=== PATIENT | male | born 1960 | race Caucasian/White ===

== ENCOUNTER 2020-08-06 15:18 | Inpatient (IN) | payer OTHER, SELFPAY ==
[2020-08-06] VITALS (7 sets, daily range): BP systolic 99–135; BP diastolic 78–94; PULSE 91–145; RESP 14–23; TEMP 36.4–36.6; O2SAT 95–96; BMI 26.6
--- NOTE | ~2020-08-06 | CT_ITS ---
EXAMINATION: CT ABDOMEN AND PELVIS WITHOUT CONTRAST CLINICAL INFORMATION: Abdominal pain. Fall. Coccyx pain. COMPARISON: None TECHNIQUE: Multidetector volumetric imaging was performed from the superior aspect of the liver through the pubic symphysis. Sagittal and coronal reformatted images were obtained on the technologist's workstation. This CT examination was performed using dose optimization techniques as appropriate, variously including the following: *Automated exposure control *Adjustment of mA and/or kV according to patient size (this includes techniques or standardized protocols for targeted exams where dose is matched to indication/reason for exam; i.e. extremities or head) *Use of iterative reconstruction technique DLP: 904 mGy-cm FINDINGS: LUNG BASES: The lung bases are clear. The heart is borderline prominent. LIVER, GALLBLADDER, AND BILIARY TREE: Small size of the liver with a nodular Contour. Normal attenuation. No biliary ductal dilatation. No focal lesion. The gallbladder is contracted with no gross abnormality. PANCREAS: Unremarkable. SPLEEN: Unremarkable. ADRENAL GLANDS: Unremarkable. KIDNEYS AND URETERS: The kidneys are normal in size, shape, and attenuation. No hydronephrosis, hydroureter, or calculi seen. No perinephric stranding. BLADDER: Unremarkable. GASTROINTESTINAL TRACT: The stomach is unremarkable. There are radiopaque coils seen near the gastric body. Normal caliber small bowel. No obstruction. Colonic diverticulosis without diverticulitis. Normal appendix. No free air or free fluid. ABDOMINAL WALL: Mesh repair of the anterior abdominal wall. There is a fluid collection which is partially imaged lateral to the left hip measuring 10.9 cm in AP dimension. This has some mixed internal attenuation. LYMPH NODES: Normal. VASCULAR: Unremarkable. PELVIC VISCERA: The prostate and seminal vesicles are unremarkable. OSSEOUS STRUCTURES: No acute or suspicious osseous abnormality. Anterior wedging of the L1 vertebral body noted. This appears chronic. The sacrum and coccyx are intact. CT/CT abdomen pelvis wo con IMPRESSION: 1. Fluid collection in the superficial soft tissues lateral to the left hip. There is some mixed internal attenuation and this could represent hematoma. 2. The sacrum and coccyx appear intact. 3. Cirrhotic morphology of the liver.
--- NOTE | ~2020-08-06 | CT_ITS ---
Indication: Fall EXAMINATION: CT of the brain, CT cervical spine. DLP is [address] brain; No midline shift. No mass effect. No hemorrhage. The basilar cisterns are patent. There is atrophy and scattered areas of white matter ischemic change. 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 No fracture on the bone windows. CT cervical spine; Degenerative changes. No acute fracture or dislocation. CT/CT head/brain wo con IMPRESSION: Negative acute noncontrast CT of the brain. No fracture or dislocation of the cervical spine
--- NOTE | ~2020-08-06 | XR_ITS ---
EXAMINATION: XR CHEST CLINICAL INFORMATION: Shortness of breath COMPARISON: CT shoulder 06/20/2019 TECHNIQUE: Frontal supine view of the chest was obtained. FINDINGS: There is probable mild cardiac enlargement even allowing for the supine position. No CHF is seen. Some chronic reticular markings are present most prominent at the apices. No consolidation seen. Marked degenerative changes present in the right shoulder XR/XR chest 1V IMPRESSION: No acute intrathoracic disease.
--- NOTE | ~2020-08-06 | XR_ITS ---
EXAMINATION: XR HIP, LEFT CLINICAL INFORMATION: Left hip pain status post fall COMPARISON: None TECHNIQUE: Two views of the left hip. FINDINGS: Bones and soft tissues are unremarkable. There has been a prior mesh hernia repair in the midabdomen. No fracture. Alignment is anatomic. Hip joint space is maintained. XR/XR hip LT w [id number] IMPRESSION: No evidence of osseous fracture.
--- NOTE | ~2020-08-06 | CT_ITS ---
Indication: Fall EXAMINATION: CT of the brain, CT cervical spine. DLP is [address] brain; No midline shift. No mass effect. No hemorrhage. The basilar cisterns are patent. There is atrophy and scattered areas of white matter ischemic change. 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 No fracture on the bone windows. CT cervical spine; Degenerative changes. No acute fracture or dislocation. CT/CT cervical spine wo con IMPRESSION: Negative acute noncontrast CT of the brain. No fracture or dislocation of the cervical spine
--- NOTE | 2020-08-06 16:24 | ECG_ITS ---
Test Reason : RAPID HR Blood Pressure : / mmHG Vent. Rate : 122 BPM Atrial Rate : 156 BPM P-R Int : 000 ms QRS Dur : 094 ms QT Int : 354 ms P-R-T Axes : 000 007 085 degrees QTc Int : 504 ms Atrial fibrillation with rapid ventricular response Abnormal ECG No previous ECGs available Referred By: Matt Steven Electronically Signed By:SHREE CARPENTER MD
[2020-08-06] MEDS: LORazepam 2 MG/ML VIAL IVPUSH ×2 (16:32→19:31)
[2020-08-06] MEDS: 0.9 % Sodium Chloride 1,000 ML 999 ML IVCONT (16:32)
--- NOTE | 2020-08-06 16:39 | PC.NURSE ---
PT UPRIGHT IN BED, RR EVEN UNLABORED, SKIN WPD (W/ PSORIASIS PATCHES ALL OVER BODY), AOX3. PT'S NEIGHBOR CALLED EMS D/T PT LYING ON GROUND OUTSIDE HOUSE APPARENTLY INTOXICATED W/ ETOH BOTTLES ALL AROUND. UPON ARRIVAL PT IN AFIB RVR ON TELE 120'S-140'S, VSS OTHERWISE. PT REPORTS HX AFIB, STS HAS NOT BEEN TAKING ANY PRESCRIBED MEDICATIONS. PT C/O PAIN TO L CLAVICLE, L HIP, COCCYX S/P FALL IN SHOWER X1.5 WEEKS AGO, PT STS VERY PAINFUL ALL THE TIME AND HAVING DIFFICULTY WALKING D/T PAIN. BRUSIE NOTED TO L CALVICULAR AREA, SWELLING AND BRUSING TO L LATERAL HIP AND THIGH, NOT PITTING EDEMA TO BILAT FEET. PT INTERMITTENTLY AGGRESSIVE WITH STAFF, YELLING PROFANITIES DEMANDING TO LEAVE, THEN SWITCHING TO VERY FRIENDLY AND STATING HOW HAPPY HE IS SUCH WONDERFUL PEOPLE ARE TAKING CARE OF HIM. PT MEDICATED PER EMAR, LABS DRAWN.
[2020-08-06 16:43] LABS: MANUAL DIFF FLAG NO
[2020-08-06 16:45] LABS: Basophils Percent Auto 0.9 % (0-2); Eosinophils Absolute Auto 0.1 X10*3/uL (0.0-0.4); Eosinophils Percent Auto 1.2 % (0-4); Hematocrit 39.9 % (42-52); Hemoglobin 13.3 g/dl (14.0-18.0); Imm Gran Abs Auto 0.02 X10*3/uL (0.00-0.03); Imm Gran Pct Auto 0.5 % (0.0-0.4); Lymphocytes Absolute Auto 1.2 X10*3/uL (1.2-4.9); Lymphocytes Percent Auto 27.7 % (20-40); Mean Corpuscular HGB Conc 33.3 g/dl (31.0-36.0); Mean Corpuscular Hemoglobin 34.5 pg (27.0-33.0); Mean Corpuscular Volume 103.4 fL (80-98); Mean Platelet Volume 9.9 fL (9.4-12.4); Monocytes Absolute Auto 0.4 X10*3/uL (0.1-1.2); Monocytes Percent Auto 9.8 % (2-11); Neutrophils Absolute Auto 2.6 X10*3/uL (2.0-8.3); Neutrophils Percent Auto 59.9 % (45-73); Platelet Count 106 X10*3/uL (160-400); Red Blood Count 3.86 X10*6/uL (4.60-5.80); Red Cell Distribution Width 14.2 % (11.0-16.0); White Blood Count 4.3 X10*3/uL (4.8-10.8)
[2020-08-06 16:52] LABS: Partial Thromboplastin Time 33.3 SEC (24.1-38.0)
--- NOTE | 2020-08-06 17:11 | ED_ITS ---
HPI - Arrhythmia/Palpitations General Chief Complaint: Arrhythmia/Palpitations Stated Complaint: ETOH,FAST HR W/NO CP PER EMS Time Seen by Provider: 08/06/20 16:21 Source: EMS Mode of arrival: EMS Limitations: other (Intoxicated poor historian) History of Present Illness HPI narrative: Patient alcoholic was found in his house with alcohol bottles around him noticed to have tachycardia with heart rate of 145. Patient intoxicated, aggressive and not answering question during triage patient reports that he fell in the bathroom few days ago and has pain in the left clavicle area and left thigh, has not seen any medical attention. In the ER patient was smelling of alcohol unsteady on his feet shaky afebrile with bruise on the left clavicle area and swelling of the left thigh with tachycardia heart rate in 140 s. Patient afebrile Related Data Allergies Allergy/AdvReac Type Severity Reaction Status Date / Time No Known Allergies Allergy Verified 08/06/20 15:36 Review of Systems Review of Systems: Yes Unobtainable due to mental condition (Intoxicated non cooperative) PMFSH Past Medical History Medical History Afib Psoriasis Social History Social History Alcohol intake: current Alcohol intake frequency: 3 or more drinks per day Alcohol type: beer and hard liquor Smoking Status: Never smoker Use of substances other than those prescribed or required for medical reasons: No Advance Directives: No Advance Directives Information Provided: Yes Physical Exam Vital Signs: Vital Signs: Last Vital Signs Temp 97.6 F 08/06/20 22:14 Pulse 122 H 08/06/20 22:14 Resp 23 H 08/06/20 22:14 BP 135/94 H 08/06/20 22:14 Pulse Ox 95 08/06/20 22:14 Body Mass Index 26.6 Const: General: awake, anxious and intoxicated appearing Orientation/consciousness: oriented to person and oriented to place HENMT: Head: Yes normocephalic and Yes atraumatic Ears: hearing grossly normal bilaterally General nose exam: Normal external nose present Face and sinus: Yes normal facial exam Mouth: Normal oral and palatal mucosa p resent Eyes: General: appearance normal, both eyes and all related structures Pupils: Equal, round and reactive pupils present Neck: Neck: Yes normal visual inspection, Yes full ROM, Yes trachea midline, Yes supple and No midline deformity Chest: Chest/axillae images: 1. Ecchymosis area with tenderness Resp: Effort & Inspection: normal respiratory effort Auscultation: clear to auscultation bilaterally, no crackles, no rales, no rhonchi and no wheezes Cardio: Jugular venous distension: no JVD Palpation: normal PMI Rate: tachycardic Rhythm: regular rhythm and abnormal rhythm irregularly irregular Heart sounds: S1 normal heart sound present and S2 normal heart sound present Peripheral pulses: Peripheral pulses 2+ throughout GI: Inspection: Yes normal to inspection Palpation (GI): Soft to palpation, not firm and nontender Auscultation: normal bowel sounds : General: Yes no CVA tenderness Back/Spine/Pelvis: Back: no CVA tenderness Thoracic/Lumbar Spine: thoracic and lumbar spine normal to inspection, thoraco-lumbar spasm and No thoracic spinal tenderness Skin: Other: Psoriatic lesions all over the skin Full body images: 1. Soft tissue swelling with ecchymosis noticed Neuro: General: oriented to person, oriented to place, moves all extremities, no focal motor deficits and CN's II-XI intact bilaterally Cranial nerves: Yes Equal, round and reactive pupils present Extrem: Other: Unsteady on his feet tremors++ General: Yes full ROM and Yes pedal edema (2+) MDM - Arrhythmia/Palpitations MDM Narrative Medical decision making narrative: Patient toxic at it saying that does not have any medical problem does not know anything about atrial fibrillation EKG showed AFib with fast ventricular rate responded to 1 dose of 20 mg IV Cardizem now heart rate is less than 100 will start him on p.o. Cardizem. Had to give Ativan for his agitation and withdrawal symptoms will admit him for alcohol intoxication and rapid AFib will start him on phenobarb protocol Lab Data Attestation: I reviewed the patient's lab results. Result diagrams: 08/06/20 16:36 08/06/20 16:36 Labs: Lab Results 08/06/20 08/06/20 08/06/20 Range/Units 16:36 16:36 16:36 WBC 4.3 L (4.8-10.8) X10*3/uL RBC 3.86 L (4.60-5.80) X10*6/uL Hgb 13.3 L (14.0-18.0) g/dl Hct 39.9 L (42-52) % MCV 103.4 H (80-98) fL MCH 34.5 H (27.0-33.0) pg MCHC 33.3 (31.0-36.0) g/dl RDW 14.2 (11.0-16.0) % Plt Count 106 L (160-400) X10*3/uL MPV 9.9 (9.4-12.4) fL Immature Gran % (Auto) 0.5 H (0.0-0.4) % Neut % (Auto) 59.9 (45-73) % Lymph % (Auto) 27.7 (20-40) % [place] % (Auto) 9.8 (2-11) % Eos % (Auto) 1.2 (0-4) % Baso % (Auto) 0.9 (0-2) % Lymph # (Auto) 1.2 (1.2-4.9) X10*3/uL [place] # (Auto) 0.4 (0.1-1.2) X10*3/uL Eos # (Auto) 0.1 (0.0-0.4) X10*3/uL Baso # (Auto) 0.0 (0.0-0.2) X10*3/uL Abs Immat Gran (auto) 0.02 (0.00-0.03) X10*3/uL Absolute Neuts (auto) 2.6 (2.0-8.3) X10*3/uL Absolute Nucleated RBC 0.000 (0.0-0.012) X10*3/uL Nucleated RBC % (auto) 0.0 (0.0-0.2) /100WBC PT (10.8-13.0) SEC INR (0.9-1.1) APTT (24.1-38.0) SEC Sodium 148 H (135-145) mmol/L Potassium 3.5 (3.3-5.1) mmol/L Chloride 111 H (96-108) mmol/L Carbon Dioxide 26 (22-29) mmol/L Anion Gap 15 (12-20) BUN 9 (9-16) mg/dL Creatinine 0.71 (0.5-1.4) mg/dL Estim Creat Clear Calc 118.5 Estimated GFR > 60 Random Glucose 94 (60-115) mg/dL Calcium 8.2 L (8.4-10.2) mg/dL Magnesium (1.6-2.6) mg/dL Total Bilirubin 1.0 (0.0-1.0) mg/dL Direct Bilirubin 0.7 H (0.0-0.5) mg/dL AST 85 H (5-37) U/L ALT 51 H (0-40) U/L Alkaline Phosphatase 191 H (39-117) U/L Troponin I High Sens 8.9 (<3.5-35.0) ng/L B-Natriuretic Peptide 382 H (<100) pg/mL Total Protein 6.4 L (6.5-8.0) g/dL Albumin 3.4 L (3.5-5.0) g/dL Lipase 37 (8-78) U/L Ethyl Alcohol mg/dL COVID-19 ([facility]) (Negative) COVID-19 Clin Com 08/06/20 08/06/20 08/06/20 Range/Units 16:36 16:36 16:36 WBC (4.8-10.8) X10*3/uL RBC (4.60-5.80) X10*6/uL Hgb (14.0-18.0) g/dl Hct (42-52) % MCV (80-98) fL MCH (27.0-33.0) pg MCHC (31.0-36.0) g/dl RDW (11.0-16.0) % Plt Count (160-400) X10*3/uL MPV (9.4-12.4) fL Immature Gran % (Auto) (0.0-0.4) % Neut % (Auto) (45-73) % Lymph % (Auto) (20-40) % [place] % (Auto) (2-11) % Eos % (Auto) (0-4) % Baso % (Auto) (0-2) % Lymph # (Auto) (1.2-4.9) X10*3/uL [place] # (Auto) (0.1-1.2) X10*3/uL Eos # (Auto) (0.0-0.4) X10*3/uL Baso # (Auto) (0.0-0.2) X10*3/uL Abs Immat Gran (auto) (0.00-0.03) X10*3/uL Absolute Neuts (auto) (2.0-8.3) X10*3/uL Absolute Nucleated RBC (0.0-0.012) X10*3/uL Nucleated RBC % (auto) (0.0-0.2) /100WBC PT 12.0 (10.8-13.0) SEC INR 1.0 (0.9-1.1) APTT 33.3 (24.1-38.0) SEC Sodium (135-145) mmol/L Potassium (3.3-5.1) mmol/L Chloride (96-108) mmol/L Carbon Dioxide (22-29) mmol/L Anion Gap (12-20) BUN (9-16) mg/dL Creatinine (0.5-1.4) mg/dL Estim Creat Clear Calc Estimated GFR Random Glucose (60-115) mg/dL Calcium (8.4-10.2) mg/dL Magnesium 1.8 (1.6-2.6) mg/dL Total Bilirubin (0.0-1.0) mg/dL Direct Bilirubin (0.0-0.5) mg/dL AST (5-37) U/L ALT (0-40) U/L Alkaline Phosphatase (39-117) U/L Troponin I High Sens (<3.5-35.0) ng/L B-Natriuretic Peptide (<100) pg/mL Total Protein (6.5-8.0) g/dL Albumin (3.5-5.0) g/dL Lipase (8-78) U/L Ethyl Alcohol 372 H* mg/dL COVID-19 ([facility]) (Negative) COVID-19 Clin Com 08/06/20 Range/Units 19:38 WBC (4.8-10.8) X10*3/uL RBC (4.60-5.80) X10*6/uL Hgb (14.0-18.0) g/dl Hct (42-52) % MCV (80-98) fL MCH (27.0-33.0) pg MCHC (31.0-36.0) g/dl RDW (11.0-16.0) % Plt Count (160-400) X10*3/uL MPV (9.4-12.4) fL Immature Gran % (Auto) (0.0-0.4) % Neut % (Auto) (45-73) % Lymph % (Auto) (20-40) % [place] % (Auto) (2-11) % Eos % (Auto) (0-4) % Baso % (Auto) (0-2) % Lymph # (Auto) (1.2-4.9) X10*3/uL [place] # (Auto) (0.1-1.2) X10*3/uL Eos # (Auto) (0.0-0.4) X10*3/uL Baso # (Auto) (0.0-0.2) X10*3/uL Abs Immat Gran (auto) (0.00-0.03) X10*3/uL Absolute Neuts (auto) (2.0-8.3) X10*3/uL Absolute Nucleated RBC (0.0-0.012) X10*3/uL Nucleated RBC % (auto) (0.0-0.2) /100WBC PT (10.8-13.0) SEC INR (0.9-1.1) APTT (24.1-38.0) SEC Sodium (135-145) mmol/L Potassium (3.3-5.1) mmol/L Chloride (96-108) mmol/L Carbon Dioxide (22-29) mmol/L Anion Gap (12-20) BUN (9-16) mg/dL Creatinine (0.5-1.4) mg/dL Estim Creat Clear Calc Estimated GFR Random Glucose (60-115) mg/dL Calcium (8.4-10.2) mg/dL Magnesium (1.6-2.6) mg/dL Total Bilirubin (0.0-1.0) mg/dL Direct Bilirubin (0.0-0.5) mg/dL AST (5-37) U/L ALT (0-40) U/L Alkaline Phosphatase (39-117) U/L Troponin I High Sens (<3.5-35.0) ng/L B-Natriuretic Peptide (<100) pg/mL Total Protein (6.5-8.0) g/dL Albumin (3.5-5.0) g/dL Lipase (8-78) U/L Ethyl Alcohol mg/dL COVID-19 ([facility]) Negative (Negative) COVID-19 Clin Com See Note ECG Data Attestation: I personally reviewed and interpreted this ECG as follows: Interpretation: Atrial fibrillation with heart rate of 122 beats per minute normal axis no acute ST T wave changes impression atrial fibrillation with rapid ventricular rate
[2020-08-06 17:17] LABS: Ethanol 372 mg/dL
[2020-08-06 17:18] LABS: Magnesium 1.8 mg/dL (1.6-2.6)
[2020-08-06 17:20] LABS: Alanine Aminotransferase 51 U/L (0-40); Albumin Level 3.4 g/dL (3.5-5.0); Alkaline Phosphatase 191 U/L (39-117); Anion Gap 15 (12-20); Aspartate Amino Transferase 85 U/L (5-37); Bilirubin Direct 0.7 mg/dL (0.0-0.5); Blood Urea Nitrogen 9 mg/dL (9-16); Calcium 8.2 mg/dL (8.4-10.2); Carbon Dioxide 26 mmol/L (22-29); Chloride 111 mmol/L (96-108); Creatinine Clr Calc Pharmacy 118.5; Estimated Glomerular Filt Rate > 60; Glucose Random 94 mg/dL (60-115); Lipase 37 U/L (8-78); Potassium 3.5 mmol/L (3.3-5.1); Sodium 148 mmol/L (135-145); Total Protein 6.4 g/dL (6.5-8.0)
--- NOTE | 2020-08-06 17:20 | PC.NURSE ---
pt repeatedly attempting to get out of bed, stating he is going home, pt redirectible to bed, belonging placed in pod locker #8 to prevent pt trying to change into own clothes again. pt repeatedly pulling tele wires off chest, attempted to pull out iv x1, encouraged to not do so.
[2020-08-06 17:25] LABS: Troponin-I High Sensitivity 8.9 ng/L (<3.5-35.0)
[2020-08-06 17:43] LABS: B Type Natriuretic Peptide 382 pg/mL (<100)
--- NOTE | 2020-08-06 18:37 | PC.NURSE ---
PT R SIDE LYING IN BED SLEEPING, RR EVEN UNLABORED, NAD. PT SPO2 NOTED TO HAVE DROPPED WHILE SLEEPING TO 89%, PT PLACED ON 2L O2 NC W/ IMMEDIATE SPO2 IMPROVEMENT, PROVIDER AWARE.
[2020-08-06] MEDS: dilTIAZem HCL 50 MG/10 ML VIAL 20 MG IVPUSH (19:27)
--- NOTE | 2020-08-06 19:35 | PC.NURSE ---
Pt aaox4, slurred speech, admits to a lot of ETOH today. Pt in afib on field trainer with RVR in 140-150s. Anwer aware, ordered ativan and cardizem. Pt medicated per MAY with good effect, now in afib 80-90s. Pt resting on stretcher in NAD, breathing with ease on RA. Pt stretcher in lowest locked position, rails raised, call weiss within reach. Pt with urinal at bedside for independent use. Pt eating dinner at this time.
[2020-08-06 20:03] LABS: COVID-19 Test Negative (Negative)
[2020-08-06] MEDS: PHENobarbitaL sodium 130 MG/ML VIAL 292 MG IM (22:16)
[2020-08-06] MEDS: Aspirin 81 MG TAB.CHEW PO (22:16)
--- NOTE | 2020-08-06 23:10 | P.HPHOSP_ITS ---
History of Present Illness Date of Service: 08/06/20 Chief Complaint: Fall 59-year-old male so reassess, alcohol abuse, question AFib presented to the hospital with a chief complaint of fall. Patient reports that he fell in his shower today and has pain in his lower nebs and clavicle; mentions that he drinks alcohol intermittently; denies any seizure-like activity. Denies any headaches numbness. Denies any fever chills cough. Complains of pain in his coccyx. Denies any chest pain palpitations; Review of all other systems is negative except mentioned above ER course: Per ER team patient alcohol level was elevated; patient noted to be tachycardic- AFib, given aspirin; patient was noted to be in rapid ventricular response. Not improved with diltiazem IV push subsequently patient on diltiazem drip. Patient was also started on phenobarb protocol for possible alcohol withdrawal CT head and chest x-ray showed no acute findings. No evidence of fracture. 148; patient was given normal saline bolus. ProBNP 382 [facility] Medical History (Updated 08/20/20 @ 00:01 by Leobardo Banuelos) Afib Alcohol intoxication Alcoholic cirrhosis of liver Atrial fibrillation with rapid ventricular response Cardiomyopathy Chronic HFrEF (heart failure with reduced ejection fraction) Left against medical advice Psoriasis Social History Household Members: None Housing: Apartment Housing Other:: Elderly housing complex Do you presently have visiting nurse or other home services: Yes Alcohol intake: current Alcohol intake frequency: other Alcohol type: beer and hard liquor Smoking Status: Never smoker Second Hand Smoke Exposure: No service: No Current occupational status: disabled Meds Allergies Allergy/AdvReac Type Severity Reaction Status Date / Time No Known Allergies Allergy Verified 08/06/20 15:36 Active Medications: Current Medications Generic Name Dose Route Start Last Admin Trade Name Freq PRN Reason Stop Dose Admin Acetaminophen 650 mg 08/06/20 22:45 Acetaminophen 325 Mg Tablet PO Q6H PRN Pain, Mild (Pain Scale 1-3) Diltiazem HCl 30 mg 08/07/20 09:00 Diltiazem Hcl 30 Mg Tablet PO QID [facility] Protocol Famotidine 20 mg 08/07/20 09:00 Famotidine 20 Mg Tablet PO BID [facility] Folic Acid 1 mg 08/07/20 09:00 Folic Acid 1 Mg Tablet PO 08/10/20 08:59 DAILY [facility] Hydroxyzine HCl 25 mg 08/06/20 23:01 Hydroxyzine Hcl 25 Mg Tablet PO Q6H PRN Anxiety Diltiazem HCl 125 mg/ Sodium 125 mls @ 0 mls/hr 08/06/20 22:15 Chloride IVCONT .Q0M [facility] Protocol Per Protocol Dextrose/Sodium Chloride 1,000 mls @ 100 mls/hr 08/06/20 22:45 D51/2ns IVCONT .Q10H [facility] Medication 1 each 08/07/20 09:00 No Benzodiazepines MISCELLANE DAILY [facility] Multivitamins 1 tab 08/07/20 09:00 B-Complex With Vitamin C Tablet PO DAILY [facility] Pharmacy Consult 1 each 08/06/20 23:01 Consult Rx Etoh Phenob Dosing MISCELLANE 08/06/20 23:02 ONCE ONE Protocol Phenobarbital 45 mg 08/07/20 09:00 Phenobarbital 15 Mg Tablet PO 08/08/20 21:01 BID [facility] Phenobarbital 15 mg 08/09/20 09:00 Phenobarbital 15 Mg Tablet PO 08/10/20 21:01 BID [facility] Phenobarbital 15 mg 08/11/20 09:00 Phenobarbital 15 Mg Tablet PO 08/12/20 09:01 DAILY [facility] Phenobarbital Sodium 219 mg 08/07/20 02:00 Phenobarbital Sodium 130 Mg/Ml Vial IM 08/07/20 05:01 Q3H [facility] Sodium Chloride 3 ml 08/07/20 00:00 0.9 % Sodium Chloride Flush 3 Ml Syringe IVFLUSH QSHIFT [facility] Thiamine HCl 100 mg 08/07/20 09:00 Thiamine Hcl 100 Mg Tablet PO 08/10/20 08:59 DAILY [facility] Home Medications Medication Instructions Recorded Confirmed Last Taken Type fluocinonide 1 applic TOPICAL DAILY 08/06/20 08/14/20 Unknown History fluoxetine 1 cap PO DAILY 08/06/20 08/14/20 Unknown History lidocaine 1 appl TOPICAL DAILY 08/06/20 08/14/20 Unknown History magnesium oxide 1 tab PO DAILY 08/06/20 08/14/20 Unknown History pimecrolimus 1 appl TOPICAL BEDTIME 08/06/20 08/14/20 Unknown History Physical Exam Vital Signs and Narrative: Vital Signs: Last Vital Signs Temp 97.6 F 08/06/20 22:14 Pulse 122 H 08/06/20 22:14 Resp 23 H 08/06/20 22:14 BP 135/94 H 08/06/20 22:14 Pulse Ox 95 08/06/20 22:14 Body Mass Index 26.6 Di Gen: Appears be in no acute distress HEENT: NCAT, dry mucosa. Pulmonary: Vesicular breath sounds, fair air entry; reproducible tenderness noticed on the left clavicle CVS: Normal S1-S2 Abdomen: BS+, Soft, Nontender; scaly psoriatic rash noted on the abdominal wall and chest wall Extremities: Warm well perfused; 2+ pitting edema Neuro: Alert and awake. In in Results Labs CBC and Chem 7: 08/12/20 05:32 08/12/20 05:32 Labs: Laboratory Results - last 24 hr 08/06/20 08/06/20 08/06/20 16:36 16:36 16:36 MCV 103.4 H MCH 34.5 H MCHC 33.3 RDW 14.2 Plt Count 106 L MPV 9.9 Immature Gran % (Auto) 0.5 H Neut % (Auto) 59.9 Lymph % (Auto) 27.7 [place] % (Auto) 9.8 Eos % (Auto) 1.2 Baso % (Auto) 0.9 Lymph # (Auto) 1.2 [place] # (Auto) 0.4 Eos # (Auto) 0.1 Baso # (Auto) 0.0 Abs Immat Gran (auto) 0.02 Absolute Neuts (auto) 2.6 Absolute Nucleated RBC 0.000 Nucleated RBC % (auto) 0.0 PT INR APTT Anion Gap 15 Estim Creat Clear Calc 118.5 Estimated GFR > 60 Random Glucose 94 Calcium 8.2 L Magnesium Total Bilirubin 1.0 Direct Bilirubin 0.7 H AST 85 H ALT 51 H Alkaline Phosphatase 191 H Troponin I High Sens 8.9 B-Natriuretic Peptide 382 H Total Protein 6.4 L Albumin 3.4 L Lipase 37 Ethyl Alcohol COVID-19 ([facility]) COVID-19 Clin Com 08/06/20 08/06/20 08/06/20 16:36 16:36 16:36 MCV MCH MCHC RDW Plt Count MPV Immature Gran % (Auto) Neut % (Auto) Lymph % (Auto) [place] % (Auto) Eos % (Auto) Baso % (Auto) Lymph # (Auto) [place] # (Auto) Eos # (Auto) Baso # (Auto) Abs Immat Gran (auto) Absolute Neuts (auto) Absolute Nucleated RBC Nucleated RBC % (auto) PT 12.0 INR 1.0 APTT 33.3 Anion Gap Estim Creat Clear Calc Estimated GFR Random Glucose Calcium Magnesium 1.8 Total Bilirubin Direct Bilirubin AST ALT Alkaline Phosphatase Troponin I High Sens B-Natriuretic Peptide Total Protein Albumin Lipase Ethyl Alcohol 372 H* COVID-19 ([facility]) COVID-19 Clin Com 08/06/20 19:38 MCV MCH MCHC RDW Plt Count MPV Immature Gran % (Auto) Neut % (Auto) Lymph % (Auto) [place] % (Auto) Eos % (Auto) Baso % (Auto) Lymph # (Auto) [place] # (Auto) Eos # (Auto) Baso # (Auto) Abs Immat Gran (auto) Absolute Neuts (auto) Absolute Nucleated RBC Nucleated RBC % (auto) PT INR APTT Anion Gap Estim Creat Clear Calc Estimated GFR Random Glucose Calcium Magnesium Total Bilirubin Direct Bilirubin AST ALT Alkaline Phosphatase Troponin I High Sens B-Natriuretic Peptide Total Protein Albumin Lipase Ethyl Alcohol COVID-19 ([facility]) Negative COVID-19 Clin Com See Note Imaging Radiologist's Impressions: Impressions Cervical Spine CT 08/06/20 16:24 IMPRESSION: Negative acute noncontrast CT of the brain. No fracture or dislocation of the cervical spine Chest X-Ray 08/06/20 16:24 IMPRESSION: No acute intrathoracic disease. Head CT 08/06/20 16:24 IMPRESSION: Negative acute noncontrast CT of the brain. No fracture or dislocation of the cervical spine Hip/Pelvis X-Ray 08/06/20 16:25 IMPRESSION: No evidence of osseous fracture. Assessment and Plan (1) Afib: 59-year-old male with a past medical history of psoriasis, alcohol abuse presented to the hospital with a chief complaint of fall. Fall: Unwitnessed. Patient denies any loss of consciousness or seizure-like activity. Grossly nonfocal. CT head showed no acute findings. Fall precautions. PT/OT eventually. Patient reports left lower rib pain Jalloh pain; will obtain CT abdomen Alcohol abuse: Patient is off panel is currently elevated. Patient will monitor on phenobarb protocol. Continue thiamine folate and multivitamins. Transaminitis: Likely in setting of alcohol use. Continue to monitor liver enzymes. Will obtain acute hepatitis panel. CT abdomen pending. AFib with rapid ventricular response: Patient was given diltiazem iv in the ER. Improving. c/w p.o. diltiazem. Given aspirin in the ER. Cardiology consult for further recommendations. Will obtain echocardiogram and TSH. Hypernatremia: Likely in setting of dehydration. Repeat BMP Thrombocytopenia: Likely in the setting of alcohol use. Monitor levels . DVT prophylaxis: SCD Boots Code status: Full code in
[2020-08-06] MEDS: Dextrose 5 % and 0.45 % NaCl 1,000 ML 100 ML IVCONT (23:17)
[2020-08-07] VITALS (14 sets, daily range): BP systolic 113–159; BP diastolic 62–101; PULSE 57–113; RESP 18; TEMP 36.4–37.5; O2SAT 91–97
[2020-08-07] MEDS: PHENobarbitaL sodium 130 MG/ML VIAL 219 MG IM ×2 (02:04→05:21)
[2020-08-07 07:19] LABS: MANUAL DIFF FLAG NO
[2020-08-07 07:27] LABS: Basophils Percent Auto 0.6 % (0-2); Eosinophils Absolute Auto 0.1 X10*3/uL (0.0-0.4); Eosinophils Percent Auto 1.7 % (0-4); Hematocrit 37.5 % (42-52); Hemoglobin 12.5 g/dl (14.0-18.0); Imm Gran Abs Auto 0.02 X10*3/uL (0.00-0.03); Imm Gran Pct Auto 0.6 % (0.0-0.4); Lymphocytes Absolute Auto 0.7 X10*3/uL (1.2-4.9); Lymphocytes Percent Auto 20.6 % (20-40); Mean Corpuscular HGB Conc 33.3 g/dl (31.0-36.0); Mean Corpuscular Hemoglobin 34.2 pg (27.0-33.0); Mean Corpuscular Volume 102.5 fL (80-98); Monocytes Absolute Auto 0.4 X10*3/uL (0.1-1.2); Neutrophils Absolute Auto 2.3 X10*3/uL (2.0-8.3); Neutrophils Percent Auto 65.5 % (45-73); Red Blood Count 3.66 X10*6/uL (4.60-5.80); White Blood Count 3.4 X10*3/uL (4.8-10.8)
[2020-08-07 07:50] LABS: Mean Platelet Volume 9.8 fL (9.4-12.4); Platelet Count 78 X10*3/uL (160-400)
[2020-08-07 08:16] LABS: Anion Gap 11 (12-20); Blood Urea Nitrogen 6 mg/dL (9-16); Carbon Dioxide 28 mmol/L (22-29); Chloride 106 mmol/L (96-108); Creatinine Clr Calc Pharmacy 135.7; Estimated Glomerular Filt Rate > 60; Glucose Random 97 mg/dL (60-115); Magnesium 1.4 mg/dL (1.6-2.6); Potassium 3.1 mmol/L (3.3-5.1); Sodium 142 mmol/L (135-145)
[2020-08-07 08:35] LABS: Calcium 7.9 mg/dL (8.4-10.2)
[2020-08-07] MEDS: Potassium Chloride ER 20 MEQ TAB.ER.PRT 40 MEQ PO (08:59)
[2020-08-07] MEDS: Magnesium Sulfate/H2O 2 GM/50 ML PIGGYBACK IV (08:59)
[2020-08-07] MEDS: Famotidine 20 MG TABLET PO ×2 (09:00→19:57)
[2020-08-07] MEDS: Folic Acid 1 MG TABLET PO (09:00)
[2020-08-07] MEDS: Thiamine HCL 100 MG TABLET PO (09:00)
[2020-08-07] MEDS: dilTIAZem HCL 30 MG TABLET PO ×4 (09:00→19:58)
[2020-08-07] MEDS: FLUoxetine HCl 20 MG CAPSULE PO (09:00)
[2020-08-07] MEDS: PHENobarbitaL 15 MG TABLET 45 MG PO ×2 (09:00→19:57)
[2020-08-07] MEDS: 0.9 % Sodium Chloride Flush 3 ML SYRINGE IVFLUSH ×2 (09:44→18:12)
[2020-08-07] MEDS: Magnesium Oxide 400 MG TABLET PO ×2 (09:44→18:17)
[2020-08-07] MEDS: nadoloL 20 MG TABLET PO (10:26)
--- NOTE | 2020-08-07 11:13 | P.CONCA_ITS ---
History of Present Illness History of Present Illness Date of Service: 08/07/20 Requesting physician: Jerome Evans Consult reason: atrial fibrillation Chief complaint: Afib with RVR Narrative: We are asked to see Wei in cardiology consultation today for atrial fibrillation with rapid ventricular response. Is a 59-year-old male overall lives at home alone and says usually active, was biking until yesterday, however had progressive symptoms of pain in the lower precordial area as well as the left shoulder and came to the hospital as he had a fall in the shower about week and half ago. He was noted to be in atrial fibrillation rapid ventricular response. Initially did not response to IV Cardizem bolus and was subsequently started on IV Cardizem drip. He also has history of alcohol use however he says only drinks about 4 beers a day however his alcohol levels elevated and therefore is admitted for withdrawal symptoms and currently on alcohol withdrawal protocol. He denies of palpitations, rapid heart rate, shortness of breath, orthopnea, PND. Atrial fibrillation onset is not clearly known. He denies any prior history of atrial fibrillation. His TSH is within normal limits. Denies any recent neurologic symptoms. No prior history of stroke, diabetes, hypertension. He has psoriasis, does not see any physician actively. At home he is on nadolol, dose unknown. He is not very good historian. Review of Systems Constitutional: Constitutional: Reports no additional constitutional compl aints Cardiovascular: Cardiovascular: Reports chest pain (Reproducible in the left inframammary area), Denies rapid heart rate, Denies lightheadedness, Denies Loss of Consciousness, Denies palpitations, Denies dyspnea, Denies dyspnea on exertion and Denies orthopnea Respiratory: Respiratory: Denies cough, Denies hemoptysis, Denies dyspnea and Denies dyspnea on exertion Gastrointestinal: Gastrointestinal: Reports no additional gastrointestinal complaints Genitourinary: Genitourinary: Reports no additional male genitourinary complaints Musculoskeletal: Musculoskeletal: Reports no additional musculoskeletal complaints Neurologic: Reports system reviewed and no additional complaints, except as documented Psychiatric: Psychiatric: Reports no additional psychiatric complaints Endocrine: Endocrine: Reports no additional endocrine complaints and Denies palpitations Hematologic/Lymphatic: Hematologic/Lymphatic: Reports no additional hematologic/lymphatic complaints PMFSH Past Medical History Medical History Afib Alcoholic cirrhosis of liver Psoriasis Social History Social History Household Members: None Housing: Apartment Do you presently have visiting nurse or other home services: No Alcohol intake: current Alcohol intake frequency: 3 or more drinks per day Alcohol type: beer and hard liquor Smoking Status: Never smoker Second Hand Smoke Exposure: No Use of substances other than those prescribed or required for medical reasons: No Currently Displaying Signs/Symptoms of Drug Intoxication Withdrawal: No Any prior treatment program specific to substance use: No Have you been hit, kicked, punched, or otherwise hurt by someone within the past year? If so, by whom?: No Do you feel safe in your current relationship?: No Current Relationship Is there a partner from a previous relationship who is making you feel unsafe now?: No Are you made to feel afraid or neglected: No Advance Directives: No Advance Directives Information Provided: Yes Do you have thoughts of harming others: None Do you have a plan to hurt others: No Plan Recently lost weight without trying: Unsure Eating poorly because of decreased appetite: No Nutrition Risks: No Nutritional Risk Poor oral hygiene: No Meds Allergies Allergy/AdvReac Type Severity Reaction Status Date / Time No Known Allergies Allergy Verified 08/06/20 15:36 Active Medications: Current Medications Generic Name Dose Route Start Last Admin Trade Name Freq PRN Reason Stop Dose Admin Acetaminophen 650 mg 08/06/20 22:45 Acetaminophen 325 Mg Tablet PO Q6H PRN Pain, Mild (Pain Scale 1-3) Diltiazem HCl 30 mg 08/07/20 09:00 08/07/20 09:00 Diltiazem Hcl 30 Mg Tablet PO 30 mg QID ARMANDO Administration Protocol Famotidine 20 mg 08/07/20 09:00 08/07/20 09:00 Famotidine 20 Mg Tablet PO 20 mg BID ARMANDO Administration Fluoxetine HCl 20 mg 08/07/20 09:00 08/07/20 09:00 Fluoxetine Hcl 20 Mg Capsule PO 20 mg DAILY ARMANDO Administration Folic Acid 1 mg 08/07/20 09:00 08/07/20 09:00 Folic Acid 1 Mg Tablet PO 08/10/20 08:59 1 mg DAILY ARMANDO Administration Hydroxyzine HCl 25 mg 08/06/20 23:01 Hydroxyzine Hcl 25 Mg Tablet PO Q6H PRN Anxiety Dextrose/Sodium Chloride 1,000 mls @ 100 mls/hr 08/06/20 22:45 08/07/20 10:03 D51/2ns IVCONT Not Given .Q10H [facility] Magnesium Oxide 400 mg 08/07/20 08:30 08/07/20 09:44 Magnesium Oxide 400 Mg Tablet PO 400 mg BIDPC [facility] Administration Medication 1 each 08/07/20 09:00 No Benzodiazepines MISCELLANE DAILY [facility] Multivitamins 1 tab 08/07/20 09:00 08/07/20 08:59 B-Complex With Vitamin C Tablet PO 1 tab DAILY [facility] Administration Nadolol 20 mg 08/07/20 09:00 08/07/20 10:26 Nadolol 20 Mg Tablet PO 20 mg DAILY [facility] Administration Protocol Phenobarbital 45 mg 08/07/20 09:00 08/07/20 09:00 Phenobarbital 15 Mg Tablet PO 08/08/20 21:01 45 mg BID ARMANDO Administration Phenobarbital 15 mg 08/09/20 09:00 Phenobarbital 15 Mg Tablet PO 08/10/20 21:01 BID ARMANDO Phenobarbital 15 mg 08/11/20 09:00 Phenobarbital 15 Mg Tablet PO 08/12/20 09:01 DAILY [facility] Sodium Chloride 3 ml 08/07/20 00:00 08/07/20 09:44 0.9 % Sodium Chloride Flush 3 Ml Syringe IVFLUSH 3 ml QSHIFT [facility] Administration Thiamine HCl 100 mg 08/07/20 09:00 08/07/20 09:00 Thiamine Hcl 100 Mg Tablet PO 08/10/20 08:59 100 mg DAILY [facility] Administration Home Medications Medication Instructions Recorded Confirmed Last Taken Type fluocinonide 1 applic TOPICAL DAILY 08/06/20 08/07/20 Unknown History fluoxetine 1 cap PO DAILY 08/06/20 08/07/20 Unknown History lidocaine 1 appl TOPICAL DAILY 08/06/20 08/07/20 Unknown History magnesium oxide 1 tab PO DAILY 08/06/20 08/07/20 Unknown History nadolol 1 tab PO DAILY 08/06/20 08/07/20 Unknown History pimecrolimus 1 appl TOPICAL BEDTIME 08/06/20 08/07/20 Unknown History triamcinolone acetonide 1 appl TOPICAL BEDTIME 08/06/20 08/07/20 Unknown History Physical Exam Vital Signs: Vital Signs: Last Vital Signs Temp 98.9 F 08/07/20 07:54 Pulse 113 H 08/07/20 10:26 Resp 18 08/07/20 07:54 BP 133/88 08/07/20 10:26 Pulse Ox 96 08/07/20 07:54 Body Mass Index 26.6 Const: General: cooperative, comfortable, no acute distress and lethargic Nutritional Appearance: overweight Orientation/consciousness: lethargic HENMT: Head: Yes normocephalic and Yes atraumatic Neck: Neck: Yes trachea midline, Yes supple and Yes no JVD Chest: Chest palpation & inspection: normal inspection of the chest Resp: Effort & Inspection: decreased respiratory effort Auscultation: clear to auscultation bilaterally Cardio: Jugular venous distension: no JVD Palpation: normal PMI Rate: tachycardic Rhythm: abnormal rhythm irregularly irregular Heart sounds: S1 normal heart sound present and S2 normal heart sound present GI: Auscultation: normal bowel sounds Skin: General skin exam: ecchymosis and other (Diffuse psoriatic lesions) Neuro: General: no focal motor deficits Extrem: General: No clubbing, No cyanosis, Yes pedal edema and Yes other (Bilateral significant varicosities) Results Labs and Meds Result diagrams: 08/07/20 07:04 08/07/20 07:04 Lab results: Laboratory Results - last 24 hr 08/06/20 08/06/20 08/06/20 16:36 16:36 16:36 WBC 4.3 L RBC 3.86 L Hgb 13.3 L Hct 39.9 L MCV 103.4 H MCH 34.5 H MCHC 33.3 RDW 14.2 Plt Count 106 L MPV 9.9 Immature Gran % (Auto) 0.5 H Neut % (Auto) 59.9 Lymph % (Auto) 27.7 Porter % (Auto) 9.8 Eos % (Auto) 1.2 Baso % (Auto) 0.9 Lymph # (Auto) 1.2 Porter # (Auto) 0.4 Eos # (Auto) 0.1 Baso # (Auto) 0.0 Abs Immat Gran (auto) 0.02 Absolute Neuts (auto) 2.6 Absolute Nucleated RBC 0.000 Nucleated RBC % (auto) 0.0 PT INR APTT Sodium 148 H Potassium 3.5 Chloride 111 H Carbon Dioxide 26 Anion Gap 15 BUN 9 Creatinine 0.71 Estim Creat Clear Calc 118.5 Estimated GFR > 60 Random Glucose 94 Calcium 8.2 L Magnesium Total Bilirubin 1.0 Direct Bilirubin 0.7 H AST 85 H ALT 51 H Alkaline Phosphatase 191 H Troponin I High Sens 8.9 B-Natriuretic Peptide 382 H Total Protein 6.4 L Albumin 3.4 L Lipase 37 TSH Ethyl Alcohol COVID-19 ([facility]) COVID-19 [facility] 08/06/20 08/06/20 08/06/20 16:36 16:36 16:36 WBC RBC Hgb Hct MCV MCH MCHC RDW Plt Count MPV Immature Gran % (Auto) Neut % (Auto) Lymph % (Auto) Porter % (Auto) Eos % (Auto) Baso % (Auto) Lymph # (Auto) Porter # (Auto) Eos # (Auto) Baso # (Auto) Abs Immat Gran (auto) Absolute Neuts (auto) Absolute Nucleated RBC Nucleated RBC % (auto) PT 12.0 INR 1.0 APTT 33.3 Sodium Potassium Chloride Carbon Dioxide Anion Gap BUN Creatinine Estim Creat Clear Calc Estimated GFR Random Glucose Calcium Magnesium 1.8 Total Bilirubin Direct Bilirubin AST ALT Alkaline Phosphatase Troponin I High Sens B-Natriuretic Peptide Total Protein Albumin Lipase TSH Ethyl Alcohol 372 H* COVID-19 ([facility]) COVID-19 [employer] 08/06/20 08/07/20 08/07/20 19:38 00:13 07:04 WBC 3.4 L RBC 3.66 L Hgb 12.5 L Hct 37.5 L MCV 102.5 H MCH 34.2 H MCHC 33.3 RDW 14.0 Plt Count 78 L D MPV 9.8 Immature Gran % (Auto) 0.6 H Neut % (Auto) 65.5 Lymph % (Auto) 20.6 Porter % (Auto) 11.0 Eos % (Auto) 1.7 Baso % (Auto) 0.6 Lymph # (Auto) 0.7 L Porter # (Auto) 0.4 Eos # (Auto) 0.1 Baso # (Auto) 0.0 Abs Immat Gran (auto) 0.02 Absolute Neuts (auto) 2.3 Absolute Nucleated RBC 0.000 Nucleated RBC % (auto) 0.0 PT INR APTT Sodium Potassium Chloride Carbon Dioxide Anion Gap BUN Creatinine Estim Creat Clear Calc Estimated GFR Random Glucose Calcium Magnesium Total Bilirubin Direct Bilirubin AST ALT Alkaline Phosphatase Troponin I High Sens B-Natriuretic Peptide Total Protein Albumin Lipase TSH 3.40 Ethyl Alcohol COVID-19 ([facility]) Negative COVID-19 Clin Com See Note 08/07/20 07:04 WBC RBC Hgb Hct MCV MCH MCHC RDW Plt Count MPV Immature Gran % (Auto) Neut % (Auto) Lymph % (Auto) Porter % (Auto) Eos % (Auto) Baso % (Auto) Lymph # (Auto) Porter # (Auto) Eos # (Auto) Baso # (Auto) Abs Immat Gran (auto) Absolute Neuts (auto) Absolute Nucleated RBC Nucleated RBC % (auto) PT INR APTT Sodium 142 Potassium 3.1 L Chloride 106 Carbon Dioxide 28 Anion Gap 11 L BUN 6 L Creatinine 0.62 Estim Creat Clear Calc 135.7 Estimated GFR > 60 Random Glucose 97 Calcium 7.9 L Magnesium 1.4 L* Total Bilirubin Direct Bilirubin AST ALT Alkaline Phosphatase Troponin I High Sens B-Natriuretic Peptide Total Protein Albumin Lipase TSH Ethyl Alcohol COVID-19 ([facility]) COVID-19 Clin Com EKG shows atrial fibrillation rapid ventricular response Imaging Radiologist's impression: Impressions Cervical Spine CT 08/06/20 16:24 IMPRESSION: Negative acute noncontrast CT of the brain. No fracture or dislocation of the cervical spine Chest X-Ray 08/06/20 16:24 IMPRESSION: No acute intrathoracic disease. Head CT 08/06/20 16:24 IMPRESSION: Negative acute noncontrast CT of the brain. No fracture or dislocation of the cervical spine Hip/Pelvis X-Ray 08/06/20 16:25 IMPRESSION: No evidence of osseous fracture. Abdomen/Pelvis CT 08/06/20 23:40 IMPRESSION: 1. Fluid collection in the superficial soft tissues lateral to the left hip. There is some mixed internal attenuation and this could represent hematoma. 2. The sacrum and coccyx appear intact. 3. Cirrhotic morphology of the liver. Assessment and Plan (1) Atrial fibrillation with rapid ventricular response: Status: Acute New onset atrial fibrillation in a middle-aged man with no obvious other risk factors for atrial fibrillation or signs of clinical heart failure. BNP is high most likely from persistent atrial fibrillation. Will in in echocardiogram to evaluate LV systolic and diastolic function. He does have a history of alcoh ol abuse, he downplays it, however currently on alcohol withdrawal program. Currently on Cardizem drip, continue the same. Add metoprolol 25 mg q.6 hours to his regimen. Continue to treat alcohol withdrawal as per protocol. No need for diuretic therapy at this point time. Aggressively replace magnesium and maintain potassium level above 4. No oral anticoagulation therapy given his alcohol abuse and falls which increases risk of bleeding and is CHADSVASc score at thie time is 0-1. Will follow with the patient
[2020-08-07] MEDS: Dextrose 5 % and 0.45 % NaCl 1,000 ML 100 ML IVCONT ×2 (11:16→19:54)
--- NOTE | 2020-08-07 11:52 | HO.PM.IMPN ---
Subjective Subjective Date of Service: 08/07/20 Interval History: tired Cardiovascular Cardiovascular: Reports no additional cardiovascular complaints Respiratory Respiratory: Reports no additional respiratory complaints Physical Exam Vital Signs: Vital Signs: Last Vital Signs Temp 97.9 F 08/07/20 11:30 Pulse 66 08/07/20 11:30 Resp 18 08/07/20 11:30 BP 130/62 08/07/20 11:30 Pulse Ox 97 08/07/20 11:30 Body Mass Index 26.6 General: AO X 3, no acute distress Resp: CTA bilateral CVS: S1,S2,irregular GI: soft, non tender, non distended Neuro: motor grossly intact Psych: appropriate affect Objective Data Current Medications Generic Name Dose Route Start Last Admin Trade Name Freq PRN Reason Stop Dose Admin Acetaminophen 650 mg 08/06/20 22:45 Acetaminophen 325 Mg Tablet PO Q6H PRN Pain, Mild (Pain Scale 1-3) Diltiazem HCl 30 mg 08/07/20 09:00 08/07/20 09:00 Diltiazem Hcl 30 Mg Tablet PO 30 mg QID ARMANDO Administration Protocol Famotidine 20 mg 08/07/20 09:00 08/07/20 09:00 Famotidine 20 Mg Tablet PO 20 mg BID ARMANDO Administration Fluoxetine HCl 20 mg 08/07/20 09:00 08/07/20 09:00 Fluoxetine Hcl 20 Mg Capsule PO 20 mg DAILY ARMANDO Administration Folic Acid 1 mg 08/07/20 09:00 08/07/20 09:00 Folic Acid 1 Mg Tablet PO 08/10/20 08:59 1 mg DAILY ARMANDO Administration Hydroxyzine HCl 25 mg 08/06/20 23:01 Hydroxyzine Hcl 25 Mg Tablet PO Q6H PRN Anxiety Dextrose/Sodium Chloride 1,000 mls @ 100 mls/hr 08/06/20 22:45 08/07/20 11:16 D51/2ns IVCONT 100 mls/hr .Q10H ARMANDO Administration Magnesium Oxide 400 mg 08/07/20 08:30 08/07/20 09:44 Magnesium Oxide 400 Mg Tablet PO 400 mg BIDPC ARMANDO Administration Medication 1 each 08/07/20 09:00 No Benzodiazepines MISCELLANE DAILY ARMANDO Multivitamins 1 tab 08/07/20 09:00 08/07/20 08:59 B-Complex With Vitamin C Tablet PO 1 tab DAILY ARMANDO Administration Nadolol 20 mg 08/07/20 09:00 08/07/20 10:26 Nadolol 20 Mg Tablet PO 20 mg DAILY ARMANDO Administration Protocol Phenobarbital 45 mg 08/07/20 09:00 08/07/20 09:00 Phenobarbital 15 Mg Tablet PO 08/08/20 21:01 45 mg BID ARMANDO Administration Phenobarbital 15 mg 08/09/20 09:00 Phenobarbital 15 Mg Tablet PO 08/10/20 21:01 BID ARMANDO Phenobarbital 15 mg 08/11/20 09:00 Phenobarbital 15 Mg Tablet PO 08/12/20 09:01 DAILY ARMANDO Sodium Chloride 3 ml 08/07/20 00:00 08/07/20 09:44 0.9 % Sodium Chloride Flush 3 Ml Syringe IVFLUSH 3 ml QSHIFT ARMANDO Administration Thiamine HCl 100 mg 08/07/20 09:00 08/07/20 09:00 Thiamine Hcl 100 Mg Tablet PO 08/10/20 08:59 100 mg DAILY ARMANDO Administration Labs CBC & Chem 7: 08/07/20 07:04 08/07/20 07:04 Assessment and Plan (1) Alcoholic cirrhosis of liver: Problem details: appears compensated at this time Status: Acute (2) Atrial fibrillation with rapid ventricular response: Status: Acute (3) Alcohol intoxication: Status: Acute Assessment and Plan: 59M presented with fall, found to have afib with rvr afib with rvr cardio appreciated suspect alcohol to be the risk factor continue cardizem 30mg qid added lopressor 25mg qid (dc nadolol) no AC for now as chads low and high risk due to ETOH and falls check echo compensated alcoholic cirrhosis alcohol cessation outpatient follow up alcohol dependence with withdrawl phenobarbital
[2020-08-07] MEDS: Acetaminophen 325 MG TABLET 650 MG PO ×2 (14:26→19:57)
[2020-08-07] MEDS: Metoprolol Tartrate 25 MG TABLET PO ×3 (14:28→19:57)
[2020-08-07] MEDS: hydrOXYzine HCL 25 MG TABLET PO (19:56)
--- NOTE | 2020-08-07 23:26 | MHC.PIE ---
P: PATIENT REPORTED 20/10 PAIN TO LEFT CLAVICLE AREA, LOWER BACK BILATERALLY, AND LEFT UPPER ABDOMINAL QUADRANT NEAR LEFT LOWER RIBS; STATUS POST TYLENOL ADMINISTRAION I: ASSESS PATIENT, NOTIFY MD, REPOSITION PATIENT, OFFER ICE PACKS; DISCUSS FURTHER WITH MD E: PATIENT IS ALERT, ORIENTED, FLAT AFFECT, HX ETOH. PATIENT IS IN AFIB WITH CONTROLLED RATE ON MONITOR; PAIN IS ACHING, IS WORSE ON DEEP INSPIRATION, IS ALSO WORSE WITH PALPATION. LEFT CLAVICLE IS BRUISED AND RIBS BRUISED IN ASSOCIATION WITH FALL AT HOME. NEW ORDERS FOR LIDODERM PATCH AND FOR TROPONINS.
[2020-08-08] VITALS (10 sets, daily range): BP systolic 110–140; BP diastolic 72–97; PULSE 65–109; RESP 18–20; TEMP 35.8–37.3; O2SAT 94–98
[2020-08-08] MEDS: Dextrose 5 % and 0.45 % NaCl 1,000 ML 100 ML IVCONT ×2 (04:10→12:21)
--- NOTE | 2020-08-08 06:06 | PC.NURSE ---
Patient was helped with the urinal and during this time it was noted that his bedsheets were dirty. This RN and Carie RN asked the patient if we could help change the sheets so that he would not be lying on dirty linen. The patient adamantly refused to have his linen changed and stated he just wants to go back to sleep . This RN and Carie RN confirmed with the patient that he did not want us to change his sheets and tried to encourage otherwise- however the patient was very agitated and not willing to budge on having his sheets changed. SALESPERSON F[employer]ITURE aware and will report to day nurse.
[2020-08-08 06:34] LABS: Hematocrit 40.4 % (42-52); Hemoglobin 13.4 g/dl (14.0-18.0); Mean Corpuscular HGB Conc 33.2 g/dl (31.0-36.0); Mean Corpuscular Hemoglobin 34.1 pg (27.0-33.0); Mean Corpuscular Volume 102.8 fL (80-98); Mean Platelet Volume 10.2 fL (9.4-12.4); Red Blood Count 3.93 X10*6/uL (4.60-5.80); Red Cell Distribution Width 13.4 % (11.0-16.0); White Blood Count 3.3 X10*3/uL (4.8-10.8)
[2020-08-08 06:38] LABS: Platelet Count 90 X10*3/uL (160-400)
--- NOTE | 2020-08-08 07:10 | CA_ITS ---
Transthoracic Echocardiogram Patient (Last, First, Middle): Wei Wang, Gender: Male Date of : 1960 Age: 59 Procedure Date: 08/08/2020 Procedure Type: Transthoracic Echocardiogram Location: [facility] [place] Height: 177.8 cm Weight: 83.92 kg BSA: 2.02 m2 Heart Rate: bpm BP: 139 / 94 mmHg Dancer Or Choreographer: Referring MD: Ace Hill MD Symptoms: afib Study Quality: Good Conclusions: - The left ventricular systolic function is severely decreased. The visually estimated ejection fraction is between 20-25%. - Moderately increased right ventricular cavity size. There is mildly decreased right ventricular systolic function. - The left atrium is severely dilated. - There is moderate to severe tricuspid valve regurgitation. Moderately elevated right atrial pressure. Mild pulmonary hypertension is present. Findings Left Ventricle Normal left ventricular cavity size. There is normal left ventricular wall thickness. The left ventricular systolic function is severely decreased. The visually estimated ejection fraction is between 20-25%. There is severe global hypokinesis. Diastolic function is indeterminate on the basis of available data. Right Ventricle Moderately increased right ventricular cavity size. There is mildly decreased right ventricular systolic function. Atria The left atrium is severely dilated. Aortic Valve The aortic valve was not well visualized. There is no aortic valve stenosis. There is no aortic valve regurgitation. Mitral Valve Normal mitral valve structure and function. There is trace mitral valve regurgitation. There is no mitral valve stenosis. Pulmonic Valve The pulmonic valve was not well visualized. Tricuspid Valve There is moderate to severe tricuspid valve regurgitation. Moderately elevated right atrial pressure. Mild pulmonary hypertension is present. There is apical tethering of the tricuspid valve leaflets. Great Vessels All visible segments of the aorta are normal in size. Venous The inferior vena cava is dilated and collapses less than 50% with inspiration. Pericardium/Pleural There is no evidence of pericardial effusion. Prior Study Comparison No prior study available for comparison. Measurements 2D Linear Measurements IVSd: 0.91 0.6-0.9/0.6-1.0 cm LVIDd: 5.13 3.9-5.3/4.2-5.9 cm LVIDd Index: 2.54 2.4-3.2/2.2-3.1 cm/m2 LVIDs: 4.35 2.0-3.6 cm LVPWd: 1.04 0.7-1.1 cm Ao Root: 3.50 2.1-3.5 cm LA Diam: 5.10 2.7-3.8/3.0-4.0 cm LAIDs Index: 2.52 1.5-2.3 cm/m2 LV Mass: 229.00 67-162/88-224 g LV Mass Index: 113.37 43-95/49-115 g/m2 LVOT Diam: 2.30 3.0+(-)1.3 cm 2D Systolic Function EF 4C: 23.40 >55% EF 2C: 30.60 >55% EF BiP: 26.90 >55% Mitral Valve MV Pk E: 1.08 MV Decel Time: 134.00 E'Lateral: 8.41 E'Medial: 8.12 E/E' Med: 13.30 E/E' Lat: 12.80 PHT: 39.00 MVA PHT: 5.64 Decel [place]: 8.05 Aortic Valve AoV Pk [place]: 1.24 AoV Mn [place]: 0.88 AoV VTI: 0.25 AoV Pk Grad: 6.00 Aov Mn Grad: 4.00 TENA Cont.VTI: 2.57 LVOT LVOT Pk [place]: 0.78 LVOT Mn [place]: 0.51 LVOT VTI: 0.15 LVOT Pk Grad: 2.00 LVOT Mn Grad: 1.00 LVOT Diam: 2.30 LVOT Area: 4.15 Diastolic Function MV Pk E: 1.08 E'Medial: 8.12 E/E' Med: 13.30 E' Laterial: 8.41 E/E' Lat: 12.80 Tricuspid Valve TR Pk [place]: 2.81 TR Pk Grad: 32.00 RVSP: 40.00 Great Vessels Aorta Ao Root-2D: 3.50 2.0-3.7 cm Pulmonary Valve PV Pk Ruslan: 0.60 Peak PV Grad: 1.00 Updated in Other Vendor System with Status of Final Hari Candelario MD electronically signed on 08/09/2020 6:11:07 AM with status of Final
[2020-08-08 07:30] LABS: Alanine Aminotransferase 37 U/L (0-40); Alkaline Phosphatase 175 U/L (39-117); Anion Gap 13 (12-20); Aspartate Amino Transferase 56 U/L (5-37); Bilirubin Total 2.2 mg/dL (0.0-1.0); Blood Urea Nitrogen 8 mg/dL (9-16); Carbon Dioxide 25 mmol/L (22-29); Chloride 101 mmol/L (96-108); Creatinine Clr Calc Pharmacy 123.7; Estimated Glomerular Filt Rate > 60; Glucose Fasting 104 mg/dL (60-99); Magnesium 1.7 mg/dL (1.6-2.6); Potassium 3.8 mmol/L (3.3-5.1); Sodium 135 mmol/L (135-145)
[2020-08-08] MEDS: Famotidine 20 MG TABLET PO ×2 (08:04→20:47)
[2020-08-08] MEDS: PHENobarbitaL 15 MG TABLET 45 MG PO ×2 (08:04→20:47)
[2020-08-08] MEDS: Thiamine HCL 100 MG TABLET PO (08:04)
[2020-08-08] MEDS: Folic Acid 1 MG TABLET PO (08:05)
[2020-08-08] MEDS: Metoprolol Tartrate 25 MG TABLET PO ×4 (08:05→20:47)
[2020-08-08] MEDS: FLUoxetine HCl 20 MG CAPSULE PO (08:05)
[2020-08-08] MEDS: dilTIAZem HCL 30 MG TABLET PO ×2 (08:05→12:21)
[2020-08-08] MEDS: Magnesium Oxide 400 MG TABLET PO ×2 (08:05→17:12)
[2020-08-08] MEDS: Acetaminophen 325 MG TABLET 650 MG PO ×2 (08:05→23:48)
--- NOTE | 2020-08-08 10:09 | P.CDIC_ITS ---
CDI Concurrent Query Service Date: 08/08/20 Documentation Clarification: Please clarify if you are treating a proba ble/suspected/likely or confirmed: LABS: Hypomagnesemia Please specify if known or undetermined Provider Response: Other Other Diagnosis: hypomagnesemia PLEASE DO NOT DELETE/MODIFY EXISTING CONTENT Additional information is needed in order to code to the highest accuracy and appropriate Severity of Illness (SOI). Please clarify the information noted below in your progress notes and discharge summary. Risk Factors/Clinical Indicators/Treatments LAB FINDINGS: magnesium 1.4 L Magnesium oxide 400 mg PO BID CDS: Phoebe Healy CCS, CDIS Contact Number: [phone] Please Review the information above and exercise your independent professional judgment in responding to the query. If you concur, pleas document in the PROGRESS NOTES and DISCHARGE SUMMARY. If you do not agree with the query, pledemi e document in the query above. THIS QUERY IS PART OF THE PERMANENT MEDICAL RECORD
--- NOTE | 2020-08-08 10:21 | HO.PM.IMPN ---
Subjective Subjective Date of Service: 08/08/20 Interval History: lethargic Cardiovascular Cardiovascular: Reports no additional cardiovascular complaints Respiratory Respiratory: Reports no additional respiratory complaints Physical Exam Vital Signs: Vital Signs: Last Vital Signs Temp 99.1 F 08/08/20 07:31 Pulse 97 08/08/20 07:31 Resp 20 08/08/20 07:31 BP 130/97 H 08/08/20 07:31 Pulse Ox 94 08/08/20 07:31 Body Mass Index 26.6 General: lethargic, oriented times 3, disheveled Resp: CTA bilateral CVS: S1,S2,RRR GI: soft, non tender, non distended Neuro: ciwa 5 Psych: appropriate insight Objective Data Current Medications Generic Name Dose Route Start Last Admin Trade Name Freq PRN Reason Stop Dose Admin Acetaminophen 650 mg 08/06/20 22:45 08/08/20 08:05 Acetaminophen 325 Mg Tablet PO 650 mg Q6H PRN Administration Pain, Mild (Pain Scale 1-3) Diltiazem HCl 30 mg 08/07/20 09:00 08/08/20 08:05 Diltiazem Hcl 30 Mg Tablet PO 30 mg QID ARMANDO Administration Protocol Famotidine 20 mg 08/07/20 09:00 08/08/20 08:04 Famotidine 20 Mg Tablet PO 20 mg BID ARMANDO Administration Fluoxetine HCl 20 mg 08/07/20 09:00 08/08/20 08:05 Fluoxetine Hcl 20 Mg Capsule PO 20 mg DAILY ARMANDO Administration Folic Acid 1 mg 08/07/20 09:00 08/08/20 08:05 Folic Acid 1 Mg Tablet PO 08/10/20 08:59 1 mg DAILY ARMANDO Administration Hydroxyzine HCl 25 mg 08/06/20 23:01 08/07/20 19:56 Hydroxyzine Hcl 25 Mg Tablet PO 25 mg Q6H PRN Administration Anxiety Dextrose/Sodium Chloride 1,000 mls @ 100 mls/hr 08/06/20 22:45 08/08/20 04:10 D51/2ns IVCONT 100 mls/hr .Q10H ARMANDO Administration Magnesium Oxide 400 mg 08/07/20 08:30 08/08/20 08:05 Magnesium Oxide 400 Mg Tablet PO 400 mg BIDPC ARMANDO Administration Medication 1 each 08/07/20 09:00 No Benzodiazepines MISCELLANE DAILY ARMANDO Metoprolol Tartrate 25 mg 08/07/20 13:00 08/08/20 08:05 Metoprolol Tartrate 25 Mg Tablet PO 25 mg QID ARMANDO Administration Protocol Multivitamins 1 tab 08/07/20 09:00 08/08/20 08:05 B-Complex With Vitamin C Tablet PO 1 tab DAILY ARMANDO Administration Oxycodone HCl 5 mg 08/07/20 23:44 Oxycodone Hcl Immed Release 5 Mg Tablet PO Q6H PRN Breakthrough Pain Phenobarbital 45 mg 08/07/20 09:00 08/08/20 08:04 Phenobarbital 15 Mg Tablet PO 08/08/20 21:01 45 mg BID ARMANDO Administration Phenobarbital 15 mg 08/09/20 09:00 Phenobarbital 15 Mg Tablet PO 08/10/20 21:01 BID ARMANDO Phenobarbital 15 mg 08/11/20 09:00 Phenobarbital 15 Mg Tablet PO 08/12/20 09:01 DAILY ARMANDO Sodium Chloride 3 ml 08/07/20 00:00 08/08/20 08:04 0.9 % Sodium Chloride Flush 3 Ml Syringe IVFLUSH Not Given QSHIFT ARMANDO Thiamine HCl 100 mg 08/07/20 09:00 08/08/20 08:04 Thiamine Hcl 100 Mg Tablet PO 08/10/20 08:59 100 mg DAILY ARMANDO Administration Labs CBC & Chem 7: 08/08/20 05:40 08/08/20 05:40 Assessment and Plan (1) Alcoholic cirrhosis of liver: Problem details: appears compensated at this time Status: Acute (2) Atrial fibrillation with rapid ventricular response: Status: Acute (3) Alcohol intoxication: Status: Acute Assessment and Plan: 59M presented with fall, found to have afib with rvr afib with rvr stil in 100-120s cardio appreciated suspect alcohol to be the risk factor continue cardizem 30mg qid added lopressor 25mg qid (dc nadolol) no AC for now as chads low and high risk due to ETOH and falls check echo compensated alcoholic cirrhosis alcohol cessation outpatient follow up hypomagnesemia replace and monitor alcohol dependence with withdrawl phenobarbital
--- NOTE | 2020-08-08 10:23 | MHC.CM.PN ---
PT REPORTS HE LIVES ALONE AND IS INDEPENDENT WITH CARE. FOR MOBILITY, PT REPORTS HE USES A CANE OR FURNITURE WALKS . PT DENIES HAVING ANY HOME OR COMMUNITY SERVICES. PT REPORTS HAVING A HCP COMPLETED THAT NAMES HIS BROTHER, ELKIN ([phone]) HIS AGENT, COPY REQUESTED. PT CONFIRMS PCP IS JUSTIN TATE. IMM DELIVERED CURRENT DC PLAN IS HOME WITH NO SERVICES PT WILL NEED CM TO ARRANGE TRANSPORTATION
[2020-08-08] MEDS: 0.9 % Sodium Chloride Flush 3 ML SYRINGE IVFLUSH ×2 (17:12→20:51)
--- NOTE | 2020-08-08 20:06 | PC.NURSE ---
Late entry: 1420 Pt HR dropped briefly into 30's per NURSE RECEPTIONIST. Assessed Pt. Pt without any symptoms. HR back into 60-70's. Dr Evans notified. Will dc diltiazem and continue to monitor
[2020-08-08] MEDS: oxyCODONE HCl Immed Release 5 MG TABLET PO (20:46)
[2020-08-08] MEDS: hydrOXYzine HCL 25 MG TABLET PO (20:47)
[2020-08-09] VITALS (9 sets, daily range): BP systolic 96–129; BP diastolic 60–93; PULSE 64–91; RESP 18–20; TEMP 35.9–36.9; O2SAT 95–98
[2020-08-09] MEDS: hydrOXYzine HCL 25 MG TABLET PO ×3 (03:59→18:05)
[2020-08-09] MEDS: oxyCODONE HCl Immed Release 5 MG TABLET PO ×3 (04:00→18:03)
[2020-08-09] MEDS: PHENobarbitaL 15 MG TABLET PO ×2 (09:26→21:46)
[2020-08-09] MEDS: Metoprolol Tartrate 25 MG TABLET 50 MG PO ×2 (09:26→21:46)
[2020-08-09] MEDS: FLUoxetine HCl 20 MG CAPSULE PO (09:26)
[2020-08-09] MEDS: 0.9 % Sodium Chloride Flush 3 ML SYRINGE IVFLUSH ×3 (09:26→21:47)
[2020-08-09] MEDS: Thiamine HCL 100 MG TABLET PO (09:26)
[2020-08-09] MEDS: Magnesium Oxide 400 MG TABLET PO ×2 (09:26→18:03)
[2020-08-09] MEDS: Folic Acid 1 MG TABLET PO (09:26)
[2020-08-09] MEDS: Famotidine 20 MG TABLET PO ×2 (09:27→21:46)
--- NOTE | 2020-08-09 10:03 | HO.PM.IMPN ---
Subjective Subjective Date of Service: 08/09/20 Interval History: tired Cardiovascular Cardiovascular: Reports no additional cardiovascular complaints Gastrointestinal Gastrointestinal: Reports no additional gastrointestinal complaints Physical Exam Vital Signs: Vital Signs: Last Vital Signs Temp 97.2 F 08/09/20 08:00 Pulse 86 08/09/20 09:26 Resp 20 08/09/20 08:00 BP 129/93 H 08/09/20 09:26 Pulse Ox 97 08/09/20 07:35 Body Mass Index 26.6 General: lethargic, oriented times 3 Resp: CTA bilateral CVS: S1,S2,iregular GI: soft, non tender, non distended Neuro: no gross motor deficit Psych: appropriate insight Objective Data Current Medications Generic Name Dose Route Start Last Admin Trade Name Freq PRN Reason Stop Dose Admin Acetaminophen 650 mg 08/06/20 22:45 08/08/20 23:48 Acetaminophen 325 Mg Tablet PO 650 mg Q6H PRN Administration Pain, Mild (Pain Scale 1-3) Famotidine 20 mg 08/07/20 09:00 08/09/20 09:27 Famotidine 20 Mg Tablet PO 20 mg BID ARMANDO Administration Fluoxetine HCl 20 mg 08/07/20 09:00 08/09/20 09:26 Fluoxetine Hcl 20 Mg Capsule PO 20 mg DAILY ARMNADO Administration Folic Acid 1 mg 08/07/20 09:00 08/09/20 09:26 Folic Acid 1 Mg Tablet PO 08/10/20 08:59 1 mg DAILY ARMANDO Administration Hydroxyzine HCl 25 mg 08/06/20 23:01 08/09/20 03:59 Hydroxyzine Hcl 25 Mg Tablet PO 25 mg Q6H PRN Administration Anxiety Magnesium Oxide 400 mg 08/07/20 08:30 08/09/20 09:26 Magnesium Oxide 400 Mg Tablet PO 400 mg BIDPC ARMANDO Administration Medication 1 each 08/07/20 09:00 No Benzodiazepines MISCELLANE DAILY ARMANDO Metoprolol Tartrate 50 mg 08/09/20 09:00 08/09/20 09:26 Metoprolol Tartrate 25 Mg Tablet PO 50 mg BID ARMANDO Administration Protocol Multivitamins 1 tab 08/07/20 09:00 08/09/20 09:26 B-Complex With Vitamin C Tablet PO 1 tab DAILY ARMANDO Administration Oxycodone HCl 5 mg 08/07/20 23:44 08/09/20 04:00 Oxycodone Hcl Immed Release 5 Mg Tablet PO 5 mg Q6H PRN Administration Breakthrough Pain Phenobarbital 15 mg 08/09/20 09:00 08/09/20 09:26 Phenobarbital 15 Mg Tablet PO 08/10/20 21:01 15 mg BID ARMANDO Administration Phenobarbital 15 mg 08/11/20 09:00 Phenobarbital 15 Mg Tablet PO 08/12/20 09:01 DAILY ARMANDO Sodium Chloride 3 ml 08/07/20 00:00 08/09/20 09:26 0.9 % Sodium Chloride Flush 3 Ml Syringe IVFLUSH 3 ml QSHIFT ARMANDO Administration Thiamine HCl 100 mg 08/07/20 09:00 08/09/20 09:26 Thiamine Hcl 100 Mg Tablet PO 08/10/20 08:59 100 mg DAILY ARMANDO Administration Labs CBC & Chem 7: 08/08/20 05:40 08/08/20 05:40 Assessment and Plan (1) Alcoholic cirrhosis of liver: Problem details: appears compensated at this time Status: Acute (2) Atrial fibrillation with rapid ventricular response: Status: Acute (3) Alcohol intoxication: Status: Acute Assessment and Plan: 59M presented with fall, found to have afib with rvr afib with rvr better controlled 80-100 suspect alcohol to be the risk factor changed to lopressor 50mg bid no AC for now as high risk due to ETOH and falls echo showed EF of 20-25%, ?tachy vs ETOH cardio follow up compensated alcoholic cirrhosis alcohol cessation outpatient follow up hypomagnesemia replace and monitor alcohol dependence with withdrawl phenobarbital
--- NOTE | 2020-08-09 10:20 | P.PNCA_ITS ---
Subjective Subjective Date of Service: 08/09/20 Principal diagnosis: Afib, Cardiomyopathy, alcohol withdrawal Interval history: Cardiology follow up for afib, CMP. Seen at 1000. Today he reports much discomfort in left hip area from fall at home. Denies sob, palpita tions, chest discomfort. Does have tenderness left lateral thorax from fall. Ambulates to bathroom with minimal assistance. Review of Systems Review of Systems as above Yes all other systems are reviewed and are negative Physical Exam Vital Signs: Last Vital Signs Temp 97.2 F 08/09/20 08:00 Pulse 86 08/09/20 09:26 Resp 20 08/09/20 08:00 BP 129/93 H 08/09/20 09:26 Pulse Ox 97 08/09/20 07:35 Body Mass Index 26.6 Const Other: irritable, reporting much discomfort with movement General: alert and awake Orientation/consciousness: patient oriented x3 Neck Neck: Yes normal visual inspection and Yes no JVD Resp Other: Scattered expiratory wheeze noted Effort & Inspection: normal respiratory effort, able to speak in complete sentences and not labored Auscultation: clear to auscultation bilaterally, no crackles, no rales and no rhonchi Cardio Jugular venous distension: JVD present Palpation: normal PMI Rate: regular rate Rhythm: abnormal rhythm (irregular) Heart sounds: S1 normal heart sound present and S2 normal heart sound present Peripheral pulses: Peripheral pulses 2+ throughout GI Inspection: Yes normal to inspection Neuro General: patient oriented x3 Extrem Other: puffiness to lower legs, no pitting edema Results Labs and Meds Result diagrams: 08/08/20 05:40 08/08/20 05:40 Progress Note: A&P Assessment and plan (1) Atrial fibrillation with rapid ventricular response: Status: Acute Assessment and Plan: New finding of atrial patient this admission. Treated with rate control. Tele showing atrial fibrillation with heart rate average 70s to 80s and up to high of 120 with activity. One episode of 4 beats regular bradycardic rhythm occurring at 14:06 yesterday, heart rate 35. Unknown if patient had symptoms at that time or if he was sleeping. He has been started on metoprolol 50 mg b.i.d. Continue telemetry monitoring to evaluate for rate control and assess for bradycardic rhythms. He has a history of alcoholic cirrhosis fall prior to admission related to alcohol intoxication. Chads Vasc score of 0-1 based on consultation note. No anticoagulation use at this time. Review diagnosis of atrial fibrillation, stroke risk with AFib this morning with him. Still being treated for alcohol withdrawal. We will continue to follow. (2) Cardiomyopathy: Status: Acute Assessment and Plan: Echocardiogram done yesterday shows EF 20-25%, moderate increase in RV size, mild decrease in RV systolic function, left atrium severely dilated, moderate to severe TR, mild pulmonary hypertension. 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 Ischemia will need to be ruled out eventually. No report of anginal sounding symptoms. On exam he does not appear grossly fluid overloaded. If tolerating metoprolol will plan to change to Toprol-XL tomorrow for treatment of cardiomyopathy as well as AFib. Further medications for cardiomyopathy will be added accordingly. (3) Alcoholic cirrhosis of liver: Problem details: appears compensated at this time Status: Acute Fall Risk Details Current Medications: Current Medications Generic Name Dose Route Start Last Admin Trade Name Freq PRN Reason Stop Dose Admin Acetaminophen 650 mg 08/06/20 22:45 08/08/20 23:48 Acetaminophen 325 Mg Tablet PO 650 mg Q6H PRN Administration Pain, Mild (Pain Scale 1-3) Famotidine 20 mg 08/07/20 09:00 08/09/20 09:27 Famotidine 20 Mg Tablet PO 20 mg BID ARMANDO Administration Fluoxetine HCl 20 mg 08/07/20 09:00 08/09/20 09:26 Fluoxetine Hcl 20 Mg Capsule PO 20 mg DAILY ARMANDO Administration Folic Acid 1 mg 08/07/20 09:00 08/09/20 09:26 Folic Acid 1 Mg Tablet PO 08/10/20 08:59 1 mg DAILY ARMANDO Administration Hydroxyzine HCl 25 mg 08/06/20 23:01 08/09/20 10:15 Hydroxyzine Hcl 25 Mg Tablet PO 25 mg Q6H PRN Administration Anxiety Magnesium Oxide 400 mg 08/07/20 08:30 08/09/20 09:26 Magnesium Oxide 400 Mg Tablet PO 400 mg BIDPC ARMANDO Administration Medication 1 each 08/07/20 09:00 No Benzodiazepines MISCELLANE DAILY ARMANDO Metoprolol Tartrate 50 mg 08/09/20 09:00 08/09/20 09:26 Metoprolol Tartrate 25 Mg Tablet PO 50 mg BID ARMANDO Administration Protocol Multivitamins 1 tab 08/07/20 09:00 08/09/20 09:26 B-Complex With Vitamin C Tablet PO 1 tab DAILY ARMANDO Administration Oxycodone HCl 5 mg 08/07/20 23:44 08/09/20 10:15 Oxycodone Hcl Immed Release 5 Mg Tablet PO 5 mg Q6H PRN Administration Breakthrough Pain Phenobarbital 15 mg 08/09/20 09:00 08/09/20 09:26 Phenobarbital 15 Mg Tablet PO 08/10/20 21:01 15 mg BID ARMANDO Administration Phenobarbital 15 mg 08/11/20 09:00 Phenobarbital 15 Mg Tablet PO 08/12/20 09:01 DAILY ARMANDO Sodium Chloride 3 ml 08/07/20 00:00 08/09/20 09:26 0.9 % Sodium Chloride Flush 3 Ml Syringe IVFLUSH 3 ml QSHIFT ARMANDO Administration Thiamine HCl 100 mg 08/07/20 09:00 08/09/20 09:26 Thiamine Hcl 100 Mg Tablet PO 08/10/20 08:59 100 mg DAILY ARMANDO Administration Time Spent With Patient Time: Total time spent is greater than 50% in coordination of care (as documented) at patient's floor/unit and/or counseling patient: 20 Time with patient: 15 - 24 minutes
[2020-08-09] MEDS: Acetaminophen 325 MG TABLET 650 MG PO (19:43)
[2020-08-10] VITALS (7 sets, daily range): BP systolic 96–126; BP diastolic 65–76; PULSE 76–103; RESP 18–19; TEMP 36.1–37; O2SAT 96–98
[2020-08-10] MEDS: Acetaminophen 325 MG TABLET 650 MG PO (00:50)
[2020-08-10] MEDS: oxyCODONE HCl Immed Release 5 MG TABLET PO ×3 (00:51→17:14)
[2020-08-10] MEDS: hydrOXYzine HCL 25 MG TABLET PO ×3 (00:51→17:14)
[2020-08-10 06:19] LABS: Hematocrit 42.5 % (42-52); Hemoglobin 14.1 g/dl (14.0-18.0); Mean Corpuscular HGB Conc 33.2 g/dl (31.0-36.0); Mean Corpuscular Hemoglobin 34.2 pg (27.0-33.0); Mean Corpuscular Volume 103.2 fL (80-98); Mean Platelet Volume 10.5 fL (9.4-12.4); Platelet Count 109 X10*3/uL (160-400); Red Blood Count 4.12 X10*6/uL (4.60-5.80); White Blood Count 4.6 X10*3/uL (4.8-10.8)
[2020-08-10 07:14] LABS: Alanine Aminotransferase 27 U/L (0-40); Alkaline Phosphatase 162 U/L (39-117); Anion Gap 11 (12-20); Aspartate Amino Transferase 33 U/L (5-37); Bilirubin Direct 0.6 mg/dL (0.0-0.5); Bilirubin Total 1.1 mg/dL (0.0-1.0); Blood Urea Nitrogen 12 mg/dL (9-16); Calcium 8.1 mg/dL (8.4-10.2); Carbon Dioxide 27 mmol/L (22-29); Chloride 104 mmol/L (96-108); Creatinine Clr Calc Pharmacy 109.2; Estimated Glomerular Filt Rate > 60; Glucose Fasting 109 mg/dL (60-99); Magnesium 1.8 mg/dL (1.6-2.6); Potassium 3.6 mmol/L (3.3-5.1); Sodium 138 mmol/L (135-145); Total Protein 5.7 g/dL (6.5-8.0)
[2020-08-10] MEDS: PHENobarbitaL 15 MG TABLET PO ×2 (08:15→21:15)
[2020-08-10] MEDS: Famotidine 20 MG TABLET PO ×2 (08:15→21:14)
[2020-08-10] MEDS: Magnesium Oxide 400 MG TABLET PO ×2 (08:15→17:14)
[2020-08-10] MEDS: Metoprolol Tartrate 25 MG TABLET 50 MG PO (08:15)
[2020-08-10] MEDS: FLUoxetine HCl 20 MG CAPSULE PO (08:15)
[2020-08-10] MEDS: 0.9 % Sodium Chloride Flush 3 ML SYRINGE IVFLUSH ×3 (08:16→21:18)
--- NOTE | 2020-08-10 10:32 | HO.PM.IMPN ---
Subjective Subjective Date of Service: 08/10/20 Interval History: bilateral ankle pain, difficulty wlaking Cardiovascular Cardiovascular: Reports no additional cardiovascular complaints Gastrointestinal Gastrointestinal: Reports no additional gastrointestinal complaints Physical Exam Vital Signs: Vital Signs: Last Vital Signs Temp 97 F 08/10/20 07:15 Pulse 94 08/10/20 08:15 Resp 19 08/10/20 07:15 BP 126/76 08/10/20 08:15 Pulse Ox 97 08/10/20 07:15 Body Mass Index 26.6 General: lethargic, oriented times 3 Resp: CTA bilateral CVS: S1,S2,iregular GI: soft, non tender, non distended Neuro: no gross motor deficit Psych: appropriate insight ext: bilateral ankles tender to palpation, no obvious edema or erythema Objective Data Current Medications Generic Name Dose Route Start Last Admin Trade Name Freq PRN Reason Stop Dose Admin Acetaminophen 650 mg 08/06/20 22:45 08/10/20 00:50 Acetaminophen 325 Mg Tablet PO 650 mg Q6H PRN Administration Pain, Mild (Pain Scale 1-3) Famotidine 20 mg 08/07/20 09:00 08/10/20 08:15 Famotidine 20 Mg Tablet PO 20 mg BID ARMANDO Administration Fluoxetine HCl 20 mg 08/07/20 09:00 08/10/20 08:15 Fluoxetine Hcl 20 Mg Capsule PO 20 mg DAILY ARMANDO Administration Hydroxyzine HCl 25 mg 08/06/20 23:01 08/10/20 08:15 Hydroxyzine Hcl 25 Mg Tablet PO 25 mg Q6H PRN Administration Anxiety Magnesium Oxide 400 mg 08/07/20 08:30 08/10/20 08:15 Magnesium Oxide 400 Mg Tablet PO 400 mg BIDPC ARMANDO Administration Medication 1 each 08/07/20 09:00 No Benzodiazepines MISCELLANE DAILY ARMANDO Metoprolol Tartrate 50 mg 08/09/20 09:00 08/10/20 08:15 Metoprolol Tartrate 25 Mg Tablet PO 50 mg BID ARMANDO Administration Protocol Multivitamins 1 tab 08/07/20 09:00 08/10/20 08:15 B-Complex With Vitamin C Tablet PO 1 tab DAILY ARMANDO Administration Oxycodone HCl 5 mg 08/07/20 23:44 08/10/20 08:15 Oxycodone Hcl Immed Release 5 Mg Tablet PO 5 mg Q6H PRN Administration Breakthrough Pain Phenobarbital 15 mg 08/09/20 09:00 08/10/20 08:15 Phenobarbital 15 Mg Tablet PO 08/10/20 21:01 15 mg BID ARMANDO Administration Phenobarbital 15 mg 08/11/20 09:00 Phenobarbital 15 Mg Tablet PO 08/12/20 09:01 DAILY ARMANDO Prednisone 40 mg 08/10/20 10:30 Prednisone 20 Mg Tablet PO DAILY ARMANDO Sodium Chloride 3 ml 08/07/20 00:00 08/10/20 08:16 0.9 % Sodium Chloride Flush 3 Ml Syringe IVFLUSH 3 ml QSHIFT ARMANDO Administration Labs CBC & Chem 7: 08/10/20 05:51 08/10/20 05:51 Assessment and Plan (1) Alcoholic cirrhosis of liver: Problem details: appears compensated at this time Status: Acute (2) Atrial fibrillation with rapid ventricular response: Status: Acute (3) Alcohol intoxication: Status: Acute Assessment and Plan: 59M presented with fall, found to have afib with rvr afib with rvr better controlled suspect alcohol to be the risk factor changed to lopressor 50mg bid, will change to toprol xl 100mg daily tomorrow no AC for now as high risk due to ETOH and falls echo showed EF of 20-25%, will need to follow up outpatinet for further management/work up ankle pain suspect inflammatory arthritis trial of short course of prednisone compensated alcoholic cirrhosis alcohol cessation outpatient follow up alcohol dependence with withdrawl phenobarbital
[2020-08-10] MEDS: predniSONE 20 MG TABLET 40 MG PO (12:49)
[2020-08-11] VITALS (9 sets, daily range): BP systolic 94–131; BP diastolic 64–85; PULSE 65–95; RESP 15–18; TEMP 36.1–37; O2SAT 95–100
[2020-08-11] MEDS: Magnesium Oxide 400 MG TABLET PO ×2 (08:23→16:05)
[2020-08-11] MEDS: Metoprolol Succinate ER 100 MG TAB.ER.24H PO (08:24)
[2020-08-11] MEDS: predniSONE 20 MG TABLET 40 MG PO (08:24)
[2020-08-11] MEDS: FLUoxetine HCl 20 MG CAPSULE PO (08:24)
[2020-08-11] MEDS: hydrOXYzine HCL 25 MG TABLET PO ×2 (08:24→16:05)
[2020-08-11] MEDS: Famotidine 20 MG TABLET PO ×2 (08:24→21:30)
[2020-08-11] MEDS: PHENobarbitaL 15 MG TABLET PO (08:24)
[2020-08-11] MEDS: oxyCODONE HCl Immed Release 5 MG TABLET PO ×3 (08:25→23:46)
[2020-08-11] MEDS: 0.9 % Sodium Chloride Flush 3 ML SYRINGE IVFLUSH ×3 (08:30→21:31)
--- NOTE | 2020-08-11 09:50 | MHC.CM.PN ---
Addendum entered by Zabrina Mendenhall 08/11/20 13:14: Met with Patient after to speaking with [facility] care transitions, Jovita. I reviewed services in place. He denies having services. He states that he does not answer the phone and goes to a neighbors apt daily. Jovita [facility] care transitions stated that she would speak with Priscilla, the Pts nonfarm animal caretaker. PT eval ordered today. CM will follow. Original Note: MALE 59 DX ETOH W/D AFIB RVR. DP Spoke with [facility] @ [facility] Jovita Owens. If Pt qualifies she would like dispo STR. If dispo is home, A new refferal for VNA will be made. The Pt has services in place thru [facility], Al[facility] years. The agency provided personal care, homemaking and grocery shopping. He has a caremanager from [facility], Priscilla. CM will follow and obtain auth as needed from [facility].
--- NOTE | 2020-08-11 12:24 | P.PNCA_ITS ---
Subjective Subjective Date of Service: 08/11/20 <SHAUN Bell - Last Filed: 08/11/20 12:41> 08/11/20 <Jovani Miner MD - Last Filed: 08/11/20 14:19> Principal diagnosis: Afib, Cardiomyopathy, alcohol withdrawal <SHAUN Bell - Last Filed: 08/11/20 12:41> Interval history: Cardiology follow up for afib, CMP. Seen at 0845. Today he reports ongoing discomfort left lateral rib and hip region. He denies shortness of breath, palpitations, chest discomfort, dizziness. He reports tenderness to palpitation of lower legs. <SHAUN Bell - Last Filed: 08/11/20 12:41> Review of Systems Review of Systems as above <SHAUN Bell - Last Filed: 08/11/20 12:41> Yes all other systems are reviewed and are negative <SHAUN Bell - Last Filed: 08/11/20 12:41> Physical Exam Vital Signs: Last Vital Signs Temp 98.5 F 08/11/20 11:59 Pulse 86 08/11/20 11:59 Resp 18 08/11/20 11:59 BP 120/82 08/11/20 11:59 Pulse Ox 95 08/11/20 11:59 Body Mass Index 26.6 <SHAUN Bell - Last Filed: 08/11/20 12:41> Const General: cooperative, no acute distress, alert and awake <SHAUN Bell - Last Filed: 08/11/20 12:41> Orientation/consciousness: patient oriented x3 <SHAUN Bell - Last Filed: 08/11/20 12:41> Neck Neck: Yes normal visual inspection and Yes no JVD <SHAUN Bell Last Filed: 08/11/20 12:41> Resp Effort & Inspection: normal respiratory effort, able to speak in complete sentences and not labored <SHAUN Bell - Last Filed: 08/11/20 12:41> Auscultation: clear to auscultation bilaterally, no crackles, no rales, no rhonchi and no wheezes <SHAUN Bell - Last Filed: 08/11/20 12:41> Cardio Other: heart tones irregularly irregular <SHAUN Bell - Last Filed: 08/11/20 12:41> Palpation: normal PMI <CHARLEEN BellC - Last Filed: 08/11/20 12:41> Rate: regular rate <Windy Baker SHAUN - Last Filed: 08/11/20 12:41> Heart sounds: S1 normal heart sound present and S2 normal heart sound present <Windy Baker ZAINA-C - Last Filed: 08/11/20 12:41> Peripheral pulses: Peripheral pulses 2+ throughout <CHARLEEN BellC - Last Filed: 08/11/20 12:41> GI Inspection: Yes normal to inspection <Windy Baker SHAUN - Last Filed: 08/11/20 12:41> Neuro General: patient oriented x3 <Windy Baker CHARLEENC - Last Filed: 08/11/20 12:41> Extrem Other: soft nonpitting puffiness in lower legs <Windy Baker ELASTIC CUTTER-C - Last Filed: 08/11/20 12:41> General: Yes normal to inspection <CHARLEEN BellC - Last Filed: 08/11/20 12:41> Results Labs and Meds Result diagrams: : 08/10/20 05:51 08/10/20 05:51 <Windy Baker SHAUN - Last Filed: 08/11/20 12:41> Progress Note: A&P Assessment and plan (1) Atrial fibrillation with rapid ventricular response: Status: Acute <Windy Baker SHAUN - Last Filed: 08/11/20 12:41> Assessment and Plan: New finding of atrial patient this admission. Echo showed EF 20-25%, LA severely dilated, mod increase RV size and mild decrease in RV systolic function, mod to severe TR, mild pum HTN. Based on Echo findings, his afib has likely been persistent for some time. Currently being treated with rate control. Tele showing atrial fibrillation with heart rate average 60-70s at rest and this am high of 170 with activity. One episode of 4 beats regular bradycardic rhythm occurring at 14:06 on 08/08/20, heart rate 35. Unknown if patient had symptoms at that time or if he was sleeping. No further jeannette noted since then. He has been on Metoprolol xl 100mg daily and due to rate elevation during activity will add addition Metoprolol xl 50 in pm. Continue telemetry m onitoring to evaluate for rate control and assess for any bradycardic rhythms. He has a history of alcoholic cirrhosis, fall prior to admission related to alcohol intoxication. Chads Vasc score of 0-1 based on consultation note. No anticoagulation use at this time. We will plan to reeval compliance and alcohol use, as outpt and decide on start of anticoagulation at that time. Reviewed diagnosis of atrial fibrillation, stroke risk with AFib, cardiomyopathy with him. We will continue to follow and will see at outpt. <SHAUN Bell - Last Filed: 08/11/20 12:41> Patient seen and case discussed with Windy Baker. Patient remains with borderline rate control. Denies any symptoms of palpitations at current time. Currently on metoprolol 100 mg. Rate at rest appears adequate but goes as high as 170 beats per minute minimal activity. Increase metoprolol to 100 mg in the morning and 50 mg at nighttime. Given his alcoholic tendencies as well as fall, will hold off on oral anticoagulation. Im portance of management of atrial fibrillation was discussed. If he follows up will rediscuss need for oral anticoagulation therapy as long as he abstains from alcohol. <Jovani Miner MD - Last Filed: 08/11/20 14:19> (2) Cardiomyopathy: Status: Acute <SHAUN Bell - Last Filed: 08/11/20 12:41> Assessment and Plan: Echocardiogram done 08/08 showed EF 20-25%. He most likely has either alcohol induced cardiomyopathy or tachy mediated cardiomyopathy. Ischemia will need to be ruled out eventually. No report of anginal sounding symptoms. On exam he does not appear grossly fluid overloaded. He is currently on Metoprolol xl. Will add Diovan 40mg bid for neurohormonal modulation. BMP needed in 5-7 days post start. Outpt follow up. <SHAUN Bell - Last Filed: 08/11/20 12:41> Cardiomyopathy with significant LV systolic dysfunction. Could be related to alcohol versus tachycardia mediated. Aggressive rate control as above. May need to add digoxin if rate remains difficult to control. Will also add Diovan for neurohormonal modulation. Clinically with no signs of congestive heart failure. Importance of medical therapy and abstinence from alcohol was discussed. Patient to be discharged from cardiac perspective. Will follow up as outpatient after Holter monitor. <Jovani Miner MD - Last Filed: 08/11/20 14:19> (3) Alcoholic cirrhosis of liver: Problem details: appears compensated at this time <SHAUN Bell - Last Filed: 08/11/20 12:41> Status: Acute <SHAUN Bell - Last Filed: 08/11/20 12:41> Fall Risk Details Current Medications: Current Medications Generic Name Dose Route Start Last Admin Trade Name Freq PRN Reason Stop Dose Admin Acetaminophen 650 mg 08/06/20 22:45 08/10/20 00:50 Acetaminophen 325 Mg Tablet PO 650 mg Q6H PRN Administration Pain, Mild (Pain Scale 1-3) Famotidine 20 mg 08/07/20 09:00 08/11/20 08:24 Famotidine 20 Mg Tablet PO 20 mg BID [facility] Administration Fluoxetine HCl 20 mg 08/07/20 09:00 08/11/20 08:24 Fluoxetine Hcl 20 Mg Capsule PO 20 mg DAILY [facility] Administration Hydroxyzine HCl 25 mg 08/06/20 23:01 08/11/20 08:24 Hydroxyzine Hcl 25 Mg Tablet PO 25 mg Q6H PRN Administration Anxiety Magnesium Oxide 400 mg 08/07/20 08:30 08/11/20 08:23 Magnesium Oxide 400 Mg Tablet PO 400 mg BIDPC [facility] Administration Medication 1 each 08/07/20 09:00 No Benzodiazepines MISCELLANE DAILY [facility] Metoprolol Succinate 100 mg 08/11/20 09:00 08/11/20 08:24 Metoprolol Succinate Er 100 Mg Tab.Er.24h PO 100 mg DAILY [facility] Administration Protocol Metoprolol Succinate 50 mg 08/11/20 21:00 Metoprolol Succinate Er 50 Mg Tab.Er.24h PO DAILY@2100 [facility] Protocol Multivitamins 1 tab 08/07/20 09:00 08/11/20 08:24 B-Complex With Vitamin C Tablet PO 1 tab DAILY [facility] Administration Oxycodone HCl 5 mg 08/07/20 23:44 08/11/20 08:25 Oxycodone Hcl Immed Release 5 Mg Tablet PO 5 mg Q6H PRN Administration Breakthrough Pain Phenobarbital 15 mg 08/11/20 09:00 08/11/20 08:24 Phenobarbital 15 Mg Tablet PO 08/12/20 09:01 15 mg DAILY [facility] Administration Prednisone 40 mg 08/10/20 10:30 08/11/20 08:24 Prednisone 20 Mg Tablet PO 40 mg DAILY [facility] Administration Sodium Chloride 3 ml 08/07/20 00:00 08/11/20 08:30 0.9 % Sodium Chloride Flush 3 Ml Syringe IVFLUSH 3 ml QSHIFT [facility] Administration Triamcinolone Acetonide 1 appl 08/11/20 11:15 Triamcinolone Acet 0.5 % Oint 15 Gm Tube TOPICAL BID [facility] <SAHUN Bell - Last Filed: 08/11/20 12:41> Time Spent With Patient Time: Total time spent is greater than 50% in coordination of care (as documented) at patient's floor/unit and/or counseling patient: 24 <SHAUN Bell - Last Filed: 08/11/20 12:41> Time with patient: 15 - 24 minutes <SHAUN Bell - Last Filed: 08/11/20 12:41> Procedures Date of Service Date of Service: 08/11/20 <SHAUN Bell - Last Filed: 08/11/20 12:41>
[2020-08-11] MEDS: Valsartan 40 MG TABLET PO (14:29)
[2020-08-11] MEDS: Triamcinolone Acet 0.5 % Oint 15 GM TUBE 1 APPL TOPICAL (14:35)
--- NOTE | 2020-08-11 15:10 | HO.PM.IMPN ---
Subjective Subjective Date of Service: 08/11/20 Interval History: RVR up to 160s with minimal activity, otherwise 80s-90s at rest c/o itchy psoriatic plaques Physical Exam Vital Signs: Vital Signs: Last Vital Signs Temp 98.5 F 08/11/20 11:59 Pulse 86 08/11/20 14:29 Resp 18 08/11/20 11:59 BP 120/82 08/11/20 14:29 Pulse Ox 95 08/11/20 11:59 Body Mass Index 26.6 Gen: in no acute distress HEENT: sclera anicteric, moist mucus membranes Neck: supple Lungs: clear to auscultation bilaterally Heart: irregularly irregular, no murmurs Abd: soft, non-tender, non-distended Ext: no edema Skin: warm/well-perfused, multiple psoriatic plaques all over trunk, back, arms Neuro: alert and oriented x3, no focal findings Psych: appropriate affect Objective Data Current Medications Generic Name Dose Route Start Last Admin Trade Name Freq PRN Reason Stop Dose Admin Acetaminophen 650 mg 08/06/20 22:45 08/10/20 00:50 Acetaminophen 325 Mg Tablet PO 650 mg Q6H PRN Administration Pain, Mild (Pain Scale 1-3) Famotidine 20 mg 08/07/20 09:00 08/11/20 08:24 Famotidine 20 Mg Tablet PO 20 mg BID [facility] Administration Fluoxetine HCl 20 mg 08/07/20 09:00 08/11/20 08:24 Fluoxetine Hcl 20 Mg Capsule PO 20 mg DAILY [facility] Administration Hydroxyzine HCl 25 mg 08/06/20 23:01 08/11/20 08:24 Hydroxyzine Hcl 25 Mg Tablet PO 25 mg Q6H PRN Administration Anxiety Magnesium Oxide 400 mg 08/07/20 08:30 08/11/20 08:23 Magnesium Oxide 400 Mg Tablet PO 400 mg BIDPC [facility] Administration Medication 1 each 08/07/20 09:00 No Benzodiazepines MISCELLANE DAILY [facility] Metoprolol Succinate 100 mg 08/11/20 09:00 08/11/20 08:24 Metoprolol Succinate Er 100 Mg Tab.Er.24h PO 100 mg DAILY [facility] Administration Protocol Metoprolol Succinate 50 mg 08/11/20 21:00 Metoprolol Succinate Er 50 Mg Tab.Er.24h PO DAILY@2100 [facility] Protocol Multivitamins 1 tab 08/07/20 09:00 08/11/20 08:24 B-Complex With Vitamin C Tablet PO 1 tab DAILY [facility] Administration Oxycodone HCl 5 mg 08/07/20 23:44 08/11/20 08:25 Oxycodone Hcl Immed Release 5 Mg Tablet PO 5 mg Q6H PRN Administration Breakthrough Pain Phenobarbital 15 mg 08/11/20 09:00 08/11/20 08:24 Phenobarbital 15 Mg Tablet PO 08/12/20 09:01 15 mg DAILY [facility] Administration Prednisone 40 mg 08/10/20 10:30 08/11/20 08:24 Prednisone 20 Mg Tablet PO 40 mg DAILY [facility] Administration Sodium Chloride 3 ml 08/07/20 00:00 08/11/20 14:30 0.9 % Sodium Chloride Flush 3 Ml Syringe IVFLUSH 3 ml QSHIFT [facility] Administration Triamcinolone Acetonide 1 appl 08/11/20 11:15 08/11/20 14:35 Triamcinolone Acet 0.5 % Oint 15 Gm Tube TOPICAL 1 appl BID [facility] Administration Valsartan 40 mg 08/11/20 12:30 08/11/20 14:29 Valsartan 40 Mg Tablet PO 40 mg BID [facility] Administration Protocol Labs CBC & Chem 7: 08/10/20 05:51 08/10/20 05:51 Assessment and Plan (1) Alcoholic cirrhosis of liver: Problem details: appears compensated at this time Status: Acute (2) Atrial fibrillation with rapid ventricular response: Status: Acute (3) Alcohol intoxication: Status: Acute Assessment and Plan: hospital d#6 59M with compensated EtOH cirrhosis presented with fall admitted for AF/RVR # AF/RVR - likely due to EtOH cardiomyopathy - increase metoprolol succinate to 100 mg qam + 50 mg qpm - no AC for now due to risk from EtOH/falls # cardiomyopathy, LVEF 20-25% (08/08/20) - likely EtOH versus tachyarrhythmia - continue metoprolol, started valsartan, check BMP in 1 wk - needs outpt Cardiology f/u to include ischemia w/u # ankle pain - short course of prednisone d#2 for suspected inflammatory arthritis # compensated alcoholic cirrhosis - EtOH cessation/sobriety - outpt GI f/u # EtOH dependence with withdrawal - phenobarbital, vitamins, counseling # psoriasis - topical TAC 0.5%, outpt derm f/u # VTE ppx - SCDs # dispo - likely home with VNA once HR better controlled
--- NOTE | 2020-08-11 16:11 | MHC.RECOVSUP ---
Recovery Support note: Patient is a 59 year old Cuban speaking male who presented to [facility] via EMS due to intoxication. Patient reported a recent fall and stated he had been off of his medications. Patient was medically admitted. This blog writer met with patient in room 486-1 to discuss his substance use and treatment options. Patient reports he does not see the need to talk about his drinking as he does not plan to drink anymore. Patient reports he had twenty years of sobriety in the past and reports he was working during that time. Patient reports he needs support in home, stating I need someone to clean my place , I have a stack of dishes that need to get done and laundry as well, there is no food in my fridge so I order out every night. 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 Patient was unable to explain why he cannot attend to his own home. Patient became agitated when this blog writer redirected conversation to his alcohol use. Patient reports his brother is in AA and he will reach out for support if he needs it. Patient stated I'm sick of talking about this, I've told everyone my story four times. Now my blood pressure is high. Encouraged patient to inform the nurse if he would like to discuss his substance use and recovery supports and this blog writer will return. Discussed case with patient's RN.
[2020-08-11] MEDS: Metoprolol Succinate ER 50 MG TAB.ER.24H PO (21:38)
[2020-08-11] MEDS: Acetaminophen 325 MG TABLET 650 MG PO (23:46)
[2020-08-12] VITALS: BP 109/80; PULSE 79; RESP 18; TEMP 36.2; O2SAT 99
[2020-08-12 04:00] VITALS: BP 115/79; PULSE 65; RESP 18; TEMP 36.2; O2SAT 99
[2020-08-12 06:28] LABS: Hemoglobin 15.8 g/dl (14.0-18.0); Mean Corpuscular HGB Conc 34.3 g/dl (31.0-36.0); Mean Corpuscular Hemoglobin 35.3 pg (27.0-33.0); Mean Corpuscular Volume 102.7 fL (80-98); Mean Platelet Volume 10.5 fL (9.4-12.4); Platelet Count 145 X10*3/uL (160-400); Red Blood Count 4.48 X10*6/uL (4.60-5.80); Red Cell Distribution Width 12.9 % (11.0-16.0); White Blood Count 6.5 X10*3/uL (4.8-10.8)
--- NOTE | 2020-08-12 06:34 | PC.NURSE ---
CARE ASSUMED 23:15...AWAKE..ALERT..ORIENTED X3...REMAINS ATRIAL FIB CONTROLLED HR..RESPIRATIONS EASY...CALM/CO-OPERATIVE...TYLENOL/OXYCODONE GIVEN AT H2 FOR GENERALIZED DISCOMFORT..STATED I FELL IN THE SHOWER AT HOME AND MY BODY STILL HURTS FROM IT ...RESTFUL/DOZING AFTER MEDS..NO COMPLAINTS THIS AM
[2020-08-12 07:03] LABS: Blood Urea Nitrogen 12 mg/dL (9-16); Creatinine Clr Calc Pharmacy 116.8; Estimated Glomerular Filt Rate > 60; Glucose Random 94 mg/dL (60-115); Magnesium 1.9 mg/dL (1.6-2.6)
[2020-08-12 07:22] LABS: Anion Gap 14 (12-20); Calcium 8.5 mg/dL (8.4-10.2); Carbon Dioxide 27 mmol/L (22-29); Chloride 100 mmol/L (96-108); Potassium 4.3 mmol/L (3.3-5.1); Sodium 137 mmol/L (135-145)
[2020-08-12 07:36] VITALS: BP 109/68; PULSE 74; RESP 18; TEMP 36.2; O2SAT 98
[2020-08-12 08:37] VITALS: BP 109/68; PULSE 74
[2020-08-12] MEDS: 0.9 % Sodium Chloride Flush 3 ML SYRINGE IVFLUSH (08:37)
[2020-08-12] MEDS: FLUoxetine HCl 20 MG CAPSULE PO (08:37)
[2020-08-12] MEDS: PHENobarbitaL 15 MG TABLET PO (08:37)
[2020-08-12] MEDS: Magnesium Oxide 400 MG TABLET PO (08:37)
[2020-08-12] MEDS: Valsartan 40 MG TABLET PO (08:37)
[2020-08-12] MEDS: oxyCODONE HCl Immed Release 5 MG TABLET PO (08:37)
[2020-08-12] MEDS: predniSONE 20 MG TABLET 40 MG PO (08:37)
[2020-08-12 08:38] VITALS: BP 109/68; PULSE 74
[2020-08-12] MEDS: Metoprolol Succinate ER 100 MG TAB.ER.24H PO (08:38)
[2020-08-12] MEDS: Famotidine 20 MG TABLET PO (08:39)
[2020-08-12] MEDS: hydrOXYzine HCL 25 MG TABLET PO (08:39)
--- NOTE | 2020-08-12 11:20 | P.PNCA_ITS ---
Subjective Subjective Date of Service: 08/12/20 Principal diagnosis: Afib, Cardiomyopathy, alcohol withdrawal Interval history: Patient reports no cardiac symptoms. Heart rate is better controlled. He had nonsustained VT overnight. No symptoms related to it. Blo od pressure is well controlled. He is upset that he is being discharged home Review of Systems Constitutional: Reports no additional constitutional complaints Cardiovascular: Reports no additional cardiovascular complaints Respiratory: Reports no additional respiratory complaints Genitourinary: Reports no additional male genitourinary complaints Reports system reviewed and no additional complaints, except as documented Psychiatric: Reports irritability Endocrine: Reports no additional endocrine complaints Physical Exam Vital Signs: Last Vital Signs Temp 97.2 F 08/12/20 07:36 Pulse 74 08/12/20 08:38 Resp 18 08/12/20 07:36 BP 109/68 08/12/20 08:38 Pulse Ox 98 08/12/20 07:36 Body Mass Index 26.6 Const General: comfortable, no acute distress, alert, awake and poor hygiene Nutritional Appearance: overweight Orientation/consciousness: patient oriented x3 Limitations: no limitations Neck Neck: Yes trachea midline, Yes supple and Yes no JVD Resp Effort & Inspection: normal respiratory effort Auscultation: clear to auscultation bilaterally Cardio Rhythm: abnormal rhythm irregularly irregular Heart sounds: S1 normal heart sound present and S2 normal heart sound present GI Auscultation: normal bowel sounds Neuro General: patient oriented x3 Extrem General: Yes no clubbing, cyanosis or edema Psych Affect: Hostile affect present Results Labs and Meds Result diagrams: 08/12/20 05:32 08/12/20 05:32 Lab results: Laboratory Results - last 24 hr 08/12/20 08/12/20 05:32 05:32 WBC 6.5 RBC 4.48 L Hgb 15.8 Hct 46.0 MCV 102.7 H MCH 35.3 H MCHC 34.3 RDW 12.9 Plt Count 145 L D MPV 10.5 Absolute Nucleated RBC 0.000 Nucleated RBC % (auto) 0.0 Sodium 137 Potassium 4.3 Chloride 100 Carbon Dioxide 27 Anion Gap 14 BUN 12 Creatinine 0.72 Estim Creat Clear Calc 116.8 Estimated GFR > 60 Random Glucose 94 Calcium 8.5 Magnesium 1.9 Progress Note: A&P Assessment and plan (1) Cardiomyopathy: Status: Acute Assessment and Plan: Cardiomyopathy severe LV systolic dysfunction. Potential causes include ischemia versus nonischemic related to tachycardia mediated or alcohol. Advised complete abstinence from alcohol. Continue current neurohormonal modulation with Toprol and Diovan. He has no signs of congestive heart failure. Asked him to read T rate his medical condition and he was hostile and did not want to discuss it. Signs and symptoms of heart failure were discussed. Will follow up in the clinic after ischemic workup. (2) Afib: Status: Acute Assessment and Plan: Atrial fibrillation much better rate control at this point in time. Continue Toprol XL at current dose. Currently not prescribing oral anticoagulant therapy due to his history of alcoholism and possible noncompliance. Will rediscuss ora l anticoagulation on Clinic follow-up. Risk of stroke was discussed. Complete abstinence from alcohol was discussed. Follow-up Holter monitor in 2 weeks time. Will follow up in the clinic in 2-4 weeks time. Thank you for allowing me to partake in his care Fall Risk Details Current Medications: Current Medications Generic Name Dose Route Start Last Admin Trade Name Freq PRN Reason Stop Dose Admin Acetaminophen 650 mg 08/06/20 22:45 08/11/20 23:46 Acetaminophen 325 Mg Tablet PO 650 mg Q6H PRN Administration Pain, Mild (Pain Scale 1-3) Famotidine 20 mg 08/07/20 09:00 08/12/20 08:39 Famotidine 20 Mg Tablet PO 20 mg BID [facility] Administration Fluoxetine HCl 20 mg 08/07/20 09:00 08/12/20 08:37 Fluoxetine Hcl 20 Mg Capsule PO 20 mg DAILY [facility] Administration Hydroxyzine HCl 25 mg 08/06/20 23:01 08/12/20 08:39 Hydroxyzine Hcl 25 Mg Tablet PO 25 mg Q6H PRN Administration Anxiety Magnesium Oxide 400 mg 08/07/20 08:30 08/12/20 08:37 Magnesium Oxide 400 Mg Tablet PO 400 mg BIDPC [facility] Administration Medication 1 each 08/07/20 09:00 No Benzodiazepines MISCELLANE DAILY [facility] Metoprolol Succinate 100 mg 08/11/20 09:00 08/12/20 08:38 Metoprolol Succinate Er 100 Mg Tab.Er.24h PO 100 mg DAILY [facility] Administration Protocol Metoprolol Succinate 50 mg 08/11/20 21:00 08/11/20 21:38 Metoprolol Succinate Er 50 Mg Tab.Er.24h PO 50 mg DAILY@2100 [facility] Administration Protocol Multivitamins 1 tab 08/07/20 09:00 08/12/20 08:37 B-Complex With Vitamin C Tablet PO 1 tab DAILY [facility] Administration Oxycodone HCl 5 mg 08/07/20 23:44 08/12/20 08:37 Oxycodone Hcl Immed Release 5 Mg Tablet PO 5 mg Q6H PRN Administration Breakthrough Pain Prednisone 40 mg 08/10/20 10:30 08/12/20 08:37 Prednisone 20 Mg Tablet PO 40 mg DAILY [facility] Administration Sodium Chloride 3 ml 08/07/20 00:00 08/12/20 08:37 0.9 % Sodium Chloride Flush 3 Ml Syringe IVFLUSH 3 ml QSHIFT [facility] Administration Triamcinolone Acetonide 1 appl 08/11/20 11:15 08/12/20 08:43 Triamcinolone Acet 0.5 % Oint 15 Gm Tube TOPICAL Not Given BID [facility] Valsartan 40 mg 08/11/20 12:30 08/12/20 08:37 Valsartan 40 Mg Tablet PO 40 mg BID [facility] Administration Protocol Time Spent With Patient Time: Total time spent is greater than 50% in coordination of care (as documented) at patient's floor/unit and/or counseling patient: Time with patient: 15 - 24 minutes Procedures Date of Service Date of Service: 08/12/20
--- NOTE | 2020-08-12 11:32 | MHC.CM.PN ---
IMM 08/12/20 MALE 59 DX AFIB W RVR ETOH WITHDRAWAL. NO THERAPY NEEDED PER P.T. EVMASON. ChidiISCHARGE TODAY TO HOME WITH [facility]
[2020-08-12 11:35] VITALS: BP 102/67; PULSE 67; RESP 19; TEMP 36.4; O2SAT 96
--- NOTE | 2020-08-12 14:15 | P.DS_ITS ---
DS: Providers Provider Date of Service: 08/12/20 Date of admission: 08/06/20 22:44 Primary care physician: Robert Nelson MD Consults: 08/06/20 23:01 Consult to Cardiology Routine Consulting Provider: Hari Candelario Reason for consultation: afib 08/11/20 15:19 Consult to Care Team Routine Comment: Reason for consultation: etoh cirrhosis, cardiomyopathy, withdrawal DS: Diagnosis Discharge Diagnosis (1) Cardiomyopathy: Status: Acute (2) Atrial fibrillation with rapid ventricular response: Status: Acute (3) Alcohol intoxication: Status: Acute (4) Alcoholic cirrhosis of liver: Status: Acute Problem details: appears compensated at this time (5) Alcohol withdrawal: Status: Acute DS: Medications Discharge Medications Home Medications: Home Medications Medication Instructions Recorded Confirmed fluocinonide 1 applic TOPICAL DAILY 08/06/20 08/07/20 fluoxetine 1 cap PO DAILY 08/06/20 08/07/20 lidocaine 1 appl TOPICAL DAILY 08/06/20 08/07/20 magnesium oxide 1 tab PO DAILY 08/06/20 08/07/20 pimecrolimus 1 appl TOPICAL BEDTIME 08/06/20 08/07/20 Previous Rx's Medication Instructions Recorded B-complex with vitamin C 1 tab PO DAILY #30 tab 08/12/20 metoprolol succinate 50 mg PO DAILY@2100 #30 tab 08/12/20 metoprolol succinate 100 mg PO DAILY #30 tab 08/12/20 prednisone 40 mg PO DAILY #2 tab 08/12/20 valsartan 40 mg PO BID #60 tab 08/12/20 DS: Summary Hospital Course Hospital Course: from admission history and physical by hospitalist Ace Hill, 08/06/20: 59-year-old male... [with history of] alcohol abuse, question AFib presented to the hospital with a chief complaint of fall. Patient reports that he fell in his shower today and has pain in his lower nebs and clavicle; mentions that he drinks alcohol intermittently; denies any seizure-like activity. Denies any headaches numbness. Denies any fever chills cough. Complains of pain in his coccyx. Denies any chest pain palpitations; Review of all other systems is negative except mentioned above ER course: Per ER team patient alcohol level was elevated; patient noted to be tachycardic- AFib, given aspirin; patient was noted to be in rapid ventricular response. Not improved with diltiazem IV push subsequently patient on diltiazem drip. Patient was also started on phenobarb protocol for possible alcohol withdrawal CT head and chest x-ray showed no acute findings. No evidence of fracture. 148; patient was given normal saline bolus. ProBNP 382 The [facility] on a diltiazem drip and eventually changed to metoprolol succinate PO. Echocardiography demonstrated severely reduced LVEF of 20%. Likely the patient has alcoholic versus tachycardia-mediated cardiomyopathy. He was started on metoprolol as above and also valsartan was added for neurohormonal modulation. He will need outpatient Cardiology follow- up to include an ischemic work-up. There were no signs of decompensated heart failure. He was not started on anticoagulation given risk of falls and bleeding from alcohol abuse and [id number] of only 1. Regarding alcohol withdrawal, he was treated with phenobarbital taper and counseled to maintain sobriety, especially given underlying cirrhosis. He will also need Gastroenterology referral for cirrhosis care. He was started on a short course of prednisone for ankle pain from suspected inflammatory arthritis. He was discharged home to resume VNA services through [facility] and should follow-up with his primary care doctor in 1 week. The importance of sobriety was counseled repeatedly. Time Spent with Patient Time attestation: Total time spent providing and/or coordinating discharge services: 40 Discharge coordination time: Greater than 30 minutes Quality: Stroke Does the patient have a stroke diagnosis?: No Physical Exam Vital Signs: Vital Signs: Last Vital Signs Temp 97.6 F 08/12/20 11:35 Pulse 67 08/12/20 11:35 Resp 19 08/12/20 11:35 BP 102/67 08/12/20 11:35 Pulse Ox 96 08/12/20 11:35 Body Mass Index 26.6 Gen: in no acute distress HEENT: sclera anicteric, moist mucus membranes Neck: supple Lungs: clear to auscultation bilaterally Heart: irregularly irregular, no murmurs Abd: soft, non-tender, non-distended Ext: no edema Skin: warm/well-perfused, multiple psoriatic plaques all over trunk, back, arms Neuro: alert and oriented x3, no focal findings Psych: appropriate affect DS: Data Data Completed and Pending Completed studies during hospitalization [Text1]: Laboratory Results WBC 6.5 X10*3/uL (4.8-10.8) 08/12/20 05:32 RBC 4.48 X10*6/uL (4.60-5.80) L 08/12/20 05:32 Hgb 15.8 g/dl (14.0-18.0) 08/12/20 05:32 Hct 46.0 % (42-52) 08/12/20 05:32 MCV 102.7 fL (80-98) H 08/12/20 05:32 MCH 35.3 pg (27.0-33.0) H 08/12/20 05:32 MCHC 34.3 g/dl (31.0-36.0) 08/12/20 05:32 RDW 12.9 % (11.0-16.0) 08/12/20 05:32 Plt Count 145 X10*3/uL (160-400) L D 08/12/20 05:32 MPV 10.5 fL (9.4-12.4) 08/12/20 05:32 Immature Gran % (Auto) 0.6 % (0.0-0.4) H 08/07/20 07:04 Neut % (Auto) 65.5 % (45-73) 08/07/20 07:04 Lymph % (Auto) 20.6 % (20-40) 08/07/20 07:04 Crisp % (Auto) 11.0 % (2-11) 08/07/20 07:04 Eos % (Auto) 1.7 % (0-4) 08/07/20 07:04 Baso % (Auto) 0.6 % (0-2) 08/07/20 07:04 Lymph # (Auto) 0.7 X10*3/uL (1.2-4.9) L 08/07/20 07:04 Crisp # (Auto) 0.4 X10*3/uL (0.1-1.2) 08/07/20 07:04 Eos # (Auto) 0.1 X10*3/uL (0.0-0.4) 08/07/20 07:04 Baso # (Auto) 0.0 X10*3/uL (0.0-0.2) 08/07/20 07:04 Abs Immat Gran (auto) 0.02 X10*3/uL (0.00-0.03) 08/07/20 07:04 Absolute Neuts (auto) 2.3 X10*3/uL (2.0-8.3) 08/07/20 07:04 Absolute Nucleated RBC 0.000 X10*3/uL (0.0-0.012) 08/12/20 05:32 Nucleated RBC % (auto) 0.0 /100WBC (0.0-0.2) 08/12/20 05:32 PT 12.0 SEC (10.8-13.0) 08/06/20 16:36 INR 1.0 (0.9-1.1) 08/06/20 16:36 APTT 33.3 SEC (24.1-38.0) 08/06/20 16:36 Sodium 137 mmol/L (135-145) 08/12/20 05:32 Potassium 4.3 mmol/L (3.3-5.1) 08/12/20 05:32 Chloride 100 mmol/L (96-108) 08/12/20 05:32 Carbon Dioxide 27 mmol/L (22-29) 08/12/20 05:32 Anion Gap 14 (12-20) 08/12/20 05:32 BUN 12 mg/dL (9-16) 08/12/20 05:32 Creatinine 0.72 mg/dL (0.5-1.4) 08/12/20 05:32 Estim Creat Clear Calc 116.8 08/12/20 05:32 Estimated GFR > 60 08/12/20 05:32 Random Glucose 94 mg/dL (60-115) 08/12/20 05:32 Fasting Glucose 109 mg/dL (60-99) H 08/10/20 05:51 Calcium 8.5 mg/dL (8.4-10.2) 08/12/20 05:32 Magnesium 1.9 mg/dL (1.6-2.6) 08/12/20 05:32 Total Bilirubin 1.1 mg/dL (0.0-1.0) H 08/10/20 05:51 Direct Bilirubin 0.6 mg/dL (0.0-0.5) H 08/10/20 05:51 AST 33 U/L (5-37) D 08/10/20 05:51 ALT 27 U/L (0-40) 08/10/20 05:51 Alkaline Phosphatase 162 U/L (39-117) H 08/10/20 05:51 Troponin I High Sens 8.9 ng/L (<3.5-35.0) 08/06/20 16:36 B-Natriuretic Peptide 382 pg/mL (<100) H 08/06/20 16:36 Total Protein 5.7 g/dL (6.5-8.0) L 08/10/20 05:51 Albumin 3.0 g/dL (3.5-5.0) L 08/10/20 05:51 Lipase 37 U/L (8-78) 08/06/20 16:36 TSH 3.40 uIU/mL (0.32-4.0) 08/07/20 00:13 Ethyl Alcohol 372 mg/dL H* 08/06/20 16:36 COVID-19 (CELIA) Negative (Negative) 08/06/20 19:38 COVID-19 Clin Com See Note 08/06/20 19:38 TTE 08/08/20 - The left ventricular systolic function is severely decreased. The visually estimated ejection fraction is between 20-25%. - Moderately increased right ventricular cavity size. There is mildly decreased right ventricular systolic function. - The left atrium is severely dilated. - There is moderate to severe tricuspid valve regurgitation. Moderately elevated right atrial pressure. Mild pulmonary hypertension is present. Impressions Cervical Spine CT 08/06/20 16:24 IMPRESSION: Negative acute noncontrast CT of the brain. No fracture or dislocation of the cervical spine Chest X-Ray 08/06/20 16:24 IMPRESSION: No acute intrathoracic disease. Head CT 08/06/20 16:24 IMPRESSION: Negative acute noncontrast CT of the brain. No fracture or dislocation of the cervical spine Hip/Pelvis X-Ray 08/06/20 16:25 IMPRESSION: No evidence of osseous fracture. Abdomen/Pelvis CT 08/06/20 23:40 IMPRESSION: 1. Fluid collection in the superficial soft tissues lateral to the left hip. There is some mixed internal attenuation and this could represent hematoma. 2. The sacrum and coccyx appear intact. 3. Cirrhotic morphology of the liver. Discharge Plan Discharge Anticipated Discharge Date/Time: 08/12/20 14:09 Patient Disposition: Home Health Service Discharge Diagnosis: atrial fibrillation, cardiomyopathy, alcohol withdrawal, alcoholic cirrhosis, inflammatory arthritis Referrals: Siena Babb MD [Physician] - 1 Month Robert Nelson MD [Primary Care Provider] - 1 Week Hari Candelario MD [Physician] - 2 Weeks Discharge Medications: New metoprolol succinate 50 mg Tablet Extended Release 24 Hr 50 mg PO DAILY@2100 Qty: 30 RF: 0 prednisone 20 mg Tablet 40 mg PO DAILY Qty: 2 RF: 0 metoprolol succinate 100 mg Tablet Extended Release 24 Hr 100 mg PO DAILY Qty: 30 RF: 0 B-complex with vitamin C Tablet 1 tab PO DAILY Qty: 30 RF: 0 valsartan 40 mg Tablet 40 mg PO BID Qty: 60 RF: 0 Continued pimecrolimus 1 % cream 1 appl topical BEDTIME RF: 0 magnesium oxide 400 mg (241.3 mg magnesium) tablet 1 tab PO DAILY RF: 0 fluocinonide 0.05 % solution 1 applic topical DAILY RF: 0 fluoxetine 20 mg capsule 1 cap PO DAILY RF: 0 lidocaine 5 % ointment 1 appl topical DAILY RF: 0 Discontinued nadolol 20 mg tablet 1 tab PO DAILY RF: 0 triamcinolone acetonide 0.025 % ointment 1 appl topical BEDTIME RF: 0 Discharge Orders: Discharge Order (Routine); Ordered 08/12/20 Ordered By: Caron Weller Diet: advance to usual diet and low salt diet Activity on Discharge: As tolerated Stand Alone Forms: Patient Portal Discharge page Other Ambulatory Orders: Basic Metabolic Panel (Routine) Timeframe: 1 Week Facility: [facility] - Location: Laboratory Ordered By: Caron Weller Care Plan Goals: control of heart rate improved heart health prevention of complications of cirrhosis sobriety relief of arthritis pain Health Concerns: atrial fibrillation cardiomyopathy cirrhosis alcohol withdrawal inflammatory arthritis Plan of Treatment: change nadolol to METOPROLOL SUCCINATE, 100 mg in the morning and 50 mg in the evening start VALSARTAN 40 mg twice daily; recheck labs [non-fasting basic metabolic panel] in 1 week. follow up with [facility] Cardiology in 2 weeks. avoid alcohol. referral to [facility] Gastroenterology in 1 month. take prednisone 40 mg a day for 2 more days. Assessment: as above Patient Instructions: A-fib (Atrial Fibrillation) (DC), Cirrhosis (DC)
== END 2020-08-12 14:28 | disposition home health service (06) | DRG 433 ==
LOC: HO.ED 16:47 → HO.EDOVER 22:53 → HO.IMC 23:11
PROVIDERS: Internal Medicine; Admitting Provider Hospitalist; Emergency Provider Internal Medicine; PCP Internal Medicine; Visit Provider Family Medicine
DX: K70.30 Alcoholic cirrhosis of liver without ascites (principal); I42.6 Alcoholic cardiomyopathy; F10.239 Alcohol dependence with withdrawal, unspecified; E87.0 Hyperosmolality and hypernatremia; I48.91 Unspecified atrial fibrillation; E83.42 Hypomagnesemia; L40.9 Psoriasis, unspecified; M06.4 Inflammatory polyarthropathy; F10.229 Alcohol dependence with intoxication, unspecified; E86.0 Dehydration; D69.6 Thrombocytopenia, unspecified; R74.01 Elevation of levels of liver transaminase levels; Z20.822 Contact with and (suspected) exposure to COVID-19; Z79.899 Other long term (current) drug therapy
CPT/HCPCS: 36415; 70450; 71045; 72125; 73502; 74176; 80048; 80076; 80320; 83690; 83735; 83880; 84443; 84484; 85025; 85027; 85610; 85730; 87635; 93005; 93306; 97162; 99285; J2060; J2560; J3475

== ENCOUNTER 2020-08-13 18:51 | Inpatient (IN) | payer OTHER, SELFPAY ==
--- NOTE | ~2020-08-13 | CT_ITS ---
EXAMINATION: CT BRAIN AND CT CERVICAL SPINE WITHOUT CONTRAST. CLINICAL INFORMATION: Fall. COMPARISON: CT cervical spine and CT brain 08/06/2020 TECHNIQUE: 5 mm thin axial and reformatted 2 mm thin sagittal and coronal images of brain were obtained without contrast. Subsequently axial 3 mm thin and reformatted 2 minutes in sagittal coronal images of cervical spine were obtained without contrast. DLP 1080. FINDINGS: Brain: There is no acute intra-axial, extra-axial bleed, masses or midline shift. Both lateral ventricles are symmetrical in size and configuration without enlargement. 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 The lateral ventricles are symmetrical in size and configuration without enlargement. The bush to white matter differences maintain normal. Bone windows reveal no calvarial abnormality. Cervical spine: On sagittal reconstructed images there is mild straightening of cervical lordosis. There is loss of disc height with ventral spondylosis at all cervical disc levels. The craniovertebral junction and the C1-C2 alignment is normal. There is no visible acute fracture, dislocation or subluxation. The prevertebral and paravertebral soft tissues are normal. Visualized thyroid, submandibular gland and parotid glands are symmetric and normal. There is widely patent. The lung apices are clear. CT/CT head/brain wo con IMPRESSION: No acute intracranial process seen. 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 There is no acute fracture, dislocation subluxation. There are degenerative disc changes and spondylosis throughout cervical spine.
--- NOTE | ~2020-08-13 | CT_ITS ---
EXAMINATION: CT BRAIN AND CT CERVICAL SPINE WITHOUT CONTRAST. CLINICAL INFORMATION: Fall. COMPARISON: CT cervical spine and CT brain 08/06/2020 TECHNIQUE: 5 mm thin axial and reformatted 2 mm thin sagittal and coronal images of brain were obtained without contrast. Subsequently axial 3 mm thin and reformatted 2 minutes in sagittal coronal images of cervical spine were obtained without contrast. DLP 1080. FINDINGS: Brain: There is no acute intra-axial, extra-axial bleed, masses or midline shift. Both lateral ventricles are symmetrical in size and configuration without enlargement. 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 The lateral ventricles are symmetrical in size and configuration without enlargement. The bush to white matter differences maintain normal. Bone windows reveal no calvarial abnormality. Cervical spine: On sagittal reconstructed images there is mild straightening of cervical lordosis. There is loss of disc height with ventral spondylosis at all cervical disc levels. The craniovertebral junction and the C1-C2 alignment is normal. There is no visible acute fracture, dislocation or subluxation. The prevertebral and paravertebral soft tissues are normal. Visualized thyroid, submandibular gland and parotid glands are symmetric and normal. There is widely patent. The lung apices are clear. CT/CT cervical spine wo con IMPRESSION: No acute intracranial process seen. 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 There is no acute fracture, dislocation subluxation. There are degenerative disc changes and spondylosis throughout cervical spine.
--- NOTE | 2020-08-13 19:11 | ECG_ITS ---
Test Reason : FALL/ETOH Blood Pressure : / mmHG Vent. Rate : 098 BPM Atrial Rate : 092 BPM P-R Int : 000 ms QRS Dur : 102 ms QT Int : 382 ms P-R-T Axes : 000 009 187 degrees QTc Int : 487 ms Atrial fibrillation Nonspecific T wave abnormality Prolonged QT Abnormal ECG When compared with ECG of 06-AUG-2020 15:41, Nonspecific T wave abnormality now evident in Inferior leads T wave inversion now evident in Lateral leads Referred By: Lori Reyna Electronically Signed By:SHREE CARPENTER MD
[2020-08-13 19:15] VITALS: BP 98/60; PULSE 100; RESP 17; TEMP 36.8; O2SAT 99; BMI 25.8
[2020-08-13 19:16] LABS: Glucose, Whole Blood 101 mg/dL (60-115)
[2020-08-13 19:19] VITALS: BP 98/60; PULSE 100; RESP 17; TEMP 36.8; O2SAT 99
[2020-08-13 19:31] LABS: MANUAL DIFF FLAG NO
[2020-08-13 19:34] LABS: Basophils Absolute Auto 0.1 X10*3/uL (0.0-0.2); Basophils Percent Auto 0.9 % (0-2); Eosinophils Absolute Auto 0.1 X10*3/uL (0.0-0.4); Eosinophils Percent Auto 1.6 % (0-4); Hematocrit 40.7 % (42-52); Hemoglobin 14.1 g/dl (14.0-18.0); Imm Gran Abs Auto 0.03 X10*3/uL (0.00-0.03); Imm Gran Pct Auto 0.5 % (0.0-0.4); Lymphocytes Absolute Auto 1.7 X10*3/uL (1.2-4.9); Mean Corpuscular HGB Conc 34.6 g/dl (31.0-36.0); Mean Corpuscular Hemoglobin 34.7 pg (27.0-33.0); Mean Corpuscular Volume 100.2 fL (80-98); Mean Platelet Volume 9.5 fL (9.4-12.4); Monocytes Percent Auto 16.9 % (2-11); Neutrophils Absolute Auto 2.9 X10*3/uL (2.0-8.3); Neutrophils Percent Auto 50.1 % (45-73); Platelet Count 154 X10*3/uL (160-400); Red Blood Count 4.06 X10*6/uL (4.60-5.80); Red Cell Distribution Width 12.7 % (11.0-16.0); White Blood Count 5.7 X10*3/uL (4.8-10.8)
[2020-08-13 20:00] LABS: Ethanol 342 mg/dL
[2020-08-13 20:06] LABS: Alanine Aminotransferase 42 U/L (0-40); Albumin Level 3.3 g/dL (3.5-5.0); Alkaline Phosphatase 187 U/L (39-117); Anion Gap 17 (12-20); Aspartate Amino Transferase 44 U/L (5-37); Bilirubin Total 0.9 mg/dL (0.0-1.0); Blood Urea Nitrogen 19 mg/dL (9-16); Carbon Dioxide 19 mmol/L (22-29); Chloride 99 mmol/L (96-108); Creatinine Clr Calc Pharmacy 43.3; Estimated Glomerular Filt Rate 39; Glucose Random 87 mg/dL (60-115); Potassium 3.7 mmol/L (3.3-5.1); Sodium 131 mmol/L (135-145); Total Protein 6.3 g/dL (6.5-8.0)
--- NOTE | 2020-08-13 20:06 | PC.NURSE ---
Pt found up OOB, urinating on self, assisted with urinal, fresh clothing provided, back to bed. Pending CT results
--- NOTE | 2020-08-13 21:24 | ED_ITS ---
HPI - General Adult General Chief complaint: Fall Stated complaint: FALL,LAC TO HEAD,?ETOH,-COLLAR,?THINNERS Time Seen by Provider: 08/13/20 19:30 Source: EMS Mode of arrival: EMS Limitations: no limitations History of Present Illness HPI narrative: Patient comes to the emergency room by EMS. Ambulance was called by cheek of the fire due to a fall that occurred while the patient was at his friend's house. Patient is poor historian, states that he fell, patient complaining of laceration to the back of his head. Patient admits to drinking alcohol, states he took 2 beers prior to arrival. Patient states that he did not lose consciousness. Patient complaining of chronic lower extremity pain, patient states that he fell in his bathtub over a week ago. Of note, patient was discharged yesterday from the hospital, patient was admitted for cardiomyopathy, atrial fibrillation, alcohol intoxication and cirrhosis. Related Data Home Medications Medication Instructions Recorded Confirmed fluocinonide 1 applic TOPICAL DAILY 08/06/20 08/07/20 fluoxetine 1 cap PO DAILY 08/06/20 08/07/20 lidocaine 1 appl TOPICAL DAILY 08/06/20 08/07/20 magnesium oxide 1 tab PO DAILY 08/06/20 08/07/20 pimecrolimus 1 appl TOPICAL BEDTIME 08/06/20 08/07/20 Previous Rx's Medication Instructions Recorded metoprolol succinate 50 mg PO BEDTIME #30 tab 08/12/20 metoprolol succinate 100 mg PO DAILY #30 tab 08/12/20 prednisone 40 mg PO DAILY #4 tab 08/12/20 valsartan 40 mg PO BID #60 tab 08/12/20 vitamin B comp and C no.3 [B 1 cap PO DAILY #30 cap 08/12/20 Complex Plus Vitamin C] Allergies Allergy/AdvReac Type Severity Reaction Status Date / Time No Known Allergies Allergy Verified 08/06/20 15:36 Review of Systems Review of Systems: Constitutional : No Weight loss, No Fever, No Chills, No Night Sweats, No Fatigue, No Malaise ENT/Mouth : No Hearing loss, No Ear Pain, No Nasal Congestion, No Sinus Pain, No Hoarseness, No sore throat, No Rhinorrhea, No Swallowing Difficulty Eyes: No Eye Pain, No Swelling, No Redness, No Foreign Body, No Discharge, No Vision Changes Cardiovascular : No Chest Pain, No SOB, No Dyspnea on Exertion, No Orthopnea, No Edema, No Palpitations Respiratory : No Cough, No Sputum, No Wheezing, No Smoke Exposure, No Dyspnea Gastrointestinal : No Nausea, No Vomiting, No Diarrhea, No Constipation, No abdominal Pain, No Hematochezia, No Melena Genitourinary : no irregular bleeding, No Dysuria, No Urinary Frequency, No Hematuria, No Urinary Incontinence, No Urgency, No Flank Pain, No Urinary Flow Changes, No Hesitancy Musculoskeletal : Complaining of myalgias and lower extremity pain in the thighs, secondary to a fall over a week ago, no new pain Skin : Complaining of a laceration in his head, chronic psoriasis which is very itchy, especially in the abdomen Neuro : No Weakness, No Numbness, No Paresthesias, No Loss of Consciousness, No Dizziness, No Headache Psych : No Anxiety/Panic, No Depression, No SI/HI/AH/VH, No Social Issues, Heme/Lymph: No Bruising, No Bleeding,No Lymphadenopathy Endocrine : No Polyuria, No Polydipsia, No Temperature Intolerance PMFSH Past Medical History Medical History Afib Alcoholic cirrhosis of liver Chronic HFrEF (heart failure with reduced ejection fraction) Psoriasis Social History Social History Household Members: None Housing: Apartment Do you presently have visiting nurse or other home services: No Alcohol intake: current Alcohol intake frequency: other Alcohol type: beer and hard liquor Smoking Status: Never smoker Second Hand Smoke Exposure: No Use of substances other than those prescribed or required for medical reasons: No Advance Directives: No Advance Directives Information Provided: Yes service: No Current occupational status: unemployed Physical Exam Vital Signs: Vital Signs: Last Vital Signs Temp 98.0 F 08/13/20 22:25 Pulse 100 08/13/20 22:25 Resp 16 08/13/20 22:25 BP 98/63 08/13/20 22:25 Pulse Ox 98 08/13/20 22:25 Body Mass Index 25.8 Appearance: Alert. Oriented X2. No acute distress. Eyes: Pupils equal, round and reactive to light. ENT: Pharynx normal. Neck: Normal inspection. Neck supple. No lymph nodes noted. No crepitus CVS: Normal heart rate and rhythm. Pulses normal. Normal S1 and S2 Respiratory: No respiratory distress. Breath sounds normal. No Wheezing. No rales Abdomen: Soft and nontender. No rigidity. No distention. good BS x4 Skin: Skin warm and dry. Patient has multiple ecchymoses and abrasions to upper and lower extremities, different stages of healing, unlikely to be acute from this fall. Patient has approximately a 7 cm laceration in the scalp Extremities: No lower extremity edema. No lower extremity edema. No Lacerations. No Rash Neuro: Oriented X 3. No motor deficit. No sensory deficit. Moving all extermities. No slurred speech. Course Course Course Narrative: Patient tolerated well the holly, patient waiting to be sober to be discharged. Patient's acute kidney injury resolved with fluids. At this time, patient remains intoxicated, more alert and engaged. Patient waiting for a sober ride or metabolized to freedom. Sign-out given to Dr. Rubio Procedures Laceration Laceration 1: Site: scalp Size (cm): 7 Description: linear Depth: simple, single layer Local Anesthetic: lidocaine 2% Amount of anesthesia used (mL): 6 Skin layer closed with: other Size (cm): other (Holly) Number of sutures: 8 Technique: simple, interrupted Medical Decision Making Lab Data Result diagrams: 08/13/20 19:24 08/13/20 23:06 Labs: Lab Results 08/13/20 08/13/20 08/13/20 Range/Units 19:10 19:24 19:24 WBC 5.7 (4.8-10.8) X10*3/uL RBC 4.06 L (4.60-5.80) X10*6/uL Hgb 14.1 (14.0-18.0) g/dl Hct 40.7 L (42-52) % MCV 100.2 H (80-98) fL MCH 34.7 H (27.0-33.0) pg MCHC 34.6 (31.0-36.0) g/dl RDW 12.7 (11.0-16.0) % Plt Count 154 L (160-400) X10*3/uL MPV 9.5 (9.4-12.4) fL Immature Gran % (Auto) 0.5 H (0.0-0.4) % Neut % (Auto) 50.1 (45-73) % Lymph % (Auto) 30.0 (20-40) % Calvert % (Auto) 16.9 H (2-11) % Eos % (Auto) 1.6 (0-4) % Baso % (Auto) 0.9 (0-2) % Lymph # (Auto) 1.7 (1.2-4.9) X10*3/uL Calvert # (Auto) 1.0 (0.1-1.2) X10*3/uL Eos # (Auto) 0.1 (0.0-0.4) X10*3/uL Baso # (Auto) 0.1 (0.0-0.2) X10*3/uL Abs Immat Gran (auto) 0.03 (0.00-0.03) X10*3/uL Absolute Neuts (auto) 2.9 (2.0-8.3) X10*3/uL Absolute Nucleated RBC 0.000 (0.0-0.012) X10*3/uL Nucleated RBC % (auto) 0.0 (0.0-0.2) /100WBC Sodium 131 L (135-145) mmol/L Potassium 3.7 (3.3-5.1) mmol/L Chloride 99 (96-108) mmol/L Carbon Dioxide 19 L (22-29) mmol/L Anion Gap 17 (12-20) BUN 19 H D (9-16) mg/dL Creatinine 1.82 H (0.5-1.4) mg/dL Estim Creat Clear Calc 43.3 Estimated GFR 39 POC Glucose 101 (60-115) mg/dL Random Glucose 87 (60-115) mg/dL Calcium 8.0 L (8.4-10.2) mg/dL Magnesium (1.6-2.6) mg/dL Total Bilirubin 0.9 (0.0-1.0) mg/dL AST 44 H (5-37) U/L ALT 42 H (0-40) U/L Alkaline Phosphatase 187 H (39-117) U/L Total Protein 6.3 L (6.5-8.0) g/dL Albumin 3.3 L (3.5-5.0) g/dL Ethyl Alcohol mg/dL 08/13/20 08/13/20 08/13/20 Range/Units 19:24 19:24 23:06 WBC (4.8-10.8) X10*3/uL RBC (4.60-5.80) X10*6/uL Hgb (14.0-18.0) g/dl Hct (42-52) % MCV (80-98) fL MCH (27.0-33.0) pg MCHC (31.0-36.0) g/dl RDW (11.0-16.0) % Plt Count (160-400) X10*3/uL MPV (9.4-12.4) fL Immature Gran % (Auto) (0.0-0.4) % Neut % (Auto) (45-73) % Lymph % (Auto) (20-40) % Calvert % (Auto) (2-11) % Eos % (Auto) (0-4) % Baso % (Auto) (0-2) % Lymph # (Auto) (1.2-4.9) X10*3/uL Calvert # (Auto) (0.1-1.2) X10*3/uL Eos # (Auto) (0.0-0.4) X10*3/uL Baso # (Auto) (0.0-0.2) X10*3/uL Abs Immat Gran (auto) (0.00-0.03) X10*3/uL Absolute Neuts (auto) (2.0-8.3) X10*3/uL Absolute Nucleated RBC (0.0-0.012) X10*3/uL Nucleated RBC % (auto) (0.0-0.2) /100WBC Sodium 134 L (135-145) mmol/L Potassium 4.4 (3.3-5.1) mmol/L Chloride 102 (96-108) mmol/L Carbon Dioxide 19 L (22-29) mmol/L Anion Gap 17 (12-20) BUN 16 (9-16) mg/dL Creatinine 1.25 (0.5-1.4) mg/dL Estim Creat Clear Calc 63.0 Estimated GFR 60 POC Glucose (60-115) mg/dL Random Glucose 75 (60-115) mg/dL Calcium 8.4 (8.4-10.2) mg/dL Magnesium 2.0 (1.6-2.6) mg/dL Total Bilirubin (0.0-1.0) mg/dL AST (5-37) U/L ALT (0-40) U/L Alkaline Phosphatase (39-117) U/L Total Protein (6.5-8.0) g/dL Albumin (3.5-5.0) g/dL Ethyl Alcohol 342 H* mg/dL Discharge Plan Discharge Clinical Impression: Acute kidney injury, Laceration Fall Qualifiers: Encounter type: initial encounter Qualified Code(s): W19.XXXA - Unspecified fall, initial encounter Alcohol intoxication Qualifiers: Complication of substance-induced condition: uncomplicated Qualified Code(s): F10.920 - Alcohol use, unspecified with intoxication, uncomplicated Patient Disposition: Home, Self-Care Instructions: Alcohol Intoxication (ED), Head Laceration (ED) Additional Instructions: Your holly need to be removed in 7-10 days. If you see any signs of infection such as redness, pus drainage, fever, any new symptoms, please return to the emergency room. He may have your holly removed at your primary care physician's office, urgent care or return to the emergency room. Please follow-up with your primary care physician tomorrow. If you have any worsening or new symptoms, please return to the emergency room or call 911 Prescriptions: No Action pimecrolimus 1 % cream 1 appl topical BEDTIME RF: 0 magnesium oxide 400 mg (241.3 mg magnesium) tablet 1 tab PO DAILY RF: 0 fluocinonide 0.05 % solution 1 applic topical DAILY RF: 0 fluoxetine 20 mg capsule 1 cap PO DAILY RF: 0 lidocaine 5 % ointment 1 appl topical DAILY RF: 0 metoprolol succinate 100 mg tablet extended release 24 hr 100 mg PO DAILY Qty: 30 RF: 0 metoprolol succinate 50 mg tablet extended release 24 hr 50 mg PO BEDTIME Qty: 30 RF: 0 B Complex Plus Vitamin C [id number] mg capsule 1 cap PO DAILY Qty: 30 RF: 1 prednisone 20 mg tablet 40 mg PO DAILY Qty: 4 RF: 0 valsartan 40 mg tablet 40 mg PO BID Qty: 60 RF: 0
[2020-08-13 22:25] VITALS: BP 98/63; PULSE 100; RESP 16; TEMP 36.7; O2SAT 98
[2020-08-13] MEDS: Lidocaine HCl 2 % MPF 5 ML VIAL 10 ML INFILTRATI (22:28)
[2020-08-13 23:37] LABS: Anion Gap 17 (12-20); Blood Urea Nitrogen 16 mg/dL (9-16); Calcium 8.4 mg/dL (8.4-10.2); Carbon Dioxide 19 mmol/L (22-29); Chloride 102 mmol/L (96-108); Estimated Glomerular Filt Rate 60; Glucose Random 75 mg/dL (60-115); Potassium 4.4 mmol/L (3.3-5.1); Sodium 134 mmol/L (135-145)
[2020-08-14] VITALS (14 sets, daily range): BP systolic 107–132; BP diastolic 63–89; PULSE 79–146; RESP 14–20; TEMP 36.4–37.7; O2SAT 94–98; BMI 27.5
[2020-08-14] MEDS: 0.9 % Sodium Chloride 1,000 ML 999 ML IV (05:45)
[2020-08-14] MEDS: LORazepam 2 MG/ML VIAL 1 MG IVPUSH ×2 (05:45→09:02)
[2020-08-14] MEDS: LORazepam 2 MG/ML VIAL 0.5 MG IVPUSH (05:50)
--- NOTE | 2020-08-14 06:22 | PC.NURSE ---
05:50 PT HR 130 - 150 DENIES ANY CHEST PAIN OR RESPIRATORY DISTRESS. DR. BATES AWARE, MEDS ORDERED AND ADMINISTERED. HR NOW 95-105, IV FLUID INFUSING ORDERED. WILL CONTINUE TO MONITOR.
--- NOTE | 2020-08-14 08:01 | PC.NURSE ---
PT CONTINUES TO HAVE EPISODES OF TACHYCARDIA OF 150-160'S. HE STATES HE IS HAVING HEAD AND RIB PAIN
--- NOTE | 2020-08-14 09:12 | ECG_ITS ---
Test Reason : REPEAT Blood Pressure : / mmHG Vent. Rate : 127 BPM Atrial Rate : 300 BPM P-R Int : 000 ms QRS Dur : 088 ms QT Int : 338 ms P-R-T Axes : 000 -09 158 degrees QTc Int : 491 ms Atrial fibrillation with rapid ventricular response T wave abnormality, consider lateral ischemia Abnormal ECG When compared with ECG of 13-AUG-2020 19:19, No significant change was found Referred By: Gia Bolden Electronically Signed By:SHREE CARPENTER MD
[2020-08-14] MEDS: PHENobarbitaL sodium 130 MG/ML VIAL 274 MG IM (10:17)
[2020-08-14] MEDS: Magnesium Sulfate/D5W 1 GM/100 ML PIGGYBACK IV (10:18)
[2020-08-14] MEDS: Metoprolol Succinate ER 100 MG TAB.ER.24H PO (10:18)
[2020-08-14] MEDS: Metoprolol Tartrate 5 MG/5 ML VIAL IVPUSH ×2 (10:18→17:34)
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
[2020-08-14] MEDS: PHENobarbitaL sodium 130 MG/ML VIAL 205 MG IM ×2 (13:14→16:15)
[2020-08-14] MEDS: Magnesium Oxide 400 MG TABLET PO (13:15)
[2020-08-14] MEDS: Enoxaparin Sodium 40 MG/0.4 ML SYRINGE SUBCUT (13:15)
[2020-08-14] MEDS: Thiamine HCL 100 MG TABLET PO (13:15)
[2020-08-14] MEDS: Valsartan 40 MG TABLET PO ×2 (13:15→21:45)
[2020-08-14] MEDS: Lactated Ringers 1,000 ML 100 ML IVCONT (13:16)
[2020-08-14] MEDS: Folic Acid 1 MG TABLET PO (13:16)
[2020-08-14] MEDS: Multivitamin TABLET 1 TAB PO (13:16)
[2020-08-14 20:33] LABS: COVID-19 Test Negative (Negative); IDNOW Serial# 9DD0AD1C
[2020-08-14] MEDS: Acetaminophen 325 MG TABLET 650 MG PO (20:36)
[2020-08-14] MEDS: PHENobarbitaL 15 MG TABLET 45 MG PO (21:36)
[2020-08-14] MEDS: Metoprolol Succinate ER 12.5 MG HALFTAB.ER.24H PO (21:37)
[2020-08-14] MEDS: 0.9 % Sodium Chloride Flush 3 ML SYRINGE IVFLUSH (21:53)
--- NOTE | 2020-08-14 23:50 | PC.NURSE ---
2347 pt noted to have 4 beat vtach. Pt assessed and stable. Dr. Hawkins aware, will continue to monitor.
[2020-08-15] MEDS: Lactated Ringers 1,000 ML 100 ML IVCONT (02:51)
[2020-08-15 03:18] VITALS: BP 134/88; PULSE 77; RESP 18; TEMP 36.6; O2SAT 97
[2020-08-15 06:15] LABS: Hematocrit 41.2 % (42-52); Hemoglobin 14.3 g/dl (14.0-18.0); Mean Corpuscular HGB Conc 34.7 g/dl (31.0-36.0); Mean Corpuscular Hemoglobin 34.7 pg (27.0-33.0); Mean Platelet Volume 9.4 fL (9.4-12.4); Platelet Count 106 X10*3/uL (160-400); Red Blood Count 4.12 X10*6/uL (4.60-5.80); Red Cell Distribution Width 12.2 % (11.0-16.0); White Blood Count 3.4 X10*3/uL (4.8-10.8)
[2020-08-15 06:46] LABS: Alanine Aminotransferase 33 U/L (0-40); Albumin Level 3.2 g/dL (3.5-5.0); Alkaline Phosphatase 194 U/L (39-117); Aspartate Amino Transferase 39 U/L (5-37); Bilirubin Total 2.1 mg/dL (0.0-1.0); Magnesium 1.6 mg/dL (1.6-2.6); Total Protein 6.1 g/dL (6.5-8.0)
[2020-08-15 06:48] LABS: Anion Gap 11 (12-20); Blood Urea Nitrogen 13 mg/dL (9-16); Calcium 8.5 mg/dL (8.4-10.2); Carbon Dioxide 28 mmol/L (22-29); Chloride 100 mmol/L (96-108); Creatinine Clr Calc Pharmacy 129.1; Estimated Glomerular Filt Rate > 60; Glucose Random 121 mg/dL (60-115); Potassium 3.3 mmol/L (3.3-5.1); Sodium 136 mmol/L (135-145)
[2020-08-15 07:59] VITALS: BP 130/83; PULSE 92; RESP 20; TEMP 36.6; O2SAT 94
[2020-08-15] MEDS: 0.9 % Sodium Chloride Flush 3 ML SYRINGE IVFLUSH (08:31)
[2020-08-15] MEDS: PHENobarbitaL 15 MG TABLET 45 MG PO (08:31)
[2020-08-15] MEDS: Magnesium Oxide 400 MG TABLET PO (08:32)
[2020-08-15] MEDS: Folic Acid 1 MG TABLET PO (08:32)
[2020-08-15] MEDS: FLUoxetine HCl 20 MG CAPSULE PO (08:32)
[2020-08-15] MEDS: Metoprolol Succinate ER 100 MG TAB.ER.24H PO (08:32)
[2020-08-15] MEDS: Valsartan 40 MG TABLET PO (08:32)
[2020-08-15] MEDS: Thiamine HCL 100 MG TABLET PO (08:32)
[2020-08-15] MEDS: Multivitamin TABLET 1 TAB PO (08:32)
--- NOTE | 2020-08-15 08:51 | MHC.CM.PN ---
CM met with Patient at bedside and addressed the IMM with him, providing him with the original and placing a copy on the chart. Patient lives alone in an elderly apartment complex and he is requesting a referral to NA. CM has initiated and will follow for dc planning. PCP is Dr. Robert Nelson. Patient may benefit from a Care Team Consult r/t ETOH.Patient's Brother/Edward is the HCP.Patient has a cane.
[2020-08-15] MEDS: Triamcinolone Acet 0.5 % Oint 15 GM TUBE 1 APPL TOPICAL (08:59)
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
--- NOTE | 2020-08-15 11:03 | PC.NURSE ---
0900 wants to be discharged today. States he is leaving. Understands it is unsafe. Dr Weller notified. 1000 Reinforced dangers of leaving AMA. by MD and myself. Removed monitor and IV himself. [address] Weller aware. Had prev been seen by Care Team this AM. Signed papers. Verbaizes understanding of potentail consequences, including of leaving. Understands to come to ED if needed.
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
== END 2020-08-15 11:38 | disposition left against medical advice (07) | DRG 894 ==
LOC: HO.ED 23:57 → HO.EDOVER 08-14 11:49 → HO.IMC 08-14 18:08
PROVIDERS: Admitting Provider Family Medicine; Emergency Provider Emergency Medicine; PCP Internal Medicine; Visit Provider Family Medicine
DX: F10.139 Alcohol abuse with withdrawal, unspecified (principal); I50.22 Chronic systolic (congestive) heart failure; I42.6 Alcoholic cardiomyopathy; S01.01XA Laceration without foreign body of scalp, initial encounter; W18.30XA Fall on same level, unspecified, initial encounter; Y93.9 Activity, unspecified; Y92.009 Unspecified place in unspecified non-institutional (private) residence as the place of occurrence of the external cause; F10.129 Alcohol abuse with intoxication, unspecified; Y99.9 Unspecified external cause status; R29.6 Repeated falls; Z91.81 History of falling; K70.30 Alcoholic cirrhosis of liver without ascites; Y90.8 Blood alcohol level of 240 mg/100 ml or more; I48.91 Unspecified atrial fibrillation; L40.9 Psoriasis, unspecified; Z79.899 Other long term (current) drug therapy
CPT/HCPCS: 36415; 70450; 71045; 72125; 73502; 74176; 80048; 80053; 80076; 80320; 82947; 83690; 83735; 83880; 84443; 84484; 85025; 85027; 85610; 85730; 87635; 93005; 93306; 96365; 96375; 97162; 99285; J1650; J2060; J2560; J3475

== ENCOUNTER 2020-08-31 15:32 | Inpatient (IN) | payer OTHER, SELFPAY ==
--- NOTE | ~2020-08-31 | CT_ITS ---
EXAMINATION: CT HEAD WITHOUT CONTRAST CLINICAL INFORMATION: Pain status post fall COMPARISON: 08/13/2020 TECHNIQUE: Contiguous axial imaging was performed from the skull base to vertex without intravenous administration of contrast. This CT examination was performed using dose optimization techniques as appropriate, variously including the following: *Automated exposure control *Adjustment of mA and/or kV according to patient size (this includes techniques or standardized protocols for targeted exams where dose is matched to indication/reason for exam; i.e. extremities or head) *Use of iterative reconstruction technique DLP: 636 mGy-cm FINDINGS: Skin holly noted overlying the posterior occiput. No underlying fracture. 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 No acute hemorrhage. There is no evidence of acute intracranial hemorrhage or territorial infarction. No abnormal mass effect or midline shift is seen. Sweet to white matter differentiation is well preserved. No extra-axial fluid collections are identified. The ventricles are normal in size. The osseous structures and soft tissues are normal. The mastoid air cells and visualized portions of the paranasal sinuses are well aerated. CT/CT head/brain wo con IMPRESSION: No acute intracranial pathology. No hemorrhage.
--- NOTE | ~2020-08-31 | XR_ITS ---
EXAMINATION: XR CHEST CLINICAL INFORMATION: Tachycardia COMPARISON: 08/06/2020 TECHNIQUE: Frontal view of the chest was obtained. FINDINGS: No significant abnormality is noted involving the heart, lungs, mediastinum, bony thorax or soft tissues. XR/XR chest 1V IMPRESSION: Unremarkable examination.
--- NOTE | 2020-08-31 15:46 | ED_ITS ---
HPI - Alcohol General Chief Complaint: General Medical Stated Complaint: fall Time Seen by Provider: 08/31/20 15:35 Source: patient and EMS Mode of arrival: EMS Limitations: altered mental status (Patient clearly intoxicated) History of Present Illness HPI narrative: Pt is a 59 year-old man with compensated liver cirrhosis due to ongoing alcohol abuse, AFib with RVR, psoriasis who has had 2 recent admissions. On 08/06, he was admitted for atrial fibrillation with rapid ventricular response after a fall in the shower while intoxicated. 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 He was started on metoprolol succinate and valsartan. He was not started on anticoagulation given risk of falls and bleeding from alcohol abuse and [id number] of only 1. He was treated with phenobarbital taper for alcohol withdrawal and sobreity counseled. He was discharged home with VNA services. On 08/14, 911 was called because the patient fell while at his friend's house and sustained a laceration to the back of his scalp. He admitted to the ED physician that he drank 2 servings of beer. He denies LOC. He states he has not yet picked up the medications that I had sent upon discharge on 08/13/20. In the ED, he had his laceration repaired with holly. BAL was 342. SCr was 1.82 compared to 0.72 in the morning; repeat SCr after IV fluid hydration was 1.25. He then developed signs and symptoms of alcohol withdrawal with CIWA score of 12 and then his ventricular rate went up to 160. He was started on phenobarbital taper and given IV, then PO metoprolol. The patient was admitted to the [facility] on phenobarbital taper. He had repeated episodes of rapid ventricular response with minimal exertion. The next morning, pt left the hospital against medical advice. Today, patient states he called 911 because ?he just can not do it at home any more ?, when asked to explain this further, he could not tell me. He was only interested in showing me the large bruises on his buttocks but he could not articulate to me when or how they happened. He denies alcohol or drug use. He states he lives alone and just can not take care of himself so that is why he called 911 today. Patient states he does not take any medications, he knows there are some waiting for him at [facility] but he just can not get over there to pick them up. He states he is unable to ambulate however when EMS arrived on scene, they said he was ambulating well. Related Data Home Medications Medication Instructions Recorded Confirmed fluocinonide 1 applic TOPICAL DAILY 08/06/20 08/14/20 fluoxetine 1 cap PO DAILY 08/06/20 08/14/20 lidocaine 1 appl TOPICAL DAILY 08/06/20 08/14/20 magnesium oxide 1 tab PO DAILY 08/06/20 08/14/20 pimecrolimus 1 appl TOPICAL BEDTIME 08/06/20 08/14/20 Previous Rx's Medication Instructions Recorded metoprolol succinate 50 mg PO BEDTIME #30 tab 08/12/20 metoprolol succinate 100 mg PO DAILY #30 tab 08/12/20 valsartan 40 mg PO BID #60 tab 08/12/20 vitamin B comp and C no.3 [B 1 cap PO DAILY #30 cap 08/12/20 Complex Plus Vitamin C] Allergies Allergy/AdvReac Type Severity Reaction Status Date / Time No Known Allergies Allergy Verified 08/06/20 15:36 Review of Systems Review of Systems: Yes all other systems are reviewed and are negative [facility] Past Medical History Medical History Afib Alcohol intoxication Alcoholic cirrhosis of liver Atrial fibrillation with rapid ventricular response Cardiomyopathy Chronic HFrEF (heart failure with reduced ejection fraction) Left against medical advice Psoriasis Social History Social History Household Members: None Housing: Apartment Housing Other:: Elderly housing complex Do you presently have visiting nurse or other home services: Yes Alcohol intake: current Alcohol intake frequency: other Alcohol type: beer and hard liquor Patient Tobacco Use Status: Tobacco use Unknown Second Hand Smoke Exposure: No Use of substances other than those prescribed or required for medical reasons: Unknown Advance Directives: No Advance Directives Information Provided: Yes service: No Current occupational status: disabled Physical Exam Vital Signs: Vital Signs: Last Vital Signs Temp 98.1 F 08/31/20 16:00 Pulse 145 H 08/31/20 16:00 Resp 20 08/31/20 16:00 BP 113/86 08/31/20 16:00 Pulse Ox 95 08/31/20 16:00 Body Mass Index 30.4 Const: Other: Patient easily agitated, slurring his words, clearly intoxicated General: cooperative, no acute distress, poor hygiene and tired appearing Nutritional Appearance: average body habitus Orientation/consciousness: patient oriented x3 HENMT: Head: Yes normal to inspection (Multiple holly in scalp, well-healed wound) Ears: hearing grossly normal bilaterally General nose exam: Normal external nose present Eyes: General: appearance normal, both eyes and all related structures Conjunctivae: conjunctival abnormal bilateral conjunctival injection Pupils: Pupil size comments bilaterally 2 EOM: EOMs intact bilaterally Neck: Neck: Yes normal visual inspection, Yes full ROM and Yes supple Resp: Effort & Inspection: normal respiratory effort and able to speak in complete sentences Auscultation: clear to auscultation bilaterally Cardio: Rate: tachycardic Rhythm: abnormal rhythm Heart sounds: normal S1 and S2 Skin: Other: Several large pink patches with white crusted border on abdomen and arms Large area of ecchymosis on left buttocks and right buttocks. Neuro: General: patient oriented x3 Extrem: General: Yes edema (Bilateral lower extremities 2+ pitting) Course Course Course Narrative: Pt is a 59 year-old man with compensated liver cirrhosis due to ongoing alcohol abuse, AFib with RVR, psoriasis who has had 2 recent admissions for afib with rvr and a fall. Vital signs show patient is hypertensive at 133/93, tachycardic at 128, respirations are 20, temp is 98.3 degrees and patient is satting at 96% on room air. Physical exam reveals irregular rate and tachy rate, patient is clearly intoxicated, he has large bruises on his left buttocks he still has holly that were placed on August 14 in his scalp, I will remove these today. Will get EKG, labs, ETOH level, UA and chest x-ray then reassess. Reevaluation(s) Reevaluation #1: EKG shows AFib with RVR, will give 10 mg Cardizem, patient has a moved in to the room and is on a monitoring tech. Will get head CT is patient is still unable to explain his injuries due to his intoxication. Time: 16:19 Reevaluation #2: Removed holly from patient's scalp. HR has come down to low 100's, will give another 10mg cardizem. Patient's labs remarkable for pancytopenia white blood cell count 3.3 red blood cell count 3.81 and platelets 88 appears to be about patient's baseline. Chemistry slightly bumped at 147, liver appears to be at patient's baseline, ETOH 378, chest x-ray unremarkable, head CT no acute intracranial pathology. Time: 16:48 Reevaluation #3: After 2nd dose of Cardizem, patient's vital signs are now stable, heart rate is in the 70s and 80s and his blood pressure is 107/70, patient is resting comfortably. Will put in consult for case management and start pt on the PO meds he never picked up from the pharmacy ---> 50mg metoprolol qhs, 100mg metoprolol qam and 40mg valsartan bid. PT/OT consult placed, case management consult placed. Time: 17:18 Procedures Procedure Narrative Procedure Narrative: removed 7 holly from pt's head, no blood loss, patient tolerated it well MDM - Alcohol Medical Records Attestation: I reviewed the patient's medical records. Lab Data Result diagrams: 08/31/20 16:17 08/31/20 16:17 Labs: Lab Results 08/31/20 08/31/20 08/31/20 Range/Units 16:17 16:17 16:17 WBC 3.3 L (4.8-10.8) X10*3/uL RBC 3.81 L (4.60-5.80) X10*6/uL Hgb 13.2 L (14.0-18.0) g/dl Hct 37.7 L (42-52) % MCV 99.0 H (80-98) fL MCH 34.6 H (27.0-33.0) pg MCHC 35.0 (31.0-36.0) g/dl RDW 12.9 (11.0-16.0) % Plt Count 88 L (160-400) X10*3/uL MPV 10.0 (9.4-12.4) fL Immature Gran % (Auto) 0.3 (0.0-0.4) % Neut % (Auto) 42.4 L (45-73) % Lymph % (Auto) 41.1 H (20-40) % [place] % (Auto) 12.9 H (2-11) % Eos % (Auto) 1.8 (0-4) % Baso % (Auto) 1.5 (0-2) % Lymph # (Auto) 1.3 (1.2-4.9) X10*3/uL [place] # (Auto) 0.4 (0.1-1.2) X10*3/uL Eos # (Auto) 0.1 (0.0-0.4) X10*3/uL Baso # (Auto) 0.1 (0.0-0.2) X10*3/uL Abs Immat Gran (auto) 0.01 (0.00-0.03) X10*3/uL Absolute Neuts (auto) 1.4 L (2.0-8.3) X10*3/uL Absolute Nucleated RBC 0.000 (0.0-0.012) X10*3/uL Nucleated RBC % (auto) 0.0 (0.0-0.2) /100WBC PT 12.5 (10.8-13.0) SEC INR 1.1 (0.9-1.1) APTT 33.4 (24.1-38.0) SEC Sodium 147 H (135-145) mmol/L Potassium 3.4 (3.3-5.1) mmol/L Chloride 110 H (96-108) mmol/L Carbon Dioxide 25 (22-29) mmol/L Anion Gap 15 (12-20) BUN 7 L (9-16) mg/dL Creatinine 0.75 (0.5-1.4) mg/dL Estim Creat Clear Calc 115.0 Estimated GFR > 60 Random Glucose 87 (60-115) mg/dL Calcium 8.3 L (8.4-10.2) mg/dL Magnesium 1.7 (1.6-2.6) mg/dL Total Bilirubin 1.1 H (0.0-1.0) mg/dL Direct Bilirubin 0.6 H (0.0-0.5) mg/dL AST 58 H (5-37) U/L ALT 29 (0-40) U/L Alkaline Phosphatase 216 H (39-117) U/L Troponin I High Sens (<3.5-35.0) ng/L B-Natriuretic Peptide (<100) pg/mL Total Protein 6.6 (6.5-8.0) g/dL Albumin 3.4 L (3.5-5.0) g/dL Ethyl Alcohol mg/dL 08/31/20 08/31/20 Range/Units 16:17 16:17 WBC (4.8-10.8) X10*3/uL RBC (4.60-5.80) X10*6/uL Hgb (14.0-18.0) g/dl Hct (42-52) % MCV (80-98) fL MCH (27.0-33.0) pg MCHC (31.0-36.0) g/dl RDW (11.0-16.0) % Plt Count (160-400) X10*3/uL MPV (9.4-12.4) fL Immature Gran % (Auto) (0.0-0.4) % Neut % (Auto) (45-73) % Lymph % (Auto) (20-40) % [place] % (Auto) (2-11) % Eos % (Auto) (0-4) % Baso % (Auto) (0-2) % Lymph # (Auto) (1.2-4.9) X10*3/uL [place] # (Auto) (0.1-1.2) X10*3/uL Eos # (Auto) (0.0-0.4) X10*3/uL Baso # (Auto) (0.0-0.2) X10*3/uL Abs Immat Gran (auto) (0.00-0.03) X10*3/uL Absolute Neuts (auto) (2.0-8.3) X10*3/uL Absolute Nucleated RBC (0.0-0.012) X10*3/uL Nucleated RBC % (auto) (0.0-0.2) /100WBC PT (10.8-13.0) SEC INR (0.9-1.1) APTT (24.1-38.0) SEC Sodium (135-145) mmol/L Potassium (3.3-5.1) mmol/L Chloride (96-108) mmol/L Carbon Dioxide (22-29) mmol/L Anion Gap (12-20) BUN (9-16) mg/dL Creatinine (0.5-1.4) mg/dL Estim Creat Clear Calc Estimated GFR Random Glucose (60-115) mg/dL Calcium (8.4-10.2) mg/dL Magnesium (1.6-2.6) mg/dL Total Bilirubin (0.0-1.0) mg/dL Direct Bilirubin (0.0-0.5) mg/dL AST (5-37) U/L ALT (0-40) U/L Alkaline Phosphatase (39-117) U/L Troponin I High Sens 6.3 (<3.5-35.0) ng/L B-Natriuretic Peptide 171 H (<100) pg/mL Total Protein (6.5-8.0) g/dL Albumin (3.5-5.0) g/dL Ethyl Alcohol 378 H* mg/dL ECG Data Attestation: I personally reviewed and interpreted this ECG as follows: ECG interpretation date: 08/31/20 ECG interpretation time: 16:20 Interpretation: AFib with RVR, ST depressions in V4, V5 and V6. QTC 486, signed by Dr Saab Discharge Plan Discharge Prescriptions: No Action pimecrolimus 1 % cream 1 appl topical BEDTIME RF: 0 magnesium oxide 400 mg (241.3 mg magnesium) tablet 1 tab PO DAILY RF: 0 fluocinonide 0.05 % solution 1 applic topical DAILY RF: 0 fluoxetine 20 mg capsule 1 cap PO DAILY RF: 0 lidocaine 5 % ointment 1 appl topical DAILY RF: 0 metoprolol succinate 100 mg tablet extended release 24 hr 100 mg PO DAILY Qty: 30 RF: 0 metoprolol succinate 50 mg tablet extended release 24 hr 50 mg PO BEDTIME Qty: 30 RF: 0 B Complex Plus Vitamin C 45-50-17-5-300 mg capsule 1 cap PO DAILY Qty: 30 RF: 1 valsartan 40 mg tablet 40 mg PO BID Qty: 60 RF: 0
[2020-08-31 15:50] VITALS: BP 133/93; BP 148/90; PULSE 120; PULSE 128; RESP 20; TEMP 36.8; O2SAT 96; BMI 30.4
--- NOTE | 2020-08-31 15:54 | ECG_ITS ---
Test Reason : AFIBB Blood Pressure : / mmHG Vent. Rate : 134 BPM Atrial Rate : 129 BPM P-R Int : 000 ms QRS Dur : 096 ms QT Int : 326 ms P-R-T Axes : 000 000 178 degrees QTc Int : 486 ms Atrial fibrillation with rapid ventricular response Nonspecific ST and T wave abnormality Abnormal ECG When compared with ECG of 14-AUG-2020 09:17, No significant change was found Referred By: Lani Leon Electronically Signed By:Hari Candelario
[2020-08-31 16:00] VITALS: BP 113/86; PULSE 145; RESP 20; TEMP 36.7; O2SAT 95
[2020-08-31 16:21] LABS: MANUAL DIFF FLAG NO
[2020-08-31 16:22] LABS: Basophils Absolute Auto 0.1 X10*3/uL (0.0-0.2); Basophils Percent Auto 1.5 % (0-2); Eosinophils Absolute Auto 0.1 X10*3/uL (0.0-0.4); Eosinophils Percent Auto 1.8 % (0-4); Hematocrit 37.7 % (42-52); Hemoglobin 13.2 g/dl (14.0-18.0); Imm Gran Abs Auto 0.01 X10*3/uL (0.00-0.03); Imm Gran Pct Auto 0.3 % (0.0-0.4); Lymphocytes Absolute Auto 1.3 X10*3/uL (1.2-4.9); Lymphocytes Percent Auto 41.1 % (20-40); Mean Corpuscular Hemoglobin 34.6 pg (27.0-33.0); Monocytes Absolute Auto 0.4 X10*3/uL (0.1-1.2); Monocytes Percent Auto 12.9 % (2-11); Neutrophils Absolute Auto 1.4 X10*3/uL (2.0-8.3); Neutrophils Percent Auto 42.4 % (45-73); Red Blood Count 3.81 X10*6/uL (4.60-5.80); Red Cell Distribution Width 12.9 % (11.0-16.0); White Blood Count 3.3 X10*3/uL (4.8-10.8)
[2020-08-31] MEDS: dilTIAZem HCL 50 MG/10 ML VIAL 10 MG IVPUSH ×2 (16:23→17:00)
[2020-08-31] MEDS: LORazepam 2 MG/ML VIAL 1 MG IVPUSH (16:23)
[2020-08-31 16:29] LABS: INTERNATIONAL NORM RATIO 1.1 (0.9-1.1); Prothrombin Time 12.5 SEC (10.8-13.0)
[2020-08-31 16:31] LABS: Partial Thromboplastin Time 33.4 SEC (24.1-38.0)
[2020-08-31 16:46] LABS: Ethanol 378 mg/dL; Platelet Count 88 X10*3/uL (160-400)
[2020-08-31 16:50] LABS: Alanine Aminotransferase 29 U/L (0-40); Albumin Level 3.4 g/dL (3.5-5.0); Alkaline Phosphatase 216 U/L (39-117); Anion Gap 15 (12-20); Aspartate Amino Transferase 58 U/L (5-37); Bilirubin Direct 0.6 mg/dL (0.0-0.5); Bilirubin Total 1.1 mg/dL (0.0-1.0); Blood Urea Nitrogen 7 mg/dL (9-16); Calcium 8.3 mg/dL (8.4-10.2); Carbon Dioxide 25 mmol/L (22-29); Chloride 110 mmol/L (96-108); Estimated Glomerular Filt Rate > 60; Glucose Random 87 mg/dL (60-115); Magnesium 1.7 mg/dL (1.6-2.6); Potassium 3.4 mmol/L (3.3-5.1); Sodium 147 mmol/L (135-145); Total Protein 6.6 g/dL (6.5-8.0)
[2020-08-31 16:54] LABS: B Type Natriuretic Peptide 171 pg/mL (<100); Troponin-I High Sensitivity 6.3 ng/L (<3.5-35.0)
--- NOTE | 2020-08-31 16:56 | PC.NURSE ---
[facility] AND [facility] AWARE OF PATIENT HIGH HEART RATE .
[2020-08-31 18:00] VITALS: BP 107/70; PULSE 94; RESP 15; TEMP 36.6; O2SAT 99
[2020-08-31] MEDS: Metoprolol Succinate ER 50 MG TAB.ER.24H PO (21:55)
[2020-08-31] MEDS: Valsartan 40 MG TABLET PO (21:56)
[2020-08-31] MEDS: Metoprolol Succinate ER 100 MG TAB.ER.24H PO (21:56)
[2020-08-31 22:00] VITALS: BP 102/73; PULSE 100; RESP 15; TEMP 36.4; O2SAT 96
[2020-09-01] VITALS (17 sets, daily range): BP systolic 111–144; BP diastolic 72–92; PULSE 80–124; RESP 15–20; TEMP 36.3–37.2; O2SAT 90–98
[2020-09-01] MEDS: dilTIAZem HCL 125 MG in 0.9 % Sodium Chloride 100 ML 10 MG IVCONT (02:48)
[2020-09-01 04:07] LABS: COVID-19 Test Negative (Negative); IDNOW Serial# 9DD0AD1C
--- NOTE | 2020-09-01 05:23 | P.HPHOSP_ITS ---
History of Present Illness Date of Service: 09/01/20 Chief Complaint: weakness, pain This is a this is a 59-year-old male with past medical history of alcoholic liver cirrhosis, AFib, cardiomyopathy, chronic heart failure with reduced ejection fraction, psoriasis stating that about 2 weeks ago he fell at home aft er trying to help his girlfriend and had head injury, ever since he has been having a lot of body aches all over, and feeling very weakness. Patient reports that he tried to manage by himself at home but finds it very hard to get around because he is very weak and a lot of pain. A heart rate is fluctuating between 120s to 140s in AFib with RVR. When asked him he denies any chest pain, any shortness of breath, any palpitations, no dizziness headache, no abdominal pain nausea or vomiting, no diarrhea constipation, no urinary symptoms. He reports chronic lower extremity edema that has not changed. Labs significant for WBC count of 3.3, hemoglobin of 13.2, sodium of 147, total bili of 1.1, direct of 0.6, AST of 58, alk-phos of 216, BNP of 171, albumin of 3.4, alcohol level 378. When asked about his alcohol history he reports that he quit a long time glands currently not drinking although his alcohol level is positive. Review of Systems Review of Systems: Yes all other systems are reviewed and are negative [facility] Medical History (Updated 09/01/20 @ 05:34 by Flip Hawkins MD) Afib Alcohol intoxication Alcoholic cirrhosis of liver Atrial fibrillation with rapid ventricular response Cardiomyopathy Chronic HFrEF (heart failure with reduced ejection fraction) Left against medical advice Psoriasis Social History Household Members: None Housing: Apartment Housing Other:: Elderly housing complex Do you presently have visiting nurse or other home services: Yes Alcohol intake: current Alcohol intake frequency: other Alcohol type: beer and hard liquor Patient Tobacco Use Status: Tobacco use Unknown Second Hand Smoke Exposure: No Use of substances other than those prescribed or required for medical reasons: Unknown Advance Directives: No Advance Directives Information Provided: Yes service: No Current occupational status: disabled Meds Allergies Allergy/AdvReac Type Severity Reaction Status Date / Time No Known Allergies Allergy Verified 08/06/20 15:36 Active Medications: Current Medications Generic Name Dose Route Start Last Admin Trade Name Freq PRN Reason Stop Dose Admin Diltiazem HCl 125 mg/ Sodium 125 mls @ 0 mls/hr 09/01/20 02:30 09/01/20 02:48 Chloride IVCONT 10 mg/hr .Q0M ARMANDO 10 mls/hr Administration Protocol Per Protocol Metoprolol Succinate 50 mg 08/31/20 21:00 08/31/20 21:55 Metoprolol Succinate Er 50 Mg Tab.Er.24h PO 50 mg DAILY [facility] Administration Protocol Metoprolol Succinate 100 mg 08/31/20 21:00 08/31/20 21:56 Metoprolol Succinate Er 100 Mg Tab.Er.24h PO 100 mg DAILY [facility] Administration Protocol Valsartan 40 mg 08/31/20 21:00 08/31/20 21:56 Valsartan 40 Mg Tablet PO 40 mg BID [facility] Administration Protocol Home Medications Medication Instructions Recorded Confirmed Last Taken Type fluocinonide 1 applic TOPICAL DAILY 08/06/20 08/14/20 Unknown History fluoxetine 1 cap PO DAILY 08/06/20 08/14/20 Unknown History lidocaine 1 appl TOPICAL DAILY 08/06/20 08/14/20 Unknown History magnesium oxide 1 tab PO DAILY 08/06/20 08/14/20 Unknown History pimecrolimus 1 appl TOPICAL BEDTIME 08/06/20 08/14/20 Unknown History Physical Exam Vital Signs and Narrative: Vital Signs: Last Vital Signs Temp 97.6 F 08/31/20 22:00 Pulse 94 09/01/20 03:29 Resp 20 09/01/20 02:00 BP 119/72 09/01/20 03:29 Pulse Ox 96 09/01/20 02:00 Body Mass Index 30.4 Const: Other: Patient very tremulous General: cooperative and no acute distress Orientation/consciousness: patient oriented x3 Eyes: General: appearance normal, both eyes and all related structures Resp: Effort & Inspection: normal respiratory effort and able to speak in complete sentences Cardio: Rate: regular rate Rhythm: regular rhythm GI: Palpation (GI): Soft to palpation Auscultation: normal bowel sounds Skin: Other: Has significant bruises all over his body, significant on the left hip region Has significant cirrhotic rash on the abdomen Neuro: Other: Patient very tremulous General: patient oriented x3 Cognition (Neuro): normal cognition Extrem: Other: Nonpitting edema bilaterally General: Yes normal to inspection Results Labs CBC and Chem 7: 08/31/20 16:17 08/31/20 16:17 Labs: Laboratory Results - last 24 hr 08/31/20 08/31/20 08/31/20 16:17 16:17 16:17 MCV 99.0 H MCH 34.6 H MCHC 35.0 RDW 12.9 Plt Count 88 L MPV 10.0 Immature Gran % (Auto) 0.3 Neut % (Auto) 42.4 L Lymph % (Auto) 41.1 H [place] % (Auto) 12.9 H Eos % (Auto) 1.8 Baso % (Auto) 1.5 Lymph # (Auto) 1.3 [place] # (Auto) 0.4 Eos # (Auto) 0.1 Baso # (Auto) 0.1 Abs Immat Gran (auto) 0.01 Absolute Neuts (auto) 1.4 L Absolute Nucleated RBC 0.000 Nucleated RBC % (auto) 0.0 PT 12.5 INR 1.1 APTT 33.4 Anion Gap 15 Estim Creat Clear Calc 115.0 Estimated GFR > 60 Random Glucose 87 Calcium 8.3 L Magnesium 1.7 Total Bilirubin 1.1 H Direct Bilirubin 0.6 H AST 58 H ALT 29 Alkaline Phosphatase 216 H Troponin I High Sens B-Natriuretic Peptide Total Protein 6.6 Albumin 3.4 L Ethyl Alcohol COVID-19 ([facility]) COVID-19 [place] 08/31/20 08/31/20 09/01/20 16:17 16:17 03:45 MCV MCH MCHC RDW Plt Count MPV Immature Gran % (Auto) Neut % (Auto) Lymph % (Auto) [place] % (Auto) Eos % (Auto) Baso % (Auto) Lymph # (Auto) [place] # (Auto) Eos # (Auto) Baso # (Auto) Abs Immat Gran (auto) Absolute Neuts (auto) Absolute Nucleated RBC Nucleated RBC % (auto) PT INR APTT Anion Gap Estim Creat Clear Calc Estimated GFR Random Glucose Calcium Magnesium Total Bilirubin Direct Bilirubin AST ALT Alkaline Phosphatase Troponin I High Sens 6.3 B-Natriuretic Peptide 171 H Total Protein Albumin Ethyl Alcohol 378 H* COVID-19 ([facility]) Negative COVID-19 Clin Com See Note Imaging Radiologist's Impressions: Impressions Chest X-Ray 08/31/20 15:55 IMPRESSION: Unremarkable examination. Head CT 08/31/20 16:17 IMPRESSION: No acute intracranial pathology. No hemorrhage. Assessment and Plan (1) Atrial fibrillation with rapid ventricular response: Status: Inactive (2) Fall: Qualifiers: Encounter type: initial encounter Qualified Code(s): W19.XXXA - Unspecified fall, initial encounter Status: Acute (3) Weakness: Status: Acute (4) Alcohol intoxication: Qualifiers: Complication of substance-induced condition: uncomplicated Qualified Code(s): F10.920 - Alcohol use, unspecified with intoxication, uncomplicated Status: Acute This is a 59-year-old male with past medical history of alcohol abuse, AFib who presents to the hospital with complaints of weakness after falling found to be in AFib with RVR # AFib with RVR - currently on Cardizem drip with heart rate about 90 to 110s - no evidence of acute infection - no evidence of acute CHF exacerbation - at this time will continue Cardizem - resume his metoprolol - consult cardiology - patient not on anticoagulation and it's unclear why possibly secondary to history of falling # fall and weakness - mechanical - reports that he was trying to help his girlfriend in her walker when he fell and hurt his head - will consult physical therapy - patient aware that he may need rehab admission and is grateful # alcohol intoxication - has high level of alcohol in his blood stream - will start him on phenobarb protocol for potential withdrawal as he has history of alcohol abuse - folic and thiamine supplement # hypertension - stable - continue valsartan # psoriasis - has significant psoriasis on the abdominal wall - will treat with hydrocortisone cream - follow-up with defense analyst at patient DVT prophylaxis: lovenox
[2020-09-01 07:03] LABS: Ammonia 61 umol/L (13-55)
[2020-09-01] MEDS: PHENobarbitaL sodium 130 MG/ML VIAL 265 MG IM (07:13)
[2020-09-01] MEDS: Valsartan 40 MG TABLET PO ×2 (09:11→20:49)
--- NOTE | 2020-09-01 09:13 | PC.NURSE ---
pt is aox3. following commands. tolerated po meds whole with water. cooperative and calm. repositions self in bed. c/o pain to bilateral hips with bruising. mild tremors. denies aud/visual hallcunations. no headache reported. speech si clear.
--- NOTE | 2020-09-01 09:38 | PM.CNCAR ---
History of Present Illness History of Present Illness Date of Service: 09/01/20 Requesting physician: Glenna Avila Consult reason: atrial fibrillation and other (Cardiomyopathy) Chief complaint: A Fib w Rvr Narrative: We were asked to see Wei in cardiology consultation. He was admitted about 3 weeks ago to the hospital with diffuse body pain and at that time was noted to be in atrial fibrillation with rapid ventricular response and was noted to have severe cardiomyopathy suspected to be alcoholic versus tachycardia mediated. He was then started on rate control medication with metoprolol and was not given oral anticoagulation therapy due to fear of noncompliance as well as continued alcohol use and was advised for cardiology follow-up with after workup. However he comes back again with what appears to be a fall about a week ago that he does not recall and subsequently having bilateral pain in the buttocks. He says his pain is uncontrolled. He is not very mobile because of it. That is his main complain. However when he presents he is noted to have atrial fibrillation with rapid ventricular response. On questioning him about the medications he said he did not picker/puller medications on discharge, as he had no way to pick it up because of right issues. He has noted bilateral leg swelling. He is also noted to have significantly elevated alcohol level on admission and admits to drinking alcohol heavily. He is not taking any of his neurohormonal modulation medications that he was discharged on. He was started on IV Cardizem drip in the emergency room and rate is better controlled. He denies any other cardiac symptoms of shortness of breath, orthopnea, PND. Denies any chest pain. Denies any palpitations. Review of Systems Constitutional: Constitutional: Reports body ache(s), Denies chills, Denies fever(s) and Reports frequent falls Cardiovascular: Cardiovascular: Reports no additional cardiovascular complaints Respiratory: Respiratory: Reports no additional respiratory complaints Gastrointestinal: Gastrointestinal: Reports no additional gastrointestinal complaints Neurologic: Reports system reviewed and no additional complaints, except as documented and Reports frequent falls Psychiatric: Psychiatric: Reports no additional psychiatric complaints Endocrine: Endocrine: Reports no additional endocrine complaints Hematologic/Lymphatic: Hematologic/Lymphatic: Reports no additional hematologic/lymphatic complaints [facility] Past Medical History Medical History (Updated 09/01/20 @ 09:43 by Jovani Miner MD) Afib Alcohol intoxication Alcoholic cirrhosis of liver Atrial fibrillation with rapid ventricular response Cardiomyopathy Chronic HFrEF (heart failure with reduced ejection fraction) Left against medical advice Psoriasis Social History Social History Household Members: None Housing: Apartment Housing Other:: Elderly housing complex Do you presently have visiting nurse or other home services: Yes Alcohol intake: current Alcohol intake frequency: other Alcohol type: beer and hard liquor Patient Tobacco Use Status: Tobacco use Unknown Second Hand Smoke Exposure: No Use of substances other than those prescribed or required for medical reasons: Unknown Advance Directives: No Advance Directives Information Provided: Yes service: No Current occupational status: disabled Meds Allergies Allergy/AdvReac Type Severity Reaction Status Date / Time No Known Allergies Allergy Verified 08/06/20 15:36 Active Medications: Current Medications Generic Name Dose Route Start Last Admin Trade Name Freq PRN Reason Stop Dose Admin Diltiazem HCl 125 mg/ Sodium 125 mls @ 0 mls/hr 09/01/20 02:30 09/01/20 02:48 Chloride IVCONT 10 mg/hr .Q0M ARMANDO 10 mls/hr Administration Protocol Per Protocol Medication 1 each 09/01/20 09:00 No Benzodiazepines MISCELLANE DAILY [facility] Metoprolol Succinate 50 mg 08/31/20 21:00 09/01/20 09:09 Metoprolol Succinate Er 50 Mg Tab.Er.24h PO Not Given DAILY [facility] Protocol Phenobarbital 45 mg 09/01/20 21:00 Phenobarbital 15 Mg Tablet PO 09/03/20 09:01 BID [facility] Phenobarbital 15 mg 09/03/20 21:00 Phenobarbital 15 Mg Tablet PO 09/05/20 09:01 BID [facility] Phenobarbital 15 mg 09/06/20 09:00 Phenobarbital 15 Mg Tablet PO 09/07/20 09:01 DAILY [facility] Phenobarbital Sodium 198 mg 09/01/20 11:00 Phenobarbital Sodium 130 Mg/Ml Vial IM 09/01/20 14:01 Q3H ARMANDO Valsartan 40 mg 08/31/20 21:00 09/01/20 09:11 Valsartan 40 Mg Tablet PO 40 mg BID [facility] Administration Protocol Home Medications Medication Instructions Recorded Confirmed Last Taken Type No Known Home Meds 09/01/20 09/01/20 Unknown History Physical Exam Vital Signs: Vital Signs: Last Vital Signs Temp 98.9 F 09/01/20 07:06 Pulse 96 09/01/20 09:12 Resp 18 09/01/20 09:12 BP 120/81 09/01/20 09:12 Pulse Ox 98 09/01/20 09:12 Body Mass Index 30.4 Const: General: no acute distress, alert, awake and intoxicated appearing Nutritional Appearance: overweight Orientation/consciousness: patient oriented x3 HENMT: Head: Yes normocephalic and Yes atraumatic Neck: Neck: Yes trachea midline, Yes supple and Yes no JVD Resp: Effort & Inspection: normal respiratory effort Auscultation: clear to auscultation bilaterally Cardio: Jugular venous distension: no JVD Palpation: abnormal PMI Rate: tachycardic Rhythm: abnormal rhythm irregularly irregular Heart sounds: S1 normal heart sound present and S2 normal heart sound present GI: Auscultation: normal bowel sounds Skin: General skin exam: ecchymosis (Bilateral buttocks) Neuro: General: patient oriented x3, no focal motor deficits and other (Tremors present) Extrem: General: No clubbing, No cyanosis and Yes edema Psych: Appearance: grossly normal Results Labs and Meds Result diagrams: 08/31/20 16:17 08/31/20 16:17 Lab results: Laboratory Results - last 24 hr 08/31/20 08/31/20 08/31/20 16:17 16:17 16:17 WBC 3.3 L RBC 3.81 L Hgb 13.2 L Hct 37.7 L MCV 99.0 H MCH 34.6 H MCHC 35.0 RDW 12.9 Plt Count 88 L MPV 10.0 Immature Gran % (Auto) 0.3 Neut % (Auto) 42.4 L Lymph % (Auto) 41.1 H Gem % (Auto) 12.9 H Eos % (Auto) 1.8 Baso % (Auto) 1.5 Lymph # (Auto) 1.3 Gem # (Auto) 0.4 Eos # (Auto) 0.1 Baso # (Auto) 0.1 Abs Immat Gran (auto) 0.01 Absolute Neuts (auto) 1.4 L Absolute Nucleated RBC 0.000 Nucleated RBC % (auto) 0.0 PT 12.5 INR 1.1 APTT 33.4 Sodium 147 H Potassium 3.4 Chloride 110 H Carbon Dioxide 25 Anion Gap 15 BUN 7 L Creatinine 0.75 Estim Creat Clear Calc 115.0 Estimated GFR > 60 Random Glucose 87 Calcium 8.3 L Magnesium 1.7 Total Bilirubin 1.1 H Direct Bilirubin 0.6 H AST 58 H ALT 29 Alkaline Phosphatase 216 H Ammonia Troponin I High Sens B-Natriuretic Peptide Total Protein 6.6 Albumin 3.4 L Ethyl Alcohol COVID-19 ([facility]) COVID-19 Clin Com 08/31/20 08/31/20 09/01/20 16:17 16:17 03:45 WBC RBC Hgb Hct MCV MCH MCHC RDW Plt Count MPV Immature Gran % (Auto) Neut % (Auto) Lymph % (Auto) Gem % (Auto) Eos % (Auto) Baso % (Auto) Lymph # (Auto) Gem # (Auto) Eos # (Auto) Baso # (Auto) Abs Immat Gran (auto) Absolute Neuts (auto) Absolute Nucleated RBC Nucleated RBC % (auto) PT INR APTT Sodium Potassium Chloride Carbon Dioxide Anion Gap BUN Creatinine Estim Creat Clear Calc Estimated GFR Random Glucose Calcium Magnesium Total Bilirubin Direct Bilirubin AST ALT Alkaline Phosphatase Ammonia Troponin I High Sens 6.3 B-Natriuretic Peptide 171 H Total Protein Albumin Ethyl Alcohol 378 H* COVID-19 ([facility]) Negative COVID-19 Clin Com See Note 09/01/20 06:44 WBC RBC Hgb Hct MCV MCH MCHC RDW Plt Count MPV Immature Gran % (Auto) Neut % (Auto) Lymph % (Auto) Gem % (Auto) Eos % (Auto) Baso % (Auto) Lymph # (Auto) Gem # (Auto) Eos # (Auto) Baso # (Auto) Abs Immat Gran (auto) Absolute Neuts (auto) Absolute Nucleated RBC Nucleated RBC % (auto) PT INR APTT Sodium Potassium Chloride Carbon Dioxide Anion Gap BUN Creatinine Estim Creat Clear Calc Estimated GFR Random Glucose Calcium Magnesium Total Bilirubin Direct Bilirubin AST ALT Alkaline Phosphatase Ammonia 61 H Troponin I High Sens B-Natriuretic Peptide Total Protein Albumin Ethyl Alcohol COVID-19 ([facility]) COVID-19 Clin Com Imaging Radiologist's impression: Impressions Chest X-Ray 08/31/20 15:55 IMPRESSION: Unremarkable examination. Head CT 08/31/20 16:17 IMPRESSION: No acute intracranial pathology. No hemorrhage. Assessment and Plan (1) Cardiomyopathy: Status: Inactive Patient with known severe cardiomyopathy, suspected to be tachycardia mediated versus alcohol induced. Was supposed to come for outpatient follow-up for workup including stress test and Holter monitor. However he did not follow-up for the same. He has not even picked up his medications including the Toprol and valsartan for neurohormonal modulation started last hospitalization. This is going to be a difficult social situation and would require case management involvement for helping his overall medical care. Reinstate low-dose valsartan 40 mg b.i.d. as well as metoprolol 25 mg p.o. q.6 hours for neurohormonal modulation. He does have minimally elevated BNP as well as mild leg edema but does not appear to be in overt left-sided heart failure at this point time. Start him on Lasix 20 mg daily. Discussed with him again the importance of complete alcohol cessation to reduce his risk of dying. He said he is willing to try. Again will require ischemic evaluation, will be done as an outpatient. (2) Atrial fibrillation with rapid ventricular response: Status: Acute Atrial fibrillation with rapid ventricular response, appears to be persistent and rate uncontrolled as patient was not taking his outpatient metoprolol therapy. IV Cardizem is not a good drug in patient with severely reduced LV ejection fraction. Switch to p.o. metoprolol 25 mg Q 6 hours and digoxin load 0.25 mg IV q.6 hours 3 doses. Currently I do not feel is a good candidate for oral anticoagulation therapy due to his continued use of alcohol and fall presenting with bilateral hip injury with ecchymosis and is at risk for bleeding. Once he is sober from alcohol and follows for outpatient cardiology clinic appointment we can have another discussion about oral anticoagulation therapy at that point in time. Will require physical therapy evaluation once his medical condition improves. Again discussed with patient about risk of continued alcohol use and risk of dying. He understands. Will follow with you thank you Procedures Date of Service Date of Service: 09/01/20
[2020-09-01] MEDS: 0.9 % Sodium Chloride Flush 3 ML SYRINGE IVFLUSH ×3 (10:49→20:52)
[2020-09-01] MEDS: Thiamine HCL 100 MG TABLET PO (10:49)
[2020-09-01] MEDS: Folic Acid 1 MG TABLET PO (10:49)
[2020-09-01] MEDS: Acetaminophen 325 MG TABLET 650 MG PO ×3 (10:51→23:54)
[2020-09-01] MEDS: PHENobarbitaL sodium 130 MG/ML VIAL 198 MG IM ×2 (10:56→14:16)
[2020-09-01 11:12] LABS: Glucose Urine UA NEG (NEG); Leukocyte Esterase Urine NEG (NEG); Nitrite Urine NEG (NEG); Urine Blood NEG (NEG); Urine Ketones NEG (NEG); Urine Protein NEG (NEG-TRACE)
[2020-09-01 11:13] LABS: Appearance Urine CLEAR; Color Urine YELLOW
--- NOTE | 2020-09-01 12:39 | MHC.CM.PN ---
CM MET WITH PT WHO REPORTS HE LIVES ALONE AND IS INDEPENDENT WITH CARE. PT REPORTS HE USES A CANE OR FURNITURE WALKS WHEN AMBULATING. PT REPORTS HE HAS A HCP NAMING HIS BROTHER WHO HE STATES IS THE ONLY PERSON HE HAS LEFT . PTS PCP IS JUSTIN YIP DELIVERED CURRENT DC PLAN IS HOME WITH NO SERVICES VS HOME WITH CARE TEAM REFERRALS PT WILL ARRANGE TRANSPORT AT DC
--- NOTE | 2020-09-01 14:20 | HO.PM.IMPN ---
Subjective Subjective Date of Service: 09/01/20 <Glenna Avila NP - Last Filed: 09/01/20 15:10> 09/01/20 <Raffaele Prado MD - Last Filed: 09/01/20 19:33> Interval History: Follow up afib rvr no pain or discomfort today <Glenna Avila NP - Last Filed: 09/01/20 15:10> Physical Exam Vital Signs: Vital Signs: Last Vital Signs Temp 98.7 F 09/01/20 11:22 Pulse 93 09/01/20 11:22 Resp 18 09/01/20 11:22 BP 137/82 09/01/20 11:22 Pulse Ox 90 L 09/01/20 11:22 Body Mass Index 30.4 <Glenna Avila NP - Last Filed: 09/01/20 15:10> Appearing in no acute distress lung sounds are clear to auscultation heart regular rate rhythm, clear S1, S2 positive bowel sounds, abdomen is soft, nontender neuro patient is alert x3, no focal deficits <Glenna Avila NP - Last Filed: 09/01/20 15:10> Objective Data Current Medications Generic Name Dose Route Start Last Admin Trade Name Freq PRN Reason Stop Dose Admin Acetaminophen 650 mg 09/01/20 09:38 09/01/20 10:51 Acetaminophen 325 Mg Tablet PO 650 mg Q6H PRN Administration Pain, Mild (Pain Scale 1-3) Docusate Sodium 100 mg 09/01/20 09:38 Docusate Sodium 100 Mg Capsule PO DAILY PRN Constipation Enoxaparin Sodium 40 mg 09/01/20 18:00 Enoxaparin Sodium 40 Mg/0.4 Ml Syringe SUBCUT Q24H ARMANDO Folic Acid 1 mg 09/01/20 10:00 09/01/20 10:49 Folic Acid 1 Mg Tablet PO 1 mg DAILY [facility]O Administration Hydrocortisone 1 appl 09/01/20 10:00 09/01/20 10:49 Hydrocortisone 1 % Cream 28.35 Gm Tube TOPICAL Not Given DAILY [facility] Protocol Diltiazem HCl 125 mg/ Sodium 125 mls @ 0 mls/hr 09/01/20 02:30 09/01/20 10:36 Chloride IVCONT Infused .Q0M ARMANDO Titration Protocol Per Protocol Medication 1 each 09/01/20 09:00 No Benzodiazepines MISCELLANE DAILY [facility] Metoprolol Succinate 50 mg 08/31/20 21:00 09/01/20 09:09 Metoprolol Succinate Er 50 Mg Tab.Er.24h PO Not Given DAILY [facility] Protocol Ondansetron HCl 4 mg 09/01/20 09:38 Ondansetron Hcl 4 Mg/2 Ml Vial IVPUSH Q8H PRN Nausea and Vomiting Phenobarbital 45 mg 09/01/20 21:00 Phenobarbital 15 Mg Tablet PO 09/03/20 09:01 BID ARMANDO Phenobarbital 15 mg 09/03/20 21:00 Phenobarbital 15 Mg Tablet PO 09/05/20 09:01 BID [facility] Phenobarbital 15 mg 09/06/20 09:00 Phenobarbital 15 Mg Tablet PO 09/07/20 09:01 DAILY [facility] Sodium Chloride 3 ml 09/01/20 10:00 09/01/20 10:49 0.9 % Sodium Chloride Flush 3 Ml Syringe IVFLUSH 3 ml QSHIFT ARMANDO Administration Thiamine HCl 100 mg 09/01/20 10:00 09/01/20 10:49 Thiamine Hcl 100 Mg Tablet PO 100 mg DAILY [facility] Administration Valsartan 40 mg 08/31/20 21:00 09/01/20 09:11 Valsartan 40 Mg Tablet PO 40 mg BID ARMANDO Administration Protocol <Glenna Avila NP - Last Filed: 09/01/20 15:10> Labs CBC & Chem 7: : 08/31/20 16:17 08/31/20 16:17 <Glenna Avlia NP - Last Filed: 09/01/20 15:10> Assessment and Plan (1) Atrial fibrillation with rapid ventricular response: Status: Acute <Glenna Avila NP - Last Filed: 09/01/20 15:10> Assessment and Plan: This is a 59-year-old male with past medical history of alcohol abuse, AFib who presents to the hospital with complaints of weakness after falling found to be in AFib with RVR AFib with RVR. currently on Cardizem drip with heart rate about 90 to 110s no evidence of acute infection no evidence of acute CHF exacerbation -Stop cardizem and add Metoprolol and digoxin load -cardiology following Fall and weakness. mechanical reports that he was trying to help his girlfriend in her walker when he fell and hurt his head -consult physical therapy Alcohol intoxication. has high level of alcohol in his blood stream - will start him on phenobarb protocol for potential withdrawal as he has history of alcohol abuse - folic and thiamine supplement Hypertension. stable - continue valsartan Ppsoriasis has significant psoriasis on the abdominal wall - will treat with hydrocortisone cream - follow-up with spot billing clerk at patient DVT prophylaxis: lovenox Attendig: Dr Prado Full code <Glenna Avila NP - Last Filed: 09/01/20 15:10> Seen and examined and discussed with [employer] TENDER, and I agree with finding mangement and plan as above. AFIB in setting of active alcohol use, no good candidate for anticoagulation, <Raffaele Prado MD - Last Filed: 09/01/20 19:33>
[2020-09-01] MEDS: Digoxin 0.5 MG/2 ML AMPUL 0.25 MG IVPUSH ×2 (16:23→20:52)
[2020-09-01] MEDS: Metoprolol Tartrate 25 MG TABLET PO ×2 (17:56→20:51)
[2020-09-01] MEDS: Enoxaparin Sodium 40 MG/0.4 ML SYRINGE SUBCUT (17:57)
[2020-09-01] MEDS: PHENobarbitaL 15 MG TABLET 45 MG PO (20:48)
[2020-09-02] VITALS (11 sets, daily range): BP systolic 102–132; BP diastolic 67–94; PULSE 79–91; RESP 14–20; TEMP 36.2–36.9; O2SAT 94–96
[2020-09-02] MEDS: Digoxin 0.5 MG/2 ML AMPUL 0.25 MG IVPUSH ×2 (03:21→08:33)
[2020-09-02 06:49] LABS: Basophils Percent Auto 1.1 % (0-2); Eosinophils Absolute Auto 0.1 X10*3/uL (0.0-0.4); Eosinophils Percent Auto 2.6 % (0-4); Hematocrit 39.8 % (42-52); Hemoglobin 13.6 g/dl (14.0-18.0); Imm Gran Abs Auto 0.02 X10*3/uL (0.00-0.03); Imm Gran Pct Auto 0.7 % (0.0-0.4); Lymphocytes Absolute Auto 0.7 X10*3/uL (1.2-4.9); Lymphocytes Percent Auto 25.4 % (20-40); MANUAL DIFF FLAG SCAN; Mean Corpuscular HGB Conc 34.2 g/dl (31.0-36.0); Mean Corpuscular Hemoglobin 33.9 pg (27.0-33.0); Mean Corpuscular Volume 99.3 fL (80-98); Mean Platelet Volume 10.7 fL (9.4-12.4); Monocytes Absolute Auto 0.3 X10*3/uL (0.1-1.2); Monocytes Percent Auto 11.6 % (2-11); Neutrophils Absolute Auto 1.6 X10*3/uL (2.0-8.3); Neutrophils Percent Auto 58.6 % (45-73); Red Blood Count 4.01 X10*6/uL (4.60-5.80); Red Cell Distribution Width 12.4 % (11.0-16.0); SCAN SMEAR FLAG 1; White Blood Count 2.7 X10*3/uL (4.8-10.8)
[2020-09-02 07:03] LABS: Platelet Count 89 X10*3/uL (160-400)
[2020-09-02 07:26] LABS: SLIDE REVIEW VERIFIED
[2020-09-02 07:31] LABS: Anion Gap 11 (12-20); Blood Urea Nitrogen 9 mg/dL (9-16); Calcium 7.9 mg/dL (8.4-10.2); Carbon Dioxide 31 mmol/L (22-29); Chloride 100 mmol/L (96-108); Creatinine Clr Calc Pharmacy 134.8; Estimated Glomerular Filt Rate > 60; Glucose Random 98 mg/dL (60-115); Potassium 2.9 mmol/L (3.3-5.1); Sodium 139 mmol/L (135-145)
[2020-09-02] MEDS: PHENobarbitaL 15 MG TABLET 45 MG PO ×2 (08:32→20:58)
[2020-09-02] MEDS: Valsartan 40 MG TABLET PO ×2 (08:33→20:58)
[2020-09-02] MEDS: Thiamine HCL 100 MG TABLET PO (08:33)
[2020-09-02] MEDS: Metoprolol Tartrate 25 MG TABLET PO ×3 (08:33→17:07)
[2020-09-02] MEDS: Folic Acid 1 MG TABLET PO (08:33)
[2020-09-02] MEDS: 0.9 % Sodium Chloride Flush 3 ML SYRINGE IVFLUSH ×3 (08:37→21:03)
[2020-09-02] MEDS: Potassium Chloride ER 20 MEQ TAB.ER.PRT 40 MEQ PO (08:41)
[2020-09-02] MEDS: Acetaminophen 325 MG TABLET 650 MG PO ×2 (08:41→17:10)
--- NOTE | 2020-09-02 10:56 | PM.PNCARD ---
Subjective Subjective Date of Service: 09/02/20 <SHAUN Bell - Last Filed: 09/02/20 11:15> 09/02/20 <Jovani Miner MD - Last Filed: 09/02/20 12:13> Principal diagnosis: Afib RVR, CMP, alcohol abuse <SHAUN Bell - Last Filed: 09/02/20 11:15> Interval history: Cardiology follow up for afib, CMP. Seen at 0820. Today he reports feeling ok . He denies sob, cp, palpitation, dizziness, leg swelling. He reports heart rate goes up when he gets up to bathroom - but he does not feel it. Did not take meds as outpt because of no ride to the pharmacy . <SHAUN Bell - Last Filed: 09/02/20 11:15> Review of Systems Review of Systems as above <SHAUN Bell - Last Filed: 09/02/20 11:15> Yes all other systems are reviewed and are negative <SHAUN Bell - Last Filed: 09/02/20 11:15> Physical Exam Vital Signs: Last Vital Signs Temp 98.5 F 09/02/20 08:00 Pulse 88 09/02/20 08:33 Resp 20 09/02/20 08:00 BP 132/94 H 09/02/20 08:33 Pulse Ox 94 09/02/20 08:00 Body Mass Index 30.4 <SHAUN Bell - Last Filed: 09/02/20 11:15> Const General: cooperative, no acute distress, alert and awake <SHAUN Bell - Last Filed: 09/02/20 11:15> Orientation/consciousness: patient oriented x3 <SHAUN Bell - Last Filed: 09/02/20 11:15> Neck Neck: Yes normal visual inspection and Yes no JVD <SHAUN Bell - Last Filed: 09/02/20 11:15> Resp Effort & Inspection: normal respiratory effort, able to speak in complete sentences and not labored <SHAUN Bell - Last Filed: 09/02/20 11:15> Auscultation: clear to auscultation bilaterally, no crackles, no rales, no rhonchi and no wheezes <CHARLEEN BellC - Last Filed: 09/02/20 11:15> Cardio Other: irregularly irregular heart tones <CHARLEEN BellC - Last Filed: 09/02/20 11:15> Palpation: normal PMI <CHARLEEN BellC - Last Filed: 09/02/20 11:15> Rate: regular rate <Windy Baker NPC - Last Filed: 09/02/20 11:15> Heart sounds: S1 normal heart sound present and S2 normal heart sound present <CHARLEEN BellC - Last Filed: 09/02/20 11:15> Peripheral pulses: Peripheral pulses 2+ throughout <CHARLEEN BellC - Last Filed: 09/02/20 11:15> GI Inspection: Yes normal to inspection <Windy Baker NP-C - Last Filed: 09/02/20 11:15> Skin General skin exam: no rashes or lesions noted <Windy Baker NPC - Last Filed: 09/02/20 11:15> Neuro General: patient oriented x3 <CHARLEEN BellC - Last Filed: 09/02/20 11:15> Extrem General: Yes normal to inspection and No edema <Windy Baker NP-C - Last Filed: 09/02/20 11:15> Results Labs and Meds Result diagrams: : 09/02/20 06:06 09/02/20 06:06 <Windy Baker NPC - Last Filed: 09/02/20 11:15> Lab results: Laboratory Results - last 24 hr 09/01/20 09/02/20 09/02/20 11:02 06:06 06:06 WBC 2.7 L RBC 4.01 L Hgb 13.6 L Hct 39.8 L MCV 99.3 H MCH 33.9 H MCHC 34.2 RDW 12.4 Plt Count 89 L MPV 10.7 Immature Gran % (Auto) 0.7 H Neut % (Auto) 58.6 Lymph % (Auto) 25.4 [place] % (Auto) 11.6 H Eos % (Auto) 2.6 Baso % (Auto) 1.1 Lymph # (Auto) 0.7 L [place] # (Auto) 0.3 Eos # (Auto) 0.1 Baso # (Auto) 0.0 Abs Immat Gran (auto) 0.02 Absolute Neuts (auto) 1.6 L Absolute Nucleated RBC 0.000 Nucleated RBC % (auto) 0.0 Smear Tech's Comments VERIFIED Sodium 139 Potassium 2.9 L Chloride 100 Carbon Dioxide 31 H Anion Gap 11 L BUN 9 Creatinine 0.64 Estim Creat Clear Calc 134.8 Estimated GFR > 60 Random Glucose 98 Calcium 7.9 L Urine Color YELLOW Urine Appearance CLEAR Urine pH 6.0 Ur Specific [place] 1.010 Urine Protein NEG Urine Glucose (UA) NEG Urine Ketones NEG Urine Blood NEG Urine Nitrite NEG Ur Leukocyte Esterase NEG <SHAUN Bell - Last Filed: 09/02/20 11:15> Progress Note: A&P Assessment and plan (1) Atrial fibrillation with rapid ventricular response: Status: Acute <SHAUN Bell - Last Filed: 09/02/20 11:15> Assessment and Plan: Newer diagnosis of atrial fibrillation at time of last admit. He did not take meds after discharge due to no ride . Readmit with alcohol intoxication, afib RVR. Treated with rate control using Metoprolol and loaded with Digoxin. Tele today shows afib with resting rate 90s and up to 160 with activity. Denies palpitations, no chest pains. Rates not optimally controlled yet. Will increase Metoprolol tartrate to 50mg TID. Ongoing Tele monitoring. No anticoagulation in use at this time due to alcohol abuse, noncompliance and falls at home. We will follow. <SHAUN Bell - Last Filed: 09/02/20 11:15> Atrial fibrillation with still elevated heart rate. With minimal ambulation his heart rate goes up to 160 beats per minute. He is not symptomatic. Digoxin load over this morning. Start digoxin 0.25 mg starting tomorrow. Increase metoprolol to 50 mg q.6 hours. Continues to monitor. Again not a candidate for oral anticoagulation due to continued alcohol use, fall risk and noncompliance. If patient shows compliance with follow-up and with alcohol cessation will consider oral anticoagulation therapy as an outpatient. Risk of stroke was discussed in details with the patient. <Jovani Miner MD - Last Filed: 09/02/20 12:13> (2) Chronic HFrEF (heart failure with reduced ejection fraction): Status: Acute <SHAUN Bell - Last Filed: 09/02/20 11:15> Assessment and Plan: Echo last admit shows EF 20-25%, mod increase RV size, mild decrease RV systolic function, mod to severe TR, mod increase RA pressure, mild pulm HTN. His CMP may be tachycardia mediated vs alcohol induced. He has had signs of mild fluid overload with BNP into 300s last admit. He was discharged on Metoprolol and valsartan last admit and he did not take as outpt. BNP this admit 171. He had mild leg edema and was given dose of Lasix with improvement. No JVD or rales. Has been restarted on Metoprolol and Valsartan which will be continued for neurohormonal modulation. Cr 0.64. Further evaluation and med titration for CMP can be done as outpt. <SHAUN Bell - Last Filed: 09/02/20 11:15> (3) Fall: Status: Acute <SHAUN Bell - Last Filed: 09/02/20 11:15> (4) Alcohol intoxication: Status: Acute <SHAUN Bell - Last Filed: 09/02/20 11:15> (5) Cardiomyopathy: Status: Acute <SHAUN Bell - Last Filed: 09/02/20 11:15> Assessment and Plan: as above <SHAUN Bell - Last Filed: 09/02/20 11:15> Cardiomyopathy, suspected nonischemic suspected alcoholic versus tachycardia mediated. However requires ischemic workup to be done as outpatient patient comes for follow-up. Continue metoprolol therapy for neurohormonal modulation. Continue valsartan therapy. Continue low-dose Lasix therapy. Complete cessation of alcohol was discussed. Will follow the patient. <Jovani Miner MD - Last Filed: 09/02/20 12:13> (6) Noncompliance: Status: Acute <SHAUN Bell - Last Filed: 09/02/20 11:15> Fall Risk Details Current Medications: Current Medications Generic Name Dose Route Start Last Admin Trade Name Katt PRN Reason Stop Dose Admin Acetaminophen 650 mg 09/01/20 09:38 09/02/20 08:41 Acetaminophen 325 Mg Tablet PO 650 mg Q6H PRN Administration Pain, Mild (Pain Scale 1-3) Docusate Sodium 100 mg 09/01/20 09:38 Docusate Sodium 100 Mg Capsule PO DAILY PRN Constipation Enoxaparin Sodium 40 mg 09/01/20 18:00 09/01/20 17:57 Enoxaparin Sodium 40 Mg/0.4 Ml Syringe SUBCUT 40 mg Q24H ARMANDO Administration Folic Acid 1 mg 09/01/20 10:00 09/02/20 08:33 Folic Acid 1 Mg Tablet PO 1 mg DAILY ARMANDO Administration Hydrocortisone 1 appl 09/01/20 10:00 09/02/20 08:43 Hydrocortisone 1 % Cream 28.35 Gm Tube TOPICAL Not Given DAILY ARMANDO Protocol Diltiazem HCl 125 mg/ Sodium 125 mls @ 0 mls/hr 09/01/20 02:30 09/01/20 10:36 Chloride IVCONT Infused .Q0M ARMANDO Titration Protocol Per Protocol Medication 1 each 09/01/20 09:00 No Benzodiazepines MISCELLANE DAILY ARMNADO Metoprolol Tartrate 25 mg 09/01/20 17:00 09/02/20 08:33 Metoprolol Tartrate 25 Mg Tablet PO 25 mg QID ARMANDO Administration Protocol Ondansetron HCl 4 mg 09/01/20 09:38 Ondansetron Hcl 4 Mg/2 Ml Vial IVPUSH Q8H PRN Nausea and Vomiting Phenobarbital 45 mg 09/01/20 21:00 09/02/20 08:32 Phenobarbital 15 Mg Tablet PO 09/03/20 09:01 45 mg BID ARMANDO Administration Phenobarbital 15 mg 09/03/20 21:00 Phenobarbital 15 Mg Tablet PO 09/05/20 09:01 BID ARMANDO Phenobarbital 15 mg 09/06/20 09:00 Phenobarbital 15 Mg Tablet PO 09/07/20 09:01 DAILY ARMANDO Sodium Chloride 3 ml 09/01/20 10:00 09/02/20 08:37 0.9 % Sodium Chloride Flush 3 Ml Syringe IVFLUSH 3 ml QSHIFT ARMANDO Administration Thiamine HCl 100 mg 09/01/20 10:00 09/02/20 08:33 Thiamine Hcl 100 Mg Tablet PO 100 mg DAILY ARMANDO Administration Valsartan 40 mg 08/31/20 21:00 09/02/20 08:33 Valsartan 40 Mg Tablet PO 40 mg BID ARMANDO Administration Protocol <SHAUN Bell - Last Filed: 09/02/20 11:15> Time Spent With Patient Time: Total time spent is greater than 50% in coordination of care (as documented) at patient's floor/unit and/or counseling patient: 23 <SHAUN Bell - Last Filed: 09/02/20 11:15> Time with patient: 15 - 24 minutes <SHAUN Bell - Last Filed: 09/02/20 11:15> Procedures Date of Service Date of Service: 09/02/20 <SHAUN Bell - Last Filed: 09/02/20 11:15>
--- NOTE | 2020-09-02 13:42 | P.PNIM_ITS ---
Subjective Subjective Date of Service: 09/02/20 <Glenna Avila NP - Last Filed: 09/02/20 16:51> 09/06/20 <Raffaele Prado MD - Last Filed: 09/06/20 18:54> Interval History: follow-up cardiomyopathy feeling good, no breathing difficulties <Glenna Avila NP - Last Filed: 09/02/20 16:51> Physical Exam Vital Signs: Vital Signs: Last Vital Signs Temp 97.5 F 09/02/20 11:35 Pulse 90 09/02/20 12:11 Resp 19 09/02/20 11:35 BP 113/76 09/02/20 12:11 Pulse Ox 95 09/02/20 11:35 Body Mass Index 30.4 <Glenna Avila NP - Last Filed: 09/02/20 16:51> Appearing in no acute distress lung sounds are clear to auscultation heart regular rate rhythm, clear S1, S2 positive bowel sounds, abdomen is soft, nontender neuro patient is alert x3, no focal deficits <Glenna Avila NP - Last Filed: 09/02/20 16:51> Objective Data Current Medications Generic Name Dose Route Start Last Admin Trade Name Freq PRN Reason Stop Dose Admin Acetaminophen 650 mg 09/01/20 09:38 09/02/20 08:41 Acetaminophen 325 Mg Tablet PO 650 mg Q6H PRN Administration Pain, Mild (Pain Scale 1-3) Docusate Sodium 100 mg 09/01/20 09:38 Docusate Sodium 100 Mg Capsule PO DAILY PRN Constipation Enoxaparin Sodium 40 mg 09/01/20 18:00 09/01/20 17:57 Enoxaparin Sodium 40 Mg/0.4 Ml Syringe SUBCUT 40 mg Q24H ARMANDO Administration Folic Acid 1 mg 09/01/20 10:00 09/02/20 08:33 Folic Acid 1 Mg Tablet PO 1 mg DAILY ARMANDO Administration Hydrocortisone 1 appl 09/01/20 10:00 09/02/20 08:43 Hydrocortisone 1 % Cream 28.35 Gm Tube TOPICAL Not Given DAILY ARMANDO Protocol Diltiazem HCl 125 mg/ Sodium 125 mls @ 0 mls/hr 09/01/20 02:30 09/01/20 10:36 Chloride IVCONT Infused .Q0M ARMANDO Titration Protocol Per Protocol Medication 1 each 09/01/20 09:00 No Benzodiazepines MISCELLANE DAILY ARMANDO Metoprolol Tartrate 25 mg 09/01/20 17:00 09/02/20 12:11 Metoprolol Tartrate 25 Mg Tablet PO 25 mg QID ARMANDO Administration Protocol Ondansetron HCl 4 mg 09/01/20 09:38 Ondansetron Hcl 4 Mg/2 Ml Vial IVPUSH Q8H PRN Nausea and Vomiting Phenobarbital 45 mg 09/01/20 21:00 09/02/20 08:32 Phenobarbital 15 Mg Tablet PO 09/03/20 09:01 45 mg BID ARMANDO Administration Phenobarbital 15 mg 09/03/20 21:00 Phenobarbital 15 Mg Tablet PO 09/05/20 09:01 BID ARMANDO Phenobarbital 15 mg 09/06/20 09:00 Phenobarbital 15 Mg Tablet PO 09/07/20 09:01 DAILY ARMANDO Sodium Chloride 3 ml 09/01/20 10:00 09/02/20 08:37 0.9 % Sodium Chloride Flush 3 Ml Syringe IVFLUSH 3 ml QSHIFT ARMANDO Administration Thiamine HCl 100 mg 09/01/20 10:00 09/02/20 08:33 Thiamine Hcl 100 Mg Tablet PO 100 mg DAILY ARMANDO Administration Valsartan 40 mg 08/31/20 21:00 09/02/20 08:33 Valsartan 40 Mg Tablet PO 40 mg BID ARMANDO Administration Protocol <Glenna Avila NP - Last Filed: 09/02/20 16:51> Labs CBC & Chem 7: : 09/02/20 06:06 09/03/20 09:23 <Glenna Avila NP - Last Filed: 09/02/20 16:51> Assessment and Plan (1) Cardiomyopathy: Status: Acute <Glenna Avila NP - Last Filed: 09/02/20 16:51> (2) Atrial fibrillation with rapid ventricular response: Status: Acute <Glenna Avila NP - Last Filed: 09/02/20 16:51> Assessment and Plan: This is a 59-year-old male with past medical history of alcohol abuse, AFib who presents to the hospital with complaints of weakness after fall ing found to be in AFib with RVR AFib with RVR. New onset. Better controlled. history of severe CMP with EF of 20-25% and severe global hypokinesis from echocardiogram on 08/08/2020 alcohol vs tachycardia induced -Stop cardizem and add Metoprolol and digoxin load -cardiology following -o/p ischemic workup Fall and weakness. mechanical reports that he was trying to help his girlfriend in her walker when he fell and hurt his head -consult physical therapy Alcohol intoxication. has high level of alcohol in his blood stream - will start him on phenobarb protocol for potential withdrawal as he has history of alcohol abuse - folic and thiamine supplement Hypertension. stable - continue valsartan Psoriasis has significant psoriasis on the abdominal wall - will treat with hydrocortisone cream - follow-up with machine room operator at patient DISPO: home 1-2 days if medically stable DVT prophylaxis: lovenox Attendig: Dr Prado Full code <Glenna Avila NP - Last Filed: 09/02/20 16:51> I saw and examined the patient and discussed findings, mangement, and disposition with PA and I agree with the above, except if otherwise stated <Raffaele Prado MD - Last Filed: 09/06/20 18:54>
[2020-09-02] MEDS: Enoxaparin Sodium 40 MG/0.4 ML SYRINGE SUBCUT (17:06)
[2020-09-02] MEDS: Metoprolol Tartrate 50 MG TABLET PO (20:58)
[2020-09-03] VITALS (8 sets, daily range): BP systolic 100–122; BP diastolic 58–80; PULSE 55–89; RESP 14–20; TEMP 36.2–36.9; O2SAT 94–97
--- NOTE | 2020-09-03 08:36 | P.PNCA_ITS ---
Subjective Subjective Date of Service: 09/03/20 <SHAUN Bell - Last Filed: 09/03/20 09:08> 09/03/20 <Jovani Miner MD - Last Filed: 09/03/20 11:01> Principal diagnosis: Afib RVR, CMP, alcohol abuse <SHAUN Bell - Last Filed: 09/03/20 09:08> Interval history: Cardiology follow up for afib, cmp. Seen at 0815. Today he reports headache, swelling in legs and soreness at prior IV site. No chest pains, sob, palpitation, dizziness. Did not sleep well. Concerned about being discharged and that he has no services or ability to get his medications. <CHARLEEN Bell - Last Filed: 09/03/20 09:08> Review of Systems Review of Systems as above <SHAUN Bell - Last Filed: 09/03/20 09:08> Yes all other systems are reviewed and are negative <SHAUN Bell - Last Filed: 09/03/20 09:08> Physical Exam Vital Signs: Last Vital Signs Temp 98.5 F 09/03/20 07:17 Pulse 77 09/03/20 07:17 Resp 18 09/03/20 07:17 BP 122/63 09/03/20 07:17 Pulse Ox 94 09/03/20 07:17 Body Mass Index 30.4 <SHAUN Bell - Last Filed: 09/03/20 09:08> Const General: cooperative, no acute distress, alert and awake <SHAUN Bell - Last Filed: 09/03/20 09:08> Orientation/consciousness: patient oriented x3 <SHAUN Bell Last Filed: 09/03/20 09:08> Neck Neck: Yes normal visual inspection and Yes no JVD <SHAUN Bell Last Filed: 09/03/20 09:08> Resp Effort & Inspection: normal respiratory effort, able to speak in complete sentences and not labored <SHAUN Bell - Last Filed: 09/03/20 09:08> Auscultation: clear to auscultation bilaterally, no crackles, no rales, no rhonchi and n o wheezes <Windy Baker CHARLEENC - Last Filed: 09/03/20 09:08> Cardio Other: irregularly irregular heart tones <CHARLEEN BellC - Last Filed: 09/03/20 09:08> Palpation: normal PMI <Windy Samuel CHARLEENC - Last Filed: 09/03/20 09:08> Rate: regular rate <Windy Samuel CHARLEENC - Last Filed: 09/03/20 09:08> Heart sounds: S1 normal heart sound present and S2 normal heart sound present <Windy Samuel INSTRUCTIONAL INTERVENTIONISTC - Last Filed: 09/03/20 09:08> Peripheral pulses: Peripheral pulses 2+ throughout <Windy Samuel CHARLEENC - Last Filed: 09/03/20 09:08> GI Inspection: Yes normal to inspection <Windy Samuel CHARLEENC - Last Filed: 09/03/20 09:08> Neuro General: patient oriented x3 <Windy Samuel CHARLEENC - Last Filed: 09/03/20 09:08> Extrem General: Yes normal to inspection and No edema <Windy Samuel CHARLEENC - Last Filed: 09/03/20 09:08> Results Labs and Meds Result diagrams: : 09/02/20 06:06 09/03/20 09:23 <Windy Baker CHARLEENC - Last Filed: 09/03/20 09:08> Progress Note: A&P Assessment and plan (1) Atrial fibrillation with rapid ventricular response: Status: Acute <Windy Baker CHARLEENC - Last Filed: 09/03/20 09:08> Assessment and Plan: Newer diagnosis of atrial fibrillation at time of last admit. He did not take meds after discharge due to no ride . Readmit with alcohol intoxication, afib RVR. Treated with rate control using Metoprolol and loaded with Digoxin. Tele today shows afib with resting rate 70- 90s and up to 130s with activity. Denies palpitations, no chest pains. Metoprolol increased yesterday to 50mg TID. Will change Metoprolol to 100 mg BID. Will start on Digoxin 0.25 daily today. Can be discharged from cardiology perspective. No anticoagulation in use at this time due to alcohol abuse, noncompliance and falls at home - will be reevaluated as outpt. Will arrange for outpt stress test, holter monitor and follow up. Spoke with case management about pts request for delivery of meds and transportation need for appointments. <SHAUN Bell - Last Filed: 09/03/20 09:08> Patient again with persistent atrial fibrillation, with much better rate control. Change metoprolol to 100 mg b.i.d.. Add digoxin 0.25 mg daily to his regimen. Will follow up with Holter monitor in couple of weeks. Importance of compliance with medication as well as follow-up was discussed with patient. Complete abstinence from alcohol was discussed. Currently would avoid any oral anticoagulation given his prior history of noncompliance with follow-ups, falls and alcohol abuse. As long as he abstains from alcohol and follow-ups, will rediscuss about oral anticoagulation therapy in the follow-up clinic visit. Risk of stroke was discussed with him. <Jovani Miner MD - Last Filed: 09/03/20 11:01> (2) Chronic HFrEF (heart failure with reduced ejection fraction): Status: Acute <SHAUN Bell - Last Filed: 09/03/20 09:08> (3) Cardiomyopathy: Status: Acute <SHAUN Bell - Last Filed: 09/03/20 09:08> Assessment and Plan: Echo last admit shows EF 20-25%, mod increase RV size, mild decrease RV systolic function, mod to severe TR, mod increase RA pressure, mild pulm HTN. His CMP may be tachycardia mediated vs alcohol induced. Ischemia still needs to be ruled out. He has been restarted on Metoprolol and Valsartan for monica rohormonal modulation. He does not have signs of acute HF. Further evaluation of CMP and med titration can be done as outpt. <SHAUN Bell - Last Filed: 09/03/20 09:08> Cardiomyopathy, require ischemic workup. Will schedule follow-up patient vasodilating myocardial perfusion imaging. Importance of this was discussed with the patient. Importance of follow-up was discussed. Continue metoprolol as well as valsartan therapy. Continue low-dose diuretic therapy. Heart failure management was discussed. Daily weight monitoring and avoidance of salt loading was discussed. Will follow up in the clinic in 4 weeks time, sooner p.r.n.. Thank you for allowing me to partake in his care <Jovani Miner MD - Last Filed: 09/03/20 11:01> (4) Noncompliance: Status: Acute <SHAUN Bell - Last Filed: 09/03/20 09:08> Assessment and Plan: Discussed with case management, as above <SHAUN Bell - Last Filed: 09/03/20 09:08> Fall Risk Details Current Medications: Current Medications Generic Name Dose Route Start Last Admin Trade Name Freq PRN Reason Stop Dose Admin Acetaminophen 650 mg 09/01/20 09:38 09/02/20 17:10 Acetaminophen 325 Mg Tablet PO 650 mg Q6H PRN Administration Pain, Mild (Pain Scale 1-3) Docusate Sodium 100 mg 09/01/20 09:38 Docusate Sodium 100 Mg Capsule PO DAILY PRN Constipation Enoxaparin Sodium 40 mg 09/01/20 18:00 09/02/20 17:06 Enoxaparin Sodium 40 Mg/0.4 Ml Syringe SUBCUT 40 mg Q24H ARMANDO Administration Folic Acid 1 mg 09/01/20 10:00 09/02/20 08:33 Folic Acid 1 Mg Tablet PO 1 mg DAILY ARMANDO Administration Hydrocortisone 1 appl 09/01/20 10:00 09/02/20 08:43 Hydrocortisone 1 % Cream 28.35 Gm Tube TOPICAL Not Given DAILY ARMANDO Protocol Diltiazem HCl 125 mg/ Sodium 125 mls @ 0 mls/hr 09/01/20 02:30 09/01/20 10:36 Chloride IVCONT Infused .Q0M ARMANDO Titration Protocol Per Protocol Medication 1 each 09/01/20 09:00 No Benzodiazepines MISCELLANE DAILY ARMANDO Metoprolol Tartrate 50 mg 09/02/20 21:00 09/02/20 20:58 Metoprolol Tartrate 50 Mg Tablet PO 50 mg TID ARMANDO Administration Protocol Ondansetron HCl 4 mg 09/01/20 09:38 Ondansetron Hcl 4 Mg/2 Ml Vial IVPUSH Q8H PRN Nausea and Vomiting Phenobarbital 45 mg 09/01/20 21:00 09/02/20 20:58 Phenobarbital 15 Mg Tablet PO 09/03/20 09:01 45 mg BID ARMANDO Administration Phenobarbital 15 mg 09/03/20 21:00 Phenobarbital 15 Mg Tablet PO 09/05/20 09:01 BID ARMANDO Phenobarbital 15 mg 09/06/20 09:00 Phenobarbital 15 Mg Tablet PO 09/07/20 09:01 DAILY ARMANDO Sodium Chloride 3 ml 09/01/20 10:00 09/02/20 21:03 0.9 % Sodium Chloride Flush 3 Ml Syringe IVFLUSH 3 ml QSHIFT ARMANDO Administration Thiamine HCl 100 mg 09/01/20 10:00 09/02/20 08:33 Thiamine Hcl 100 Mg Tablet PO 100 mg DAILY ARMANDO Administration Valsartan 40 mg 08/31/20 21:00 09/02/20 20:58 Valsartan 40 Mg Tablet PO 40 mg BID ARMANDO Administration Protocol <SHAUN Bell - Last Filed: 09/03/20 09:08> Time Spent With Patient Time: Total time spent is greater than 50% in coordination of care (as documented) at patient's floor/unit and/or counseling patient: 24 <SHAUN Bell - Last Filed: 09/03/20 09:08> Time with patient: 15 - 24 minutes <SHAUN Bell - Last Filed: 09/03/20 09:08> Procedures Date of Service Date of Service: 09/03/20 <SHAUN Bell - Last Filed: 09/03/20 09:08>
[2020-09-03] MEDS: 0.9 % Sodium Chloride Flush 3 ML SYRINGE IVFLUSH (09:27)
[2020-09-03] MEDS: Thiamine HCL 100 MG TABLET PO (09:27)
[2020-09-03] MEDS: Metoprolol Tartrate 100 MG TABLET PO ×2 (09:27→17:53)
[2020-09-03] MEDS: PHENobarbitaL 15 MG TABLET 45 MG PO (09:27)
[2020-09-03] MEDS: Valsartan 40 MG TABLET PO ×2 (09:28→17:53)
[2020-09-03] MEDS: Folic Acid 1 MG TABLET PO (09:28)
--- NOTE | 2020-09-03 10:03 | MHC.CM.PN ---
Addendum entered by Jovita Orr RN 09/03/20 11:23: COMF[facility] PLUS NURSE WILL SEE PT BETWEEN 12PM AND 2PM TOMORROW 09/04/20. Original Note: CM MET W/PT WHO DOES PRESENT IRRITABLE AND UNWILLING TO HELP HIMSELF, CM CONTACTED [facility] AT 9:30 TO SEE IF PT HAD SERVICES HE REPORTS [facility] WAS SUPPOSE TO SET HIM UP W/SOMEONE TO HELP W/COOKING AND CLEANING, PER PT HE ALSO NEEDS RIDES TO APPTS AND [facility] WAS SUPPOSE TO HELP HIM WITH THAT, PT IS ABLE TO OBTAIN [employer] FOR MEALS AND ETOH FOR CONSUMPTION, PT CURRENTLY DECLINING ANY SA TX OR TO SPEAK WITH RECOVERY SUPPORT NURSE. [facility] S[facility]'S [facility], PER [facility] PT IS APPROVED FOR 6HRS HOME HEALTH WEEKLY FOR CLEANING/COOKING/SHOPPING/ADLS. D/C PLAN: HOME W/COMFORT PLUS [facility] AND [facility] SERVICES, [facility]UT[facility] VS CAB DEPENDING ON D/C TIME HOME HEALTH SERVICES- [facility] [phone], PT HAS CM THROUGH [facility]
[2020-09-03 10:10] LABS: Anion Gap 11 (12-20); Blood Urea Nitrogen 7 mg/dL (9-16); Calcium 8.4 mg/dL (8.4-10.2); Carbon Dioxide 31 mmol/L (22-29); Chloride 100 mmol/L (96-108); Creatinine Clr Calc Pharmacy 119.8; Estimated Glomerular Filt Rate > 60; Glucose Random 142 mg/dL (60-115); Potassium 3.6 mmol/L (3.3-5.1); Sodium 138 mmol/L (135-145)
[2020-09-03] MEDS: Digoxin 0.25 MG TABLET PO (11:14)
--- NOTE | 2020-09-03 13:55 | P.DS_ITS ---
DS: Providers Provider Date of Service: 09/03/20 <Glenna Avila NP - Last Filed: 09/03/20 16:50> Date of admission: 09/01/20 15:15 <Glenna Avila NP - Last Filed: 09/03/20 16:50> Date of discharge: 09/03/20 <Glenna Avila NP - Last Filed: 09/03/20 16:50> Primary care physician: Robert Nelson MD <Glenna Avila NP - Last Filed: 09/03/20 16:50> Admitting clinician: Flip Hawkins <Glenna Avila NP - Last Filed: 09/03/20 16:50> Attending physician on admission: Flip Hawkins <Glenna Avila NP - Last Filed: 09/03/20 16:50> Consults: 09/01/20 08:35 Consult to Cardiology Routine Consulting Provider: Jovani Miner Reason for consultation: afib rvr Has provider been notified: No 09/01/20 09:38 Consult to Cardiology Routine Consulting Provider: Jovani Miner Reason for consultation: A fib w rvr Has provider been notified: No <Glenna Avila NP - Last Filed: 09/03/20 16:50> Attending physician on discharge: Raffaele Prado <Glenna Avila NP - Last Filed: 09/03/20 16:50> Discharging clinician: Glenna Avila <Glenna Avila NP - Last Filed: 09/03/20 16:50> DS: Diagnosis Discharge Diagnosis (1) Atrial fibrillation with rapid ventricular response: Status: Acute <Glenna Avila NP - Last Filed: 09/03/20 16:50> (2) Cardiomyopathy: Status: Acute <Glenna Avila NP - Last Filed: 09/03/20 16:50> DS: Medications Discharge Medications Home Medications: Previous Rx's Medication Instructions Recorded furosemide [Lasix] 20 mg PO DAILY #30 tab 09/03/20 metoprolol tartrate 100 mg PO BID #60 tab 09/03/20 valsartan 40 mg PO BID #60 tab 09/03/20 <Glenna Avila NP - Last Filed: 09/03/20 16:50> DS: Summary Hospital Course Hospital Course: HP as per admitting provider This is a this is a 59-year-old male with past medical history of alcoholic liver cirrhosis, AFib, cardiomyopathy, chronic heart failure with reduced ejection fraction, psoriasis stating that about 2 weeks ago he fell at home after trying to help his girlfriend and had head injury, ever since he has been having a lot of body aches all over, and feeling very weakness. Patient reports that he tried to manage by himself at home but finds it very hard to get around because he is very weak and a lot of pain. A heart rate is fluctuating between 120s to 140s in AFib with RVR. When asked him he denies any chest pain, any shortness of breath, any palpitations, no dizziness headache, no abdominal pain nausea or vomiting, no diarrhea constipation, no urinary symptoms. He reports chronic lower extremity edema that has not changed. Labs significant for WBC count of 3.3, hemoglobin of 13.2, sodium of 147, total bili of 1.1, direct of 0.6, AST of 58, alk-phos of 216, BNP of 171, albumin of 3.4, alcohol level 378. When asked about his alcohol history he reports that he quit a long time glands currently not drinking although his alcohol level is positive . Atrial fibrillation with rapid ventricular response. New onset. Treated with metoprolol, digoxin loaded. Continue metoprolol. Follow up with Cardiology. No anticoagulation due to frequent falls and alcohol abuse. Heart failure with reduced ejection fraction. Cardiomyopathy with EF of 20-25% and severe global hypokinesis, echocardiogram 08/08/2020. Secondary to alcohol versus tachycardia. Treated with metoprolol, digoxin loaded. Will continue with metoprolol valsartan and low-dose Lasix at home. Will need ischemic workup, referred to [facility]. Alcohol abuse. Treated with phenobarbital protocol, no issues with withdrawals. Discussed the importance of cessation of alcohol as patient now has a serious cardiomyopathy which can worsen with continued alcohol abuse. Weakness. Mechanical fall. Likely secondary to alcohol intoxication. Home physical therapy. <Glenna Avila NP - Last Filed: 09/03/20 16:50> Time Spent with Patient Time attestation: Total time spent providing and/or coordinating discharge services: <Glenna Avila NP - Last Filed: 09/03/20 16:50> Discharge coordination time: Greater than 30 minutes <Glenna Avila NP - Last Filed: 09/03/20 16:50> Quality: Stroke Does the patient have a stroke diagnosis?: No <Glenna Avila NP - Last Filed: 09/03/20 16:50> Physical Exam Vital Signs: Vital Signs: Last Vital Signs Temp 97.2 F 09/03/20 11:09 Pulse 87 09/03/20 11:14 Resp 18 09/03/20 11:09 BP 100/66 09/03/20 11:09 Pulse Ox 97 09/03/20 11:09 Body Mass Index 30.4 <Glenna Avila NP - Last Filed: 09/03/20 16:50> Appearing in no acute distress head is normocephalic atraumatic eyes pupils are PERRLA sclera is anicteric mouth throat mucous membranes are intact and moist neck is supple no lymphadenopathy, no JVD noted lung sounds are clear to auscultation heart regular rate rhythm, clear S1, S2 positive bowel sounds, abdomen is soft, nontender neuro patient is alert x3, no focal deficits <Glenna Avila NP - Last Filed: 09/03/20 16:50> DS: Data Data Completed and Pending Completed studies during hospitalization [Text1]: Procedures Detoxification Services for Substance Abuse Treatment (08/14/20) Repair Scalp Skin, External Approach (08/14/20) <Glenna Avila NP - Last Filed: 09/03/20 16:50> Labs on day of discharge: Laboratory Results - last 24 hr 09/03/20 09:23 Sodium 138 Potassium 3.6 D Chloride 100 Carbon Dioxide 31 H Anion Gap 11 L BUN 7 L Creatinine 0.72 Estim Creat Clear Calc 119.8 Estimated GFR > 60 Random Glucose 142 H D Calcium 8.4 D <Glenna Avila NP - Last Filed: 09/03/20 16:50> Discharge Plan Discharge Anticipated Discharge Date/Time: 09/03/20 13:42 <Glenna Avila NP - Last Filed: 09/03/20 16:50> Patient Disposition: Home Health Service <Glenna Avila NP - Last Filed: 09/03/20 16:50> Discharge Diagnosis: Cardiomyopathy Atrial fibrillation with rapid ventricular response Alcohol abuse <Glenna Avila NP - Last Filed: 09/03/20 16:50> Cardiomyopathy Atrial fibrillation with rapid ventricular response Alcohol abuse <Raffaele Prado MD - Last Filed: 09/03/20 22:11> Referrals: HOME HEALTH SERVICES [Other] - 1 Week ([facility], I DON'T HAVE HER PHONE NUMBER BUT HAVE EMAILED HER YOUR PHONE NUMBER AND SHE WILL BE CALLING TO HELP YOU WITH HOME HEALTH SERVICES. ANNETTE BREAK AND LOAD OPERATOR- [phone]) [facility] [Outside] - 1 Day ([facility] FOR MED MANAGEMENT, VITAL SIGN ASSESSMENT.. NURSE WILL BE AT YOUR APARTMENT BETWEEN 12PM AND 2PM TOMORROW 09/04.) Robert Nelson MD [Primary Care Provider] - 1 Week Jovani Miner MD [Physician] - 1 Week (Follow up for cardiomyopathy and atrial fibrillation ) <Glenna Avila NP - Last Filed: 09/03/20 16:50> Discharge Medications: New furosemide [Lasix] 20 mg tablet 20 mg PO DAILY Qty: 30 RF: 0 metoprolol tartrate 100 mg tablet 100 mg PO BID Qty: 60 RF: 0 valsartan 40 mg tablet 40 mg PO BID Qty: 60 RF: 0 <Glenna Avila NP - Last Filed: 09/03/20 16:50> Discharge Orders: Discharge Order (Routine); Ordered 09/03/20 Ordered By: Glenna Avila <Glenna Avila NP - Last Filed: 09/03/20 16:50> Diet: advance to usual diet <Glenna Avila NP - Last Filed: 09/03/20 16:50> advance to usual diet <Raffaele Prado MD - Last Filed: 09/03/20 22:11> Activity on Discharge: As tolerated <Glenna Avila NP - Last Filed: 09/03/20 16:50> As tolerated <Raffaele Prado MD - Last Filed: 09/03/20 22:11> Stand Alone Forms: Patient Portal Discharge page <Glenna Avila NP - Last Filed: 09/03/20 16:50> Care Plan Goals: cessation of alcohol intake <Glenna Avila NP - Last Filed: 09/03/20 16:50> Health Concerns: Cardiomyopathy Atrial fibrillation with rapid ventricular response Alcohol abuse <Glenna Avila NP - Last Filed: 09/03/20 16:50> Plan of Treatment: Follow-up with custom bookbinder, Dr. Miner, for further management Stop drinking alcohol Take new medications as prescribed Weight yourself daily. If you gain more than 5 lb been 3 days contact your primary care provider Avoid canned, deli and high salt foods <Glenna Avila NP - Last Filed: 09/03/20 16:50> Assessment: see discharge summary I saw and examined the patient and discuss the mangement and disposition with CRM MARKETING SPECIALIST and agree with discharge dispositon and plan as outline in CRM MARKETING SPECIALIST note <Glenna Avila NP - Last Filed: 09/03/20 16:50> Discharge Date/Time: 09/03/20 18:33 <Glenna Avila NP - Last Filed: 09/03/20 16:50>
--- NOTE | 2020-09-03 15:26 | W.MHC.F2F ---
Service Date Service Date: 09/03/20 Encounter Date of encounter: 09/03/20 Reasons for Services Reason for mcfp: teach disease management Reason for physical therapy: home safety and mobility Overseeing Care: Robert Nelson Homebound: Leaving the home is medically contraindicated at this time without the asist of a device and/or another person due th the listed conditions above and below. Reason homebound: unsteady gait / fall risk Certification: Based on the above findings, I certify that this patient is confined to the home and needs intermittent mcfp care, physical therapy and/or speech therapy, or continues to need occupational therapy. The patient is under my care, and I have initiated the establishment of the plan of care. The patient will be followed by a physician who will periodically review the plan of care.
--- NOTE | 2020-09-03 16:10 | MHC.CM.PN ---
CM CONTACTED [facility] TO VERIFY HOME DELIVERY FOR 09/04/20, PER PHARMACY THEY ONLY DO DELIVERIES FOR [facility], PT SET UP W/HOME DELIVERY WITH [facility] WHO DELIVER PT'S MEDS ON 09/04/20. D/C PLAN: HOME W/[facility], PT WILL D/C AT 6PM VIA [facility]
--- NOTE | 2020-09-03 16:39 | P.F2F_ITS ---
Service Date Service Date: 09/03/20 Encounter Date of encounter: 09/03/20 Reasons for Services Reason for care home: CV/CP assess and/or care and teach disease management Reason for physical therapy: home safety and mobility Overseeing Care: Robert Nelson Homebound: Leaving the home is medically contraindicated at this time without the asist of a device and/or another person due th the listed conditions above and below. Reason homebound: unsteady gait / fall risk Certification: Based on the above findings, I certify that this patient is confined to the home and needs intermittent care home care, physical therapy and/or speech therapy, or continues to need occupational therapy. The patient is under my care, and I have initiated the establishment of the plan of care. The patient will be followed by a physician who will periodically review the plan of care.
--- NOTE | 2020-09-04 09:35 | MHC.CM.PN ---
CM RECEIVED CALL FROM PT'S NEW PHARMAC[facility] WHO REQUESTED A MED LIST, D/C SUMMARY FAXED TO [phone], PHARMACIST CONFIRMED MEDS WILL BE DELIVERED TODAY.
== END 2020-09-03 18:33 | disposition home health service (06) | DRG 309 ==
LOC: HO.ED 23:34 → HO.EDOVER 09-01 04:15 → HO.IMC 09-01 08:51
PROVIDERS: Nurse Practitioner Acute Care; Physician Assistant; Admitting Provider Internal Medicine; Emergency Provider Emergency Medicine; PCP Internal Medicine; Visit Provider Internal Medicine
DX: I48.91 Unspecified atrial fibrillation (principal); D61.818 Other pancytopenia; I50.22 Chronic systolic (congestive) heart failure; K70.30 Alcoholic cirrhosis of liver without ascites; F10.10 Alcohol abuse, uncomplicated; I11.0 Hypertensive heart disease with heart failure; L40.9 Psoriasis, unspecified; F10.129 Alcohol abuse with intoxication, unspecified; R29.6 Repeated falls; I42.6 Alcoholic cardiomyopathy; Y90.8 Blood alcohol level of 240 mg/100 ml or more; Z91.81 History of falling; Z20.822 Contact with and (suspected) exposure to COVID-19; Z79.899 Other long term (current) drug therapy
CPT/HCPCS: 36415; 70450; 71045; 80048; 80076; 81003; 82077; 82140; 83735; 83880; 84484; 85025; 85610; 85730; 87635; 93005; 97162; 99285; J1160; J1650; J2060; J2560

== ENCOUNTER 2020-11-29 14:00 | Emergency (ER) | payer OTHER, SELFPAY ==
--- NOTE | ~2020-11-29 | CT_ITS ---
EXAMINATION: CT OF THE HEAD AND CERVICAL SPINE WITHOUT CONTRAST CLINICAL INFORMATION: fall w/ head strike . COMPARISON: 08/31/2020. TECHNIQUE: Contiguous axial imaging was performed from the skull base to vertex. Soft tissue and bony algorithms were evaluated. Coronal reformatted images were obtained on the technologist's workstation. Following this, multiple serial thin slice helical CT scan images through the cervical spine were obtained. Soft tissue and bony algorithms were evaluated. Coronal and sagittal reformatted images were obtained on the technologist workstation. This CT examination was performed using dose optimization techniques as appropriate, variously including the following: *Automated exposure control *Adjustment of mA and/or kV according to patient size (this includes techniques or standardized protocols for targeted exams where dose is matched to indication/reason for exam; i.e. extremities or head) *Use of iterative reconstruction technique DLP: 1074 mGy cm FINDINGS: Head CT: The ventricles are normal in size and symmetry. There is no evidence of acute intracranial hemorrhage or territorial infarction. No abnormal mass-effect or midline shift is seen. Chronic infarct in the medial left occipital lobe not significantly changed from prior studies. Sweet to white matter differentiation is otherwise well preserved. No extra-axial fluid collections are identified. There is no abnormal attenuation within the brain parenchyma. Posterior left occipital scalp hematoma is seen with increased density. Underlying bony structures are unremarkable with no displaced fracture. The mastoid air cells and visualized portions of the paranasal sinuses are well-aerated. Cervical spine CT: No prevertebral soft tissue swelling is appreciated. The bones are in normal anatomic alignment with no acute fracture or spondylolisthesis. Multilevel degenerative changes are seen with prominent anterior osteophyte formation from C3 C7 with loss of disc height more so at C5/C6.. Posterior elements are unremarkable. Visualized airway and lung apices are unremarkable. Visualized thyroid gland unremarkable. CT/CT cervical spine wo con IMPRESSION: Head CT: Chronic left occipital infarct. No acute intracranial process seen. No obvious intracranial hemorrhage. There is a left occipital scalp hematoma with no underlying acute bony abnormality. C-spine: Multilevel degenerative changes but no acute fracture or spondylolisthesis
[2020-11-29 14:07] VITALS: BP 106/74; BP 97/70; PULSE 92; PULSE 97; RESP 16; TEMP 36.7; O2SAT 95; O2SAT 96; BMI 27.6
--- NOTE | 2020-11-29 17:31 | ED.FALL ---
HPI - Fall General Chief Complaint: Fall Stated Complaint: etoh/fall Time Seen by Provider: 11/29/20 14:46 Source: patient and EMS Mode of arrival: EMS History of Present Illness HPI Narrative: 60-year-old male with a past medical history of AFib, EtOH abuse, alcoholic cirrhosis of the liver, cardiomyopathy, psoriasis, BIBA for EtOH intoxication and unwitnessed fall with head strike and noted lacerations to posterior scalp w/ hematoma. Unknown LOC. patient very hostile/aggressive during my exam, uncooperative with history MD complaint: fall Related Data Previous Rx's Medication Instructions Recorded furosemide 20 mg tablet (Lasix) 20 mg PO DAILY #30 tab 09/03/20 metoprolol tartrate 100 mg tablet 100 mg PO BID #60 tab 09/03/20 valsartan 40 mg tablet 40 mg PO BID #60 tab 09/03/20 Allergies Allergy/AdvReac Type Severity Reaction Status Date / Time No Known Allergies Allergy Verified 08/06/20 15:36 Review of Systems Review of Systems: Constitutional: No Fever ENT/Mouth: No Ear Pain, No Swallowing Difficulty Cardiovascular: No Chest Pain, No SOB Respiratory: No Cough Gastrointestinal: No Nausea, No Vomiting, No Abdominal pain Musculoskeletal: No joint pain Skin: + Skin Lesions, No rash Neuro: No Weakness, + head trauma, unknown LOC Yes all other systems are reviewed and are negative [facility] Past Medical History Attestation statement: The following information was validated with the patient. Medical History (Updated 11/29/20 @ 17:41 by RADHA Delgado) Afib Alcohol intoxication Alcoholic cirrhosis of liver Atrial fibrillation with rapid ventricular response Cardiomyopathy Chronic HFrEF (heart failure with reduced ejection fraction) Left against medical advice Psoriasis Social History Social History Household Members: None Housing: Apartment Housing Other:: Elderly housing complex Do you presently have visiting nurse or other home services: Yes Alcohol intake: current Alcohol intake frequency: other Alcohol type: beer and hard liquor Patient Tobacco Use Status: Tobacco use Unknown Second Hand Smoke Exposure: No Advance Directives: No Advance Directives Information Provided: No service: No Current occupational status: disabled Physical Exam Vital Signs: Vital Signs: Last Vital Signs Temp 98.1 F 11/29/20 14:07 Pulse 97 11/29/20 14:07 Resp 16 11/29/20 14:07 BP 97/70 11/29/20 14:07 Pulse Ox 96 11/29/20 14:07 Body Mass Index 27.6 Const: Other: Hostile, EtOH odor on breath General: no acute distress, alert, awake and intoxicated appearing Orientation/consciousness: patient oriented x3 HENMT: Other: 3 cm laceration noted to central occipital region and 2 cm irregular laceration noted to left posterior scalp overlying hematoma Head: No Yung's sign, Yes hematoma (Left posterior scalp) and No raccoon eyes Ears: hearing grossly normal bilaterally General nose exam: Normal external nose present Face and sinus: Yes normal facial exam Throat: Yes posterior oropharynx normal Eyes: General: appearance normal, both eyes and all related structures Pupils: Equal, round and reactive pupils present EOM: EOMs intact bilaterally Neck: Other: C-collar in place. No midline cervical spinous tenderness/step-off Neck: Yes normal visual inspection Resp: Effort & Inspection: normal respiratory effort and no respiratory distress Cardio: Rate: regular rate Heart sounds: S1 normal heart sound present and S2 normal heart sound present GI: Inspection: Yes normal to inspection Palpation (GI): Soft to palpation, nontender, no guarding and not rigid Back/Spine/Pelvis: Other: No midline thoracic/lumbar spinous tenderness or step-off/deformity Skin: Rashes: no rashes Neuro: General: patient oriented x3, tone normal, moves all extremities, no focal motor deficits and CN's II-XI intact bilaterally Cranial nerves: Yes Equal, round and reactive pupils present Motor exam (neuro): no tremor noted Extrem: Other: MCMILLAN General: Yes normal to inspection Course Course Course Narrative: -1800--ED care transferred to RADHA Moya pending CT head/C-spine results, and clinical sobriety Procedures Laceration Laceration 1: Site: scalp Size (cm): 3 Description: linear Pre-repair: wound explored and irrigated extensively Number of sutures: 8 (holly) Laceration 2: Site: scalp Side (If applicable): left Size (cm): 2 Description: flap and irregular Pre-repair: wound explored Number of sutures: 4 (holly) MDM - Fall MDM Narrative Medical decision making narrative: 60-year-old male with a past medical history of AFib, EtOH abuse, alcoholic cirrhosis of the liver, cardiomyopathy, psoriasis, BIBA for EtOH intoxication and unwitnessed fall with head strike and noted lacerations to posterior scalp w/ hematoma. On exam mildly hypotensive, A&O x3, aggressive/hostile, EtOH odor on breath, physical exam as above, lacerations noted to left side/posterior scalp, MCMILLAN, no focal neuro deficits. Concern for ICH/fracture. Plan: Head/C-spine CT, update tetanus, stable lacerations Medical Records Attestation: I reviewed the patient's medical records. Discharge Plan Discharge Clinical Impression: Laceration Alcohol intoxication Qualifiers: Complication of substance-induced condition: with unspecified complication Qualified Code(s): F10.929 - Alcohol use, unspecified with intoxication, unspecified Fall Qualifiers: Encounter type: subsequent encounter Qualified Code(s): W19.XXXD - Unspecified fall, subsequent encounter Prescriptions: No Action furosemide [Lasix] 20 mg tablet 20 mg PO DAILY Qty: 30 RF: 0 metoprolol tartrate 100 mg tablet 100 mg PO BID Qty: 60 RF: 0 valsartan 40 mg tablet 40 mg PO BID Qty: 60 RF: 0
[2020-11-29 18:00] VITALS: BP 104/64; PULSE 75; RESP 16; TEMP 36.8; O2SAT 97
--- NOTE | 2020-11-29 18:29 | PC.NURSE ---
PT EXITING REAR OF ED INTO MAIN [facility]OSP[facility], HE IS REFUSING REDIRECTION. C COLLAR WAS REMOVED BY PT PRIOR TO DEPARTURE. SECURITY UNAVAILABLE AT TIME OF INCIDENT. PT WITH A STEADY GAIT STATING HE IS GOING HOME
== END 2020-11-29 18:50 | disposition left against medical advice (07) ==
PROVIDERS: Emergency Provider Internal Medicine; PCP Internal Medicine
DX: F10.120 Alcohol abuse with intoxication, uncomplicated (principal); Y90.9 Presence of alcohol in blood, level not specified; R45.6 Violent behavior; K70.30 Alcoholic cirrhosis of liver without ascites; I48.91 Unspecified atrial fibrillation; S01.01XA Laceration without foreign body of scalp, initial encounter; W18.30XA Fall on same level, unspecified, initial encounter; Y93.9 Activity, unspecified; Y92.9 Unspecified place or not applicable; Y99.9 Unspecified external cause status
CPT/HCPCS: 12002; 70450; 72125; 90471; 99284

== ENCOUNTER 2020-12-20 10:40 | Emergency (ER) | payer OTHER, SELFPAY ==
[2020-12-20] VITALS (9 sets, daily range): BP systolic 124–150; BP diastolic 72–128; PULSE 100–151; RESP 16–20; TEMP 36.4; O2SAT 94–98; BMI 27.3
--- NOTE | 2020-12-20 10:51 | ECG_ITS ---
Test Reason : A FIB Blood Pressure : / mmHG Vent. Rate : 154 BPM Atrial Rate : 182 BPM P-R Int : 000 ms QRS Dur : 088 ms QT Int : 314 ms P-R-T Axes : 000 024 090 degrees QTc Int : 502 ms Atrial fibrillation with rapid ventricular response Nonspecific ST and T wave abnormality Abnormal ECG When compared with ECG of 31-AUG-2020 16:07, T wave inversion no longer evident in Anterior leads Referred By: Generic ED Physician Electronically Signed By:OCTAVIO CAREY
[2020-12-20] MEDS: Metoprolol Tartrate 5 MG/5 ML VIAL IVPUSH ×2 (11:30→14:41)
[2020-12-20] MEDS: LORazepam 2 MG/ML VIAL 1 MG IVPUSH (11:31)
[2020-12-20 11:41] LABS: MANUAL DIFF FLAG NO
[2020-12-20 11:43] LABS: Basophils Percent Auto 0.5 % (0-2); Eosinophils Percent Auto 0.4 % (0-4); Hematocrit 44.5 % (42-52); Hemoglobin 15.1 g/dl (14.0-18.0); Imm Gran Abs Auto 0.01 X10*3/uL (0.00-0.03); Imm Gran Pct Auto 0.2 % (0.0-0.4); Lymphocytes Absolute Auto 0.8 X10*3/uL (1.2-4.9); Lymphocytes Percent Auto 14.1 % (20-40); Mean Corpuscular HGB Conc 33.9 g/dl (31.0-36.0); Mean Corpuscular Hemoglobin 33.8 pg (27.0-33.0); Mean Corpuscular Volume 99.6 fL (80-98); Mean Platelet Volume 10.4 fL (9.4-12.4); Monocytes Absolute Auto 0.7 X10*3/uL (0.1-1.2); Monocytes Percent Auto 11.9 % (2-11); Neutrophils Percent Auto 72.9 % (45-73); Platelet Count 116 X10*3/uL (160-400); Red Blood Count 4.47 X10*6/uL (4.60-5.80); Red Cell Distribution Width 12.5 % (11.0-16.0); White Blood Count 5.5 X10*3/uL (4.8-10.8)
[2020-12-20 11:49] LABS: INTERNATIONAL NORM RATIO 1.1 (0.9-1.1)
[2020-12-20 11:59] LABS: Ethanol < 10 mg/dL
[2020-12-20 12:08] LABS: Troponin-I High Sensitivity 3.5 ng/L (<3.5-35.0)
[2020-12-20 12:13] LABS: Anion Gap 18 (12-20); Blood Urea Nitrogen 10 mg/dL (9-16); Calcium 9.1 mg/dL (8.4-10.2); Carbon Dioxide 24 mmol/L (22-29); Chloride 102 mmol/L (96-108); Creatinine Clr Calc Pharmacy 99.8; Estimated Glomerular Filt Rate > 60; Glucose Random 117 mg/dL (60-115); Magnesium 1.4 mg/dL (1.6-2.6); Potassium 3.8 mmol/L (3.3-5.1); Sodium 140 mmol/L (135-145)
--- NOTE | 2020-12-20 12:23 | ED_ITS ---
HPI - Wound/Laceration General Chief Complaint: Wound/Laceration Stated Complaint: staple removal Time Seen by Provider: 12/20/20 11:22 History of Present Illness HPI narrative: Patient is a 60-year-old male with a long history of alcohol abuse. Presented today wanting his holly to be removed. Patient states he fell approximately 10 days prior. There has been no nausea no vomiting patient has no symptoms. However was noted by triage to have a heart rate of 160. Patient has a history of atrial fibrillation claims that he is compliant with medication. He takes a medication that starts with an M. Patient denies any chest pain any shortness of breath any dizziness any nausea any vomiting. He did not drink any alcohol today. He denies any abdominal pain denies any bloody stool denies any focal weakness. Patient is from home. Related Data Previous Rx's Medication Instructions Recorded furosemide 20 mg tablet (Lasix) 20 mg PO DAILY #30 tab 09/03/20 metoprolol tartrate 100 mg tablet 100 mg PO BID #60 tab 09/03/20 valsartan 40 mg tablet 40 mg PO BID #60 tab 09/03/20 Allergies Allergy/AdvReac Type Severity Reaction Status Date / Time No Known Allergies Allergy Verified 08/06/20 15:36 Review of Systems Review of Systems: No fever no chills no nausea no vomiting No diaphoresis No focal weakness All systems reviewed otherwise negative Yes all other systems are reviewed and are negative [facility] Past Medical History Attestation statement: The following information was validated with the patient. Medical History Afib Alcohol intoxication Alcoholic cirrhosis of liver Atrial fibrillation with rapid ventricular response Cardiomyopathy Chronic HFrEF (heart failure with reduced ejection fraction) Left against medical advice Psoriasis Social History Social History Household Members: None Housing: Apartment Housing Other:: Elderly housing complex Do you presently have visiting nurse or other home services: Yes Alcohol intake: current Alcohol intake frequency: other Alcohol type: beer Patient Tobacco Use Status: Tobacco use Unknown Second Hand Smoke Exposure: No Use of substances other than those prescribed or required for medical reasons: No Advance Directives: No service: No Current occupational status: disabled Physical Exam Vital Signs: Vital Signs: Last Vital Signs Temp 97.5 F 12/20/20 10:48 Pulse 110 H 12/20/20 15:13 Resp 16 12/20/20 15:13 BP 137/91 H 12/20/20 15:13 Pulse Ox 96 12/20/20 15:13 Body Mass Index 27.3 Appearance: Alert. Oriented X3. No acute distress. Eyes: Pupils equal, round and reactive to light. ENT: Pharynx normal. Neck: Normal inspection. Neck supple. No lymph nodes noted. No crepitus CVS: Tachycardic irregular Respiratory: No respiratory distress. Breath sounds normal. No Wheezing. No rales Abdomen: Soft and nontender. No rigidity. No distention. good BS x4 Skin: Skin warm and dry. Normal skin color. Normal skin turgor. Extremities: No lower extremity edema. Neurovascular intact to all extremities. No Lacerations. No Rash Neuro: Oriented X 3. No motor deficit. No sensory deficit. Moving all extermities. No slurred speech MDM - Wound/Laceration MDM Narrative Medical decision making narrative: Patient has had holly were taken out. Heart rate came down nicely with beta-blockers. Patient history of being on beta blockers at home. Patient's heart rate is now less than 100. Magnesium was low at 1.4 repleted. Subsequent magnesium was 1.6. Patient is in stable condition. Will discharge patient home. Medical Records Attestation: I reviewed the patient's medical records. Lab Data Attestation: I reviewed the patient's lab results. Result diagrams: 12/20/20 11:13 12/20/20 11:13 Labs: Lab Results 12/20/20 12/20/20 12/20/20 Range/Units 11:13 11:13 11:13 WBC 5.5 (4.8-10.8) X10*3/uL RBC 4.47 L (4.60-5.80) X10*6/uL Hgb 15.1 (14.0-18.0) g/dl Hct 44.5 (42-52) % MCV 99.6 H (80-98) fL MCH 33.8 H (27.0-33.0) pg MCHC 33.9 (31.0-36.0) g/dl RDW 12.5 (11.0-16.0) % Plt Count 116 L D (160-400) X10*3/uL MPV 10.4 (9.4-12.4) fL Immature Gran % (Auto) 0.2 (0.0-0.4) % Neut % (Auto) 72.9 (45-73) % Lymph % (Auto) 14.1 L (20-40) % [place] % (Auto) 11.9 H (2-11) % Eos % (Auto) 0.4 (0-4) % Baso % (Auto) 0.5 (0-2) % Lymph # (Auto) 0.8 L (1.2-4.9) X10*3/uL [place] # (Auto) 0.7 (0.1-1.2) X10*3/uL Eos # (Auto) 0.0 (0.0-0.4) X10*3/uL Baso # (Auto) 0.0 (0.0-0.2) X10*3/uL Abs Immat Gran (auto) 0.01 (0.00-0.03) X10*3/uL Absolute Neuts (auto) 4.0 (2.0-8.3) X10*3/uL Absolute Nucleated RBC 0.000 (0.0-0.012) X10*3/uL Nucleated RBC % (auto) 0.0 (0.0-0.2) /100WBC PT (9.9-13.0) SEC INR (0.9-1.1) APTT (24.1-38.0) SEC Sodium 140 (135-145) mmol/L Potassium 3.8 (3.3-5.1) mmol/L Chloride 102 (96-108) mmol/L Carbon Dioxide 24 (22-29) mmol/L Anion Gap 18 (12-20) BUN 10 (9-16) mg/dL Creatinine 0.78 (0.5-1.4) mg/dL Estim Creat Clear Calc 99.8 Estimated GFR > 60 Random Glucose 117 H (60-115) mg/dL Calcium 9.1 D (8.4-10.2) mg/dL Magnesium 1.4 L* (1.6-2.6) mg/dL Troponin I High Sens 3.5 (<3.5-35.0) ng/L Ethyl Alcohol mg/dL 12/20/20 12/20/20 12/20/20 Range/Units 11:13 11:15 15:39 WBC (4.8-10.8) X10*3/uL RBC (4.60-5.80) X10*6/uL Hgb (14.0-18.0) g/dl Hct (42-52) % MCV (80-98) fL MCH (27.0-33.0) pg MCHC (31.0-36.0) g/dl RDW (11.0-16.0) % Plt Count (160-400) X10*3/uL MPV (9.4-12.4) fL Immature Gran % (Auto) (0.0-0.4) % Neut % (Auto) (45-73) % Lymph % (Auto) (20-40) % [place] % (Auto) (2-11) % Eos % (Auto) (0-4) % Baso % (Auto) (0-2) % Lymph # (Auto) (1.2-4.9) X10*3/uL [place] # (Auto) (0.1-1.2) X10*3/uL Eos # (Auto) (0.0-0.4) X10*3/uL Baso # (Auto) (0.0-0.2) X10*3/uL Abs Immat Gran (auto) (0.00-0.03) X10*3/uL Absolute Neuts (auto) (2.0-8.3) X10*3/uL Absolute Nucleated RBC (0.0-0.012) X10*3/uL Nucleated RBC % (auto) (0.0-0.2) /100WBC PT 12.0 (9.9-13.0) SEC INR 1.1 (0.9-1.1) APTT 34.0 (24.1-38.0) SEC Sodium (135-145) mmol/L Potassium (3.3-5.1) mmol/L Chloride (96-108) mmol/L Carbon Dioxide (22-29) mmol/L Anion Gap (12-20) BUN (9-16) mg/dL Creatinine (0.5-1.4) mg/dL Estim Creat Clear Calc Estimated GFR Random Glucose (60-115) mg/dL Calcium (8.4-10.2) mg/dL Magnesium 1.8 (1.6-2.6) mg/dL Troponin I High Sens (<3.5-35.0) ng/L Ethyl Alcohol < 10 mg/dL ECG Data Attestation: I personally reviewed and interpreted this ECG as follows: Critical Care Time Critical Care Time Critical Care Time: Yes Total Critical Care Time: 40 Attestation: I have personally provided 40 minutes of critical care time exclusive of time spent on separately billable procedures. Time includes review of lab data, radiology results, discussion with consultants, and monitoring for potential decompensation. Interventions were performed as documented above Discharge Plan Discharge Clinical Impression: Atrial fibrillation with rapid ventricular response, Removal of staple Patient Disposition: Home, Self-Care Instructions: A-fib (Atrial Fibrillation) (ED), Stitches Removal (ED) Prescriptions: No Action furosemide [Lasix] 20 mg tablet 20 mg PO DAILY Qty: 30 RF: 0 metoprolol tartrate 100 mg tablet 100 mg PO BID Qty: 60 RF: 0 valsartan 40 mg tablet 40 mg PO BID Qty: 60 RF: 0 Referrals: Robert Nelson MD [Primary Care Provider] - 2 days
[2020-12-20] MEDS: Magnesium Sulfate/H2O 2 GM/50 ML PIGGYBACK IV (12:42)
[2020-12-20 16:09] LABS: Magnesium 1.8 mg/dL (1.6-2.6)
== END 2020-12-20 17:03 | disposition home or self-care (01) ==
PROVIDERS: Emergency Provider Emergency Medicine Emergency Medical Services; PCP Internal Medicine
DX: I48.20 Chronic atrial fibrillation, unspecified (principal); Z48.02 Encounter for removal of sutures; Z79.899 Other long term (current) drug therapy
CPT/HCPCS: 36415; 80048; 82077; 83735; 84484; 85025; 85610; 85730; 93005; 96365; 96375; 96376; 99285; 99291; J2060; J3475

== ENCOUNTER 2020-12-27 15:22 | Emergency (ER) | payer OTHER, SELFPAY ==
--- NOTE | ~2020-12-27 | CT_ITS ---
EXAMINATION: CT HEAD WITHOUT CONTRAST CLINICAL INFORMATION: Headache status post fall. COMPARISON: Head CT dated 11/29/2020. TECHNIQUE: Contiguous axial imaging was performed from the skull base to vertex without intravenous administration of contrast. Coronal and sagittal reformatted images were obtained. This CT examination was performed using dose optimization techniques as appropriate, variously including the following: *Automated exposure control *Adjustment of mA and/or kV according to patient size (this includes techniques or standardized protocols for targeted exams where dose is matched to indication/reason for exam; i.e. extremities or head) *Use of iterative reconstruction technique DLP: 699.42 mGy-cm FINDINGS: There is mild widening of the cortical sulci and associated ventriculomegaly. The lateral ventricles are symmetrical. The third and fourth ventricles are in their normal midline position. The basilar and prepontine cisterns are unremarkable. Again seen is an infarct anteromedially in the left occipital lobe in the distribution of the left posterior cerebral artery without significant change. There is no acute intra or extracerebral abnormality. There is no mass effect or midline shift. A small subgaleal hematoma is seen in the left frontal parietal region measuring up to 0.4 cm (image 59, series 3). Sections through the bony calvarium are unremarkable. The orbits are intact. The paranasal sinuses are clear. The mastoid air cells are clear. Moderate debris is seen in the external auditory canals bilaterally. CT/CT head/brain wo con IMPRESSION: 1. No acute intracranial abnormality. 2. Chronic left occipital lobe infarct without significant change. 3. New left frontal parietal small subgaleal hematoma without acute underlying abnormality. The previously seen left posterior hematoma has resolved.
--- NOTE | ~2020-12-27 | CT_ITS ---
EXAMINATION: CT CERVICAL SPINE WITHOUT CONTRAST CLINICAL INFORMATION: Neck pain status post fall. COMPARISON: 11/29/2020 CT scan of the cervical spine. TECHNIQUE: Multiple axial images of the cervical spine were obtained without the administration of intravenous contrast. Coronal and sagittal reformatted images were obtained. This CT examination was performed using dose optimization techniques as appropriate, variously including the following: *Automated exposure control *Adjustment of mA and/or kV according to patient size (this includes techniques or standardized protocols for targeted exams where dose is matched to indication/reason for exam; i.e. extremities or head) *Use of iterative reconstruction technique DLP: 419.85 mGy-cm FINDINGS: Mild to severe multilevel degenerative disc disease is seen most pronounced at C5-6 with disc space narrowing and marginal osteophyte formation. Again seen is mild grade 1 retrolisthesis of C4 over C5 without significant change. Minimal to mild bilateral bilateral neural foraminal narrowing is seen from C4-5 to C6-7, more pronounced on the right. Mild bilateral facet arthropathy is seen at these levels as well. The odontoid process is intact. The spinous processes are intact. There is no fracture. The soft tissues are unremarkable. There is no lymphadenopathy. The thyroid gland is unremarkable. The visualized lung apices are unremarkable. CT/CT cervical spine wo con IMPRESSION: Multilevel degenerative changes as detailed above without significant change. No acute abnormality.
--- NOTE | 2020-12-27 15:43 | ECG_ITS ---
Test Reason : ETOH Blood Pressure : / mmHG Vent. Rate : 115 BPM Atrial Rate : 098 BPM P-R Int : 000 ms QRS Dur : 094 ms QT Int : 360 ms P-R-T Axes : 000 016 157 degrees QTc Int : 498 ms Atrial fibrillation with rapid ventricular response Nonspecific ST and T wave abnormality Abnormal ECG When compared with ECG of 20-DEC-2020 10:57, Nonspecific T wave abnormality now evident in Inferior leads Referred By: Matt Cohn Electronically Signed By:OCTAVIO CAREY
[2020-12-27 15:44] VITALS: BP 106/78; PULSE 114; RESP 18; TEMP 36.6; O2SAT 98; BMI 29.2
--- NOTE | 2020-12-27 15:49 | ED_ITS ---
HPI - Fall General Chief Complaint: ETOH/Substance Use Stated Complaint: fall Time Seen by Provider: 12/27/20 15:34 Source: patient and EMS Mode of arrival: EMS History of Present Illness HPI Narrative: Patient brought by ambulance for a witnessed fall apparently patient was drunk and fell neighbors called the ambulance has superficial abr asion and the small laceration on the forehead and small abrasions on both gated tools patient had good amount of alcohol earlier today unsteady on his feet. Patient denied any chest pain, no vomiting no loss of consciousness Related Data Previous Rx's Medication Instructions Recorded furosemide 20 mg tablet (Lasix) 20 mg PO DAILY #30 tab 09/03/20 metoprolol tartrate 100 mg tablet 100 mg PO BID #60 tab 09/03/20 valsartan 40 mg tablet 40 mg PO BID #60 tab 09/03/20 Allergies Allergy/AdvReac Type Severity Reaction Status Date / Time No Known Allergies Allergy Verified 08/06/20 15:36 Review of Systems Review of Systems: Yes all other systems are reviewed and are negative PMFSH Past Medical History Medical History Afib Alcohol intoxication Alcoholic cirrhosis of liver Atrial fibrillation with rapid ventricular response Cardiomyopathy Chronic HFrEF (heart failure with reduced ejection fraction) Left against medical advice Psoriasis Social History Social History Household Members: None Housing: Apartment Housing Other:: Elderly housing complex Do you presently have visiting nurse or other home services: Yes Alcohol intake: current Alcohol intake frequency: 3 or more drinks per day Alcohol type: beer Patient Tobacco Use Status: Tobacco use Unknown Second Hand Smoke Exposure: No Advance Directives: No Advance Directives Information Provided: No service: No Current occupational status: disabled Physical Exam Vital Signs: Vital Signs: Last Vital Signs Temp 97.8 F 12/27/20 15:44 Pulse 114 H 12/27/20 15:44 Resp 18 12/27/20 15:44 BP 106/78 12/27/20 15:44 Pulse Ox 98 12/27/20 15:44 Body Mass Index 29.2 Appearance: Alert. Oriented X3. No acute distress. Intoxicated Eyes: PERRLA, No Nystagmus ENT: Pharynx normal. Oral Mucosa moist Neck: Normal inspection. Neck supple. Cervical collar in place CVS: Irregularly irregular heart rate and rhythm. Pulses normal. Respiratory: No respiratory distress. Equal air entry bilateral, no wheezing/rales/rhonchi Abdomen: Soft and nontender. Bowel sounds are present, no mass palpable, Skin: Skin warm and dry. Normal skin color. Normal skin turgor. Extremities: No lower extremity edema. No calf tenderness abrasions to the medial aspect of both great toes Neuro: Oriented X 3. Moving all 4 extremities no focal deficits MDM - Fall MDM Narrative Medical decision making narrative: Patient intoxicated CT head and C-spine negative lives alone no one to take him home will keep him still he gets sober Lab Data Attestation: I reviewed the patient's lab results. Result diagrams: 12/27/20 16:28 12/27/20 16:28 Labs: Lab Results 12/27/20 12/27/20 12/27/20 Range/Units 16:28 16:28 16:28 WBC 3.8 L (4.8-10.8) X10*3/uL RBC 4.69 (4.60-5.80) X10*6/uL Hgb 15.7 (14.0-18.0) g/dl Hct 45.5 (42-52) % MCV 97.0 (80-98) fL MCH 33.5 H (27.0-33.0) pg MCHC 34.5 (31.0-36.0) g/dl RDW 12.0 (11.0-16.0) % Plt Count 138 L (160-400) X10*3/uL MPV 9.8 (9.4-12.4) fL Immature Gran % (Auto) 0.5 H (0.0-0.4) % Neut % (Auto) 53.6 (45-73) % Lymph % (Auto) 31.0 (20-40) % [place] % (Auto) 12.6 H (2-11) % Eos % (Auto) 1.3 (0-4) % Baso % (Auto) 1.0 (0-2) % Lymph # (Auto) 1.2 (1.2-4.9) X10*3/uL [place] # (Auto) 0.5 (0.1-1.2) X10*3/uL Eos # (Auto) 0.1 (0.0-0.4) X10*3/uL Baso # (Auto) 0.0 (0.0-0.2) X10*3/uL Abs Immat Gran (auto) 0.02 (0.00-0.03) X10*3/uL Absolute Neuts (auto) 2.0 (2.0-8.3) X10*3/uL Absolute Nucleated RBC 0.000 (0.0-0.012) X10*3/uL Nucleated RBC % (auto) 0.0 (0.0-0.2) /100WBC Sodium 139 (135-145) mmol/L Potassium 4.0 (3.3-5.1) mmol/L Chloride 104 (96-108) mmol/L Carbon Dioxide 23 (22-29) mmol/L Anion Gap 16 (12-20) BUN 9 (9-16) mg/dL Creatinine 0.81 (0.5-1.4) mg/dL Estim Creat Clear Calc 110.2 Estimated GFR > 60 Random Glucose 100 (60-115) mg/dL Calcium 8.9 (8.4-10.2) mg/dL Magnesium 1.8 (1.6-2.6) mg/dL Total Bilirubin 0.8 (0.0-1.0) mg/dL AST 77 H (5-37) U/L ALT 34 (0-40) U/L Alkaline Phosphatase 130 H D (39-117) U/L Total Protein 7.6 (6.5-8.0) g/dL Albumin 3.9 (3.5-5.0) g/dL Ethyl Alcohol 406 H* mg/dL ECG Data Attestation: I personally reviewed and interpreted this ECG as follows: Interpretation: Atrial fibrillation with heart rate 115 beats per minute nonspecific ST T wave changes no acute ischemia Discharge Plan Discharge Clinical Impression: Alcohol intoxication Qualifiers: Complication of substance-induced condition: uncomplicated Qualified Code(s): F10.920 - Alcohol use, unspecified with intoxication, uncomplicated Fall Qualifiers: Encounter type: initial encounter Qualified Code(s): W19.XXXA - Unspecified fall, initial encounter Instructions: Alcohol Intoxication (ED), Fall Prevention (ED) Additional Instructions: Stop drinking alcohol Prescriptions: No Action furosemide [Lasix] 20 mg tablet 20 mg PO DAILY Qty: 30 RF: 0 metoprolol tartrate 100 mg tablet 100 mg PO BID Qty: 60 RF: 0 valsartan 40 mg tablet 40 mg PO BID Qty: 60 RF: 0
--- NOTE | 2020-12-27 16:30 | PC.NURSE ---
Pt arrived belligerent, initially yelling at staff. Pt took his c-collar off on the way to CT scan. Tech was able to get an EKG and labs despite being resistive to care. Pt is now sleeping with a blanket over his head.
[2020-12-27 16:32] LABS: MANUAL DIFF FLAG NO
[2020-12-27 16:33] LABS: Eosinophils Absolute Auto 0.1 X10*3/uL (0.0-0.4); Eosinophils Percent Auto 1.3 % (0-4); Hematocrit 45.5 % (42-52); Hemoglobin 15.7 g/dl (14.0-18.0); Imm Gran Abs Auto 0.02 X10*3/uL (0.00-0.03); Imm Gran Pct Auto 0.5 % (0.0-0.4); Lymphocytes Absolute Auto 1.2 X10*3/uL (1.2-4.9); Mean Corpuscular HGB Conc 34.5 g/dl (31.0-36.0); Mean Corpuscular Hemoglobin 33.5 pg (27.0-33.0); Mean Platelet Volume 9.8 fL (9.4-12.4); Monocytes Absolute Auto 0.5 X10*3/uL (0.1-1.2); Monocytes Percent Auto 12.6 % (2-11); Neutrophils Percent Auto 53.6 % (45-73); Platelet Count 138 X10*3/uL (160-400); Red Blood Count 4.69 X10*6/uL (4.60-5.80); White Blood Count 3.8 X10*3/uL (4.8-10.8)
[2020-12-27 16:44] LABS: Ethanol 406 mg/dL
[2020-12-27 16:48] LABS: Alanine Aminotransferase 34 U/L (0-40); Albumin Level 3.9 g/dL (3.5-5.0); Alkaline Phosphatase 130 U/L (39-117); Anion Gap 16 (12-20); Aspartate Amino Transferase 77 U/L (5-37); Bilirubin Total 0.8 mg/dL (0.0-1.0); Blood Urea Nitrogen 9 mg/dL (9-16); Calcium 8.9 mg/dL (8.4-10.2); Carbon Dioxide 23 mmol/L (22-29); Chloride 104 mmol/L (96-108); Creatinine Clr Calc Pharmacy 110.2; Estimated Glomerular Filt Rate > 60; Glucose Random 100 mg/dL (60-115); Magnesium 1.8 mg/dL (1.6-2.6); Sodium 139 mmol/L (135-145); Total Protein 7.6 g/dL (6.5-8.0)
--- NOTE | 2020-12-27 18:12 | PC.NURSE ---
Pt is now sitting up and eating dinner and is tolerating PO intake. CIWA 0
--- NOTE | 2020-12-28 05:48 | PC.NURSE ---
Pt alert and oriented x4, clam and cooperative. Pt denies pain. Pt ambulated independently and steady on his feet. Pt ate food and drank liquids and tolerated well. Pt denies N/V. Pt educated on dc. No IV in place. Vitals stable.
[2020-12-28 05:49] VITALS: BP 142/73; PULSE 74; RESP 18; TEMP 37; O2SAT 97
== END 2020-12-28 05:50 | disposition home or self-care (01) ==
PROVIDERS: Emergency Provider Internal Medicine
DX: S00.81XA Abrasion of other part of head, initial encounter (principal); G44.309 Post-traumatic headache, unspecified, not intractable; F10.129 Alcohol abuse with intoxication, unspecified; M54.2 Cervicalgia; Y90.8 Blood alcohol level of 240 mg/100 ml or more; W01.0XXA Fall on same level from slipping, tripping and stumbling without subsequent striking against object, initial encounter; Y93.9 Activity, unspecified; Y92.9 Unspecified place or not applicable; Y99.9 Unspecified external cause status; Z79.899 Other long term (current) drug therapy
CPT/HCPCS: 36415; 70450; 72125; 80053; 82077; 83735; 85025; 93005; 99284; 99285

== ENCOUNTER 2021-03-20 16:46 | Emergency (ER) | payer OTHER, SELFPAY ==
[2021-03-20 16:56] VITALS: BP 113/81; PULSE 82; PULSE 93; RESP 20; TEMP 37; O2SAT 97; O2SAT 98; BMI 37.2
--- NOTE | 2021-03-20 17:11 | ED_ITS ---
HPI - Alcohol General Chief Complaint: ETOH/Substance Use Stated Complaint: etoh Time Seen by Provider: 03/20/21 17:08 Source: patient and EMS Mode of arrival: EMS Limitations: altered mental status (Due to alcohol intoxication) History of Present Illness HPI narrative: 60-year-old male came in by ambulance after was trying to break into somebody's house, the police sent him to the hospital for evaluation of possible alcohol intoxication. This man is known to our ED department for multiple visits for alcohol i ntoxication, despite patient decline using alcohol today but he is acting intoxicated in the emergency department, patient had periods of being calm and cooperative, some other time patient is yelling at the staff, patient smell alcohol on breath, no obvious head trauma noticed on the patient. Patient is on able to provide with good history due to intoxication, will check labs for now and monitor the patient will reinterview is a patient when he is more sober. Vital sign noticed to be stable. Patient will get 1 dose of Ativan p.r.n. agitation. Related Data Previous Rx's Medication Instructions Recorded furosemide 20 mg tablet (Lasix) 20 mg PO DAILY #30 tab 09/03/20 metoprolol tartrate 100 mg tablet 100 mg PO BID #60 tab 09/03/20 valsartan 40 mg tablet 40 mg PO BID #60 tab 09/03/20 Allergies Allergy/AdvReac Type Severity Reaction Status Date / Time No Known Allergies Allergy Verified 08/06/20 15:36 Review of Systems Review of Systems: Yes unobtainable due to endotracheal tube PMFSH Past Medical History Medical History Afib Alcohol intoxication Alcoholic cirrhosis of liver Atrial fibrillation with rapid ventricular response Cardiomyopathy Chronic HFrEF (heart failure with reduced ejection fraction) Left against medical advice Psoriasis Social History Social History Household Members: None Housing: Apartment Housing Other:: Elderly housing complex Do you presently have visiting nurse or other home services: Yes Alcohol intake: current Alcohol intake frequency: 3 or more drinks per day Alcohol type: beer Patient Tobacco Use Status: Tobacco use Unknown Second Hand Smoke Exposure: No Advance Directives: No Advance Directives Information Provided: Yes service: No Current occupational status: disabled Physical Exam Vital Signs: Vital Signs: Last Vital Signs Temp 98.6 F 03/20/21 16:56 Pulse 91 03/20/21 17:39 Resp 14 03/20/21 17:39 BP 115/79 03/20/21 17:39 Pulse Ox 98 03/20/21 17:39 BMI result Body Mass Index 37.2 Vital signs have been reviewed as appeared to be correct. Blood pressure normal. Heart rate normal. Respiration rate normal. Temperature normal. Oxygen saturation normal. Appearance: Alert. Intoxicated, alcohol on breath. Head: Normal external exam. Normocephalic. Atraumatic. No Yung signs noted. No raccoon eyes noted Eyes: PERRLA. EOMI. Conjunctiva and sclera normal. Eyelids normal. ENT: TM's Normal. Pharynx normal. Uvula midline. Moist mucous membranes. No trismus noted. No drooling noted. No muffled voice noted. Neck: Normal inspection. Neck supple. FROM. No adenopathy. Thyroid Normal. No meningeal signs. No neck mass noted. CVS: Normal heart rate and rhythm. Heart sound normal. No murmurs noted. Pulses normal throughout. Respiratory: No respiratory distress. Painless inspiration. Breath sounds normal. No wheezes/rales/rhonchi noted. Chest nontender. No accessory muscle usage noted or decreased air movement noted. Abdomen: Soft and nontender. Bowel sounds normal in all 4 quadrants. No distention noted. No organomegaly noted. No visible injury noted. Back: No CVA tenderness. Full range of motion noted. Skin: Skin warm and dry. Normal skin color. Normal skin turgor. No rashes/lesions/lacerations noted. Extremities: No lower extremity edema. Extremities exhibit normal range of motion. Extremities nontender. Neuro: Intoxicated.. Cranial nerve exam: II-XII are grossly intact No motor deficit. No sensory deficit. Reflexes normal. Course Course Course Narrative: Assessment and plan. 60-year-old male well-known to our ED staff for chronic alcohol consumption related issues, patient initially came in intoxicated, unremarkable vital signs, unrevealing labs, needed 1 time of Ativan for agitation, will discharge the he is more sober. Reevaluation(s) Reevaluation #1: Patient is sleeping quietly, stable vital signs, labs is unrevealing except for alcohol level above 450. Will continue with IV hydratio n. Await for sobriety for discharge. Time: 21:48 MDM - Alcohol Medical Records Attestation: I reviewed the patient's medical records. Lab Data Attestation: I reviewed the patient's lab results. Result diagrams: 03/20/21 17:25 03/20/21 17:25 Labs: Lab Results 03/20/21 03/20/21 03/20/21 Range/Units 17:25 17:25 17:25 WBC 4.8 (4.8-10.8) X10*3/uL RBC 4.96 (4.60-5.80) X10*6/uL Hgb 16.3 (14.0-18.0) g/dl Hct 48.0 (42.0-52.0) % MCV 96.8 (80.0-98.0) fL MCH 32.9 (27.0-33.0) pg MCHC 34.0 (31.0-36.0) g/dl RDW 12.1 (11.0-16.0) % Plt Count 192 (160-400) X10*3/uL MPV 10.0 (9.4-12.4) fL Immature Gran % (Auto) 0.6 H (0.0-0.4) % Neut % (Auto) 52.4 (45-73) % Lymph % (Auto) 32.8 (20-40) % [place] % (Auto) 12.3 H (2-11) % Eos % (Auto) 1.3 (0-4) % Baso % (Auto) 0.6 (0-2) % Lymph # (Auto) 1.6 (1.2-4.9) X10*3/uL [place] # (Auto) 0.6 (0.1-1.2) X10*3/uL Eos # (Auto) 0.1 (0.0-0.4) X10*3/uL Baso # (Auto) 0.0 (0.0-0.2) X10*3/uL Abs Immat Gran (auto) 0.03 (0.00-0.03) X10*3/uL Absolute Neuts (auto) 2.5 (2.0-8.3) x10*3/uL Absolute Nucleated RBC 0.000 (0.0-0.012) X10*3/uL Nucleated RBC % (auto) 0.0 (0.0-0.2) /100WBC Sodium 140 (135-145) mmol/L Potassium 3.9 (3.3-5.1) mmol/L Chloride 106 (96-108) mmol/L Carbon Dioxide 21 L (22-29) mmol/L Anion Gap 17 (12-20) BUN 14 (9-16) mg/dL Creatinine 0.70 (0.5-1.4) mg/dL Estim Creat Clear Calc 139.0 Estimated GFR > 60 Random Glucose 103 (60-115) mg/dL Calcium 8.6 (8.4-10.2) mg/dL Total Bilirubin 1.0 (0.0-1.0) mg/dL Direct Bilirubin 0.3 (0.0-0.5) mg/dL AST 45 H D (5-37) U/L ALT 29 (0-40) U/L Alkaline Phosphatase 156 H (39-117) U/L Troponin I High Sens 3.5 (<3.5-35.0) ng/L Total Protein 8.0 (6.5-8.0) g/dL Albumin 3.5 (3.5-5.0) g/dL Lipase 39 (8-78) U/L Urine Color Urine Appearance Urine pH (5.0-8.0) Ur Specific [place] (1.005-1.025) Urine Protein (NEG-TRACE) MG/DL Urine Glucose (UA) (NEG) MG/DL Urine Ketones (NEG) MG/DL Urine Blood (NEG) Urine Nitrite (NEG) Ur Leukocyte Esterase (NEG) Urine Opiates Screen (Not Detect) Urine Fentanyl Screen (Not Detect) Ur Barbiturates Screen (Not Detect) Ur Phencyclidine Scrn (Not Detect) Ur Amphetamines Screen (Not Detect) U Benzodiazepines Scrn (Not Detect) Urine Cocaine Screen (Not Detect) U Marijuana (THC) Screen (Not Detect) Ethyl Alcohol mg/dL 03/20/21 03/20/21 03/20/21 Range/Units 17:25 19:42 19:42 WBC (4.8-10.8) X10*3/uL RBC (4.60-5.80) X10*6/uL Hgb (14.0-18.0) g/dl Hct (42.0-52.0) % MCV (80.0-98.0) fL MCH (27.0-33.0) pg MCHC (31.0-36.0) g/dl RDW (11.0-16.0) % Plt Count (160-400) X10*3/uL MPV (9.4-12.4) fL Immature Gran % (Auto) (0.0-0.4) % Neut % (Auto) (45-73) % Lymph % (Auto) (20-40) % [place] % (Auto) (2-11) % Eos % (Auto) (0-4) % Baso % (Auto) (0-2) % Lymph # (Auto) (1.2-4.9) X10*3/uL [place] # (Auto) (0.1-1.2) X10*3/uL Eos # (Auto) (0.0-0.4) X10*3/uL Baso # (Auto) (0.0-0.2) X10*3/uL Abs Immat Gran (auto) (0.00-0.03) X10*3/uL Absolute Neuts (auto) (2.0-8.3) x10*3/uL Absolute Nucleated RBC (0.0-0.012) X10*3/uL Nucleated RBC % (auto) (0.0-0.2) /100WBC Sodium (135-145) mmol/L Potassium (3.3-5.1) mmol/L Chloride (96-108) mmol/L Carbon Dioxide (22-29) mmol/L Anion Gap (12-20) BUN (9-16) mg/dL Creatinine (0.5-1.4) mg/dL Estim Creat Clear Calc Estimated GFR Random Glucose (60-115) mg/dL Calcium (8.4-10.2) mg/dL Total Bilirubin (0.0-1.0) mg/dL Direct Bilirubin (0.0-0.5) mg/dL AST (5-37) U/L ALT (0-40) U/L Alkaline Phosphatase (39-117) U/L Troponin I High Sens (<3.5-35.0) ng/L Total Protein (6.5-8.0) g/dL Albumin (3.5-5.0) g/dL Lipase (8-78) U/L Urine Color YELLOW Urine Appearance CLEAR Urine pH 6.0 (5.0-8.0) Ur Specific [place] <= 1.005 (1.005-1.025) Urine Protein NEG (NEG-TRACE) MG/DL Urine Glucose (UA) NEG (NEG) MG/DL Urine Ketones NEG (NEG) MG/DL Urine Blood NEG (NEG) Urine Nitrite NEG (NEG) Ur Leukocyte Esterase NEG (NEG) Urine Opiates Screen Not Detected (Not Detect) Urine Fentanyl Screen Not Detected (Not Detect) Ur Barbiturates Screen Not Detected (Not Detect) Ur Phencyclidine Scrn Not Detected (Not Detect) Ur Amphetamines Screen Not Detected (Not Detect) U Benzodiazepines Scrn Not Detected (Not Detect) Urine Cocaine Screen Not Detected (Not Detect) U Marijuana (THC) Screen Not Detected (Not Detect) Ethyl Alcohol 459 H* mg/dL Discharge Plan Discharge Clinical Impression: Alcohol intoxication Instructions: Alcohol Intoxication (ED) Additional Instructions: Follow-up use your primary doctor. If you are interested to stop alcohol abuse can contact 1 of the detox centers. Prescriptions: No Action furosemide [Lasix] 20 mg tablet 20 mg PO DAILY Qty: 30 RF: 0 metoprolol tartrate 100 mg tablet 100 mg PO BID Qty: 60 RF: 0 valsartan 40 mg tablet 40 mg PO BID Qty: 60 RF: 0
[2021-03-20] MEDS: LORazepam 2 MG/ML VIAL 1 MG IVPUSH (17:27)
[2021-03-20 17:31] LABS: MANUAL DIFF FLAG NO
[2021-03-20 17:39] VITALS: BP 115/79; PULSE 91; RESP 14; O2SAT 98
[2021-03-20] MEDS: 0.9 % Sodium Chloride 1,000 ML 999 ML IVCONT (17:39)
[2021-03-20 18:04] LABS: Basophils Percent Auto 0.6 % (0-2); Eosinophils Absolute Auto 0.1 X10*3/uL (0.0-0.4); Eosinophils Percent Auto 1.3 % (0-4); Hemoglobin 16.3 g/dl (14.0-18.0); Imm Gran Abs Auto 0.03 X10*3/uL (0.00-0.03); Imm Gran Pct Auto 0.6 % (0.0-0.4); Lymphocytes Absolute Auto 1.6 X10*3/uL (1.2-4.9); Lymphocytes Percent Auto 32.8 % (20-40); Mean Corpuscular Hemoglobin 32.9 pg (27.0-33.0); Mean Corpuscular Volume 96.8 fL (80.0-98.0); Monocytes Absolute Auto 0.6 X10*3/uL (0.1-1.2); Monocytes Percent Auto 12.3 % (2-11); Neutrophils Absolute Auto 2.5 x10*3/uL (2.0-8.3); Neutrophils Percent Auto 52.4 % (45-73); Platelet Count 192 X10*3/uL (160-400); Red Blood Count 4.96 X10*6/uL (4.60-5.80); Red Cell Distribution Width 12.1 % (11.0-16.0); White Blood Count 4.8 X10*3/uL (4.8-10.8)
[2021-03-20 18:14] LABS: Ethanol 459 mg/dL
[2021-03-20 18:21] LABS: Troponin-I High Sensitivity 3.5 ng/L (<3.5-35.0)
[2021-03-20 18:29] LABS: Alanine Aminotransferase 29 U/L (0-40); Albumin Level 3.5 g/dL (3.5-5.0); Alkaline Phosphatase 156 U/L (39-117); Anion Gap 17 (12-20); Aspartate Amino Transferase 45 U/L (5-37); Bilirubin Direct 0.3 mg/dL (0.0-0.5); Blood Urea Nitrogen 14 mg/dL (9-16); Calcium 8.6 mg/dL (8.4-10.2); Carbon Dioxide 21 mmol/L (22-29); Chloride 106 mmol/L (96-108); Estimated Glomerular Filt Rate > 60; Glucose Random 103 mg/dL (60-115); Lipase 39 U/L (8-78); Potassium 3.9 mmol/L (3.3-5.1); Sodium 140 mmol/L (135-145)
[2021-03-20 19:51] LABS: Appearance Urine CLEAR; Color Urine YELLOW; Glucose Urine UA NEG (NEG); Leukocyte Esterase Urine NEG (NEG); Nitrite Urine NEG (NEG); Specific Gravity - Urine <= 1.005 (1.005-1.025); Urine Blood NEG (NEG); Urine Ketones NEG (NEG); Urine Protein NEG (NEG-TRACE)
[2021-03-20 20:05] LABS: Amphetamine Screen Urine Not Detected (Not Detect); Barbiturates, Urine Not Detected (Not Detect); Benzodiazepines Screen Urine Not Detected (Not Detect); Cannabinoid Screen Urine Not Detected (Not Detect); Cocaine Screen Urine Not Detected (Not Detect); Fentanyl, urine Not Detected (Not Detect); Opiate Screen Urine Not Detected (Not Detect); Phencyclidine Screen Urine Not Detected (Not Detect)
[2021-03-20 23:18] VITALS: BP 114/90; PULSE 77; RESP 20; O2SAT 97
--- NOTE | 2021-03-21 00:51 | PC.NURSE ---
Pt wakes frequently to demand/request food/beverage from staff and often rambling, occasionally disoriented yelling about him missing his Home delivered meals. pt responds well to verbal redirection
[2021-03-21 07:00] VITALS: BP 136/80; PULSE 82; RESP 18; O2SAT 99
== END 2021-03-21 07:40 | disposition home or self-care (01) ==
PROVIDERS: Emergency Provider Emergency Medicine
DX: F10.130 Alcohol abuse with withdrawal, uncomplicated (principal); Y90.8 Blood alcohol level of 240 mg/100 ml or more; R45.1 Restlessness and agitation; I48.91 Unspecified atrial fibrillation
CPT/HCPCS: 36415; 80048; 80076; 80307; 81003; 82077; 83690; 84484; 85025; 96361; 96374; 99284; 99285; J2060

== ENCOUNTER 2021-08-16 14:04 | Emergency (ER) | payer OTHER, SELFPAY ==
[2021-08-16 14:17] VITALS: BP 138/90; BP 146/95; PULSE 113; PULSE 69; RESP 18; O2SAT 98; O2SAT 99; BMI 29.2
--- NOTE | 2021-08-16 14:17 | ED.SKABFB ---
HPI - Skin/Abscess/Foreign Bdy General Chief complaint: Extremity Problem Stated complaint: LLE CELLULITIS, ON ORAL ABX Time Seen by Provider: 08/16/21 14:06 Source: patient and EMS Mode of arrival: EMS Limitations: no limitations History of Present Illness HPI narrative: 60 yo male with past medical history of alcoholic liver cirrhosis, AFib not anticoagulated, cardiomyopathy, chronic heart failure with reduced ejection fraction, psoriasis here with complaints of left lower leg swelling, redness and pain x 20 days. Started antibiotics 08/12 (cephalexin) but despite taking continued pain, swelling. No fevers. Patient tells me initially he had an abrasion to the lower leg from a piece of wood. Drinks alcohol daily. Related Data Previous Rx's Medication Instructions Recorded furosemide 20 mg tablet (Lasix) 20 mg PO DAILY #30 tab 09/03/20 metoprolol tartrate 100 mg tablet 100 mg PO BID #60 tab 09/03/20 valsartan 40 mg tablet 40 mg PO BID #60 tab 09/03/20 amoxicillin 875 mg-potassium 1 tab PO BID #14 tab 08/16/21 clavulanate 125 mg tablet Allergies Allergy/AdvReac Type Severity Reaction Status Date / Time No Known Allergies Allergy Verified 08/16/21 14:15 Review of Systems Review of Systems: Yes all other systems are reviewed and are negative Constitutional: Constitutional: Reports no additional constitutional complaints, Denies body ache(s), Denies chills, Denies fever(s), Denies headache(s) and Denies weakness Eyes: Eyes: Reports no additional eye complaints and Denies change in vision ENT: Reports system reviewed and no additional complaints, except as documented, Denies dizziness, Denies headache(s), Denies nasal congestion, Denies nasal discharge and Denies neck pain Cardiovascular: Cardiovascular: Reports no additional cardiovascular complaints, Denies chest pain, Denies leg edema and Denies dyspnea Respiratory: Respiratory: Reports no additional respiratory complaints, Denies cough and Denies dyspnea Gastrointestinal: Gastrointestinal: Reports no additional gastrointestinal complaints, Denies abdominal pain, Denies diarrhea, Denies nausea and Denies vomiting Genitourinary: Genitourinary: Denies urinary incontinence Musculoskeletal: Musculoskeletal: Reports no additional musculoskeletal complaints, Denies back pain, Denies arthralgias, Denies joint swelling, Denies neck pain, Denies numbness and Denies tingling Integumentary/Breasts: Skin/Breast: Reports system reviewed and no additional complaints, except as docu, Reports swelling, Reports erythema and Denies rash Neurologic: Reports system reviewed and no additional complaints, except as documented, Denies Abnormal speech present, Denies dizziness, Denies headache(s), Denies numbness, Denies tingling and Denies weakness PMFSH Past Medical History Attestation statement: The following information was validated with the patient. Source: old records reviewed and nursing notes reviewed Medical History Afib Alcohol intoxication Alcoholic cirrhosis of liver Atrial fibrillation with rapid ventricular response Cardiomyopathy Chronic HFrEF (heart failure with reduced ejection fraction) Left against medical advice Psoriasis Social History Social History Household Members: None Housing: Apartment Housing Other:: Elderly housing complex Do you presently have visiting nurse or other home services: Yes Alcohol intake: current Alcohol intake frequency: 3 or more drinks per day Alcohol type: beer Patient Tobacco Use Status: Tobacco use Unknown Second Hand Smoke Exposure: No Advance Directives: No Advance Directives Information Provided: No service: No Current occupational status: disabled Physical Exam Vital Signs: Vital Signs: Last Vital Signs Pulse 69 08/16/21 14:17 Resp 18 08/16/21 14:17 BP 146/95 H 08/16/21 14:17 Pulse Ox 99 08/16/21 14:17 BMI result Body Mass Index 29.2 Const: General: cooperative, healthy appearing, comfortable and no acute distress Orientation/consciousness: patient oriented x3 Limitations: no limitations HEENT: Head: Yes normal to inspection Ears: hearing grossly normal bilaterally General nose exam: Normal external nose present Face and sinus: Yes normal facial exam Mouth: Normal oral and palatal mucosa present Throat: Yes posterior oropharynx normal Eyes: General: appearance normal, both eyes and all related structures Pupils: Equal, round and reactive pupils present Neck: Neck: Yes normal visual inspection Chest: Chest palpation & inspection: normal inspection of the chest Resp: Effort & Inspection: normal respiratory effort Auscultation: clear to auscultation bilaterally Cardio: Rate: regular rate Rhythm: regular rhythm Peripheral pulses: Peripheral pulses 2+ throughout GI: Inspection: Yes normal to inspection Palpation (GI): Soft to palpation and nontender Auscultation: normal bowel sounds Back/Spine/Pelvis: Thoracic/Lumbar Spine: thoracic and lumbar spine normal to inspection Skin: General skin exam: no rashes or lesions noted Neuro: General: patient oriented x3, no focal motor deficits and normal sensation to monofilament Cranial nerves: Yes Equal, round and reactive pupils present Cognition (Neuro): normal cognition Speech: No Abnormal speech present Gait exam (Neuro): Normal gait present Motor exam (neuro): 5/5 motor strength present throughout Extrem: Other: Palpable DP and PT pulses. There is circumferential erythema. There is tenderness throughout. There is warmth and swelling. General: Yes normal to inspection Course Course Course Narrative: 60 yo male here with complaints of LLE swelling/redness/pain despite being on cephalexin for 4 days. On exam the patient is of left lower extremity cellulitis. There appears to be a central area of fluctuance, induration of consistent with an abscess. I recommended patient have an I&D but he refuses to have this done unless he is under anesthesia. We discussed I would use local lidocaine but he refused this. Will admit for IV antibiotics. Labs and including blood cultures and lactic acid ordered. Antibiotics ordered. Will discuss with medicine for admission Reevaluation(s) Reevaluation #1: D/w Dr Linda who accepted admission. Time: 15:15 Reevaluation #2: Patient got up, walking with steady gait, says he wants to leave because we are not moving quickly enough for him. He does reports some alcohol use earlier but is walking with a steady gait. He is alert and oriented. Clinically is sober. Patient will leave against medical advice. He is welcome to return any time. Time: 15:30 MDM - Skin/Abscess/Foreign Bdy Medical Records Attestation: I reviewed the patient's medical records. Lab Data Attestation: I reviewed the patient's lab results. Result diagrams: 08/16/21 14:28 08/16/21 14:28 Labs: Lab Results 08/16/21 08/16/21 08/16/21 Range/Units 14:28 14:28 14:28 WBC 5.3 (4.8-10.8) X10*3/uL RBC 4.65 (4.60-5.80) X10*6/uL Hgb 14.7 (14.0-18.0) g/dl Hct 43.2 (42.0-52.0) % MCV 92.9 (80.0-98.0) fL MCH 31.6 (27.0-33.0) pg MCHC 34.0 (31.0-36.0) g/dl RDW 13.8 (11.0-16.0) % Plt Count 115 L D (160-400) X10*3/uL MPV 10.0 (9.4-12.4) fL Immature Gran % (Auto) 0.2 (0.0-0.4) % Neut % (Auto) 55.6 (45-73) % Lymph % (Auto) 28.1 (20-40) % [place] % (Auto) 15.2 H (2-11) % Eos % (Auto) 0.2 (0-4) % Baso % (Auto) 0.7 (0-2) % Lymph # (Auto) 1.5 (1.2-4.9) X10*3/uL [place] # (Auto) 0.8 (0.1-1.2) X10*3/uL Eos # (Auto) 0.0 (0.0-0.4) X10*3/uL Baso # (Auto) 0.0 (0.0-0.2) X10*3/uL Abs Immat Gran (auto) 0.01 (0.00-0.03) X10*3/uL Absolute Neuts (auto) 3.0 (2.0-8.3) x10*3/uL Absolute Nucleated RBC 0.000 (0.0-0.012) X10*3/uL Nucleated RBC % (auto) 0.0 (0.0-0.2) /100WBC Sodium 143 (135-145) mmol/L Potassium 3.3 (3.3-5.1) mmol/L Chloride 105 (96-108) mmol/L Carbon Dioxide 27 (22-29) mmol/L Anion Gap 14 (12-20) BUN 7 L (9-16) mg/dL Creatinine 0.64 (0.5-1.4) mg/dL Estim Creat Clear Calc 135.0 Estimated GFR > 60 Random Glucose 109 (60-115) mg/dL Lactic Acid 2.1 H* (0.5-2.0) mmol/L Calcium 8.2 L (8.4-10.2) mg/dL Total Bilirubin 1.2 H (0.0-1.0) mg/dL Direct Bilirubin 0.6 H (0.0-0.5) mg/dL AST 55 H (5-37) U/L ALT 33 (0-40) U/L Alkaline Phosphatase 132 H (39-117) U/L Total Protein 7.0 (6.5-8.0) g/dL Albumin 3.4 L (3.5-5.0) g/dL COVID-19 ([facility]) (Negative) COVID-19 Clin Com 08/16/21 Range/Units 14:28 WBC (4.8-10.8) X10*3/uL RBC (4.60-5.80) X10*6/uL Hgb (14.0-18.0) g/dl Hct (42.0-52.0) % MCV (80.0-98.0) fL MCH (27.0-33.0) pg MCHC (31.0-36.0) g/dl RDW (11.0-16.0) % Plt Count (160-400) X10*3/uL MPV (9.4-12.4) fL Immature Gran % (Auto) (0.0-0.4) % Neut % (Auto) (45-73) % Lymph % (Auto) (20-40) % [place] % (Auto) (2-11) % Eos % (Auto) (0-4) % Baso % (Auto) (0-2) % Lymph # (Auto) (1.2-4.9) X10*3/uL [place] # (Auto) (0.1-1.2) X10*3/uL Eos # (Auto) (0.0-0.4) X10*3/uL Baso # (Auto) (0.0-0.2) X10*3/uL Abs Immat Gran (auto) (0.00-0.03) X10*3/uL Absolute Neuts (auto) (2.0-8.3) x10*3/uL Absolute Nucleated RBC (0.0-0.012) X10*3/uL Nucleated RBC % (auto) (0.0-0.2) /100WBC Sodium (135-145) mmol/L Potassium (3.3-5.1) mmol/L Chloride (96-108) mmol/L Carbon Dioxide (22-29) mmol/L Anion Gap (12-20) BUN (9-16) mg/dL Creatinine (0.5-1.4) mg/dL Estim Creat Clear Calc Estimated GFR Random Glucose (60-115) mg/dL Lactic Acid (0.5-2.0) mmol/L Calcium (8.4-10.2) mg/dL Total Bilirubin (0.0-1.0) mg/dL Direct Bilirubin (0.0-0.5) mg/dL AST (5-37) U/L ALT (0-40) U/L Alkaline Phosphatase (39-117) U/L Total Protein (6.5-8.0) g/dL Albumin (3.5-5.0) g/dL COVID-19 ([facility]) Negative (Negative) COVID-19 Clin Com See Note Discharge Plan Discharge Clinical Impression: Cellulitis Patient Disposition: Left Against Medical Advice Instructions: Cellulitis (ED), Against Medical Advice (ED) Additional Instructions: It was recommended he be admitted to the hospital to have IV antibiotics and have the abscess on your leg drained but you declined this. Relieving you are aware that you may have worsening infection and may lose your limb Prescriptions: New amoxicillin-pot clavulanate 875-125 mg tablet 1 tab PO BID Qty: 14 0RF No Action furosemide [Lasix] 20 mg tablet 20 mg PO DAILY Qty: 30 0RF metoprolol tartrate 100 mg tablet 100 mg PO BID Qty: 60 0RF valsartan 40 mg tablet 40 mg PO BID Qty: 60 0RF Stand Alone Forms: Against Medical Advice Discharge Date/Time: 08/16/21 15:45
[2021-08-16 14:32] LABS: MANUAL DIFF FLAG NO
[2021-08-16] MEDS: Piperacillin Sodium/Tazobactam 3.375 GM in 0.9 % Sodium Chloride 50 ML IV (14:35)
[2021-08-16 14:38] LABS: Basophils Percent Auto 0.7 % (0-2); Eosinophils Percent Auto 0.2 % (0-4); Hematocrit 43.2 % (42.0-52.0); Hemoglobin 14.7 g/dl (14.0-18.0); Imm Gran Abs Auto 0.01 X10*3/uL (0.00-0.03); Imm Gran Pct Auto 0.2 % (0.0-0.4); Lymphocytes Absolute Auto 1.5 X10*3/uL (1.2-4.9); Lymphocytes Percent Auto 28.1 % (20-40); Mean Corpuscular Hemoglobin 31.6 pg (27.0-33.0); Mean Corpuscular Volume 92.9 fL (80.0-98.0); Monocytes Absolute Auto 0.8 X10*3/uL (0.1-1.2); Monocytes Percent Auto 15.2 % (2-11); Neutrophils Percent Auto 55.6 % (45-73); Platelet Count 115 X10*3/uL (160-400); Red Blood Count 4.65 X10*6/uL (4.60-5.80); Red Cell Distribution Width 13.8 % (11.0-16.0); White Blood Count 5.3 X10*3/uL (4.8-10.8)
--- NOTE | 2021-08-16 14:44 | PC.NURSE ---
Pt comes in via EMS from home with c/o LLE pain swelling and infection. Seen by PCP and given PO antibiotics with no relief. Pt is A&O4, LCA, + pulses to LLE, redness, swelling and abscess to LLE. Pt is intoxicated, states, look at my record to see what I'm capable of refuses to answer amount of alcohol intake. States enough . IV establihed, medicated as per MAR orders. Awaiting further orders. Will continue to monitr.
[2021-08-16 14:51] LABS: Alanine Aminotransferase 33 U/L (0-40); Albumin Level 3.4 g/dL (3.5-5.0); Alkaline Phosphatase 132 U/L (39-117); Anion Gap 14 (12-20); Aspartate Amino Transferase 55 U/L (5-37); Bilirubin Direct 0.6 mg/dL (0.0-0.5); Bilirubin Total 1.2 mg/dL (0.0-1.0); Blood Urea Nitrogen 7 mg/dL (9-16); Calcium 8.2 mg/dL (8.4-10.2); Carbon Dioxide 27 mmol/L (22-29); Chloride 105 mmol/L (96-108); Estimated Glomerular Filt Rate > 60; Glucose Random 109 mg/dL (60-115); Potassium 3.3 mmol/L (3.3-5.1); Sodium 143 mmol/L (135-145)
[2021-08-16 15:02] LABS: COVID-19 Test Negative (Negative); IDNOW Serial# 16C4AD1C
[2021-08-16 15:13] LABS: Lactic Acid 2.1 mmol/L (0.5-2.0)
--- NOTE | 2021-08-16 15:45 | PC.NURSE ---
Pt left AMA, no paperwork given, pt refused. IV removed prior to pt leaving.
[2021-08-16 16:30] LABS: Reflex Lactate? Lactic Acid Added
== END 2021-08-16 15:45 | disposition left against medical advice (07) ==
PROVIDERS: Nurse Practitioner Family; Emergency Provider Emergency Medicine; PCP Internal Medicine
DX: L03.116 Cellulitis of left lower limb (principal); I50.22 Chronic systolic (congestive) heart failure; I42.9 Cardiomyopathy, unspecified; I48.91 Unspecified atrial fibrillation; K70.30 Alcoholic cirrhosis of liver without ascites; Z20.822 Contact with and (suspected) exposure to COVID-19
CPT/HCPCS: 36415; 80048; 80076; 83605; 85025; 87040; 87635; 96361; 96365; 96367; 99283; 99284; J2543

== ENCOUNTER 2023-12-15 11:36 | Emergency (ER) | payer OTHER, SELFPAY ==
[2023-12-15 11:50] VITALS: BP 130/80; PULSE 80; O2SAT 100
--- NOTE | 2023-12-15 11:57 | ED_ITS ---
HPI - General Adult General Chief complaint: Animal Bite Stated complaint: BITE TO L CALF BY NEIGHORS DOG,BLEEDING CONTROLLED Time Seen by Provider: 12/15/23 11:54 Source: patient Mode of arrival: ambulatory Limitations: no limitations History of Present Illness ED Provider: Mc Aimn HPI narrative: 63 yold pmh of HTN with past medical history of hypertension, metoprolol, and CHF presents to the ED for dog bite to left calf. Patient states he was going to the neighbor's yd and the neighbor dog attacked him and bit his calf. He does not know rabies vaccine status of such dog. Patient is unsure of last tetanus shot Related Data Previous Rx's ?Medication ?Instructions ?Recorded furosemide 20 mg tablet (Lasix) 20 mg PO DAILY #30 tabs 09/03/20 metoprolol tartrate 100 mg tablet 100 mg PO BID #60 tabs 09/03/20 valsartan 40 mg tablet 40 mg PO BID #60 tabs 09/03/20 amoxicillin 875 mg-potassium 1 tab PO BID #14 tabs 08/16/21 clavulanate 125 mg tablet amoxicillin 875 mg-potassium 1 tab PO Q12H 7 days #14 tabs 12/15/23 clavulanate 125 mg tablet Allergies Allergy/AdvReac Type Severity Reaction Status Date / Time No Known Allergies Allergy Verified 12/15/23 12:03 Review of Systems 2 Review of Systems: left calf dog bite Yes all other systems are reviewed and are negative [facility] Past Medical History Medical History Afib Alcohol intoxication Alcoholic cirrhosis of liver Atrial fibrillation with rapid ventricular response Cardiomyopathy Chronic HFrEF (heart failure with reduced ejection fraction) Left against medical advice Psoriasis Social History Social History Household Members: None Housing: Apartment Housing Other:: Elderly housing complex Do you presently have visiting nurse or other home services: Yes Alcohol intake: current Alcohol intake frequency: 3 or more drinks per day Alcohol type: beer 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 Patient Tobacco Use Status: Tobacco use Unknown Second Hand Smoke Exposure: No Advance Directives: No Advance Directives Information Provided: No service: No Current occupational status: disabled Physical Exam ED Vital Signs: Vital Signs - 24 hr 12/15/23 11:59 12/15/23 12:02 Temperature 98.1 F 98.1 F Pulse Rate 93 93 Respiratory Rate 17 17 Blood Pressure 98/72 98/72 Pulse Oximetry 98 98 Oxygen Delivery Method Room Air Room Air BMI result Body Mass Index 27.9 Const General: cooperative, healthy appearing, comfortable, no acute distress, well developed, alert, awake and Physically active Orientation/consciousness: patient oriented x3 HENMT Head: Yes normal to inspection, Yes No palpable skull fracture present, Yes normocephalic and Yes atraumatic Throat: Yes posterior oropharynx normal, Yes tonsils normal and Yes uvula midline Eyes General: appearance normal, both eyes and all related structures Neck Neck: Yes normal visual inspection, Yes full ROM, Yes no lymphadenopathy, Yes no meningeal signs, Yes trachea midline, Yes supple, No anterior neck swelling and No tender Chest Chest palpation & inspection: normal inspection of the chest and normal palpation of entire chest wall Resp Effort & Inspection: normal respiratory effort and able to speak in complete sentences Auscultation: clear to auscultation bilaterally Cardio Jugular venous distension: no JVD Heart sounds: S1 normal heart sound present and S2 normal heart sound present GI Inspection: Yes normal to inspection and No abdominal wall ecchymosis Palpation (GI): Soft to palpation, not firm, nontender, no guarding and not rigid General: Yes no CVA tenderness Back/Spine/Pelvis Back: no CVA tenderness and No back tenderness Skin General skin exam: no rashes or lesions noted, elasticity normal and turgor normal Neuro General: patient oriented x3, gait normal, tone normal, moves all extremities, Normal light touch and pain sensation, no meningeal signs, no focal motor deficits, CN's II-XI intact bilaterally and normal sensation to monofilament Extrem General: Yes normal to inspection, Yes full ROM and Yes capillary refill normal Upper/lower leg/hip images: 2 1. Positive for deep large puncture laceration. Active bleeding. Rest of extremity normal. Motor/neuro/vascular exam intact. Negative for any open fractures Psych Appearance: grossly normal, well kempt and not disheveled Medications Administered Discontinued Medications Generic Name Dose Route Start Last Admin Trade Name Freq PRN Reason Stop Dose Admin Diphtheria/Tetanus/Acell Pertussis 0.5 ml 12/15/23 13:10 12/15/23 13:29 Diphth,Pertus(Acell),Tet Adult 0.5 Ml Syringe IM 12/15/23 13:11 0.5 ml .ONCE ONE Administration Lidocaine HCl 5 ml 12/15/23 11:55 12/15/23 14:02 Lidocaine Hcl 2 % Mpf 5 Ml Vial INFILTRATI 12/15/23 11:56 5 ml ONCE ONE Administration Lidocaine HCl 5 ml 12/15/23 11:55 12/15/23 14:02 Lidocaine Hcl 2 % Mpf 5 Ml Vial INFILTRATI 12/15/23 11:56 5 ml ONCE ONE Administration Rabies Immune Globulin 1,614.78 unit 12/15/23 13:01 12/15/23 13:28 Rabies Immune Globulin/Pf 900 Unit/3 Ml Vial 20 unit/kg (1614.78 unit) 12/15/23 13:02 1,614.78 unit IM Administration ONCE ONE Rabies Vaccine Human Diploid Cell 1 ml 12/15/23 13:01 12/15/23 13:28 Rabies Vaccine, Human Diploid (Imovax) 1 Ml Vial IM 12/15/23 13:02 1 ml .ONCE ONE Administration Medical Decision Making Medical Decision Making MDM Narrative: 63-year-old male presents to ED for to the ED for left calf dog bite. Patient states his neighbor dog attacked him and he could not confirm a neighbor dogs up-to-date with rabies vaccine. Patient informed necessity for Tdap and antibiotics. Laceration to be repaired. Wound cleaned with sterile saline Betadine iodine. 1% lidocaine 7 mL used for local anesthesia. Five sutures placed. Sutures were placed loosely due to it being a dog bite. Patient given rabies vaccine and immunolgobin. Patient will be discharged with antibiotics. Patient explained worrisome signs informed to return to the ED immediately Differential Diagnosis Differential Diagnoses: The differential diagnosis associated with the presentation includes (Dog bite) Admission/Observation Consideration of admission/observation: Escalation of care including admission/observation considered Independent Historian Clinical information obtained from an independent historian. History obtained from or confirmed by: Other (Patient) External Record Review External record reviewed: Other (Prior visits) Prescription Management I considered prescription management with: Antibiotic Discharge Plan Discharge Clinical Impression: Dog bite Patient Disposition: Home, Self-Care Instructions: Animal Bite (ED) Additional Instructions: Recommend follow-up with infusion center. Return to the ED immediately for any redness, pus discharge, foul odor, fever, chills, any other concerning symptoms. Sutures should be removed in about 9 or 10 days. Recommend follow-up with PCP Prescriptions: New amoxicillin-pot clavulanate 875-125 mg tablet 1 tab PO Q12H 7 Days Qty: 14 0RF No Action furosemide [Lasix] 20 mg tablet 20 mg PO DAILY Qty: 30 0RF metoprolol tartrate 100 mg tablet 100 mg PO BID Qty: 60 0RF valsartan 40 mg tablet 40 mg PO BID Qty: 60 0RF amoxicillin-pot clavulanate 875-125 mg tablet 1 tab PO BID Qty: 14 0RF Interventions: ED Discharge Assessment Last Done: 12/15/23 14:33 Discharge Date/Time: 12/15/23 14:33 Print Language: Kosovan
[2023-12-15 11:59] VITALS: BP 98/72; PULSE 93; RESP 17; TEMP 36.7; O2SAT 98
[2023-12-15 12:02] VITALS: BP 98/72; PULSE 93; RESP 17; TEMP 36.7; O2SAT 98; BMI 27.9
[2023-12-15] MEDS: Rabies Vaccine, Human Diploid (Imovax) 1 ML VIAL IM (13:28)
[2023-12-15] MEDS: Rabies Immune Globulin/PF 900 UNIT/3 ML VIAL 1614.78 UNIT IM (13:28)
[2023-12-15] MEDS: Diphth,Pertus(ACell),Tet Adult 0.5 ML SYRINGE IM (13:29)
[2023-12-15] MEDS: Lidocaine HCl 2 % MPF 5 ML VIAL INFILTRATI ×2 (14:02)
--- NOTE | 2023-12-15 14:02 | PC.NURSE ---
bite report faxed to [facility]. this nurse spoke with Rosemary at [facility], unable to verify vax status dog- rabies series administered
[2023-12-15 14:33] VITALS: BP 98/72; PULSE 93; RESP 17; TEMP 36.7; O2SAT 98
== END 2023-12-15 14:33 | disposition home or self-care (01) ==
PROVIDERS: Emergency Provider Emergency Medicine; PCP Internal Medicine
DX: S81.852A Open bite, left lower leg, initial encounter (principal); W54.0XXA Bitten by dog, initial encounter; Y93.89 Activity, other specified; Y92.007 Garden or yard of unspecified non-institutional (private) residence as the place of occurrence of the external cause; Y99.9 Unspecified external cause status; Z23 Encounter for immunization; Z20.3 Contact with and (suspected) exposure to rabies
CPT/HCPCS: 90375; 90471; 90675; 90715; 96372; 99283; 99284

== ENCOUNTER 2023-12-19 08:44 | Emergency (ER) | payer OTHER, SELFPAY ==
[2023-12-19 09:09] VITALS: BP 128/92; PULSE 75; RESP 18; TEMP 36.5; O2SAT 99; BMI 25.9
--- NOTE | 2023-12-19 10:07 | ED_ITS ---
HPI - Medical Clearance General Chief complaint: Medical Clearance Stated complaint: dressing change rabies shot Time Seen by Provider: 12/19/23 09:56 Source: patient Mode of arrival: ambulatory Limitations: no limitations History of Present Illness ED Provider: MALCOLM BERNABE PA-C HPI Narrative: 63-year-old male with past medical history significant for atrial fibrillation with RVR, CHF, alcohol dependence presents to the ED today requesting rabies vaccination. Patient was seen in the ED on 12/15/23 (4 days ago) after sustaining a dog bite to his left calf. His tetanus was updated at that time and rabies series was initiated. Reports being discharged home however can not recall what his discharge instructions were. States he was not informed on where to follow up for further vaccinations. Presents today stating I am here for 2 rabies shots and then I am leaving . Denies any acute changes since his previous visit. Reports starting his antibiotics yesterday. Denies fever, chills, weakness, nausea or vomiting, discharge from the area. Related Information Previous Rx's ?Medication ?Instructions ?Recorded furosemide 20 mg tablet (Lasix) 20 mg PO DAILY #30 tabs 09/03/20 metoprolol tartrate 100 mg tablet 100 mg PO BID #60 tabs 09/03/20 valsartan 40 mg tablet 40 mg PO BID #60 tabs 09/03/20 amoxicillin 875 mg-potassium 1 tab PO BID #14 tabs 08/16/21 clavulanate 125 mg tablet amoxicillin 875 mg-potassium 1 tab PO Q12H 7 days #14 tabs 12/15/23 clavulanate 125 mg tablet Allergies Allergy/AdvReac Type Severity Reaction Status Date / Time No Known Allergies Allergy Verified 12/19/23 09:11 Review of Systems Review of Systems: Yes all other systems are reviewed and are negative PMFSH Past Medical History Attestation statement: The following information was validated with the patient. 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 Skin: Warm, dry, intact. No rashes or lesions. Head: Normocephalic, atraumatic. EENT: Hearing is intact b/l. Conjunctiva clear. PERRLA. EOM intact. Cardiac: Chest wall symmetric Lungs: Normal respiratory effort without accessory muscle use. CTA bilaterally? Back: No midline spinous or paraspinal tenderness. No step off deformity. Ext: +healing puncture wound to left calf with sutures in place. no surrounding erythema, dehiscence or discharge. Neuro: AOx3. Normal speech. Ambulating with steady gait. Course Course Course Narrative: 1035 -- Patient presenting for 2nd rabies vaccination. He received his 1st vaccine on 12/15/23. I did let patient know that he was supposed to follow up with the infusion center regarding further vaccinations and that we are unable to administer this today. He tells me that he was unaware of this and has not receive a call from them. I personally called and spoke to the infusion center who states that they have availability at this time and he can walk over for his vaccination. Upon reentry into patient's room to inform him of plan, I discovered patient had eloped from the ED. I did call him to let him know that the infusion center is expecting him today for his vaccination. He states I do not have time for this. My ride already picked me up. I will call them tomorrow . I expressed the importance of following up with them for subsequent vaccinations and he verbalizes understanding. Infusion center aware. Discussed worrisome signs and symptoms of when to return to the ED. Medical Decision Making Medical Decision Making MDM Narrative: 63 year old male with pmhx significant for afib presents to the ED requesting rabies vaccination. Patient hypertensive to 128/92, vitals otherwise WNL. Patient visibly upset, frustrated. On exam, healing puncture wound to left calf with sutures in place. no surrounding erythema, dehiscence or discharge. Differential Diagnosis Differential Diagnoses: The differential diagnosis associated with the presentation includes As above Admission/Observation Not indicated Social Determinants Patient?s care significantly limited by Social Determinants of Health including: Other Social Determinant of Health Critical Care Time Critical Care Time Critical Care Time: No Discharge Plan Discharge Clinical Impression: Need for rabies vaccination Patient Disposition: Elopement Prescriptions: No Action furosemide [Lasix] 20 mg tablet 20 mg PO DAILY Qty: 30 0RF metoprolol tartrate 100 mg tablet 100 mg PO BID Qty: 60 0RF valsartan 40 mg tablet 40 mg PO BID Qty: 60 0RF amoxicillin-pot clavulanate 875-125 mg tablet 1 tab PO BID Qty: 14 0RF amoxicillin-pot clavulanate 875-125 mg tablet 1 tab PO Q12H 7 Days Qty: 14 0RF Discharge Date/Time: 12/19/23 10:29 Print Language: Swedish
== END 2023-12-19 10:29 | disposition left against medical advice (07) ==
PROVIDERS: Emergency Provider Emergency Medicine Emergency Medical Services; PCP Internal Medicine
DX: S81.852A Open bite, left lower leg, initial encounter (principal); W54.0XXA Bitten by dog, initial encounter; Y93.9 Activity, unspecified; Y92.9 Unspecified place or not applicable; Y99.9 Unspecified external cause status
CPT/HCPCS: 99281

== ENCOUNTER 2023-12-22 15:08 | Emergency (ER) | payer OTHER, SELFPAY ==
--- NOTE | ~2023-12-22 | XR_ITS ---
EXAMINATION: LEFT TIBIA AND FIBULA CLINICAL INFORMATION: Infected wound with question of osteomyelitis COMPARISON: None available. TECHNIQUE: 2 views of the tibia and fibula FINDINGS: Tricompartmental degenerative changes are seen in the partially visualized knee. Mild degenerative changes are present in the ankle as well as the visualized midfoot. Vascular calcifications are seen likely within the veins. No bone destruction is seen to suggest osteomyelitis. No periosteal reaction is seen. XR/XR tibia fibula LT 2V IMPRESSION: 1. No evidence of osteomyelitis. 2. Degenerative changes as described above. Electronically signed by: Monster Kendrick MD 12/22/2023 05:51 PM EDT
[2023-12-22 15:15] VITALS: BP 150/100; PULSE 84; O2SAT 98
[2023-12-22 15:49] VITALS: BP 105/88; PULSE 94; RESP 16; O2SAT 99; BMI 26.6
--- NOTE | 2023-12-22 16:07 | ED_ITS ---
HPI - General Adult General Chief complaint: Skin/Abscess/Foreign Body Stated complaint: ? INF OF DOG BITE SITE,STITCHES CAME OUT PER EMS Time Seen by Provider: 12/22/23 20:36 Source: patient Mode of arrival: ambulatory Limitations: no limitations History of Present Illness ED Provider: julian DYKES narrative: Patient is status post dog bite on his left calf area on 12/14 started on Augmentin comes here as wound has opened up and sutures are coming out. Also complaining of pain surrounding that area no fever no chills Related Data Previous Rx's ?Medication ?Instructions ?Recorded furosemide 20 mg tablet (Lasix) 20 mg PO DAILY #30 tabs 09/03/20 metoprolol tartrate 100 mg tablet 100 mg PO BID #60 tabs 09/03/20 valsartan 40 mg tablet 40 mg PO BID #60 tabs 09/03/20 amoxicillin 875 mg-potassium 1 tab PO BID #14 tabs 08/16/21 clavulanate 125 mg tablet amoxicillin 875 mg-potassium 1 tab PO Q12H 7 days #14 tabs 12/15/23 clavulanate 125 mg tablet amoxicillin 875 mg-potassium 1 tab PO BID #14 tabs 12/22/23 clavulanate 125 mg tablet doxycycline hyclate 100 mg tablet 100 mg PO BID #20 tabs 12/22/23 mupirocin 2 % topical ointment 1 appl topical BID #15 grams 12/22/23 Allergies Allergy/AdvReac Type Severity Reaction Status Date / Time No Known Allergies Allergy Verified 12/22/23 15:53 Review of Systems 2 Review of Systems: Yes all other systems are reviewed and are negative [facility] Past Medical History Medical History Left against medical advice Chronic HFrEF (heart failure with reduced ejection fraction) Cardiomyopathy Alcoholic cirrhosis of liver Alcohol intoxication Atrial fibrillation with rapid ventricular response Psoriasis Afib Social History Social History Household Members: None Housing: Apartment Housing Other:: Elderly housing complex Do you presently have visiting nurse or other home services: Yes Alcohol intake: current Alcohol intake frequency: holidays/special occasions only Alcohol type: beer 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 Patient Tobacco Use Status: Tobacco use Unknown Smoked in Last 30 Days: No Second Hand Smoke Exposure: No Use of substances other than those prescribed or required for medical reasons: No Advance Directives: No Advance Directives Information Provided: No Do you have a plan to hurt others: No Plan service: No Current occupational status: disabled Physical Exam ED Vital Signs: Vital Signs - 24 hr 12/22/23 15:49 12/22/23 20:09 12/22/23 21:35 Temperature 97.3 F 97.1 F Pulse Rate 94 90 80 Respiratory Rate 16 18 18 Blood Pressure 105/88 131/90 H 136/92 H Pulse Oximetry 99 99 96 Oxygen Delivery Method Room Air Room Air Room Air 12/22/23 21:38 Temperature 97.1 F Pulse Rate 80 Respiratory Rate 18 Blood Pressure 136/92 H Pulse Oximetry 96 Oxygen Delivery Method Room Air BMI result Body Mass Index 26.6 Extrem Upper/lower leg/hip images: 2 1. 3 x 2 cm long open wound with necrotic base and pus discharge which was debrided cleaned with peroxide and saline Course Course Course Narrative: RME: Done by RADHA Amin. 63-year-old male status post dog bite that was sutured presents to ED for infected dog bite wound and suture wound opening.. Patient states no fever or chills. Patient states compliant with antibiotics. physical exam wound positive for erythema, yellow drainage, and wound dehischence Medications Administered Discontinued Medications Generic Name Dose Route Start Last Admin Trade Name Freq PRN Reason Stop Dose Admin Bacitracin 1 appl 12/22/23 21:20 12/22/23 21:25 Bacitracin Oint 0.9 Gm Packet TOPICAL 12/22/23 21:21 1 appl ONCE ONE Administration Protocol Doxycycline Monohydrate 100 mg 12/22/23 21:26 12/22/23 21:29 Doxycycline Monohydrate 100 Mg Capsule PO 12/22/23 21:27 100 mg ONCE ONE Administration Medical Decision Making Medical Decision Making MDM Narrative: Patient has infected dog bite left lower extremity on antibiotics the wound had dirty base with pus discharge which was cleared using peroxide and removal of the devitalized tissue wound looked healthy after debridement no surrounding deeper infection will prescribe doxycycline and Augmentin Lab Data MDM Lab Attestation statement: I reviewed the patient's lab results. 12/22/23 17:41 12/22/23 17:41 Labs: Lab Results 09/26/24 Range/Units 17:41 WBC 4.9 (4.8-10.8) X10*3/uL RBC 4.45 L (4.60-5.80) X10*6/uL Hgb 15.2 (14.0-18.0) g/dl Hct 44.2 (42.0-52.0) % MCV 99.3 H (80.0-98.0) fL MCH 34.2 H (27.0-33.0) pg MCHC 34.4 (31.0-36.0) g/dl RDW 12.4 (11.0-16.0) % Plt Count 157 L D (160-400) X10*3/uL MPV 9.6 (9.4-12.4) fL Immature Gran % (Auto) 0.2 (0.0-0.4) % Neut % (Auto) 51.4 (45-73) % Lymph % (Auto) 29.4 (20-40) % [place] % (Auto) 15.0 H (2-11) % Eos % (Auto) 2.6 (0-4) % Baso % (Auto) 1.4 (0-2) % Lymph # (Auto) 1.5 (1.2-4.9) X10*3/uL [place] # (Auto) 0.7 (0.1-1.2) X10*3/uL Eos # (Auto) 0.1 (0.0-0.4) X10*3/uL Baso # (Auto) 0.1 (0.0-0.2) X10*3/uL Abs Immat Gran (auto) 0.01 (0.00-0.03) X10*3/uL Absolute Neuts (auto) 2.5 (2.0-8.3) x10*3/uL Absolute Nucleated RBC 0.000 (0.0-0.012) X10*3/uL Nucleated RBC % (auto) 0.0 (0.0-0.2) /100WBC ESR 17 H (0-15) MM/HR Hold Purple Top SEE NOTE Sodium 138 (135-145) mmol/L Potassium 3.8 (3.3-5.1) mmol/L Chloride 104 (96-108) mmol/L Carbon Dioxide 25 (22-29) mmol/L Anion Gap 13 (12-20) BUN 18 H (9-16) mg/dL Creatinine 0.83 (0.5-1.4) mg/dL Estim Creat Clear Calc 90.4 Estimated GFR > 60 Random Glucose 94 (60-115) mg/dL Calcium 10.0 D (8.4-10.2) mg/dL Total Bilirubin 0.8 (0.0-1.0) mg/dL AST 97 H (5-37) U/L ALT 77 H (0-40) U/L Alkaline Phosphatase 131 H (39-117) U/L C-Reactive Protein 1.43 H (< or = 0.50) mg/dL Total Protein 8.1 H (6.5-8.0) g/dL Albumin 3.7 (3.5-5.0) g/dL Discharge Plan Discharge Clinical Impression: Infection of wound due to dog bite Patient Disposition: Home, Self-Care Instructions: Animal Bite (ED) Additional Instructions: Take doxycycline 1 capsule twice a day for 10 days Take Augmentin for another 7 days Wound recheck in ED in 2 days Local care as advised apply mupirocin ointment twice daily and do the dressing daily Prescriptions: New doxycycline hyclate 100 mg tablet 100 mg PO BID Qty: 20 0RF amoxicillin-pot clavulanate 875-125 mg tablet 1 tab PO BID Qty: 14 0RF mupirocin 2 % ointment 1 appl topical BID Qty: 15 0RF No Action furosemide [Lasix] 20 mg tablet 20 mg PO DAILY Qty: 30 0RF metoprolol tartrate 100 mg tablet 100 mg PO BID Qty: 60 0RF valsartan 40 mg tablet 40 mg PO BID Qty: 60 0RF amoxicillin-pot clavulanate 875-125 mg tablet 1 tab PO BID Qty: 14 0RF amoxicillin-pot clavulanate 875-125 mg tablet 1 tab PO Q12H 7 Days Qty: 14 0RF Interventions: ED Discharge Assessment Last Done: 12/22/23 21:38 Discharge Date/Time: 12/22/23 21:38 Print Language: Arabic
[2023-12-22 17:45] LABS: MANUAL DIFF FLAG NO
[2023-12-22 17:48] LABS: Basophils Absolute Auto 0.1 X10*3/uL (0.0-0.2); Basophils Percent Auto 1.4 % (0-2); Eosinophils Absolute Auto 0.1 X10*3/uL (0.0-0.4); Eosinophils Percent Auto 2.6 % (0-4); Hematocrit 44.2 % (42.0-52.0); Hemoglobin 15.2 g/dl (14.0-18.0); Imm Gran Abs Auto 0.01 X10*3/uL (0.00-0.03); Imm Gran Pct Auto 0.2 % (0.0-0.4); Lymphocytes Absolute Auto 1.5 X10*3/uL (1.2-4.9); Lymphocytes Percent Auto 29.4 % (20-40); Mean Corpuscular HGB Conc 34.4 g/dl (31.0-36.0); Mean Corpuscular Hemoglobin 34.2 pg (27.0-33.0); Mean Corpuscular Volume 99.3 fL (80.0-98.0); Mean Platelet Volume 9.6 fL (9.4-12.4); Monocytes Absolute Auto 0.7 X10*3/uL (0.1-1.2); Neutrophils Absolute Auto 2.5 x10*3/uL (2.0-8.3); Neutrophils Percent Auto 51.4 % (45-73); Platelet Count 157 X10*3/uL (160-400); Red Blood Count 4.45 X10*6/uL (4.60-5.80); Red Cell Distribution Width 12.4 % (11.0-16.0); White Blood Count 4.9 X10*3/uL (4.8-10.8)
[2023-12-22 18:02] LABS: Alanine Aminotransferase 77 U/L (0-40); Albumin Level 3.7 g/dL (3.5-5.0); Alkaline Phosphatase 131 U/L (39-117); Anion Gap 13 (12-20); Aspartate Amino Transferase 97 U/L (5-37); Bilirubin Total 0.8 mg/dL (0.0-1.0); Blood Urea Nitrogen 18 mg/dL (9-16); C Reactive Protein 1.43 mg/dL (< or = 0.50); Carbon Dioxide 25 mmol/L (22-29); Chloride 104 mmol/L (96-108); Creatinine Clr Calc Pharmacy 90.4; Estimated Glomerular Filt Rate > 60; Glucose Random 94 mg/dL (60-115); Potassium 3.8 mmol/L (3.3-5.1); Sodium 138 mmol/L (135-145); Total Protein 8.1 g/dL (6.5-8.0)
[2023-12-22 18:37] LABS: Erythrocyte Sedimentation Rate 17 MM/HR (0-15)
[2023-12-22 20:09] VITALS: BP 131/90; PULSE 90; RESP 18; TEMP 36.3; O2SAT 99
[2023-12-22] MEDS: Bacitracin Oint 0.9 GM PACKET 1 APPL TOPICAL (21:25)
[2023-12-22] MEDS: Doxycycline Monohydrate 100 MG CAPSULE PO (21:29)
[2023-12-22 21:35] VITALS: BP 136/92; PULSE 80; RESP 18; TEMP 36.2; O2SAT 96
[2023-12-22 21:38] VITALS: BP 136/92; PULSE 80; RESP 18; TEMP 36.2; O2SAT 96
== END 2023-12-22 21:38 | disposition home or self-care (01) ==
PROVIDERS: Physician Assistant; Emergency Provider Internal Medicine; PCP Internal Medicine
DX: L08.9 Local infection of the skin and subcutaneous tissue, unspecified (principal); M79.605 Pain in left leg; Z79.899 Other long term (current) drug therapy
CPT/HCPCS: 36415; 73590; 80053; 85025; 85652; 86140; 99283; 99284

== ENCOUNTER 2023-12-24 10:16 | Emergency (ER) | payer OTHER, SELFPAY ==
[2023-12-24 10:19] VITALS: BP 119/83; PULSE 75; RESP 16; TEMP 36; O2SAT 98; BMI 27.4
--- NOTE | 2023-12-24 10:28 | ED_ITS ---
HPI - General Adult General Chief complaint: Wound/Laceration Stated complaint: wound check Time Seen by Provider: 12/24/23 10:27 Source: patient and old records reviewed Mode of arrival: ambulatory Limitations: no limitations History of Present Illness ED Provider: ambreen [facility] narrative: Patient is a 63-year-old male presenting to the emergency department for re- check of wound to left lower leg. Wound initially inflicted by dog bite. Patient seen on 12/21 and wound was debrided and he was prescribed additional antibiotics. He reports that he has been taking both the Augmentin and doxycycline as prescribed. Also has a [employer] and a friend that works in the medical field to assist with dressing changes. Denies fevers/chills/body aches. MD complaint: wound check Associated symptoms: denies other symptoms Treatments prior to arrival: other Related Data Previous Rx's ?Medication ?Instructions ?Recorded furosemide 20 mg tablet (Lasix) 20 mg PO DAILY #30 tabs 09/03/20 metoprolol tartrate 100 mg tablet 100 mg PO BID #60 tabs 09/03/20 valsartan 40 mg tablet 40 mg PO BID #60 tabs 09/03/20 amoxicillin 875 mg-potassium 1 tab PO BID #14 tabs 08/16/21 clavulanate 125 mg tablet amoxicillin 875 mg-potassium 1 tab PO Q12H 7 days #14 tabs 12/15/23 clavulanate 125 mg tablet amoxicillin 875 mg-potassium 1 tab PO BID #14 tabs 12/22/23 clavulanate 125 mg tablet doxycycline hyclate 100 mg tablet 100 mg PO BID #20 tabs 12/22/23 mupirocin 2 % topical ointment 1 appl topical BID #15 grams 12/22/23 mupirocin 2 % topical ointment 1 appl topical BID #15 grams 12/24/23 Allergies Allergy/AdvReac Type Severity Reaction Status Date / Time No Known Allergies Allergy Verified 12/24/23 10:22 Review of Systems 2 Review of Systems: As per MDM Yes all other systems are reviewed and are negative Constitutional: Constitutional: Reports as per HPI [facility] Past Medical History Medical History Left against medical advice Chronic HFrEF (heart failure with reduced ejection fraction) Cardiomyopathy Alcoholic cirrhosis of liver Alcohol intoxication Atrial fibrillation with rapid ventricular response Psoriasis Afib Social History Social History Household Members: None Housing: Apartment Housing Other:: Elderly housing complex Do you presently have visiting nurse or other home services: Yes Alcohol intake: current Alcohol intake frequency: holidays/special occasions only Alcohol type: beer 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 Blood pressure normal. Heart rate normal. Respiratory rate normal. Temperature normal. Oxygen saturation normal. Const General: cooperative, healthy appearing and no acute distress Orientation/consciousness: oriented to person, oriented to place, oriented to time and patient oriented x3 Limitations: no limitations HENMT Head: Yes normocephalic and Yes atraumatic Ears: external ears normal General nose exam: Normal external nose present Face and sinus: Yes face symmetric Mouth: oropharynx normal and moist mucous membranes Throat: Yes uvula midline Eyes Pupils: Equal, round and reactive pupils present Neck Neck: Yes normal visual inspection and Yes supple Resp Effort & Inspection: normal respiratory effort and able to speak in complete sentences Auscultation: clear to auscultation bilaterally Cardio Rate: regular rate Rhythm: regular rhythm Heart sounds: S1 normal heart sound present and S2 normal heart sound present GI Palpation (GI): Soft to palpation and nontender Auscultation: normoactive bowel sounds General: Yes no CVA tenderness Back/Spine/Pelvis Back: no CVA tenderness Skin General skin exam: elasticity normal and turgor normal Neuro General: oriented to person, oriented to place, oriented to time, patient oriented x3, moves all extremities, no focal motor deficits and CN's II-XI intact bilaterally Cranial nerves: Yes Equal, round and reactive pupils present Cognition (Neuro): normal cognition Extrem Other: General: Yes full ROM, Yes no pedal edema and Yes no calf tenderness Left lower extremity: lower leg Details: other (wound appears well-healing, no purulent drainage, no surrounding erythema/warmth) Psych Mental Status: mental status grossly normal Affect: normal affect Thought process: Normal thought process present Medical Decision Making Medical Decision Making [facility] Narrative: Patient is a 63-year-old male presenting to the emergency department for re- check of wound to left lower leg. On exam patient is awake, A+Ox3, VS WNL, afebrile, normal neurological exam without focal deficits, physical exam findings as above. Given reported symptoms and physical exam findings, initial differential includes wound check, cellulitis, deep tissue infection. Wound appears to be well healing, no signs of cellulitis on physical exam. Patient instructed to complete full courses of antibiotics, assess wound at least once per day, return with any complications. Patient requesting additional tube of mupirocin as he is concerned he will run out, prescription for additional mupirocin sent to pharmacy. Patient verbalized understanding of and agreement with plan. Differential Diagnosis Differential Diagnoses: The differential diagnosis associated with the presentation includes As per [facility] Admission/Observation Consideration of admission/observation: Escalation of care including admission/observation considered Patient would have been admitted to the hospital had their work up had any findings where hospital admission was appropriate and their clinical presentation warranted hospital admission. External Record Review External record reviewed: Inpatient record, Office record and Outpatient record Prescription Management I considered prescription management with: Antibiotic Discharge Plan Discharge Clinical Impression: Encounter for wound re-check Patient Disposition: Home, Self-Care Additional Instructions: You were evaluated in the emergency department today for re-evaluation of a wound to your left lower leg. The wound appears to be healing well without additional signs of infection. We recommend that you continue to change the dressing and assess the wound at least once per day. Finish all antibiotics prescribed to you. Complete your course of rabies vaccines as ordered. Return to the emergency department if you develop new redness, swelling, thick yellow drainage, increased pain, redness streaking up your leg, fever, or any other concerning symptoms. Prescriptions: New mupirocin 2 % ointment 1 appl topical BID Qty: 15 0RF Rx Instructions: Continue to apply until wound is fully healed. No Action furosemide [Lasix] 20 mg tablet 20 mg PO DAILY Qty: 30 0RF metoprolol tartrate 100 mg tablet 100 mg PO BID Qty: 60 0RF valsartan 40 mg tablet 40 mg PO BID Qty: 60 0RF amoxicillin-pot clavulanate 875-125 mg tablet 1 tab PO BID Qty: 14 0RF amoxicillin-pot clavulanate 875-125 mg tablet 1 tab PO Q12H 7 Days Qty: 14 0RF doxycycline hyclate 100 mg tablet 100 mg PO BID Qty: 20 0RF amoxicillin-pot clavulanate 875-125 mg tablet 1 tab PO BID Qty: 14 0RF mupirocin 2 % ointment 1 appl topical BID Qty: 15 0RF Interventions: ED Discharge Assessment Last Done: 12/24/23 10:52 Discharge Date/Time: 12/24/23 10:54 Print Language: Ukrainian
[2023-12-24 10:52] VITALS: BP 119/83; PULSE 75; RESP 16; TEMP 36; O2SAT 98
== END 2023-12-24 10:54 | disposition home or self-care (01) ==
PROVIDERS: Emergency Provider Emergency Medicine Emergency Medical Services; PCP Internal Medicine
DX: Z48.00 Encounter for change or removal of nonsurgical wound dressing (principal)
CPT/HCPCS: 99282

== ENCOUNTER 2024-05-21 11:25 | Emergency (ER) | payer OTHER, SELFPAY ==
[2024-05-21] VITALS (17 sets, daily range): BP systolic 107–160; BP diastolic 49–110; PULSE 88–128; RESP 16–20; TEMP 34.5–37; O2SAT 93–99; BMI 25.1
--- NOTE | 2024-05-21 | ECG_ITS ---
Test Reason : fall Blood Pressure : */* mmHG Vent. Rate : 85 BPM Atrial Rate : * BPM P-R Int : * ms QRS Dur : 98 ms QT Int : 438 ms P-R-T Axes : * 18 58 degrees QTcB Int : 521 ms Atrial fibrillation Nonspecific ST and T wave abnormality Abnormal ECG When compared with ECG of 27-Dec-2020 16:15, Nonspecific T wave abnormality, improved in Inferior leads Referred By: Generic ED Physician Electronically Signed By: INOCENTE MONTERROSO
--- NOTE | ~2024-05-21 | CT_ITS ---
EXAMINATION: CT FACIAL BONES WITHOUT CONTRAST CLINICAL INFORMATION: Status post fall. Facial injury. COMPARISON: None available. TECHNIQUE: Contiguous axial images through the maxillofacial bones using 3 mm collimation with bone and soft tissue algorithm. Sagittal and coronal reformatted images acquired. This CT examination was performed using dose optimization techniques as appropriate, variously including the following: *Automated exposure control *Adjustment of mA and/or kV according to patient size (this includes techniques or standardized protocols for targeted exams where dose is matched to indication/reason for exam; i.e. extremities or head) *Use of iterative reconstruction technique. DLP: 253.41 mGy centimeter. FINDINGS: Acute cortical disruption involving the nasal bones. The vomer is intact. The orbital rims, orbital fissures and orbital apices are intact. No hematoma, intraconal or extraconal compartments of the orbits. Soft tissue contusion superior left preseptal/left forehead with positive focal subcutaneous emphysema. There is a 2 mm focal calcification in the inferior preseptal left periorbital/premaxilla soft tissues. The eyeballs are intact. Intraocular lens surgery, right side. Zygomatic arcs are intact. The maxilla and pterygoid plates are intact. The mandible is intact. Multilevel cervical spondylosis. No air-fluid levels in the paranasal sinuses. Tympanic cavities and mastoid cells are aerated. CT/CT facial bones wo IV con IMPRESSION: Acute comminuted displaced nasal bone fractures. Focal calcification versus foreign body pre maxillary/inferior preseptal left periorbital. Soft tissue contusion with questionable skin laceration left forehead/superior preseptal left periorbital. Electronically signed by: Clemente Win MD 05/21/2024 04:01 PM NADEEN DREW
--- NOTE | ~2024-05-21 | CT_ITS ---
EXAMINATION: CT HEAD WITHOUT CONTRAST CLINICAL INFORMATION: fall COMPARISON: December 27, 2020. TECHNIQUE: Contiguous axial imaging was performed from the skull base to vertex without intravenous administration of contrast. This CT examination was performed using dose optimization techniques as appropriate, variously including the following: *Automated exposure control *Adjustment of mA and/or kV according to patient size (this includes techniques or standardized protocols for targeted exams where dose is matched to indication/reason for exam; i.e. extremities or head) *Use of iterative reconstruction technique DLP: 650.12 mGy-cm FINDINGS: Limited by patient's motion artifact. The bony calvarium is intact. Acute comminuted displaced irregularities involving the nasal bones and nasal septum. The vomer appears intact. The orbits appear intact. No gross hematoma, intraconal or extraconal compartments of the orbits. No acute intracranial hemorrhage, mass effect, midline shift, hydrocephalus or herniation. Sweet-white matter differentiation is normal. Prominence of the extra-axial CSF spaces cerebral sulci and ventricles. Bilateral multifocal patchy deep periventricular white matter. Posterior cranial fossa contents demonstrated no acute intracranial hemorrhage or mass effect. Encephalomalacia, left lingual gyrus, sequela prior vascular insult. Sellar/suprasellar region demonstrated no gross masses or hemorrhage. Soft tissue contusion, superior preseptal left periorbital with associated subcutaneous emphysema. CT/CT head/brain wo IV con IMPRESSION: Acute comminuted displaced fractures, nasal septum and nasal bones. Soft tissue contusion and likely laceration left nasal bridge/preseptal left periorbital. No acute intracranial hemorrhage. No acute fracture, bony calvarium. Cerebral Global atrophy. Small vessel occlusive disease. Prior infarct, left PSYCHOLOGIST EXPERIMENTAL territory no air-fluid levels in the included paranasal sinuses. Tympanic cavities and mastoid air cells are aerated.. Electronically signed by: Clemente Win MD 05/21/2024 03:53 PM EST
--- NOTE | ~2024-05-21 | XR_ITS ---
EXAMINATION: XR CHEST 1 VIEW HISTORY: fall COMPARISON: Comparison is made with the prior examination dated 08/31/2020. FINDINGS: Two AP portable views of the chest performed at 3:11 PM are submitted. The lungs are expanded and clear. There is no pleural effusion, pneumothorax, or pulmonary vascular congestion. The heart is normal in size. There are multiple old healed left rib fractures. A soft tissue calcification adjacent to the greater tuberosity of the left humerus is likely related to the rotator cuff. XR/XR chest 1V IMPRESSION: No acute cardiopulmonary abnormality. Electronically signed by: Wei Martinez MD 05/21/2024 03:33 PM NADEEN
--- NOTE | ~2024-05-21 | CT_ITS ---
EXAMINATION: CT CERVICAL SPINE WITHOUT CONTRAST CLINICAL INFORMATION: Trauma, neck pain. COMPARISON: Several priors, most recently 12/27/2020. TECHNIQUE: Spiral CT imaging of the cervical spine performed in axial plane without contrast. Multiplanar reformatted images were constructed from the axial data set. This CT examination was performed using dose optimization techniques as appropriate, variously including the following: *Automated exposure control *Adjustment of mA and/or kV according to patient size (this includes techniques or standardized protocols for targeted exams where dose is matched to indication/reason for exam; i.e. extremities or head) *Use of iterative reconstruction technique FINDINGS: CORONAL ALIGNMENT: -Mild right convex scoliosis. SAGITTAL ALIGNMENT: -Normal lordosis. No subluxations. C1-C2 AND CRANIOCERVICAL JUNCTION: -Intact and aligned normally. VERTEBRAL BODIES AND FACETS: -No fracture, acute compression deformity, traumatic subluxation, or suspicious bone lesion. -Minimal superior endplate concavity of T1, unchanged. -Normal facet alignment bilaterally. Mild hypertrophic degenerative facet changes bilaterally. -There is ossification of posterior longitudinal ligament throughout the cervical spine with relative sparing of C7. -There are bulky ventral disc/vertebral osteophytes spanning C2-C5, with relative preservation of the disc spaces. Findings in keeping with DISH. DISCS: -Severe disc space loss noted C2-3, C5-6 and to a lesser degree C6-7. -Moderate disc space loss noted C3-4, C4-5, and C7-T1. PREVERTEBRAL AND PARAVERTEBRAL SOFT TISSUES: -Normal. -Normal thyroid. -No mass or adenopathy. LUNG APICES: -Mild emphysematous changes. Lung apices clear. OTHER: -Old left occipital pole infarct. CT/CT cervical spine wo IV con IMPRESSION: 1. No CT evidence of acute cervical spine fracture or injury. 2. There is a chronic mild superior endplate compression deformity of T1. 3. There are findings in keeping with DISH. There are also degenerative findings. Electronically signed by: Arthur Sheikh MD 05/21/2024 03:56 PM EST
--- NOTE | 2024-05-21 12:00 | ED.GENADULT ---
HPI - General Adult General Chief complaint: Fall Stated complaint: FALL W/FACE LACS,3 BEERS TODAY,+CCOLLAR PER EMS Time Seen by Provider: 05/21/24 11:48 Source: patient and EMS Mode of arrival: EMS Limitations: altered mental status (In alcohol toxication) History of Present Illness ED Provider: DR. Keys HPI narrative: A 63-year-old male past medical history significant for hypertension on metoprolol, CHF, recent treatment dog bite in the left lower extremity complicated by infection, patient brought in by EMS after was found by his neighbor on the ground for unknown time after unwitnessed fall patient stated that he was taking the garbage out when he slipped and fell and remained on the ground, patient admitted to drink alcohol before, patient is sustaining facial laceration on the left eyebrow. Related Data Previous Rx's ?Medication ?Instructions ?Recorded furosemide 20 mg tablet (Lasix) 20 mg PO DAILY #30 tabs 09/03/20 metoprolol tartrate 100 mg tablet 100 mg PO BID #60 tabs 09/03/20 valsartan 40 mg tablet 40 mg PO BID #60 tabs 09/03/20 amoxicillin 875 mg-potassium 1 tab PO BID #14 tabs 08/16/21 clavulanate 125 mg tablet amoxicillin 875 mg-potassium 1 tab PO Q12H 7 days #14 tabs 12/15/23 clavulanate 125 mg tablet amoxicillin 875 mg-potassium 1 tab PO BID #14 tabs 12/22/23 clavulanate 125 mg tablet doxycycline hyclate 100 mg tablet 100 mg PO BID #20 tabs 12/22/23 mupirocin 2 % topical ointment 1 appl topical BID #15 grams 12/22/23 mupirocin 2 % topical ointment 1 appl topical BID #15 grams 12/24/23 amoxicillin 875 mg-potassium 1 tab PO BID #14 tabs 05/21/24 clavulanate 125 mg tablet Allergies Allergy/AdvReac Type Severity Reaction Status Date / Time No Known Allergies Allergy Verified 05/21/24 11:30 Review of Systems Review of Systems: All other systems are reviewed and are negative Constitutional: Reports as per HPI and Reports no additional constitutional complaints Eyes: Reports as per HPI and Reports no additional eye complaints Reports system reviewed and no additional complaints, except as documented Cardiovascular: Reports as per HPI and Reports no additional cardiovascular complaints Respiratory: Reports as per HPI and Reports no additional respiratory complaints Gastrointestinal: Reports as per HPI and Reports no additional gastrointestinal complaints Genitourinary: Reports no additional female genitourinary complaints Musculoskeletal: Reports no additional musculoskeletal complaints Skin/Breast: Reports system reviewed and no additional complaints, except as docu Psychiatric: Reports no additional psychiatric complaints Endocrine: Reports no additional endocrine complaints Hematologic/Lymphatic: Reports no additional hematologic/lymphatic complaints Allergic/Immunologic: Reports no additional allergic/immunologic complaints Reports system reviewed and no additional complaints, except as documented and Reports Abnormal speech present [facility] Past Medical History Medical History Left against medical advice Chronic HFrEF (heart failure with reduced ejection fraction) Cardiomyopathy Alcoholic cirrhosis of liver Alcohol intoxication Atrial fibrillation with rapid ventricular response Psoriasis Afib Social History Social History Household Members: None Housing: Apartment Housing Other:: Elderly housing complex Do you presently have visiting nurse or other home services: Yes Alcohol intake: current Alcohol intake frequency: holidays/special occasions only Alcohol type: beer 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 Patient Tobacco Use Status: Tobacco use Unknown Second Hand Smoke Exposure: No service: No Current occupational status: disabled Physical Exam ED Vital Signs: Vital Signs - 24 hr 05/21/24 11:36 05/21/24 12:08 05/21/24 12:35 Temperature 94.1 F L 95.0 F L 95.3 F L Pulse Rate 90 98 103 H Respiratory Rate 18 18 18 Blood Pressure 135/85 130/79 111/80 Pulse Oximetry 98 96 96 Oxygen Delivery Method Room Air Room Air 05/21/24 12:52 05/21/24 13:17 05/21/24 13:49 Temperature 95.2 F L 95.4 F L 95.7 F L Pulse Rate 88 101 H 128 H Respiratory Rate 18 20 18 Blood Pressure 113/49 L 107/77 127/83 Pulse Oximetry 98 94 95 Oxygen Delivery Method Room Air Room Air Room Air 05/21/24 14:02 05/21/24 14:48 05/21/24 15:07 Temperature 95.7 F L 96.6 F L 97.2 F Pulse Rate 98 112 H 104 H Respiratory Rate 18 16 20 Blood Pressure 129/90 H 110/71 124/89 Pulse Oximetry 97 93 98 Oxygen Delivery Method Room Air Room Air Room Air 05/21/24 16:02 05/21/24 18:27 05/21/24 19:34 Temperature 97.6 F 98.2 F 98.6 F Pulse Rate 109 H 94 97 Respiratory Rate 18 18 20 Blood Pressure 116/79 125/84 132/82 Pulse Oximetry 98 96 97 Oxygen Delivery Method Room Air Room Air Room Air 05/21/24 19:42 Temperature 98.4 F Pulse Rate 94 Respiratory Rate 17 Blood Pressure 127/82 Pulse Oximetry 99 Oxygen Delivery Method Room Air BMI result Body Mass Index 25.1 Vital signs have been reviewed and appear to be correct. Blood pressure elevated. Heart rate normal. Respiratory rate normal. Temperature normal. Oxygen saturation normal. Appearance: Alert. Oriented X3. No acute distress. Head: Normal external exam. Normocephalic. 5 cm open laceration on the left eyebrow. Eyes: PERRLA. EOMI. Conjunctiva and sclera normal. Eyelids normal. ENT: TM's Normal. Pharynx normal. Uvula midline. Moist mucous membranes. No trismus noted. No drooling noted. No muffled voice noted. Neck: Normal inspection. Neck supple. FROM. No adenopathy. Thyroid Normal. No meningeal signs. No neck mass noted. CVS: Normal heart rate and rhythm. Heart sound normal. No murmurs noted. Pulses normal throughout. Respiratory: No respiratory distress. Painless inspiration. Breath sounds normal. No wheezes/rales/rhonchi noted. Chest nontender. No accessory muscle usage noted or decreased air movement noted. Abdomen: Soft and nontender. Bowel sounds normal in all 4 quadrants. No distention noted. No organomegaly noted. No visible injury noted. Back: No CVA tenderness. Full range of motion noted. Skin: Skin warm and dry. Normal skin color. Normal skin turgor. No rashes/lesions/lacerations noted. Extremities: No lower extremity edema. Extremities exhibit normal range of motion. Extremities nontender. Neuro: Oriented X 3. Cranial nerve exam: II-XII are grossly intact No motor deficit. No sensory deficit. Reflexes normal. Medications Administered Discontinued Medications Generic Name Dose Route Start Last Admin Trade Name Freq PRN Reason Stop Dose Admin Ceftriaxone Sodium 1 gm 05/21/24 11:58 05/21/24 12:29 Ceftriaxone Sodium 1 Gm Vial IVPUSH 05/21/24 11:59 1 gm ONCE ONE Administration Sodium Chloride 1,000 mls @ 999 mls/hr 05/21/24 11:58 05/21/24 13:27 Ns IV 05/21/24 12:58 Infused .Q1H1M ONE Infusion Sodium Chloride 2,379 mls @ 2,379 mls/hr 05/21/24 13:04 05/21/24 14:11 Ns 30 ml/kg infuse over 1 hr (2379 ml) 05/21/24 14:03 Infused IV Infusion .Q1H STA Sodium Chloride 1,000 mls @ 999 mls/hr 05/21/24 16:10 05/21/24 19:08 Ns IV 05/21/24 17:10 Infused .Q1H1M ONE Infusion Lidocaine HCl 5 ml 05/21/24 13:13 05/21/24 13:19 Lidocaine Hcl 1 % Mpf 5 Ml Vial SUBCUT 05/21/24 13:14 5 ml ONCE ONE Administration Procedures Laceration Laceration 1: Site: face (Left eyebrow) Side (If applicable): left Size (cm): 4 Description: irregular and clean Depth: simple, single layer Local Anesthetic: lidocaine 1% Amount of anesthesia used (mL): 5 Pre-repair: wound explored, irrigated extensively and deep structures intact Skin layer closed with: nylon Size (cm): 5-0 Number of sutures: 5 Technique: simple, interrupted Medical Decision Making Lab Data 05/21/24 12:19 05/21/24 12:19 Labs: Lab Results 05/21/24 05/21/24 05/21/24 Range/Units 12:19 12:34 13:35 WBC 4.1 L (4.8-10.8) X10*3/uL RBC 4.41 L (4.60-5.80) X10*6/uL Hgb 14.9 (14.0-18.0) g/dl Hct 41.9 L (42.0-52.0) % MCV 95.0 (80.0-98.0) fL MCH 33.8 H (27.0-33.0) pg MCHC 35.6 (31.0-36.0) g/dl RDW 11.9 (11.0-16.0) % Plt Count 208 D (160-400) X10*3/uL MPV 9.6 (9.4-12.4) fL Immature Gran % (Auto) 0.2 (0.0-0.4) % Neut % (Auto) 67.7 (45-73) % Lymph % (Auto) 24.7 (20-40) % [place] % (Auto) 6.2 (2-11) % Eos % (Auto) 0.5 (0-4) % Baso % (Auto) 0.7 (0-2) % Lymph # (Auto) 1.0 L (1.2-4.9) X10*3/uL [place] # (Auto) 0.3 (0.1-1.2) X10*3/uL Eos # (Auto) 0.0 (0.0-0.4) X10*3/uL Baso # (Auto) 0.0 (0.0-0.2) X10*3/uL Abs Immat Gran (auto) 0.01 (0.00-0.03) X10*3/uL Absolute Neuts (auto) 2.7 (2.0-8.3) x10*3/uL Absolute Nucleated RBC 0.000 (0.0-0.012) X10*3/uL Nucleated RBC % (auto) 0.0 (0.0-0.2) /100WBC Sodium 140 (135-145) mmol/L Potassium 3.5 (3.3-5.1) mmol/L Chloride 107 (96-108) mmol/L Carbon Dioxide 22 (22-29) mmol/L Anion Gap 15 (12-20) BUN 10 (9-16) mg/dL Creatinine 0.74 (0.5-1.4) mg/dL Estim Creat Clear Calc 108.2 Estimated GFR > 60 Random Glucose 109 (60-115) mg/dL Lactic Acid 4.2 H* (0.5-2.0) mmol/L Lactic Acid F/U @ 2Hr (0.5-2.0) mmol/L Calcium 8.8 D (8.4-10.2) mg/dL Magnesium 1.9 (1.6-2.6) mg/dL Total Bilirubin 1.0 (0.0-1.0) mg/dL Direct Bilirubin 0.6 H (0.0-0.5) mg/dL AST 84 H (5-37) U/L ALT 38 (0-40) U/L Alkaline Phosphatase 140 H (39-117) U/L Total Creatine Kinase 164 (38-174) U/L Total Protein 8.3 H (6.5-8.0) g/dL Albumin 3.5 (3.5-5.0) g/dL Urine Color Yellow Urine Appearance Clear Urine pH 6.0 (5.0-9.0) Ur Specific [place] 1.010 (1.005-1.025) Urine Protein Negative (Neg-Trace) mg/dL Urine Glucose (UA) Negative (Negative) mg/dL Urine Ketones Negative (Negative) mg/dL Urine Blood Negative (Negative) Urine Nitrite Negative (Negative) Ur Leukocyte Esterase Negative (Negative) Urine RBC 0-2 (0-2) /HPF Urine WBC 0-5 (0-5) /HPF Ur Squamous Epith Cells 0-2 (0-2) /HPF Urine Bacteria None Seen (None Seen) Hyaline Casts 0-2 (0-2) /LPF Urine Opiates Screen Not Detected (Not Detect) Ur Buprenorphine Scrn Not Detected (Not Detect) ng/mL Ur Oxycodone Screen Not Detected (Not Detect) ng/mL Urine Methadone Screen Not Detected (Not Detect) ng/mL Urine Fentanyl Screen Not Detected (Not Detect) Ur Barbiturates Screen Not Detected (Not Detect) Ur Phencyclidine Scrn Not Detected (Not Detect) Ur Amphetamines Screen Not Detected (Not Detect) U Benzodiazepines Scrn Not Detected (Not Detect) Urine Cocaine Screen POSITIVE H (Not Detect) U Marijuana (THC) Screen POSITIVE H (Not Detect) Ethyl Alcohol 348 H* mg/dL Influenza Type A (PCR) NEGATIVE (Negative) Influenza Type B (PCR) NEGATIVE (Negative) RSV RNA Qual (PCR) NEGATIVE (Negative) SARS-CoV-2 RNA (RT-PCR) NEGATIVE (Negative) 05/21/24 Range/Units 14:55 WBC (4.8-10.8) X10*3/uL RBC (4.60-5.80) X10*6/uL Hgb (14.0-18.0) g/dl Hct (42.0-52.0) % MCV (80.0-98.0) fL MCH (27.0-33.0) pg MCHC (31.0-36.0) g/dl RDW (11.0-16.0) % Plt Count (160-400) X10*3/uL MPV (9.4-12.4) fL Immature Gran % (Auto) (0.0-0.4) % Neut % (Auto) (45-73) % Lymph % (Auto) (20-40) % [place] % (Auto) (2-11) % Eos % (Auto) (0-4) % Baso % (Auto) (0-2) % Lymph # (Auto) (1.2-4.9) X10*3/uL [place] # (Auto) (0.1-1.2) X10*3/uL Eos # (Auto) (0.0-0.4) X10*3/uL Baso # (Auto) (0.0-0.2) X10*3/uL Abs Immat Gran (auto) (0.00-0.03) X10*3/uL Absolute Neuts (auto) (2.0-8.3) x10*3/uL Absolute Nucleated RBC (0.0-0.012) X10*3/uL Nucleated RBC % (auto) (0.0-0.2) /100WBC Sodium (135-145) mmol/L Potassium (3.3-5.1) mmol/L Chloride (96-108) mmol/L Carbon Dioxide (22-29) mmol/L Anion Gap (12-20) BUN (9-16) mg/dL Creatinine (0.5-1.4) mg/dL Estim Creat Clear Calc Estimated GFR Random Glucose (60-115) mg/dL Lactic Acid (0.5-2.0) mmol/L Lactic Acid F/U @ 2Hr 3.7 H* (0.5-2.0) mmol/L Calcium (8.4-10.2) mg/dL Magnesium (1.6-2.6) mg/dL Total Bilirubin (0.0-1.0) mg/dL Direct Bilirubin (0.0-0.5) mg/dL AST (5-37) U/L ALT (0-40) U/L Alkaline Phosphatase (39-117) U/L Total Creatine Kinase (38-174) U/L Total Protein (6.5-8.0) g/dL Albumin (3.5-5.0) g/dL Urine Color Urine Appearance Urine pH (5.0-9.0) Ur Specific [place] (1.005-1.025) Urine Protein (Neg-Trace) mg/dL Urine Glucose (UA) (Negative) mg/dL Urine Ketones (Negative) mg/dL Urine Blood (Negative) Urine Nitrite (Negative) Ur Leukocyte Esterase (Negative) Urine RBC (0-2) /HPF Urine WBC (0-5) /HPF Ur Squamous Epith Cells (0-2) /HPF Urine Bacteria (None Seen) Hyaline Casts (0-2) /LPF Urine Opiates Screen (Not Detect) Ur Buprenorphine Scrn (Not Detect) ng/mL Ur Oxycodone Screen (Not Detect) ng/mL Urine Methadone Screen (Not Detect) ng/mL Urine Fentanyl Screen (Not Detect) Ur Barbiturates Screen (Not Detect) Ur Phencyclidine Scrn (Not Detect) Ur Amphetamines Screen (Not Detect) U Benzodiazepines Scrn (Not Detect) Urine Cocaine Screen (Not Detect) U Marijuana (THC) Screen (Not Detect) Ethyl Alcohol mg/dL Influenza Type A (PCR) (Negative) Influenza Type B (PCR) (Negative) RSV RNA Qual (PCR) (Negative) SARS-CoV-2 RNA (RT-PCR) (Negative) Discharge Plan Discharge Clinical Impression: Alcohol intoxication, Fall, Facial laceration, Acute lactic acidosis, Fracture of nasal bone Patient Disposition: Still a Patient Instructions: Laceration (ED) Additional Instructions: Return to the ED in 7-10 days to take out 5 suture on your face. Prescriptions: New amoxicillin-pot clavulanate 875-125 mg tablet 1 tab PO BID Qty: 14 0RF No Action furosemide [Lasix] 20 mg tablet 20 mg PO DAILY Qty: 30 0RF metoprolol tartrate 100 mg tablet 100 mg PO BID Qty: 60 0RF valsartan 40 mg tablet 40 mg PO BID Qty: 60 0RF amoxicillin-pot clavulanate 875-125 mg tablet 1 tab PO BID Qty: 14 0RF mupirocin 2 % ointment 1 appl topical BID Qty: 15 0RF Rx Instructions: Continue to apply until wound is fully healed. amoxicillin-pot clavulanate 875-125 mg tablet 1 tab PO Q12H 7 Days Qty: 14 0RF doxycycline hyclate 100 mg tablet 100 mg PO BID Qty: 20 0RF amoxicillin-pot clavulanate 875-125 mg tablet 1 tab PO BID Qty: 14 0RF mupirocin 2 % ointment 1 appl topical BID Qty: 15 0RF Print Language: Grenadian
[2024-05-21 12:26] LABS: MANUAL DIFF FLAG NO
[2024-05-21] MEDS: 0.9 % Sodium Chloride 1,000 ML 999 ML IV ×3 (12:26→20:29)
[2024-05-21 12:29] LABS: Basophils Percent Auto 0.7 % (0-2); Eosinophils Percent Auto 0.5 % (0-4); Hematocrit 41.9 % (42.0-52.0); Hemoglobin 14.9 g/dl (14.0-18.0); Imm Gran Abs Auto 0.01 X10*3/uL (0.00-0.03); Imm Gran Pct Auto 0.2 % (0.0-0.4); Lymphocytes Percent Auto 24.7 % (20-40); Mean Corpuscular HGB Conc 35.6 g/dl (31.0-36.0); Mean Corpuscular Hemoglobin 33.8 pg (27.0-33.0); Mean Platelet Volume 9.6 fL (9.4-12.4); Monocytes Absolute Auto 0.3 X10*3/uL (0.1-1.2); Monocytes Percent Auto 6.2 % (2-11); Neutrophils Absolute Auto 2.7 x10*3/uL (2.0-8.3); Neutrophils Percent Auto 67.7 % (45-73); Platelet Count 208 X10*3/uL (160-400); Red Blood Count 4.41 X10*6/uL (4.60-5.80); Red Cell Distribution Width 11.9 % (11.0-16.0); White Blood Count 4.1 X10*3/uL (4.8-10.8)
[2024-05-21] MEDS: cefTRIAXone sodium 1 GM VIAL IVPUSH (12:29)
[2024-05-21 12:50] LABS: Alanine Aminotransferase 38 U/L (0-40); Albumin Level 3.5 g/dL (3.5-5.0); Alkaline Phosphatase 140 U/L (39-117); Anion Gap 15 (12-20); Aspartate Amino Transferase 84 U/L (5-37); Bilirubin Direct 0.6 mg/dL (0.0-0.5); Blood Urea Nitrogen 10 mg/dL (9-16); Calcium 8.8 mg/dL (8.4-10.2); Carbon Dioxide 22 mmol/L (22-29); Chloride 107 mmol/L (96-108); Creatinine Clr Calc Pharmacy 108.2; Estimated Glomerular Filt Rate > 60; Ethanol 348 mg/dL; Glucose Random 109 mg/dL (60-115); Magnesium 1.9 mg/dL (1.6-2.6); Potassium 3.5 mmol/L (3.3-5.1); Sodium 140 mmol/L (135-145); Total Protein 8.3 g/dL (6.5-8.0)
[2024-05-21 13:01] LABS: Lactic Acid 4.2 mmol/L (0.5-2.0)
--- NOTE | 2024-05-21 13:11 | PC.NURSE ---
sepsis alert initiated. sepsis IVF bolus infusing per provider order.
[2024-05-21 13:14] LABS: Influenza A PCR NEGATIVE (Negative); Influenza B PCR NEGATIVE (Negative); Resp Syncy Virus RNA Qual PCR NEGATIVE (Negative); SARS COV2 PCR INHOUSE NEGATIVE (Negative)
[2024-05-21] MEDS: Lidocaine HCl 1 % MPF 5 ML VIAL SUBCUT (13:19)
--- NOTE | 2024-05-21 13:25 | PC.NURSE ---
sutures applied to pt's laceration by . pt tolerated well.
[2024-05-21 13:48] LABS: Appearance Urine Clear; Color Urine Yellow; Glucose Urine UA Negative (Negative); Leukocyte Esterase Urine Negative (Negative); Nitrite Urine Negative (Negative); Urine Blood Negative (Negative); Urine Ketones Negative (Negative); Urine Protein Negative (Neg-Trace)
[2024-05-21 13:50] LABS: Bacteria Urine None Seen (None Seen); Hyaline Casts Urine 0-2 /LPF (0-2); RBC Urine 0-2 /HPF (0-2); Squamous Epithelial Cell Urine 0-2 /HPF (0-2); WBC Urine 0-5 /HPF (0-5)
[2024-05-21 13:54] LABS: Amphetamine Screen Urine Not Detected (Not Detect); Barbiturates, Urine Not Detected (Not Detect); Benzodiazepines Screen Urine Not Detected (Not Detect); Buprenorphine Scr Not Detected (Not Detect); Cannabinoid Screen Urine POSITIVE (Not Detect); Cocaine Screen Urine POSITIVE (Not Detect); Fentanyl, urine Not Detected (Not Detect); Methadone Screen, Urine Not Detected (Not Detect); Opiate Screen Urine Not Detected (Not Detect); Oxycodone Screen Urine Not Detected (Not Detect); Phencyclidine Screen Urine Not Detected (Not Detect)
--- NOTE | 2024-05-21 13:59 | PC.NURSE ---
pt remains sinus tachycardic and hypothermic despite previous interventions at this time. provider notified/aware. IVF continues to infuse. bear hugger remains in place. pt otherwise continues to rest in no apparent distress. on RA w/o difficulty. no sob/wob noted. respirations even/unlabored. plan of care ongoing.
[2024-05-21 14:26] LABS: Reflex Lactate? Lactic Acid Added
[2024-05-21 15:34] LABS: ~Lactic Acid-LAB USE ONLY 3.7 mmol/L (0.5-2.0)
--- OUTSIDE RECORDS SUMMARY | 2024-05-21 15:58 | XMS_ITS | Clinical Summary ---
Author Organization [facility] ity Address [id number] [place] [id number] Care Team Providers Care Butter Melter Name Role Phone Robert Nelson MD Primary Care Provider Social History Tobacco Use Types Packs/Day Years Used Date Smoking Tobacco: Never Assessed Sex and Gender Information Value Date Recorded Sex Assigned at Not on file Legal Sex Male 7:56 PM EST Gender Identity Not on file Sexual Orientation Not on file Plan of Treatment Health Maintenance Due Date Last Done Comments DTaP,Tdap,and Td Vaccines (1 - Tdap) 1981 Pneumococcal Vaccine: 50+ Ye ars (1 of 1 - PCV) 2012 Zoster Vaccines (1 of 2) 2012 Cholesterol Screening (Lipid Panel) 02/27/2022 Colorectal Cancer Screening: Colonoscopy 02/27/2022 Depression Screening 02/27/2022 HIV Screening 02/27/2022 Hepatitis C Screening 02/27/2022 Social Influencers of Health Screening 02/27/2022 COVID-19 Vaccine ( - 2023-2 5 season) 2023 Influenza Vaccine (#1) 2023 RSV Immunization Patients 60 + Years Old (1 - 1-dose 75+ series) 2037 HIB Vaccines Aged Out No longer eligi ble based on patient's age to complete this topic HPV Vaccines Aged Out No longer eligi ble based on patient's age to complete this topic Hepatitis A Vaccines Aged Out No long er eligible based on patient's age to complete this topic Hepatitis B Vaccines Aged Out No long er eligible based on patient's age to complete this topic IPV Vaccines Aged Out No longer eligi ble based on patient's age to complete this topic MMR Vaccines Aged Out No longer eligi ble based on patient's age to complete this topic Meningococcal ACWY Vaccine Aged Out N o longer eligible based on patient's age to complete this topic Meningococcal B Vacine Aged Out No lo nger eligible based on patient's age to complete this topic Pneumococcal Vaccine: Pediat rics (0 to 5 Years) and At-Risk Patients (6 to 64 Years) Aged Out No longer eligible b ased on patient's age to complete this topic RSV Immunization Patients Un karena 20 months Aged Out No longer eligible b ased on patient's age to complete this topic Varicella Vaccines Aged Out No longer eligible based on patient's age to complete this topic Care Teams Butter Melter Relationship Specialty Start Date End Date Robert Nelson MD [address] [place] [address] PCP - General 06/04/22
--- NOTE | 2024-05-21 16:10 | PC.NURSE ---
vitals continue to improve s/p interventions aside from remaining tachycardic on the monitor. pt still denies any chest pain/palpitations. pt no longer hypothermic - bear hugger removed. pt tolerating transition well w/o difficulty. pt otherwise continues to have elevated lactic despite IVF boluses. additional 1L NS infusing at this time. respirations remain even/unlabored. plan of care ongoing.
--- NOTE | 2024-05-21 16:40 | PC.NURSE ---
lactic remains elevated. additional IVF bolus infusing per provider order.
[2024-05-21 16:59] LABS: Reflex Lactate? 2 Y
[2024-05-21 20:14] LABS: ~Lactic Acid-LAB USE ONLY 2.5 mmol/L (0.5-2.0)
--- NOTE | 2024-05-21 23:56 | PC.NURSE ---
patient provided phone number for friend who can be his sober ride home, [place] [phone] who states he can be here in 15 minutes. MD oneal and pt in agreement with yamile
[2024-05-22 00:16] VITALS: BP 110/74; PULSE 90; RESP 16; TEMP 36.9; O2SAT 96
== END 2024-05-22 00:17 | disposition home or self-care (01) ==
PROVIDERS: Emergency Medicine; Emergency Provider Emergency Medicine; PCP Internal Medicine
DX: S01.112A Laceration without foreign body of left eyelid and periocular area, initial encounter (principal); S02.2XXA Fracture of nasal bones, initial encounter for closed fracture; R51.9 Headache, unspecified; R11.2 Nausea with vomiting, unspecified; R07.89 Other chest pain; M54.2 Cervicalgia; W18.30XA Fall on same level, unspecified, initial encounter; Y93.9 Activity, unspecified; Y92.480 Sidewalk as the place of occurrence of the external cause; Y99.8 Other external cause status; Z51.81 Encounter for therapeutic drug level monitoring; Z79.899 Other long term (current) drug therapy; Z03.818 Encounter for observation for suspected exposure to other biological agents ruled out
CPT/HCPCS: 0241U; 12013; 36415; 70450; 70486; 71045; 72125; 80053; 80307; 81001; 82248; 82550; 83605; 83735; 85025; 87040; 93005; 96361; 96374; 99285; J0696; J2003

== ENCOUNTER → 2024-05-21 11:56 | Outpatient (BNV) | payer OTHER, SELFPAY | PROVIDERS: Emergency Provider Emergency Medicine; PCP Internal Medicine; Visit Provider Radiology Diagnostic Radiology | DX: S02.2XXA Fracture of nasal bones, initial encounter for closed fracture (principal); S01.81XA Laceration without foreign body of other part of head, initial encounter; F10.929 Alcohol use, unspecified with intoxication, unspecified; W19.XXXA Unspecified fall, initial encounter | CPT/HCPCS: 70450; 70486; 71045; 72125 ==

== ENCOUNTER → 2024-05-21 11:59 | Outpatient (BNV) | payer OTHER, SELFPAY | PROVIDERS: Emergency Provider Emergency Medicine; Visit Provider Internal Medicine | DX: I48.91 Unspecified atrial fibrillation (principal) | CPT/HCPCS: 93010 ==

== ENCOUNTER 2024-07-24 10:22 | Inpatient (IN) | payer OTHER, SELFPAY ==
[2024-07-24] VITALS (12 sets, daily range): BP systolic 95–156; BP diastolic 64–95; PULSE 84–148; RESP 12–24; TEMP 36.7–37.3; O2SAT 90–99; BMI 28.6; BMI 27.4
--- NOTE | 2024-07-24 | ECG_ITS ---
Test Reason : tachy Blood Pressure : */* mmHG Vent. Rate : 160 BPM Atrial Rate : * BPM P-R Int : * ms QRS Dur : 84 ms QT Int : 250 ms P-R-T Axes : * 24 160 degrees QTcB Int : 407 ms Atrial fibrillation with rapid ventricular response Nonspecific ST and T wave abnormality Abnormal ECG When compared with ECG of 21-May-2024 11:59, Vent. rate has increased by 75 bpm Referred By: Generic ED Physician Electronically Signed By: Hari Candelario
--- NOTE | ~2024-07-24 | XR_ITS ---
EXAMINATION: XR CHEST CLINICAL INFORMATION: SOB COMPARISON: 05/21/2024. TECHNIQUE: Frontal view of the chest was obtained. FINDINGS: Patient has mildly right rotated. There is mild cardiac enlargement. Mediastinal and hilar contours appear normal. Lungs are diffusely hyperaerated, however appear clear bilaterally. No pneumothorax or effusion. No focal osseous or soft tissue abnormality. Degenerative changes of the right shoulder joints and spine. XR/XR chest 1V IMPRESSION: Hyperaerated lung parenchyma suggestive of COPD. No active superimposed disease. Electronically signed by: Arthur Sheikh MD 07/24/2024 11:26 AM EDT
--- NOTE | ~2024-07-24 | CT_ITS ---
EXAMINATION: CT CERVICAL SPINE WITHOUT CONTRAST CLINICAL INFORMATION: Status post fall. COMPARISON: May 21, 2024. TECHNIQUE: Contiguous axial images through the cervical spine using 3 mm collimation with bone and soft tissue algorithm. Sagittal and coronal reformatted images acquired. This CT examination was performed using dose optimization techniques as appropriate, variously including the following: *Automated exposure control *Adjustment of mA and/or kV according to patient size (this includes techniques or standardized protocols for targeted exams where dose is matched to indication/reason for exam; i.e. extremities or head) *Use of iterative reconstruction technique DLP: 364.78 mGy centimeter. FINDINGS: There is motion artifact. Craniocervical junction is intact with normal alignment. Degenerative changes in the periodontal C1 region. Syndesmophyte formation and marginal osteophyte formation at C2-3, C3-4, C4-5, C5-6 and to a lesser extent C6 levels. Endplate sclerosis subchondral cyst formation and decreased intervertebral disc height from C3 to C7 more pronounced at C5-6 with incomplete ankylosis. Grade 1 retrolisthesis, C4-5. Facet joint hypertrophy bilaterally at multiple levels. C1 is intact. C2 is intact. C3 is intact. C4 is intact. C5 is intact. C6 is intact. C7 is intact. No prevertebral compartment hematoma. Calcifications of the nuchal ligament. Osteopenia versus osteoporosis. Tympanic cavities and mastoid air cells are grossly aerated Focal encephalomalacia, left lingual gyrus. Please refer to the CT head. CT/CT cervical spine wo IV con IMPRESSION: Multilevel cervical spondylosis without acute fracture or trauma-related listhesis. Grade 1 retrolisthesis C4-5 in nature. Fleischner guidelines were followed. Electronically signed by: Clemente Win MD 07/24/2024 12:06 PM EDT
--- NOTE | ~2024-07-24 | XR_ITS ---
EXAMINATION: XR HIP, RIGHT CLINICAL INFORMATION: trauma COMPARISON: 08/06/2020. TECHNIQUE: Two views of the right hip. FINDINGS: Significantly displaced and overriding intertrochanteric right hip fracture. There is varus angulation of the hip. There is approximately 3.7 cm of medial displacement of the distal fracture fragment, and approximately 4.1 cm of override. There is mild dorsolateral angulation. The imaged pelvis appears intact without definite fracture. The left hip joint appears intact. Soft tissues demonstrate no discrete abnormalities. There are herniorrhaphy clips in the inferior abdomen centrally. XR/XR hip RT w [id number] IMPRESSION: Displaced and overriding intertrochanteric right hip fracture. Electronically signed by: Arthur Sheikh MD 07/24/2024 11:29 AM EDT
--- NOTE | ~2024-07-24 | CT_ITS ---
EXAMINATION: CT HEAD WITHOUT CONTRAST CLINICAL INFORMATION: fall COMPARISON: May 21, 2024. TECHNIQUE: Contiguous axial imaging was performed from the skull base to vertex without intravenous administration of contrast. This CT examination was performed using dose optimization techniques as appropriate, variously including the following: *Automated exposure control *Adjustment of mA and/or kV according to patient size (this includes techniques or standardized protocols for targeted exams where dose is matched to indication/reason for exam; i.e. extremities or head) *Use of iterative reconstruction technique DLP: 647 mGy-cm FINDINGS: Ultrasound guided deformities, bones. Bony calvarium demonstrated no acute cortical disruption. Skull base demonstrated no acute cortical disruption. No acute intracranial hemorrhage, mass effect, midline shift, hydrocephalus or herniation. Focal encephalomalacia, left lingual gyrus. Bilateral multifocal patchy deep periventricular white matter hypodensity. Prominence of the extra-axial CSF spaces cerebral sulci and ventricles. Sellar/suprasellar region demonstrated no gross masses. Craniocervical junction is intact. Degenerative changes in the periodontal C1 region Tympanic cavities and mastoid cells are aerated. No air-fluid levels in the paranasal sinuses.. CT/CT head/brain wo IV con IMPRESSION: No acute fracture, bony calvarium. No acute intracranial hemorrhage. Old traumatic deformities, nasal bones. 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 Global cerebral atrophy. Electronically signed by: Clemente Win MD 07/24/2024 11:58 AM EDT
--- NOTE | ~2024-07-24 | FL_ITS ---
EXAMINATION: FL GUIDANCE ONLY HISTORY: Femoral IMN right COMPARISON: Correlation is made with plain films of the right hip and pelvis dated 07/24/2024. TECHNIQUE: Fluoroscopy time: 0.7 minutes. Cumulative Dose: 17.7 mGy. DAP: 0.28 mGym2 Images: 4. FINDINGS: Images demonstrate internal fixation of the previously seen displaced intertrochanteric fracture with a compression screw and intramedullary jack. FL/FL guidance in OR IMPRESSION: Fluoroscopy during procedure. Please see procedure report for additional information. Electronically signed by: Wei Martinez MD 07/25/2024 05:27 PM EDT
[2024-07-24 10:48] LABS: MANUAL DIFF FLAG NO
--- NOTE | 2024-07-24 10:54 | ED_ITS ---
HPI - Fall General Chief Complaint: Fall Stated Complaint: R HIP PAIN,FALL/ON FLOOR X9H,?HIT HEAD,-LOC,-THINN Time Seen by Provider: 07/24/24 10:43 Source: patient and EMS Mode of arrival: EMS Limitations: no limitations History of Present Illness HPI Narrative: This is 63 years old the patient with a history of alcohol abuse, history of AFib not anticoagulated presented to the emergency department after a fall he states that he fell last night because the leg gave up. He is complaining of right hip pain. Denies any head injury, denies any neck pain, denies any abdominal pain. complaint: fall Onset (ago): day(s) (1) Fall from: standing Fall witnessed: no Place fall occurred: home Loss of consciousness: none Symptoms prior to fall: none Context: tripped/slipped Location of injury - extremities: right: thigh Severity: moderate Associated symptoms (after fall): denies Related Data Home Medications ?Medication ?Instructions ?Recorded ?Confirmed carvedilol 6.25 mg tablet 6.25 mg PO BID 07/24/24 07/24/24 fluoxetine 10 mg capsule 10 mg PO DAILY 07/24/24 07/24/24 quetiapine 25 mg tablet 25 mg PO BID 07/24/24 07/24/24 spironolactone 25 mg tablet 25 mg PO DAILY 07/24/24 07/24/24 thiamine HCl (vitamin B1) 100 mg 100 mg PO DAILY 07/24/24 07/24/24 tablet topiramate 25 mg tablet 25 mg PO DAILY 07/24/24 07/24/24 Allergies Allergy/AdvReac Type Severity Reaction Status Date / Time No Known Allergies Allergy Verified 07/24/24 10:39 Review of Systems 2 Eyes: Eyes: Reports no additional eye complaints Cardiovascular: Cardiovascular: Reports no additional cardiovascular complaints Musculoskeletal: Musculoskeletal: Reports as per HPI [facility] Past Medical History Attestation statement: The following information was validated with the patient. 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 Patient Tobacco Use Status: Never used Tobacco Second Hand Smoke Exposure: No service: No Current occupational status: disabled Physical Exam 2 Vital Signs: Vital Signs: Last Vital Signs Temp 99.2 F 07/24/24 15:03 Pulse 115 H 07/24/24 15:03 Resp 22 H 07/24/24 15:03 BP 122/83 07/24/24 15:03 Pulse Ox 96 07/24/24 15:03 O2 Del Method Room Air 07/24/24 15:03 BMI result Body Mass Index 28.6 He is awake alert oriented x3 mild distress Const: General: cooperative Orientation/consciousness: patient oriented x3 HEENT: Other: No sign of trauma General nose exam: Normal external nose present Face and sinus: Yes normal facial exam Neck: Other: Supple no tenderness full ROM Neck: Yes normal visual inspection and Yes full ROM Chest: Chest palpation & inspection: normal inspection of the chest Resp: Effort & Inspection: normal respiratory effort Auscultation: clear to auscultation bilaterally Cardio: Jugular venous distension: no JVD Rate: tachycardic Rhythm: a bnormal rhythm GI: Inspection: Yes normal to inspection Palpation (GI): Soft to palpation Auscultation: normal bowel sounds Skin: General skin exam: no rashes or lesions noted Lesions: no lesions Rashes: no rashes Neuro: General: patient oriented x3 Cranial nerves: Yes CN's II-XII intact bilaterally Motor exam (neuro): 5/5 motor strength present throughout Course Reevaluation(s) Reevaluation #1: Rate is now controlled x-ray showed hip fracture consulted ortho spoke with the hospitalist Time: 12:12 Medications Administered Generic Name Dose Route Start Last Admin Trade Name Freq PRN Reason Stop Dose Admin Carvedilol 6.25 mg 07/24/24 13:20 07/24/24 14:08 Carvedilol 6.25 Mg Tablet PO 6.25 mg BID ARMANDO Administration Protocol Lactated Ringer's 1,000 mls @ 100 mls/hr 07/24/24 12:15 07/24/24 12:30 Lr IVCONT 100 mls/hr .Q10H ARMANDO Administration Morphine Sulfate 4 mg 07/24/24 12:14 07/24/24 12:37 Morphine Sulfate 4 Mg/Ml Cartridge IVPUSH 4 mg Q4H PRN Administration Pain, Severe (Pain Scale 7-10) Protocol Ondansetron HCl 4 mg 07/24/24 12:14 07/24/24 12:37 Ondansetron Hcl 4 Mg/2 Ml Vial IVPUSH 4 mg Q8H PRN Administration Nausea and Vomiting Discontinued Medications Generic Name Dose Route Start Last Admin Trade Name Freq PRN Reason Stop Dose Admin Chlordiazepoxide HCl 50 mg 07/24/24 10:51 07/24/24 10:55 Chlordiazepoxide Hcl 25 Mg Capsule PO 07/24/24 10:52 50 mg ONCE ONE Administration Diltiazem HCl 15 mg 07/24/24 10:50 07/24/24 10:56 Diltiazem Hcl 50 Mg/10 Ml Vial IVPUSH 07/24/24 10:51 15 mg STAT STA Administration Sodium Chloride 1,000 mls @ 999 mls/hr 07/24/24 11:00 07/24/24 10:58 Ns IVCONT 07/24/24 12:00 999 mls/hr .Q1H1M ARMANDO Administration Magnesium Sulfate 2 gm in 50 mls @ 25 mls/hr 07/24/24 13:29 07/24/24 14:08 Magnesium Sulfate/H2o IV 07/24/24 15:28 25 mls/hr ONCE ONE Administration Sodium Chloride 1,000 mls @ 999 mls/hr 07/24/24 13:30 07/24/24 14:09 Ns IV 07/24/24 14:30 999 mls/hr .Q1H1M ARMANDO Administration Morphine Sulfate 4 mg 07/24/24 10:50 07/24/24 10:55 Morphine Sulfate 4 Mg/Ml Cartridge IVPUSH 07/24/24 10:51 4 mg ONCE ONE Administration Protocol Phenobarbital Sodium 274 mg 07/24/24 14:00 07/24/24 14:07 Phenobarbital Sodium 130 Mg/Ml Im Once IM 07/24/24 14:01 274 mg ONCE ONE Administration Protocol Quetiapine Fumarate 12.5 mg 07/24/24 13:38 07/24/24 14:08 Quetiapine Fumarate 25 Mg Tablet PO 07/24/24 13:39 12.5 mg ONCE ONE Administration Medical Decision Making Medical Decision Making [facility] Narrative: Patient presented after a fall at home complaining of right hip pain we will obtain imaging also found to be a rapid AFib we will monitor administer diltiazem Differential Diagnosis Differential Diagnoses: The differential diagnosis associated with the presentation includes Right hip fracture right hip dislocation, rapid AFib Admission/Observation Consideration of admission/observation: Escalation of care including admission/observation considered Lab Data [facility] Lab Attestation statement: I reviewed the patient's lab results. 07/24/24 10:41 07/24/24 10:41 Labs: Lab Results 07/24/24 07/24/24 Range/Units 10:40 10:41 WBC 6.4 (4.8-10.8) X10*3/uL RBC 3.95 L (4.60-5.80) X10*6/uL Hgb 13.1 L (14.0-18.0) g/dl Hct 38.2 L (42.0-52.0) % MCV 96.7 (80.0-98.0) fL MCH 33.2 H (27.0-33.0) pg MCHC 34.3 (31.0-36.0) g/dl RDW 12.9 (11.0-16.0) % Plt Count 95 L D (160-400) X10*3/uL MPV 9.7 (9.4-12.4) fL Immature Gran % (Auto) 0.5 H (0.0-0.4) % Neut % (Auto) 77.0 H (45-73) % Lymph % (Auto) 11.6 L (20-40) % Leslie % (Auto) 7.7 (2-11) % Eos % (Auto) 2.7 (0-4) % Baso % (Auto) 0.5 (0-2) % Lymph # (Auto) 0.7 L (1.2-4.9) X10*3/uL Leslie # (Auto) 0.5 (0.1-1.2) X10*3/uL Eos # (Auto) 0.2 (0.0-0.4) X10*3/uL Baso # (Auto) 0.0 (0.0-0.2) X10*3/uL Abs Immat Gran (auto) 0.03 (0.00-0.03) X10*3/uL Absolute Neuts (auto) 4.9 (2.0-8.3) x10*3/uL Absolute Nucleated RBC 0.000 (0.0-0.012) X10*3/uL Nucleated RBC % (auto) 0.0 (0.0-0.2) /100WBC PT 12.1 (10.9-12.4) SEC INR 1.0 (0.9-1.1) APTT 31.3 (26.0-36.8) SEC Hold Blue Top SEE NOTE Sodium 141 (135-145) mmol/L Potassium 3.8 (3.3-5.1) mmol/L Chloride 106 (96-108) mmol/L Carbon Dioxide 22 (22-29) mmol/L Anion Gap 17 (12-20) BUN 7 L (9-16) mg/dL Creatinine 0.57 (0.5-1.4) mg/dL Estim Creat Clear Calc 144.7 Estimated GFR > 60 Random Glucose 118 H (60-115) mg/dL Calcium 8.2 L D (8.4-10.2) mg/dL Magnesium 1.5 L (1.6-2.6) mg/dL Total Bilirubin 1.2 H (0.0-1.0) mg/dL AST 83 H (5-37) U/L ALT 48 H (0-40) U/L Alkaline Phosphatase 112 (39-117) U/L Total Creatine Kinase 298 H (38-174) U/L Troponin I High Sens 4.0 (<3.5-35.0) ng/L Total Protein 6.8 (6.5-8.0) g/dL Albumin 3.4 L (3.5-5.0) g/dL Lipase 30 (8-78) U/L Ethyl Alcohol 119 mg/dL Independent Interpretation I performed an independent interpretation of an: EKG and Plain X-Ray Interpretation: EKG was reviewed interpreted by me as rapid atrial fibrillation with a ventricular rate of 160 I reviewed interpreted the hip x-ray as intertrochanteric fracture Radiology Impression Discussion of test interpretation with radiology: I have reviewed the radiologist's reading. Independent Historian Clinical information obtained from an independent historian. History obtained from or confirmed by: EMS External Record Review External record reviewed: Inpatient record Prescription Management I considered prescription management with: Pain Medication Chronic Conditions Patient?s care impacted by: Other alcoholism Critical Care Time Critical Care Time Critical Care Time: Yes Total Critical Care Time: 60 Attestation: Rodney araujo Discharge Plan Discharge Clinical Impression: Atrial fibrillation with RVR Closed hip fracture Qualifiers: Encounter type: initial encounter Laterality: right Qualified Code(s): S72.001A - Fracture of unspecified part of neck of right femur, initial encounter for closed fracture Patient Disposition: Admitted As Inpatient Discharge Date/Time: 07/24/24 14:56
[2024-07-24 10:55] LABS: Basophils Percent Auto 0.5 % (0-2); Eosinophils Absolute Auto 0.2 X10*3/uL (0.0-0.4); Eosinophils Percent Auto 2.7 % (0-4); Hematocrit 38.2 % (42.0-52.0); Hemoglobin 13.1 g/dl (14.0-18.0); Imm Gran Abs Auto 0.03 X10*3/uL (0.00-0.03); Imm Gran Pct Auto 0.5 % (0.0-0.4); Lymphocytes Absolute Auto 0.7 X10*3/uL (1.2-4.9); Lymphocytes Percent Auto 11.6 % (20-40); Mean Corpuscular HGB Conc 34.3 g/dl (31.0-36.0); Mean Corpuscular Hemoglobin 33.2 pg (27.0-33.0); Mean Corpuscular Volume 96.7 fL (80.0-98.0); Mean Platelet Volume 9.7 fL (9.4-12.4); Monocytes Absolute Auto 0.5 X10*3/uL (0.1-1.2); Monocytes Percent Auto 7.7 % (2-11); Neutrophils Absolute Auto 4.9 x10*3/uL (2.0-8.3); Red Blood Count 3.95 X10*6/uL (4.60-5.80); Red Cell Distribution Width 12.9 % (11.0-16.0); White Blood Count 6.4 X10*3/uL (4.8-10.8)
[2024-07-24] MEDS: chlordiazePOXIDE HCl 25 MG CAPSULE 50 MG PO (10:55)
[2024-07-24] MEDS: Morphine Sulfate 4 MG/ML CARTRIDGE IVPUSH ×3 (10:55→21:02)
[2024-07-24] MEDS: dilTIAZem HCL 50 MG/10 ML VIAL 15 MG IVPUSH (10:56)
[2024-07-24] MEDS: 0.9 % Sodium Chloride 1,000 ML 999 ML IVCONT (10:58)
[2024-07-24 11:01] LABS: Platelet Count 95 X10*3/uL (160-400)
[2024-07-24 11:09] LABS: Alanine Aminotransferase 48 U/L (0-40); Albumin Level 3.4 g/dL (3.5-5.0); Alkaline Phosphatase 112 U/L (39-117); Anion Gap 17 (12-20); Aspartate Amino Transferase 83 U/L (5-37); Bilirubin Total 1.2 mg/dL (0.0-1.0); Blood Urea Nitrogen 7 mg/dL (9-16); Calcium 8.2 mg/dL (8.4-10.2); Carbon Dioxide 22 mmol/L (22-29); Chloride 106 mmol/L (96-108); Creatinine Clr Calc Pharmacy 144.7; Estimated Glomerular Filt Rate > 60; Ethanol 119 mg/dL; Glucose Random 118 mg/dL (60-115); Lipase 30 U/L (8-78); Magnesium 1.5 mg/dL (1.6-2.6); Potassium 3.8 mmol/L (3.3-5.1); Sodium 141 mmol/L (135-145); Total Protein 6.8 g/dL (6.5-8.0)
[2024-07-24 11:14] LABS: Prothrombin Time 12.1 SEC (10.9-12.4)
[2024-07-24 11:16] LABS: Partial Thromboplastin Time 31.3 SEC (26.0-36.8)
--- NOTE | 2024-07-24 12:19 | PM.IMHP ---
History of Present Illness Date of Service: 07/24/24 Chief Complaint: fall, alcohol abuse, hip fracture A 63 years old male with PMH of alcohol abuse, Afib not on AC, HFrEF, cirrhosis among others who presents to ED after falling home at night and found to have hip fracture The patient reports he tripped and fell at home last night as he was little unsteady after having few beers like he does often. 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 reports severe pain in right hip with intertrochanteric fracture. In ER found to be in Afib w RvR responded to IV Cardizem. Lactic acid elevated, CK elevated. Has low Mg as well which was corrected. Will be admitted pending surgical intervention and treatment of alcohol withdrawal and control Afib. Review of Systems Review of Systems: No fever, chills or weakness No chest pain, palpitation No shortness of breath or coughing No abdominal pain, nausea or vomiting No urinary symptoms Right hip pain PMFSH Medical History Left against medical advice Chronic HFrEF (heart failure with reduced ejection fraction) Cardiomyopathy Alcoholic cirrhosis of liver Alcohol intoxication Atrial fibrillation with rapid ventricular response Psoriasis Afib Social History Household Members: None Housing: Apartment Housing Other:: Elderly housing complex Do you presently have visiting nurse or other home services: Yes Alcohol intake: current Alcohol intake frequency: 3 or more drinks per day Alcohol type: beer 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 Patient Tobacco Use Status: Tobacco use Unknown Smoked in Last 30 Days: Yes Second Hand Smoke Exposure: No Use of substances other than those prescribed or required for medical reasons: No Advance Directives: No Advance Directives Information Provided: Yes Do you have a plan to hurt others: No Plan service: No Current occupational status: disabled Meds Allergies Allergy/AdvReac Type Severity Reaction Status Date / Time No Known Allergies Allergy Verified 07/24/24 10:39 Home Medications ?Medication ?Instructions ?Recorded ?Confirmed ?Last Taken ?Type carvedilol 6.25 mg tablet 6.25 mg PO BID 07/24/24 Unknown History fluoxetine 10 mg capsule 10 mg PO DAILY 07/24/24 Unknown History quetiapine 25 mg tablet 25 mg PO BID 07/24/24 Unknown History quetiapine 25 mg tablet 25 mg PO DAILY 07/24/24 Unknown History spironolactone 25 mg tablet 25 mg PO DAILY 07/24/24 Unknown History thiamine HCl (vitamin B1) 100 mg 100 mg PO DAILY 07/24/24 Unknown History tablet topiramate 25 mg tablet 25 mg PO DAILY 07/24/24 Unknown History Physical Exam Vital Signs and Narrative: Vital Signs: Last Vital Signs Temp 98.8 F 07/24/24 10:37 Pulse 93 07/24/24 12:01 Resp 12 07/24/24 12:01 BP 121/65 07/24/24 12:01 Pulse Ox 96 07/24/24 12:01 O2 Del Method Room Air 07/24/24 12:01 BMI result Body Mass Index 28.6 Const: Other: Constitutional : Awake, interactive, looks in distress and pain, tremelous Neck : Normal inspection, Supple Cardiovascular : RRR, no JVP, no lower extremity edema Respiratory : good bilateral air entry, no crackles, wheezes or rhonchi Gastrointestinal: soft, lax, Normal bowel sounds, Non tender extremities: RLE shorter and externally rotated Skin : Warm, Dry Neurological : Alert & oriented x3, No focal defici, shaky, tremor Results Labs 07/24/24 10:41 07/24/24 10:41 Labs: Laboratory Results - last 24 hr 07/24/24 07/24/24 10:40 10:41 MCV 96.7 MCH 33.2 H MCHC 34.3 RDW 12.9 Plt Count 95 L D MPV 9.7 Immature Gran % (Auto) 0.5 H Neut % (Auto) 77.0 H Lymph % (Auto) 11.6 L Story % (Auto) 7.7 Eos % (Auto) 2.7 Baso % (Auto) 0.5 Lymph # (Auto) 0.7 L Story # (Auto) 0.5 Eos # (Auto) 0.2 Baso # (Auto) 0.0 Abs Immat Gran (auto) 0.03 Absolute Neuts (auto) 4.9 Absolute Nucleated RBC 0.000 Nucleated RBC % (auto) 0.0 PT 12.1 INR 1.0 APTT 31.3 Hold Blue Top SEE NOTE Anion Gap 17 Estim Creat Clear Calc 144.7 Estimated GFR > 60 Random Glucose 118 H Calcium 8.2 L D Magnesium 1.5 L Total Bilirubin 1.2 H AST 83 H ALT 48 H Alkaline Phosphatase 112 Total Creatine Kinase 298 H Total Protein 6.8 Albumin 3.4 L Lipase 30 Ethyl Alcohol 119 Imaging Radiologist's Impressions: Impressions Hip/Pelvis X-Ray 07/24/24 10:51 IMPRESSION: Displaced and overriding intertrochanteric right hip fracture. Electronically signed by: Arthur Sheikh MD 07/24/2024 11:29 AM EDT RP Chest X-Ray 07/24/24 10:52 IMPRESSION: Hyperaerated lung parenchyma suggestive of COPD. No active superimposed disease. Electronically signed by: Arthur Sheikh MD 07/24/2024 11:26 AM EDT RP Cervical Spine CT 07/24/24 11:19 IMPRESSION: Multilevel cervical spondylosis without acute fracture or trauma-related listhesis. Grade 1 retrolisthesis C4-5 in nature. Fleischner guidelines were followed. Electronically signed by: Clemente Win MD 07/24/2024 12:06 PM EDT RP Head CT 07/24/24 11:19 IMPRESSION: No acute fracture, bony calvarium. No acute intracranial hemorrhage. Old traumatic deformities, nasal bones. Prior vascular insult/infarct left [employer] CHEMIST territory. Global cerebral atrophy. Electronically signed by: Clemente Win MD 07/24/2024 11:58 AM EDT RP Assessment and Plan (1) Intertrochanteric fracture of right hip: Status: Acute (2) Atrial fibrillation with RVR: Status: Acute (3) Closed hip fracture: Qualifiers: Encounter type: initial encounter Laterality: right Qualified Code(s): S72.001A - Fracture of unspecified part of neck of right femur, initial encounter for closed fracture Status: Acute (4) Cardiomyopathy: Status: Acute (5) Atrial fibrillation with rapid ventricular response: Status: Acute (6) Alcohol intoxication: Status: Acute Plan A 63 years old male with PMH of alcohol abuse, Afib not on AC, HFrEF, cirrhosis among others who presents to ED after falling home at night and found to have hip fracture Right hip fracture 2/2 fall XR as reported Orthopedic planning surgery Moderate austin-operative cardiopulmonary risk for surgery, no further testing needed as of now, can proceed with surgery NPO AFib w RvR responded to IV Cardizem Start PO Carvedilol not on blood thinners Acute hypomagnesemis related to alcohol abuse give replacement and follow Acute Lactic acidosis related to alcoholism, rhabdo and dehydratio give more fluids and recheck Alcohol abuse and withdrawal CIWA protocol Start Phenobarb Elevated CPK no evidence of acute kidney injury IVF and monitor Hx HFrEF resume rest of home meds post Op DVT PPx Lovenox post op, for now SCDs The patient will need 2 overnight hospital stay for surgical intervention for hip fracutre and close cardiac monitoring for Afib RbvR on CIWA and phenobarb protocol for alcohol withdrawal Quality Stroke Does the patient have a stroke diagnosis?: No VTE Prior VTE?: No VTE Risk Level:: Medical - moderate - high VTE Device Contraindication: N/A - Device Ordered VTE Drug Contraindication: Treatment Not Indicated
[2024-07-24] MEDS: Lactated Ringers 1,000 ML 100 ML IVCONT ×2 (12:30→22:10)
[2024-07-24] MEDS: ondansetron HCL 4 MG/2 ML VIAL IVPUSH ×2 (12:37→21:02)
--- NOTE | 2024-07-24 12:43 | PM.HPOR ---
History of Present Illness History of Present Illness Date of Service: 07/24/24 Chief complaint: hip fracture, atrial fib w RvR, Alcohol abuse Narrative: Wei Wang is a 63 year old male with a past medical history significant for AFib (not on any thinners), ETOH abuse, who presented to the emergency department after sustaining a mechanical fall at home. 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 He presented to the emergency department because of extreme right hip pain and the inability to ambulate. X-rays that were obtained in the emergency department were significant for a right hip intertrochanteric hip fracture. The patient was admitted to the medicine service with orthopedic consult for further evaluation and treatment. Review of Systems Review of Systems: Yes all other systems are reviewed and are negative PMFSH Past Medical History 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 Patient Tobacco Use Status: Tobacco use Unknown Smoked in Last 30 Days: Yes Second Hand Smoke Exposure: No Use of substances other than those prescribed or required for medical reasons: No Advance Directives: No Advance Directives Information Provided: Yes Do you have a plan to hurt others: No Plan service: No Current occupational status: disabled Meds Allergies Allergy/AdvReac Type Severity Reaction Status Date / Time No Known Allergies Allergy Verified 07/24/24 10:39 Active Medications: Current Medications Acetaminophen (Acetaminophen 325 Mg Tablet) 650 mg PO Q6H PRN PRN Reason: Pain, Mild 1-3,fever,headache Calcium Carbonate (Calcium Carbonate 750 Mg Tab.Chew) 750 mg PO Q4H PRN PRN Reason: Heartburn Lactated Ringer's (Lr) 1,000 mls @ 100 mls/hr IVCONT .Q10H ARMANDO Last Admin: 07/24/24 12:30 Dose: 100 mls/hr Magnesium Hydroxide (Milk Of Magnesia 30 Ml Oral.Susp) 30 ml PO DAILY PRN PRN Reason: Constipation Melatonin (Melatonin 3 Mg Tablet) 6 mg PO BEDTIME PRN PRN Reason: Insomnia Morphine Sulfate (Morphine Sulfate 4 Mg/Ml Cartridge) 4 mg IVPUSH Q4H PRN; Protocol PRN Reason: Pain, Severe (Pain Scale 7-10) Last Admin: 07/24/24 12:37 Dose: 4 mg Ondansetron HCl (Ondansetron Hcl 4 Mg/2 Ml Vial) 4 mg IVPUSH Q8H PRN PRN Reason: Nausea and Vomiting Last Admin: 07/24/24 12:37 Dose: 4 mg Sodium Chloride (0.9 % Sodium Chloride Flush 3 Ml Syringe) 3 ml IVFLUSH [facility] Medications ?Medication ?Instructions ?Recorded ?Confirmed ?Last Taken ?Type carvedilol 6.25 mg tablet 6.25 mg PO BID 07/24/24 Unknown History fluoxetine 10 mg capsule 10 mg PO DAILY 07/24/24 Unknown History quetiapine 25 mg tablet 25 mg PO DAILY 07/24/24 Unknown History spironolactone 25 mg tablet 25 mg PO DAILY 07/24/24 Unknown History thiamine HCl (vitamin B1) 100 mg 100 mg PO DAILY 07/24/24 Unknown History tablet topiramate 25 mg tablet 25 mg PO DAILY 07/24/24 Unknown History Physical Exam Vital Signs: Vital Signs: Last Vital Signs Temp 98.8 F 07/24/24 10:37 Pulse 93 07/24/24 12:01 Resp 12 07/24/24 12:01 BP 121/65 07/24/24 12:01 Pulse Ox 96 07/24/24 12:01 O2 Del Method Room Air 07/24/24 12:01 BMI result Body Mass Index 28.6 Const: General: cooperative, healthy appearing and no acute distress Resp: Effort & Inspection: normal respiratory effort and able to speak in complete sentences Cardio: Rate: regular rate Peripheral pulses: Peripheral pulses 2+ throughout GI: Palpation (GI): Soft to palpation Skin: Lesions: no lesions Rashes: no rashes Extrem: Other: Right lower extremity is shortened and externally rotated. Pain with any attempt of motion. Able to dorsiflex and plantar flex. Sensation intact. Results Labs 07/24/24 10:41 07/24/24 10:41 Labs: Abnormal lab results 07/24/24 Range/Units 10:41 RBC 3.95 L (4.60-5.80) X10*6/uL Hgb 13.1 L (14.0-18.0) g/dl Hct 38.2 L (42.0-52.0) % MCH 33.2 H (27.0-33.0) pg Plt Count 95 L D (160-400) X10*3/uL Immature Gran % (Auto) 0.5 H (0.0-0.4) % Neut % (Auto) 77.0 H (45-73) % Lymph % (Auto) 11.6 L (20-40) % Lymph # (Auto) 0.7 L (1.2-4.9) X10*3/uL BUN 7 L (9-16) mg/dL Random Glucose 118 H (60-115) mg/dL Calcium 8.2 L D (8.4-10.2) mg/dL Magnesium 1.5 L (1.6-2.6) mg/dL Total Bilirubin 1.2 H (0.0-1.0) mg/dL AST 83 H (5-37) U/L ALT 48 H (0-40) U/L Total Creatine Kinase 298 H (38-174) U/L Albumin 3.4 L (3.5-5.0) g/dL H & H 07/24/24 Range/Units 10:41 Hgb 13.1 L (14.0-18.0) g/dl Hct 38.2 L (42.0-52.0) % Coagulation 07/24/24 Range/Units 10:40 INR 1.0 (0.9-1.1) All other labs normal. Assessment and Plan (1) Intertrochanteric fracture of right hip: Status: Acute I discussed the case with Dr. Metz and explained the extent of the injury to the patient and options available which include surgical intervention. I explained the procedure in detail along with the length of recovery and rehab course. I explained the risk, benefits and alternatives. Risk including, but not limited to infection, blood clots, bleeding, non union or malunion and nerve/tissue damage to surrounding areas. I answered all their questions and with their understanding they have consented to move forward with Operative Fixation of the right hip. The patient will be T&S, med clearance obtained from Medicine, I spoke with Dr. Martin, he will remain NPO. Quality Stroke Does the patient have a stroke diagnosis?: No VTE Prior VTE?: No VTE Risk Level:: Medical - moderate - high VTE Device Contraindication: N/A - Device Ordered VTE Drug Contraindication: Treatment Not Indicated Procedures Date of Service Date of Service: 07/24/24
--- NOTE | 2024-07-24 13:16 | MHC.SHP ---
Pre-Procedural Eval Section A - 24 Hr Update-Section A only Date of Service: 07/24/24 The patient is an INPATIENT: Yes Changes since office visit: No Cold of Flu in the past 2 weeks, No New Medical Problems, No Changes in Medication and No Patient answered all questions The patient has been examined within 24 hours of the surgical procedure. The History & Physical has been completed within 30 days and I have reviewed it.: Yes Section B - Complete if H&P > 30 days Chief Complaint: hip fracture, atrial fib w RvR, Alcohol abuse Allergies: Allergies Allergy/AdvReac Type Severity Reaction Status Date / Time No Known Allergies Allergy Verified 07/24/24 10:39 Plan I have reviewed the history and physical and performed a pertinent physical examination on my patient. No changes have occurred unless specified. Time Spent With Patient Time: Total time managing care of this patient today ____ minutes.
--- NOTE | 2024-07-24 13:27 | PC.NURSE ---
verbal nurse to nurse given to JOE null from short stay department
--- OUTSIDE RECORDS SUMMARY | 2024-07-24 13:38 | XMS_ITS | Clinical Summary ---
Author Organization [facility] ity Address [address] [place] [address] Care Team Providers Care Custodian Manager Name Role Phone Robert Nelson MD Primary [...] - 2023-2 5 season) 2023 Influenza Vaccine (Season Ended) 2024 RSV Immunization Adult Patie nts (1 - 1-dose 75+ series) 2037 HIB [...] age to complete this topic Meningococcal B Vaccine Aged Out No l onger eligible based on patient's age to complete [...] age to complete this topic Care Teams Custodian Manager Relationship Specialty Start Date End Date Robert Nelson MD [address] [place] [address] PCP - General 06/04/22
[2024-07-24] MEDS: PHENobarbitaL sodium 130 MG/ML IM ONCE 274 MG IM (14:07)
[2024-07-24] MEDS: QUEtiapine Fumarate 25 MG TABLET 12.5 MG PO (14:08)
[2024-07-24] MEDS: Magnesium Sulfate/H2O 2 GM/50 ML PIGGYBACK IV (14:08)
[2024-07-24] MEDS: carvediloL 6.25 MG TABLET PO ×2 (14:08→20:58)
[2024-07-24] MEDS: 0.9 % Sodium Chloride 1,000 ML 999 ML IV (14:09)
--- NOTE | 2024-07-24 14:54 | PC.NURSE ---
pt to OR via OR mottler operator staff
--- NOTE | 2024-07-24 15:23 | PHA.MEDREC ---
Pharmacy Consult ? Medication Reconciliation Pharmacy has completed the medication reconciliation. Kirti (med rec tech) spoke to patient about med list but he doesn't know what he takes, said he fills his meds at [facility]. Used med list from [facility] to complete med rec.
[2024-07-24] MEDS: PHENobarbitaL sodium 130 MG/ML VIAL IM Q3Hx2 205 MG IM ×2 (17:59→20:57)
[2024-07-24] MEDS: QUEtiapine Fumarate 25 MG TABLET PO (20:57)
[2024-07-25] VITALS (13 sets, daily range): BP systolic 87–134; BP diastolic 52–84; PULSE 75–98; RESP 15–20; TEMP 36.7–38.1; O2SAT 93–100; BMI 29.2
[2024-07-25 04:52] LABS: MANUAL DIFF FLAG NO
[2024-07-25 04:54] LABS: Basophils Percent Auto 0.7 % (0-2); Eosinophils Absolute Auto 0.1 X10*3/uL (0.0-0.4); Eosinophils Percent Auto 1.8 % (0-4); Hematocrit 30.9 % (42.0-52.0); Hemoglobin 10.5 g/dl (14.0-18.0); Imm Gran Abs Auto 0.01 X10*3/uL (0.00-0.03); Imm Gran Pct Auto 0.4 % (0.0-0.4); Lymphocytes Absolute Auto 0.7 X10*3/uL (1.2-4.9); Mean Corpuscular Hemoglobin 33.2 pg (27.0-33.0); Mean Corpuscular Volume 97.8 fL (80.0-98.0); Monocytes Absolute Auto 0.4 X10*3/uL (0.1-1.2); Monocytes Percent Auto 14.8 % (2-11); Neutrophils Absolute Auto 1.6 x10*3/uL (2.0-8.3); Neutrophils Percent Auto 56.3 % (45-73); Red Blood Count 3.16 X10*6/uL (4.60-5.80); Red Cell Distribution Width 13.1 % (11.0-16.0); White Blood Count 2.8 X10*3/uL (4.8-10.8)
[2024-07-25 05:03] LABS: Platelet Count 61 X10*3/uL (160-400)
[2024-07-25 05:14] LABS: Alanine Aminotransferase 31 U/L (0-40); Albumin Level 2.4 g/dL (3.5-5.0); Anion Gap 10 (12-20); Aspartate Amino Transferase 55 U/L (5-37); Bilirubin Total 2.2 mg/dL (0.0-1.0); Blood Urea Nitrogen 9 mg/dL (9-16); Calcium 7.5 mg/dL (8.4-10.2); Carbon Dioxide 26 mmol/L (22-29); Chloride 106 mmol/L (96-108); Creatinine Clr Calc Pharmacy 144.3; Estimated Glomerular Filt Rate > 60; Glucose Random 115 mg/dL (60-115); Potassium 3.5 mmol/L (3.3-5.1); Sodium 138 mmol/L (135-145); Total Protein 5.4 g/dL (6.5-8.0)
[2024-07-25 05:28] LABS: Alkaline Phosphatase 84 U/L (39-117)
[2024-07-25 08:54] LABS: Magnesium 1.7 mg/dL (1.6-2.6)
[2024-07-25] MEDS: Thiamine HCL 100 MG TABLET PO (09:04)
[2024-07-25] MEDS: QUEtiapine Fumarate 25 MG TABLET PO ×2 (09:04→20:42)
[2024-07-25] MEDS: FLUoxetine HCl 10 MG CAPSULE PO (09:04)
[2024-07-25] MEDS: carvediloL 6.25 MG TABLET PO ×2 (09:04→13:24)
[2024-07-25] MEDS: PHENobarbitaL 15 MG TABLET 45 MG PO ×2 (09:05→20:42)
[2024-07-25] MEDS: Lactated Ringers 1,000 ML 100 ML IVCONT ×2 (09:11→23:40)
[2024-07-25] MEDS: 0.9 % Sodium Chloride Flush 3 ML SYRINGE IVFLUSH ×2 (09:11→17:47)
--- NOTE | 2024-07-25 09:49 | MHC.CM.PN ---
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 CM DISCUSSED DISPO AND PT REPORTS HE PREFERS ACUTE REHAB AT [place]. PT VERIFIES PCP IS DR. TATE AT [facility] AND CM TO REVISIT HCP W/PT, PT WAS IN SIGNIFICANT AMOUNT OF PAIN AND CM TO REVISIT.
--- NOTE | 2024-07-25 10:34 | P.CONCA_ITS ---
History of Present Illness History of Present Illness Date of Service: 07/25/24 Requesting physician: Darcy Martin Chief complaint: hip fracture, atrial fib w RvR, Alcohol abuse Narrative: [age] year gentleman presenting with mechanical fall and hip fracture. We have been asked to see him for perioperative cardiovascular risk assessment. He has developed paroxysmal atrial fibrillation while he is here. He is rate controlled currently. He has background history of alcoholism and cardiomyopathy based on old echocardiogram with severe LV dysfunction. He is denying any chest pain or shortness of breath. We did limited echocardiogram on him which shows EF of 50 55% but did show moderate RV dilation with [id number] RV dysfunction. He is denying any symptoms at home and saying that he was walking independently without any chest pains or shortness of breath. Laying flat in bed without any symptoms currently. 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 Patient Tobacco Use Status: Never used Tobacco Second Hand Smoke Exposure: No service: No Current occupational status: disabled Meds Allergies Allergy/AdvReac Type Severity Reaction Status Date / Time No Known Allergies Allergy Verified 07/24/24 10:39 Active Medications: Current Medications Acetaminophen (Acetaminophen 325 Mg Tablet) 650 mg PO Q6H PRN PRN Reason: Pain, Mild 1-3,fever,headache Calcium Carbonate (Calcium Carbonate 750 Mg Tab.Chew) 750 mg PO Q4H PRN PRN Reason: Heartburn Carvedilol (Carvedilol 6.25 Mg Tablet) 6.25 mg PO BID ARMANDO; Protocol Last Admin: 07/25/24 09:04 Dose: 6.25 mg Fluoxetine HCl (Fluoxetine Hcl 10 Mg Capsule) 10 mg PO DAILY ARMANDO Last Admin: 07/25/24 09:04 Dose: 10 mg Lactated Ringer's (Lr) 1,000 mls @ 100 mls/hr IVCONT .Q10H [facility] Last Admin: 07/25/24 09:11 Dose: 100 mls/hr Magnesium Hydroxide (Milk Of Magnesia 30 Ml Oral.Susp) 30 ml PO DAILY PRN PRN Reason: Constipation Melatonin (Melatonin 3 Mg Tablet) 6 mg PO BEDTIME PRN PRN Reason: Insomnia Morphine Sulfate (Morphine Sulfate 4 Mg/Ml Cartridge) 4 mg IVPUSH Q4H PRN; Protocol PRN Reason: Pain, Severe (Pain Scale 7-10) Last Admin: 07/24/24 21:02 Dose: 4 mg Ondansetron HCl (Ondansetron Hcl 4 Mg/2 Ml Vial) 4 mg IVPUSH Q8H PRN PRN Reason: Nausea and Vomiting Last Admin: 07/24/24 21:02 Dose: 4 mg Pharmacy Consult (Consult Rx Etoh Phenob Im/Po) 1 each MISCELLANE ONCE PRN; Protocol PRN Reason: Consult order Phenobarbital (Phenobarbital 15 Mg Tablet) 45 mg PO BID [facility]; Protocol Stop: 07/26/24 21:01 Last Admin: 07/25/24 09:05 Dose: 45 mg Phenobarbital (Phenobarbital 30 Mg Tablet) 30 mg PO BID [facility]; Protocol Stop: 07/28/24 21:01 Phenobarbital (Phenobarbital 30 Mg Tablet) 30 mg PO DAILY [facility]; Protocol Stop: 07/30/24 09:01 Quetiapine Fumarate (Quetiapine Fumarate 25 Mg Tablet) 25 mg PO BID [facility] Last Admin: 07/25/24 09:04 Dose: 25 mg Sodium Chloride (0.9 % Sodium Chloride Flush 3 Ml Syringe) 3 ml IVFLUSH QSHIFT [facility] Last Admin: 07/25/24 09:11 Dose: 3 ml Thiamine HCl (Thiamine Hcl 100 Mg Tablet) 100 mg PO DAILY [facility] Last Admin: 07/25/24 09:04 Dose: 100 mg Home Medications ?Medication ?Instructions ?Recorded ?Confirmed ?Last Taken ?Type carvedilol 6.25 mg tablet 6.25 mg PO BID 07/24/24 07/24/24 Unknown History fluoxetine 10 mg capsule 10 mg PO DAILY 07/24/24 07/24/24 Unknown History quetiapine 25 mg tablet 25 mg PO BID 07/24/24 07/24/24 Unknown History spironolactone 25 mg tablet 25 mg PO DAILY 07/24/24 07/24/24 Unknown History thiamine HCl (vitamin B1) 100 mg 100 mg PO DAILY 07/24/24 07/24/24 Unknown History tablet topiramate 25 mg tablet 25 mg PO DAILY 07/24/24 07/24/24 Unknown History Physical Exam 2 Vital Signs: Vital Signs: Last Vital Signs Temp 99.0 F 07/25/24 08:55 Pulse 92 07/25/24 08:55 Resp 20 07/25/24 08:55 BP 134/84 07/25/24 08:55 Pulse Ox 96 07/25/24 08:55 O2 Del Method Nasal Cannula 07/25/24 08:55 O2 Flow Rate 2 07/25/24 08:55 BMI result Body Mass Index 29.2 GENERAL APPEARANCE: In pain due to hip fracture.. NECK: no carotid bruit, no jugular venous distention. SKIN: no suspicious lesions, warm and dry. HEART: no murmurs, irregular rate and rhythm. LUNGS: clear to auscultation bilaterally. ABDOMEN: soft, nontender. EXTREMITIES: no edema. Right lower extremity externally rotated and shortened. PERIPHERAL PULSES: equal. NEUROLOGIC: No gross deficits, AAO X 3 Objective Labs and Meds 07/25/24 04:46 07/25/24 04:46 Lab results: Laboratory Results - last 24 hr 07/24/24 07/24/24 07/25/24 10:40 10:41 04:46 WBC 6.4 2.8 L RBC 3.95 L 3.16 L Hgb 13.1 L 10.5 L Hct 38.2 L 30.9 L MCV 96.7 97.8 MCH 33.2 H 33.2 H MCHC 34.3 34.0 RDW 12.9 13.1 Plt Count 95 L D 61 L D MPV 9.7 10.0 Immature Gran % (Auto) 0.5 H 0.4 Neut % (Auto) 77.0 H 56.3 Lymph % (Auto) 11.6 L 26.0 [place] % (Auto) 7.7 14.8 H Eos % (Auto) 2.7 1.8 Baso % (Auto) 0.5 0.7 Lymph # (Auto) 0.7 L 0.7 L [place] # (Auto) 0.5 0.4 Eos # (Auto) 0.2 0.1 Baso # (Auto) 0.0 0.0 Abs Immat Gran (auto) 0.03 0.01 Absolute Neuts (auto) 4.9 1.6 L Absolute Nucleated RBC 0.000 0.000 Nucleated RBC % (auto) 0.0 0.0 PT 12.1 INR 1.0 APTT 31.3 Hold Blue Top SEE NOTE Sodium 141 138 Potassium 3.8 3.5 Chloride 106 106 Carbon Dioxide 22 26 Anion Gap 17 10 L BUN 7 L 9 Creatinine 0.57 0.52 Estim Creat Clear Calc 144.7 144.3 Estimated GFR > 60 > 60 Random Glucose 118 H 115 Calcium 8.2 L D 7.5 L D Magnesium 1.5 L 1.7 Total Bilirubin 1.2 H 2.2 H AST 83 H 55 H ALT 48 H 31 Alkaline Phosphatase 112 84 Total Creatine Kinase 298 H 333 H Troponin I High Sens 4.0 Total Protein 6.8 5.4 L Albumin 3.4 L 2.4 L Lipase 30 Ethyl Alcohol 119 Imaging Radiologist's impression: Impressions Hip/Pelvis X-Ray 07/24/24 10:51 IMPRESSION: Displaced and overriding intertrochanteric right hip fracture. Electronically signed by: Arthur Sheikh MD 07/24/2024 11:29 AM EDT RP Chest X-Ray 07/24/24 10:52 IMPRESSION: Hyperaerated lung parenchyma suggestive of COPD. No active superimposed disease. Electronically signed by: Arthur Sheikh MD 07/24/2024 11:26 AM EDT RP Cervical Spine CT 07/24/24 11:19 IMPRESSION: Multilevel cervical spondylosis without acute fracture or trauma-related listhesis. Grade 1 retrolisthesis C4-5 in nature. Fleischner guidelines were followed. Electronically signed by: Clemente Win MD 07/24/2024 12:06 PM EDT RP Head CT 07/24/24 11:19 IMPRESSION: No acute fracture, bony calvarium. No acute intracranial hemorrhage. Old traumatic deformities, nasal bones. Prior vascular insult/infarct left [employer] territory. Global cerebral atrophy. Electronically signed by: Clemente Win MD 07/24/2024 11:58 AM EDT RP Assessment and Plan (1) Atrial fibrillation with rapid ventricular response: Status: Acute (2) Preop cardiovascular exam: Status: Acute Plan 63-year-old gentleman with background history of alcoholism and history of cardiomyopathy presenting for mechanical fall and hip fracture. Clinically compensated and not in heart failure. Developed new onset atrial fibrillation and currently we are rate controlling and overall well rate controlled. Repeat echocardiogram is showing low normal ejection fraction but did show RV dilation with [id number] dysfunction. This was a limited echocardiogram and imaging was somewhat limited 2. In any case he needs surgery currently and overall does not appear to be high-risk. He can proceed with surgery. His CHADS-VASc score is not high and I would think he will not require long-term anticoagulation but this can be discussed further as he starts recovering. Thank you for allowing me to participate in the care of your patient. Please feel free to contact me if you have any questions. Procedures Date of Service Date of Service: 07/25/24
--- NOTE | 2024-07-25 12:00 | CA_ITS ---
Transthoracic Echocardiogram Patient (Last, First, Middle): Wei Wang, Gender: Male Date of : 1960 Age: 63 Procedure Date: 07/25/2024 Procedure Type: Transthoracic Echocardiogram Location: [facility] Height: 172.72 cm Weight: 87.09 kg BSA: 2.01 m2 Heart Rate: bpm BP: 134 / 84 mmHg ECG Rhythm: Atrial Fibrillation Conclusions: - Limited study. - EF 50-55%. - Moderately increased right ventricular cavity size. There is mildly decreased right ventricular systolic function. Findings Left Ventricle Normal left ventricular cavity size. There is mildly increased left ventricular wall thickness. The left ventricular systolic function is low normal. The visually estimated ejection fraction is between 50-55%. There is evidence of regional wall motion abnormalities. Diastolic function is indeterminate on the basis of available data. Right Ventricle Moderately increased right ventricular cavity size. There is mildly decreased right ventricular systolic function. Atria The left atrium is severely dilated. Aortic Valve The aortic valve structure and function is likely normal. There is no aortic valve stenosis. There is no aortic valve regurgitation. Mitral Valve There is trace mitral valve regurgitation. Great Vessels All visible segments of the aorta are normal in size. Measurements 2D Linear Measurements IVSd: 1.21 0.6-0.9/0.6-1.0 cm LVIDd: 4.57 3.9-5.3/4.2-5.9 cm LVIDd Index: 2.27 2.4-3.2/2.2-3.1 cm/m2 LVIDs: 3.33 2.0-3.6 cm LVPWd: 1.25 0.7-1.1 cm Ao Root: 2.70 2.1-3.5 cm LA Diam: 6.00 2.7-3.8/3.0-4.0 cm LAIDs Index: 2.99 1.5-2.3 cm/m2 LV Mass: 262.06 67-162/88-224 g LV Mass Index: 130.38 43-95/49-115 g/m2 LVOT Diam: 2.10 3.0+(-)1.3 cm 2D Systolic Function EF 4C: 52.80 >55% EF 2C: 66.60 >55% EF BiP: 60.00 >55% Mitral Valve MV Pk E: 1.08 MV Decel Time: 143.00 E'Lateral: 16.30 E'Medial: 9.14 E/E' Med: 11.80 E/E' Lat: 6.60 PHT: 42.00 MVA PHT: 5.24 Decel Mckenzie: 7.57 Aortic Valve AoV Pk Ruslan: 1.26 AoV Mn Ruslan: 0.91 AoV VTI: 0.23 AoV Pk Grad: 6.00 Aov Mn Grad: 4.00 TENA Cont.VTI: 2.35 LVOT LVOT Pk Ruslan: 0.85 LVOT Mn Ruslan: 0.58 LVOT VTI: 0.16 LVOT Pk Grad: 3.00 LVOT Mn Grad: 2.00 LVOT Diam: 2.10 LVOT Area: 3.46 Diastolic Function MV Pk E: 1.08 E'Medial: 9.14 E/E' Med: 11.80 E' Laterial: 16.30 E/E' Lat: 6.60 Tricuspid Valve TR Pk Ruslan: 2.35 TR Pk Grad: 22.00 Great Vessels Aorta Ao Root-2D: 2.70 2.0-3.7 cm Updated in Other Vendor System with Status of Final Hari Candelario MD electronically signed on 07/27/2024 2:48:52 PM with status of Final
--- NOTE | 2024-07-25 12:08 | HO.PM.IMPN ---
Subjective Subjective Date of Service: 07/25/24 Interval History: seen and evaluated this morning reporting pain in his hip and leg denies fever or chills less shaky no other events Review of Systems Review of Systems: Yes all other systems are reviewed and are negative Physical Exam Vital Signs: Vital Signs: Last Vital Signs Temp 98.3 F 07/25/24 11:12 Pulse 94 07/25/24 11:12 Resp 18 07/25/24 11:12 BP 120/77 07/25/24 11:12 Pulse Ox 96 07/25/24 11:12 O2 Del Method Nasal Cannula 07/25/24 11:12 O2 Flow Rate 2 07/25/24 11:12 BMI result Body Mass Index 29.2 Const: Other: Constitutional : Awake, interactive, looks in distress and pain, tremelous Neck : Normal inspection, Supple Cardiovascular : RRR, no JVP, no lower extremity edema Respiratory : good bilateral air entry, no crackles, wheezes or rhonchi Gastrointestinal: soft, lax, Normal bowel sounds, Non tender extremities: RLE shorter and externally rotated Skin : Warm, Dry Neurological : Alert & oriented x3, No focal defici, shaky, tremor Objective Data Active Medications Acetaminophen (Acetaminophen 325 Mg Tablet) 650 mg PO Q6H PRN PRN Reason: Pain, Mild 1-3,fever,headache Calcium Carbonate (Calcium Carbonate 750 Mg Tab.Chew) 750 mg PO Q4H PRN PRN Reason: Heartburn Carvedilol (Carvedilol 6.25 Mg Tablet) 6.25 mg PO BID [facility]; Protocol Last Admin: 07/25/24 09:04 Dose: 6.25 mg Documented By: ANITA Fluoxetine HCl (Fluoxetine Hcl 10 Mg Capsule) 10 mg PO DAILY [facility] Last Admin: 07/25/24 09:04 Dose: 10 mg Documented By: ANITA Lactated Ringer's (Lr) 1,000 mls @ 100 mls/hr IVCONT .Q10H [facility] Last Admin: 07/25/24 09:11 Dose: 100 mls/hr Documented By: ANITA Magnesium Hydroxide (Milk Of Magnesia 30 Ml Oral.Susp) 30 ml PO DAILY PRN PRN Reason: Constipation Melatonin (Melatonin 3 Mg Tablet) 6 mg PO BEDTIME PRN PRN Reason: Insomnia Morphine Sulfate (Morphine Sulfate 4 Mg/Ml Cartridge) 4 mg IVPUSH Q4H PRN; Protocol PRN Reason: Pain, Severe (Pain Scale 7-10) Last Admin: 07/24/24 21:02 Dose: 4 mg Documented By: SNUI Ondansetron HCl (Ondansetron Hcl 4 Mg/2 Ml Vial) 4 mg IVPUSH Q8H PRN PRN Reason: Nausea and Vomiting Last Admin: 07/24/24 21:02 Dose: 4 mg Documented By: SUNI Pharmacy Consult (Consult Rx Etoh Phenob Im/Po) 1 each MISCELLANE ONCE PRN; Protocol PRN Reason: Consult order Phenobarbital (Phenobarbital 15 Mg Tablet) 45 mg PO BID [facility]; Protocol Stop: 07/26/24 21:01 Last Admin: 07/25/24 09:05 Dose: 45 mg Documented By: ANITA Phenobarbital (Phenobarbital 30 Mg Tablet) 30 mg PO BID [facility]; Protocol Stop: 07/28/24 21:01 Phenobarbital (Phenobarbital 30 Mg Tablet) 30 mg PO DAILY [facility]; Protocol Stop: 07/30/24 09:01 Quetiapine Fumarate (Quetiapine Fumarate 25 Mg Tablet) 25 mg PO BID [facility] Last Admin: 07/25/24 09:04 Dose: 25 mg Documented By: ANITA Sodium Chloride (0.9 % Sodium Chloride Flush 3 Ml Syringe) 3 ml IVFLUSH QSHIFT [facility] Last Admin: 07/25/24 09:11 Dose: 3 ml Documented By: ANITA Thiamine HCl (Thiamine Hcl 100 Mg Tablet) 100 mg PO DAILY [facility] Last Admin: 07/25/24 09:04 Dose: 100 mg Documented By: ANITA Labs 07/25/24 04:46 07/25/24 04:46 Labs: Laboratory Results - last 24 hr 07/25/24 07/25/24 04:46 11:11 MCV 97.8 MCH 33.2 H MCHC 34.0 RDW 13.1 Plt Count 61 L D MPV 10.0 Immature Gran % (Auto) 0.4 Neut % (Auto) 56.3 Lymph % (Auto) 26.0 [place] % (Auto) 14.8 H Eos % (Auto) 1.8 Baso % (Auto) 0.7 Lymph # (Auto) 0.7 L [place] # (Auto) 0.4 Eos # (Auto) 0.1 Baso # (Auto) 0.0 Abs Immat Gran (auto) 0.01 Absolute Neuts (auto) 1.6 L Absolute Nucleated RBC 0.000 Nucleated RBC % (auto) 0.0 Anion Gap 10 L Estim Creat Clear Calc 144.3 Estimated GFR > 60 Random Glucose 115 Calcium 7.5 L D Magnesium 1.7 Total Bilirubin 2.2 H AST 55 H ALT 31 Alkaline Phosphatase 84 Total Creatine Kinase 333 H Total Protein 5.4 L Albumin 2.4 L Blood Type O Positive Antibody Screen NEGATIVE Assessment and Plan (1) Intertrochanteric fracture of right hip: Status: Acute (2) Atrial fibrillation with RVR: Status: Acute (3) Closed hip fracture: Status: Acute (4) Acute hypokalemia: Status: Acute Plan A 63 years old male with PMH of alcohol abuse, Afib not on AC, HFrEF, cirrhosis among others who presents to ED after falling home at night and found to have hip fracture Right hip fracture 2/2 fall XR as reported Orthopedic planning surgery Intermediate [place]-operative cardiopulmonary risk for surgery per cardiology Echo ordered cardiology following NPO AFib w RvR rate controlled PO Carvedilol , increase to 12.5 bid not on blood thinners Acute Hypokalemia replacement IV and PO for now follow BMP Acute hypomagnesemia related to alcohol abuse improved after replacement Acute Lactic acidosis related to alcoholism, rhabdo and dehydratio give more fluids and recheck Alcohol abuse and withdrawal CIWA protocol Start Phenobarb Elevated CPK no evidence of acute kidney injury IVF and monitor Hx HFrEF Hold spironolactone rechcek Echo DVT PPx Lovenox post op, for now SCDs The patient will need overnight hospital stay for surgical intervention for hip fracutre and close cardiac monitoring for Afib RbvR on CIWA and phenobarb protocol for alcohol withdrawal Quality Stroke Does the patient have a stroke diagnosis?: No VTE Prior VTE?: No VTE Risk Level:: Medical - moderate - high VTE Device Contraindication: N/A - Device Ordered VTE Drug Contraindication: Treatment Not Indicated
[2024-07-25] MEDS: Metoprolol Tartrate 5 MG/5 ML VIAL 2.5 MG IVPUSH (13:23)
--- NOTE | 2024-07-25 13:49 | PC.NURSE ---
Off unit at this time for procedure
--- NOTE | 2024-07-25 14:01 | MHC.SHP ---
Pre-Procedural Eval Section A - 24 Hr Update-Section A only Date of Service: 07/25/24 The patient is an INPATIENT: No Changes since office visit: No Cold of Flu in the past 2 weeks, No New Medical Problems, No Changes in Medication and No Patient answered all questions The patient has been examined within 24 hours of the surgical procedure. The History & Physical has been completed within 30 days and I have reviewed it.: Yes Section B - Complete if H&P > 30 days Chief Complaint: hip fracture, atrial fib w RvR, Alcohol abuse Allergies: Allergies Allergy/AdvReac Type Severity Reaction Status Date / Time No Known Allergies Allergy Verified 07/24/24 10:39 Plan I have reviewed the history and physical and performed a pertinent physical examination on my patient. No changes have occurred unless specified. Time Spent With Patient Time: Total time managing care of this patient today ____ minutes.
--- NOTE | 2024-07-25 14:57 | HO.ANESPROP2 ---
HPI - Anesthesia Eval Consult details Narrative: Fo IM nail PMFSH Active Problems Active Problems: All Active Problems Preop cardiovascular exam (Acute) Acute hypokalemia (Acute) Intertrochanteric fracture of right hip (Acute) Atrial fibrillation with RVR (Acute) Closed hip fracture (Acute) Cardiomyopathy (Acute) Atrial fibrillation with rapid ventricular response (Acute) Weakness (Acute) Fall (Acute) Alcohol intoxication (Acute) Acute kidney injury (Acute) Laceration (Acute) Chronic HFrEF (heart failure with reduced ejection fraction) (Acute) Alcohol withdrawal (Acute) Past Medical History Medical History Left against medical advice Chronic HFrEF (heart failure with reduced ejection fraction) Cardiomyopathy Alcoholic cirrhosis of liver Alcohol intoxication Atrial fibrillation with rapid ventricular response Psoriasis Afib Narrative: see cardiology consult note from today Family History Family history of problems with anesthesia: No Surgical History History of Problems with Anesthesia: No Social History Social History Household Members: None Housing: Apartment Housing Other:: Elderly housing complex Do you presently have visiting nurse or other home services: Yes Alcohol intake: current Alcohol intake frequency: 3 or more drinks per day Alcohol type: beer 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 Patient Tobacco Use Status: Never used Tobacco Second Hand Smoke Exposure: No service: No Current occupational status: disabled Meds Allergies Allergy/AdvReac Type Severity Reaction Status Date / Time No Known Allergies Allergy Verified 07/24/24 10:39 Active Medications: Current Medications Acetaminophen (Acetaminophen 325 Mg Tablet) 650 mg PO Q6H PRN PRN Reason: Pain, Mild 1-3,fever,headache Calcium Carbonate (Calcium Carbonate 750 Mg Tab.Chew) 750 mg PO Q4H PRN PRN Reason: Heartburn Carvedilol (Carvedilol 12.5 Mg Tablet) 12.5 mg PO BID [facility]; Protocol Fluoxetine HCl (Fluoxetine Hcl 10 Mg Capsule) 10 mg PO DAILY [facility] Last Admin: 07/25/24 09:04 Dose: 10 mg Lactated Ringer's (Lr) 1,000 mls @ 100 mls/hr IVCONT .Q10H [facility] Last Admin: 07/25/24 09:11 Dose: 100 mls/hr Magnesium Hydroxide (Milk Of Magnesia 30 Ml Oral.Susp) 30 ml PO DAILY PRN PRN Reason: Constipation Melatonin (Melatonin 3 Mg Tablet) 6 mg PO BEDTIME PRN PRN Reason: Insomnia Morphine Sulfate (Morphine Sulfate 4 Mg/Ml Cartridge) 4 mg IVPUSH Q4H PRN; Protocol PRN Reason: Pain, Severe (Pain Scale 7-10) Last Admin: 07/24/24 21:02 Dose: 4 mg Ondansetron HCl (Ondansetron Hcl 4 Mg/2 Ml Vial) 4 mg IVPUSH Q8H PRN PRN Reason: Nausea and Vomiting Last Admin: 07/24/24 21:02 Dose: 4 mg Pharmacy Consult (Consult Rx Etoh Phenob Im/Po) 1 each MISCELLANE ONCE PRN; Protocol PRN Reason: Consult order Phenobarbital (Phenobarbital 15 Mg Tablet) 45 mg PO BID [facility]; Protocol Stop: 07/26/24 21:01 Last Admin: 07/25/24 09:05 Dose: 45 mg Phenobarbital (Phenobarbital 30 Mg Tablet) 30 mg PO BID [facility]; Protocol Stop: 07/28/24 21:01 Phenobarbital (Phenobarbital 30 Mg Tablet) 30 mg PO DAILY [facility]; Protocol Stop: 07/30/24 09:01 Quetiapine Fumarate (Quetiapine Fumarate 25 Mg Tablet) 25 mg PO BID [facility] Last Admin: 07/25/24 09:04 Dose: 25 mg Sodium Chloride (0.9 % Sodium Chloride Flush 3 Ml Syringe) [facility] Last Admin: 07/25/24 09:11 Dose: 3 ml Thiamine HCl (Thiamine Hcl 100 Mg Tablet) 100 mg PO DAILY [facility] Last Admin: 07/25/24 09:04 Dose: 100 mg Home Medications ?Medication ?Instructions ?Recorded ?Confirmed ?Last Taken ?Type carvedilol 6.25 mg tablet 6.25 mg PO BID 07/24/24 07/24/24 Unknown History fluoxetine 10 mg capsule 10 mg PO DAILY 07/24/24 07/24/24 Unknown History quetiapine 25 mg tablet 25 mg PO BID 07/24/24 07/24/24 Unknown History spironolactone 25 mg tablet 25 mg PO DAILY 07/24/24 07/24/24 Unknown History thiamine HCl (vitamin B1) 100 mg 100 mg PO DAILY 07/24/24 07/24/24 Unknown History tablet topiramate 25 mg tablet 25 mg PO DAILY 07/24/24 07/24/24 Unknown History Exam Height,Weight and Vital Signs: Height 5 ft 8 in Weight 87.2 kg Last Vital Signs Temp 100.5 F H 07/25/24 13:55 Pulse 98 07/25/24 13:55 Resp 16 07/25/24 13:55 BP 103/74 07/25/24 13:55 Pulse Ox 96 07/25/24 13:55 O2 Del Method Nasal Cannula 07/25/24 13:55 O2 Flow Rate 3 07/25/24 13:55 Pertinent Lab Results Pertinent Lab Results: Laboratory Tests 07/24/24 07/24/24 07/25/24 10:40 10:41 04:46 WBC 6.4 2.8 L RBC 3.95 L 3.16 L Hgb 13.1 L 10.5 L Hct 38.2 L 30.9 L MCV 96.7 97.8 MCH 33.2 H 33.2 H MCHC 34.3 34.0 RDW 12.9 13.1 Plt Count 95 L D 61 L D MPV 9.7 10.0 Immature Gran % (Auto) 0.5 H 0.4 Neut % (Auto) 77.0 H 56.3 Lymph % (Auto) 11.6 L 26.0 Clinch % (Auto) 7.7 14.8 H Eos % (Auto) 2.7 1.8 Baso % (Auto) 0.5 0.7 Lymph # (Auto) 0.7 L 0.7 L Clinch # (Auto) 0.5 0.4 Eos # (Auto) 0.2 0.1 Baso # (Auto) 0.0 0.0 Abs Immat Gran (auto) 0.03 0.01 Absolute Neuts (auto) 4.9 1.6 L Absolute Nucleated RBC 0.000 0.000 Nucleated RBC % (auto) 0.0 0.0 PT 12.1 INR 1.0 APTT 31.3 Hold Blue Top SEE NOTE Sodium 141 138 Potassium 3.8 3.5 Chloride 106 106 Carbon Dioxide 22 26 Anion Gap 17 10 L BUN 7 L 9 Creatinine 0.57 0.52 Estim Creat Clear Calc 144.7 144.3 Estimated GFR > 60 > 60 Random Glucose 118 H 115 Calcium 8.2 L D 7.5 L D Magnesium 1.5 L 1.7 Total Bilirubin 1.2 H 2.2 H AST 83 H 55 H ALT 48 H 31 Alkaline Phosphatase 112 84 Total Creatine Kinase 298 H 333 H Troponin I High Sens 4.0 Total Protein 6.8 5.4 L Albumin 3.4 L 2.4 L Lipase 30 Ethyl Alcohol 119 Blood Type Antibody Screen 07/25/24 11:11 WBC RBC Hgb Hct MCV MCH MCHC RDW Plt Count MPV Immature Gran % (Auto) Neut % (Auto) Lymph % (Auto) Clinch % (Auto) Eos % (Auto) Baso % (Auto) Lymph # (Auto) Clinch # (Auto) Eos # (Auto) Baso # (Auto) Abs Immat Gran (auto) Absolute Neuts (auto) Absolute Nucleated RBC Nucleated RBC % (auto) PT INR APTT Hold Blue Top Sodium Potassium Chloride Carbon Dioxide Anion Gap BUN Creatinine Estim Creat Clear Calc Estimated GFR Random Glucose Calcium Magnesium Total Bilirubin AST ALT Alkaline Phosphatase Total Creatine Kinase Troponin I High Sens Total Protein Albumin Lipase Ethyl Alcohol Blood Type O Positive Antibody Screen NEGATIVE Airway Mallampati Class: II TM Dist: <=3cm Neck ROM: Full Heart: afib. EF about 55%. Lungs: sat 95% on 3L NC Assessment and Plan Assessment Anesthesia Assessment: Anesthesia Plan Discussed and Chart Reviewed Final Anesthetic Review Family History of Problems with Anesthesia: No History of Problems with Anesthesia: No NPO: Yes ASA Class: IV Final Preanesthetic Review: No Changes in Pt Med Stat, Meds/Allgs Chart Reviewed, Consent Obtained/Reviewed and Anes Risks/Benef Reviewed Patient Risk: High Procedure Risk: Intermediate Anesthetic Plan Anesthetic Plan: Spinal and Agree w/ Assess. and Plan Disposition: Standard PACU
--- NOTE | 2024-07-25 16:52 | P.BOP_ITS ---
Brief Operative Note Date of Service: 07/25/24 Pre-op diagnosis: RIght hip IT fracture Procedure: Right hip IMN Implants: [place] [id number] 125 deg with 105mm hip screw and 50mm distal interlock Surgeon: Wil Metz MD Anesthesia: MAC and spinal Was an Signal Manager used for this Procedure?: Yes Signal Manager: Juliana Zafar Estimated blood loss (mL): 150 IV fluids (mL): 750 Pathology: none sent Condition: stable Disposition: PACU
[2024-07-25] MEDS: carvediloL 12.5 MG TABLET PO (20:42)
[2024-07-25] MEDS: ceFAZolin Sodium/Dextrose,Iso 2 GM/50 ML PIGGYBACK IV (20:43)
[2024-07-25] MEDS: Morphine Sulfate 4 MG/ML CARTRIDGE IVPUSH (20:50)
[2024-07-26] VITALS (11 sets, daily range): BP systolic 88–105; BP diastolic 52–65; PULSE 84–113; RESP 16–19; TEMP 36.3–38.3; O2SAT 92–100
--- NOTE | 2024-07-26 07:27 | HO.POSTANES ---
Post Anesthesia Evaluation Post Anesthesia Evaluation Date of Service: 07/26/24 Vital Signs: Vital Signs Temp Pulse Resp BP Pulse Ox O2 Del Method 07/26/24 07:00 98.8 F 99 18 91/57 L 92 Room Air 07/26/24 02:47 97.4 F 84 18 102/60 96 Room Air 07/25/24 23:24 98.4 F 75 18 100/58 L 93 Room Air Anesthesia: Spinal Mental Status: Awake Pain Control: Satisfactory Nausea/Vomiting: None Hydration: Adequate Anesthesia-Related Issues: No Anes. Related Issues
[2024-07-26 08:12] LABS: MANUAL DIFF FLAG NO
[2024-07-26 08:16] LABS: Basophils Percent Auto 0.4 % (0-2); Eosinophils Percent Auto 0.2 % (0-4); Hematocrit 28.2 % (42.0-52.0); Hemoglobin 9.8 g/dl (14.0-18.0); Imm Gran Abs Auto 0.03 X10*3/uL (0.00-0.03); Imm Gran Pct Auto 0.6 % (0.0-0.4); Lymphocytes Absolute Auto 0.8 X10*3/uL (1.2-4.9); Lymphocytes Percent Auto 16.4 % (20-40); Mean Corpuscular HGB Conc 34.8 g/dl (31.0-36.0); Mean Corpuscular Hemoglobin 33.6 pg (27.0-33.0); Mean Corpuscular Volume 96.6 fL (80.0-98.0); Mean Platelet Volume 11.2 fL (9.4-12.4); Monocytes Absolute Auto 0.8 X10*3/uL (0.1-1.2); Monocytes Percent Auto 14.9 % (2-11); Neutrophils Absolute Auto 3.4 x10*3/uL (2.0-8.3); Neutrophils Percent Auto 67.5 % (45-73); Red Blood Count 2.92 X10*6/uL (4.60-5.80); Red Cell Distribution Width 12.6 % (11.0-16.0); White Blood Count 5.1 X10*3/uL (4.8-10.8)
[2024-07-26 08:17] LABS: Platelet Count 70 X10*3/uL (160-400)
[2024-07-26 08:32] LABS: Anion Gap 10 (12-20); Blood Urea Nitrogen 8 mg/dL (9-16); Calcium 7.5 mg/dL (8.4-10.2); Carbon Dioxide 26 mmol/L (22-29); Chloride 99 mmol/L (96-108); Creatinine Clr Calc Pharmacy 160.1; Estimated Glomerular Filt Rate > 60; Glucose Random 132 mg/dL (60-115); Potassium 3.2 mmol/L (3.3-5.1); Sodium 132 mmol/L (135-145)
[2024-07-26] MEDS: FLUoxetine HCl 10 MG CAPSULE PO (09:22)
[2024-07-26] MEDS: 0.9 % Sodium Chloride Flush 3 ML SYRINGE IVFLUSH (09:22)
[2024-07-26] MEDS: Acetaminophen 325 MG TABLET 975 MG PO ×2 (09:22→16:55)
[2024-07-26] MEDS: carvediloL 6.25 MG TABLET PO (09:23)
[2024-07-26] MEDS: Morphine Sulfate 2 MG/ML CARTRIDGE IVPUSH (09:23)
[2024-07-26] MEDS: Thiamine HCL 100 MG TABLET PO (09:23)
[2024-07-26] MEDS: PHENobarbitaL 15 MG TABLET 45 MG PO (09:23)
[2024-07-26] MEDS: QUEtiapine Fumarate 25 MG TABLET PO ×2 (09:23→22:01)
--- NOTE | 2024-07-26 10:00 | PM.PNORT ---
Subjective Subjective Date of Service: 07/26/24 Interval history: Postop day 1 status post right hip IM nail Patient in bed this morning, reports he is in significant pain in his lower back and bilateral lower extremities Patient reports that this pain is baseline, but he does have increased pain in his right hip Patient refused to work with physical therapy this morning due to pain Of note, patient has only been receiving Tylenol for pain, as the morphine he had ordered was contraindicated due to hypotension No other acute complaints or concerns at this time Physical Exam Vital Signs: Vital Signs: Last Vital Signs Temp 98.8 F 07/26/24 07:00 Pulse 99 07/26/24 09:23 Resp 18 07/26/24 07:00 BP 100/65 07/26/24 09:23 Pulse Ox 92 07/26/24 07:00 O2 Del Method Room Air 07/26/24 07:00 O2 Flow Rate 3 07/25/24 17:15 BMI result Body Mass Index 29.2 Extrem: Other: Distal dressing just proximal to the patient's right knee is noted to be saturated, and there is significant blood on the bed sheet Other Dressings on left hip clean, dry, intact No evidence of surrounding erythema, ecchymosis No evidence of infection Patient is able to flex and extend the digits of the left foot without difficulty Patient does have tenderness to palpation of the right calf, but reports that this is baseline and has been going on for years There is also noted to be significant bilateral lower extremity edema, again patient reports this is baseline Distal sensation intact Capillary refill brisk Procedures Date of Service Date of Service: 07/26/24 Progress Note: A&P Assessment and plan (1) Intertrochanteric fracture of right hip: Status: Acute (2) Atrial fibrillation with RVR: Status: Acute (3) Alcohol withdrawal: Status: Acute Plan 1. Status post right hip IM nail Distal dressing changed Continue pain management, consider changes to pain medication per Medicine due to hypotension and inability to tolerate morphine due to this Begin Lovenox for DVT prophylaxis Continue monitoring of dressings for signs of saturation Patient is encouraged to work with PT and OT, patient states he will do so when his pain is under better control Dispo planning-PT/OT eval, medical clearance, pain management Continue with all other recommendations per Medicine Time Spent With Patient Time: Total time managing care of this patient today ____ minutes. Quality Stroke Does the patient have a stroke diagnosis?: No VTE Prior VTE?: No VTE Risk Level:: Medical - moderate - high VTE Device Contraindication: N/A - Device Ordered VTE Drug Contraindication: Treatment Not Indicated
[2024-07-26] MEDS: Lactated Ringers 1,000 ML 100 ML IVCONT (10:51)
[2024-07-26] MEDS: Potassium Chloride Packet 20 MEQ PACKET 40 MEQ PO (11:26)
--- NOTE | 2024-07-26 12:42 | P.PNIM_ITS ---
Subjective Subjective Date of Service: 07/26/24 Interval History: seen and evaluated this morning post OP day 1 complaining of pain BP soft denies fever or chills no other events Review of Systems Review of Systems: Yes all other systems are reviewed and are negative Physical Exam 2 Vital Signs: Vital Signs: Last Vital Signs Temp 98.0 F 07/26/24 11:12 Pulse 113 H 07/26/24 11:12 Resp 18 07/26/24 11:12 BP 96/52 L 07/26/24 11:12 Pulse Ox 92 07/26/24 11:12 O2 Del Method Room Air 07/26/24 11:12 O2 Flow Rate 3 07/25/24 17:15 BMI result Body Mass Index 29.2 Const: Other: Constitutional : Awake, interactive, anxious about pain Neck : Normal inspection, Supple Cardiovascular : RRR, no JVP, no lower extremity edema Respiratory : good bilateral air entry, no crackles, wheezes or rhonchi Gastrointestinal: soft, lax, Normal bowel sounds, Non tender extremities: RLE surgical wound covered with dressing Skin : Warm, Dry Neurological : Alert & oriented x3, No focal defici, mild tremor Objective Data Active Medications Acetaminophen (Acetaminophen 325 Mg Tablet) 975 mg PO QSHIFT [facility] Last Admin: 07/26/24 09:22 Dose: 975 mg Documented By: MEHDI Calcium Carbonate (Calcium Carbonate 750 Mg Tab.Chew) 750 mg PO Q4H PRN PRN Reason: Heartburn Carvedilol (Carvedilol 6.25 Mg Tablet) 6.25 mg PO BID [facility]; Protocol Last Admin: 07/26/24 09:23 Dose: 6.25 mg Documented By: MEHDI Enoxaparin Sodium (Enoxaparin Sodium 40 Mg/0.4 Ml Syringe) 40 mg SUBCUT Q24H [facility] Fluoxetine HCl (Fluoxetine Hcl 10 Mg Capsule) 10 mg PO DAILY [facility] Last Admin: 07/26/24 09:22 Dose: 10 mg Documented By: MEHDI Diltiazem HCl 125 mg/ Sodium (Chloride) 125 mls @ 0 mls/hr IVCONT .Q0M [facility]; Protocol Magnesium Hydroxide (Milk Of Magnesia 30 Ml Oral.Susp) 30 ml PO DAILY PRN PRN Reason: Constipation Melatonin (Melatonin 3 Mg Tablet) 6 mg PO BEDTIME PRN PRN Reason: Insomnia Morphine Sulfate (Morphine Sulfate 4 Mg/Ml Cartridge) 4 mg IVPUSH Q4H PRN; Protocol PRN Reason: Pain, Severe (Pain Scale 7-10) Last Admin: 07/25/24 20:50 Dose: 4 mg Documented By: JUAN R Naloxone HCl (Naloxone Hcl 0.4 Mg/Ml Vial) 0.04 mg IVPUSH Q5M PRN PRN Reason: Excessive sedation or RR < 8 Ondansetron HCl (Ondansetron Hcl 4 Mg/2 Ml Vial) 4 mg IVPUSH Q8H PRN PRN Reason: Nausea and Vomiting Last Admin: 07/24/24 21:02 Dose: 4 mg Documented By: SUNI Pharmacy Consult (Consult Rx Etoh Phenob Im/Po) 1 each MISCELLANE ONCE PRN; Protocol PRN Reason: Consult order Phenobarbital (Phenobarbital 15 Mg Tablet) 45 mg PO BID [facility]; Protocol Stop: 07/26/24 21:01 Last Admin: 07/26/24 09:23 Dose: 45 mg Documented By: MEHDI Phenobarbital (Phenobarbital 30 Mg Tablet) 30 mg PO BID [facility]; Protocol Stop: 07/28/24 21:01 Phenobarbital (Phenobarbital 30 Mg Tablet) 30 mg PO DAILY [facility]; Protocol Stop: 07/30/24 09:01 Quetiapine Fumarate (Quetiapine Fumarate 25 Mg Tablet) 25 mg PO BID [facility] Last Admin: 07/26/24 09:23 Dose: 25 mg Documented By: MEHDI Sodium Chloride (0.9 % Sodium Chloride Flush 3 Ml Syringe) 3 ml IVFLUSH QSHIFT [facility] Last Admin: 07/26/24 09:22 Dose: 3 ml Documented By: MEHDI Thiamine HCl (Thiamine Hcl 100 Mg Tablet) 100 mg PO DAILY [facility] Last Admin: 07/26/24 09:23 Dose: 100 mg Documented By: MEHDI Labs 07/26/24 07:40 07/26/24 07:40 Labs: Laboratory Results - last 24 hr 07/26/24 07:40 MCV 96.6 MCH 33.6 H MCHC 34.8 RDW 12.6 Plt Count 70 L MPV 11.2 Immature Gran % (Auto) 0.6 H Neut % (Auto) 67.5 Lymph % (Auto) 16.4 L [place] % (Auto) 14.9 H Eos % (Auto) 0.2 Baso % (Auto) 0.4 Lymph # (Auto) 0.8 L [place] # (Auto) 0.8 Eos # (Auto) 0.0 Baso # (Auto) 0.0 Abs Immat Gran (auto) 0.03 Absolute Neuts (auto) 3.4 Absolute Nucleated RBC 0.000 Nucleated RBC % (auto) 0.0 Anion Gap 10 L Estim Creat Clear Calc 160.1 Estimated GFR > 60 Random Glucose 132 H Calcium 7.5 L Assessment and Plan (1) Acute hypokalemia: Status: Acute (2) Intertrochanteric fracture of right hip: Status: Acute (3) Atrial fibrillation with RVR: Status: Acute (4) Closed hip fracture: Status: Acute Plan A 63 years old male with PMH of alcohol abuse, Afib not on AC, HFrEF, cirrhosis among others who presents to ED after falling home at night and found to have hip fracture Right hip fracture 2/2 fall POD1 Orthopedic following Morphine PRN for pain start PT as tolerated diet advance as toelrated AFib w RvR rate better controlled but remains elevated Echo ordered PO Carvedilol , increased to 12.5 bid but BP soft lowered to 6.25 Cardizem drip ordered overnight but on hold now not on blood thinners acute on chronic anemia Hb of 9.8 from 13 on admission dilutional and blood loss in surgery follow H&H Transfused if <8 Acute hyponatremia 2/2 decrease PO intake encourage PO and repeat Hypotension post surgical, anesthesia related , blood loss not due sepsis give IVF and avoid hypotensive agens monitor BP Acute Hypokalemia replacement IV and PO for now follow BMP Acute hypomagnesemia related to alcohol abuse improved after replacement follow BMP Acute Lactic acidosis related to alcoholism, rhabdo and dehydration give more fluids and recheck Alcohol abuse and withdrawal CIWA protocol continue Phenobarb Elevated CPK no evidence of acute kidney injury IVF and monitor Hx HFrEF Hold spironolactone rechcek Echo DVT PPx Lovenox post op The patient will need overnight hospital stay post surgical intervention for hip fracutre and close cardiac monitoring for Afib RbvR on CIWA and phenobarb protocol for alcohol withdrawal Quality Stroke Does the patient have a stroke diagnosis?: No VTE Prior VTE?: No VTE Risk Level:: Medical - moderate - high VTE Device Contraindication: N/A - Device Ordered VTE Drug Contraindication: Treatment Not Indicated
[2024-07-26] MEDS: Enoxaparin Sodium 40 MG/0.4 ML SYRINGE SUBCUT (12:51)
[2024-07-26] MEDS: Lactated Ringers 1,000 ML 80 ML IVCONT ×2 (12:52→22:40)
[2024-07-26 13:04] LABS: Magnesium 1.5 mg/dL (1.6-2.6)
[2024-07-26] MEDS: Midodrine HCl 5 MG TABLET PO (17:11)
[2024-07-26] MEDS: Acetaminophen 1,000 MG/100 ML PIGGYBACK 400 MG IV (21:08)
[2024-07-26] MEDS: Albumin Human 25 % 100 ML 133.33 ML IV ×2 (21:59→22:40)
[2024-07-26 22:01] LABS: Lactic Acid 1.8 mmol/L (0.5-2.0)
[2024-07-27] VITALS (11 sets, daily range): BP systolic 93–122; BP diastolic 56–71; PULSE 78–116; RESP 16–20; TEMP 36.9–37.9; O2SAT 93–96
[2024-07-27] MEDS: Thiamine HCL 100 MG TABLET PO (08:25)
[2024-07-27] MEDS: Acetaminophen 325 MG TABLET 975 MG PO ×2 (08:25→23:50)
[2024-07-27] MEDS: Midodrine HCl 5 MG TABLET PO ×3 (08:25→15:19)
[2024-07-27] MEDS: carvediloL 6.25 MG TABLET PO ×2 (08:25→20:20)
[2024-07-27] MEDS: FLUoxetine HCl 10 MG CAPSULE PO (08:25)
[2024-07-27] MEDS: 0.9 % Sodium Chloride Flush 3 ML SYRINGE IVFLUSH ×3 (08:25→20:23)
[2024-07-27] MEDS: QUEtiapine Fumarate 25 MG TABLET PO ×2 (08:25→20:17)
[2024-07-27] MEDS: Milk of Magnesia 30 ML ORAL.SUSP PO (08:27)
[2024-07-27 10:06] LABS: Hematocrit 27.8 % (42.0-52.0); Hemoglobin 9.5 g/dl (14.0-18.0); Mean Corpuscular HGB Conc 34.2 g/dl (31.0-36.0); Mean Corpuscular Hemoglobin 33.2 pg (27.0-33.0); Mean Corpuscular Volume 97.2 fL (80.0-98.0); Platelet Count 89 X10*3/uL (160-400); Red Blood Count 2.86 X10*6/uL (4.60-5.80); Red Cell Distribution Width 12.8 % (11.0-16.0); White Blood Count 5.2 X10*3/uL (4.8-10.8)
--- NOTE | 2024-07-27 10:07 | PM.PNORT ---
Subjective Subjective Date of Service: 07/27/24 Interval history: Postop day 2 status post right hip IM nail Patient in bed this morning, reports he is in significant pain in his lower back and bilateral lower extremities Patient reports that this pain is baseline, but he does have increased pain in his right hip Patient refused to work with physical therapy this morning due to pain Of note, patient has only been receiving Tylenol for pain, as the morphine he had ordered was contraindicated due to hypotension No other acute complaints or concerns at this time Physical Exam Vital Signs: Vital Signs: Last Vital Signs Temp 98.9 F 07/27/24 07:28 Pulse 93 07/27/24 09:25 Resp 16 07/27/24 07:28 BP 111/71 07/27/24 09:25 Pulse Ox 95 07/27/24 09:25 O2 Del Method Room Air 07/27/24 07:28 O2 Flow Rate 3 07/25/24 17:15 BMI result Body Mass Index 29.2 Extrem: Other: Dressings on left hip clean, dry, intact No evidence of surrounding erythema, ecchymosis No evidence of infection Patient is able to flex and extend the digits of the left foot without difficulty Patient does have tenderness to palpation of the right calf, but reports that this is baseline and has been going on for years There is also noted to be significant bilateral lower extremity edema, again patient reports this is baseline Distal sensation intact Capillary refill brisk Procedures Date of Service Date of Service: 07/27/24 Progress Note: A&P Assessment and plan (1) Intertrochanteric fracture of right hip: Status: Acute (2) Atrial fibrillation with RVR: Status: Acute (3) Alcohol withdrawal: Status: Acute Plan 1. Status post right hip IM nail Distal dressing changed Continue pain management, consider changes to pain medication per Medicine due to hypotension and inability to tolerate morphine due to this Continue Lovenox for DVT prophylaxis Continue monitoring of dressings for signs of saturation Continue PT/OT Dispo planning-PT/OT eval, medical clearance, pain management Continue with all other recommendations per Medicine Time Spent With Patient Time: Total time managing care of this patient today ____ minutes. Quality Stroke Does the patient have a stroke diagnosis?: No VTE Prior VTE?: No VTE Risk Level:: Medical - moderate - high VTE Device Contraindication: N/A - Device Ordered VTE Drug Contraindication: Treatment Not Indicated
[2024-07-27 10:27] LABS: Anion Gap 12 (12-20); Blood Urea Nitrogen 7 mg/dL (9-16); Calcium 8.1 mg/dL (8.4-10.2); Carbon Dioxide 26 mmol/L (22-29); Chloride 103 mmol/L (96-108); Creatinine Clr Calc Pharmacy 166.6; Estimated Glomerular Filt Rate > 60; Glucose Random 131 mg/dL (60-115); Magnesium 1.6 mg/dL (1.6-2.6); Potassium 3.3 mmol/L (3.3-5.1); Sodium 138 mmol/L (135-145)
--- NOTE | 2024-07-27 11:54 | P.PNIM_ITS ---
Subjective Subjective Date of Service: 07/27/24 Interval History: seen and evaluated this morning post OP day 2 complaining of pain BP soft but better denies fever or chills no other events Review of Systems Review of Systems: Yes all other systems are reviewed and are negative Physical Exam 2 Vital Signs: Vital Signs: Last Vital Signs Temp 98.4 F 07/27/24 11:34 Pulse 90 07/27/24 11:34 Resp 17 07/27/24 11:34 BP 102/61 07/27/24 11:34 Pulse Ox 95 07/27/24 11:34 O2 Del Method Room Air 07/27/24 11:34 O2 Flow Rate 3 07/25/24 17:15 BMI result Body Mass Index 29.2 Const: Other: Constitutional : Awake, interactive, anxious about pain Neck : Normal inspection, Supple Cardiovascular : RRR, no JVP, no lower extremity edema Respiratory : good bilateral air entry, no crackles, wheezes or rhonchi Gastrointestinal: soft, lax, Normal bowel sounds, Non tender extremities: RLE surgical wound covered with dressing Skin : Warm, Dry Neurological : Alert & oriented x3, No focal defici, mild tremor Objective Data Active Medications Acetaminophen (Acetaminophen 325 Mg Tablet) 975 mg PO QSHIFT [facility] Last Admin: 07/27/24 08:25 Dose: 975 mg Documented By: KELLY Calcium Carbonate (Calcium Carbonate 750 Mg Tab.Chew) 750 mg PO Q4H PRN PRN Reason: Heartburn Carvedilol (Carvedilol 6.25 Mg Tablet) 6.25 mg PO BID [facility]; Protocol Last Admin: 07/27/24 08:25 Dose: 6.25 mg Documented By: KELLY Enoxaparin Sodium (Enoxaparin Sodium 40 Mg/0.4 Ml Syringe) 40 mg SUBCUT Q24H [facility] Last Admin: 07/26/24 12:51 Dose: 40 mg Documented By: REAL Fluoxetine HCl (Fluoxetine Hcl 10 Mg Capsule) 10 mg PO DAILY [facility] Last Admin: 07/27/24 08:25 Dose: 10 mg Documented By: KELLY Diltiazem HCl 125 mg/ Sodium (Chloride) 125 mls @ 0 mls/hr IVCONT .Q0M [facility]; Protocol Lactated Ringer's (Lr) 1,000 mls @ 80 mls/hr IVCONT .[id number] [facility] Last Admin: 07/26/24 22:40 Dose: 80 mls/hr Documented By: CALLUM Magnesium Hydroxide (Milk Of Magnesia 30 Ml Oral.Susp) 30 ml PO DAILY PRN PRN Reason: Constipation Last Admin: 07/27/24 08:27 Dose: 30 ml Documented By: KELLY Melatonin (Melatonin 3 Mg Tablet) 6 mg PO BEDTIME PRN PRN Reason: Insomnia Midodrine (Midodrine Hcl 5 Mg Tablet) 5 mg PO TIDWM [facility] Last Admin: 07/27/24 08:25 Dose: 5 mg Documented By: KELLY Morphine Sulfate (Morphine Sulfate 4 Mg/Ml Cartridge) 4 mg IVPUSH Q4H PRN; Protocol PRN Reason: Pain, Severe (Pain Scale 7-10) Last Admin: 07/25/24 20:50 Dose: 4 mg Documented By: JUAN R Naloxone HCl (Naloxone Hcl 0.4 Mg/Ml Vial) 0.04 mg IVPUSH Q5M PRN PRN Reason: Excessive sedation or RR < 8 Ondansetron HCl (Ondansetron Hcl 4 Mg/2 Ml Vial) 4 mg IVPUSH Q8H PRN PRN Reason: Nausea and Vomiting Last Admin: 07/24/24 21:02 Dose: 4 mg Documented By: SUNI Oxycodone HCl (Oxycodone Hcl Immed Release 5 Mg Tablet) 5 mg PO Q4H PRN PRN Reason: Pain, Moderate(Pain Scale 4-6) Pharmacy Consult (Consult Rx Etoh Phenob Im/Po) 1 each MISCELLANE ONCE PRN; Protocol PRN Reason: Consult order Phenobarbital (Phenobarbital 30 Mg Tablet) 30 mg PO BID [facility]; Protocol Stop: 07/28/24 21:01 Last Admin: 07/27/24 08:24 Dose: Not Given Documented By: KELLY Non-Admin Reason: Decreased Blood Pressure Phenobarbital (Phenobarbital 30 Mg Tablet) 30 mg PO DAILY [facility]; Protocol Stop: 07/30/24 09:01 Quetiapine Fumarate (Quetiapine Fumarate 25 Mg Tablet) 25 mg PO BID [facility] Last Admin: 07/27/24 08:25 Dose: 25 mg Documented By: KELLY Sodium Chloride (0.9 % Sodium Chloride Flush 3 Ml Syringe) 3 ml IVFLUSH QSHIFT [facility] Last Admin: 07/27/24 08:25 Dose: 3 ml Documented By: KELLY Thiamine HCl (Thiamine Hcl 100 Mg Tablet) 100 mg PO DAILY [facility] Last Admin: 07/27/24 08:25 Dose: 100 mg Documented By: KELLY Labs 07/27/24 09:29 07/27/24 09:29 Labs: Laboratory Results - last 24 hr 07/26/24 07/26/24 07/27/24 07:40 21:19 09:29 MCV 97.2 MCH 33.2 H MCHC 34.2 RDW 12.8 Plt Count 89 L D MPV 11.0 Absolute Nucleated RBC 0.000 Nucleated RBC % (auto) 0.0 Anion Gap 12 Estim Creat Clear Calc 166.6 Estimated GFR > 60 Random Glucose 131 H Lactic Acid 1.8 Calcium 8.1 L D Magnesium 1.5 L 1.6 Assessment and Plan (1) Acute hypokalemia: Status: Acute (2) Intertrochanteric fracture of right hip: Status: Acute (3) Atrial fibrillation with RVR: Status: Acute (4) Hypomagnesemia: Status: Acute Plan A 63 years old male with PMH of alcohol abuse, Afib not on AC, HFrEF, cirrhosis among others who presents to ED after falling home at night and found to have hip fracture Right hip fracture 2/2 fall POD2 Orthopedic following Morphine and Oxycodone PRN for pain PT as tolerated diet advance as toelrated AFib w RvR rate better controlled but remains elevated Echo ordered PO Carvedilol 6.25 bid Cardizem drip dcd not on blood thinners acute on chronic anemia Hb of 9.5 from 13 on admission, dilutional and blood loss in surgery follow H&H Transfused if <8 Acute hyponatremia encourage PO and repeat , resolved Hypotension post surgical, anesthesia related , blood loss not due sepsis give IVF and avoid hypotensive agens on Midodrine monitor BP Acute Hypokalemia replacement and resolved follow BMP Acute hypomagnesemia related to alcohol abuse, improved after replacement Acute Lactic acidosis related to alcoholism, rhabdo and dehydration improved Alcohol abuse and withdrawal CIWA protocol, score of 0. continue Phenobarb Elevated CPK no evidence of acute kidney injury Hx HFrEF Hold spironolactone rechcek Echo DVT PPx Lovenox post op The patient will need overnight hospital stay post surgical intervention for hip fracutre and close cardiac monitoring for Afib RbvR on CIWA and phenobarb protocol for alcohol withdrawal Quality Stroke Does the patient have a stroke diagnosis?: No VTE Prior VTE?: No VTE Risk Level:: Medical - moderate - high VTE Device Contraindication: N/A - Device Ordered VTE Drug Contraindication: Treatment Not Indicated
[2024-07-27] MEDS: oxyCODONE HCl Immed Release 5 MG TABLET PO ×2 (11:56→20:17)
--- NOTE | 2024-07-27 15:14 | MHC.CM.PN ---
Pt completed HCP today, naming his brother Tim. DCP is for him to transfer to [facility] for STR on 07/27/24.
[2024-07-27] MEDS: Enoxaparin Sodium 40 MG/0.4 ML SYRINGE SUBCUT (15:18)
--- NOTE | 2024-07-27 18:23 | P.CDIM_ITS ---
PROVIDER RESPONSE TEXT: To clarify, the appropriate diagnosis supported by the clinical indicators: Pancytopenia: possible QUERY TEXT: PHYSICIAN'S DOCUMENTATION REQUEST Date of Query: 07/25/2024 07:56 AM EDT Patient Name: Wei Wang Admit Date: 07/24/2024 Dear Darcy Martin MD, A review of the medical record indicates additional documentation may be needed. Please review below and update the documentation accordingly. Clinical Indicators: LABS: WBC 2.8 RBC 3.16 PLT 61 L Chronic alcohol use, cirrhosis. Based on the above, could you clarify if there is a diagnosis that correlates with these findings? Pancytopenia possible, probable, suspected, cannot rule out etc. Other specified diagnosis Other (explain) Clinically unable to determine (explain) Thank you, Phoebe Healy, CCS, CDIS Use of terms such as suspected, likely, concern for, or probable (associated with a specific diagnosi s that is being evaluated, monitored, or treated as if it exists) are acceptable and can be coded in the inpatient se tting, when documented at the time of discharge. Please use your independent medical judgment in providing your response. THIS QUERY IS PART OF THE PERMANENT MEDICAL RECORD
[2024-07-27] MEDS: PHENobarbitaL 30 MG TABLET PO (20:18)
[2024-07-28] MEDS: oxyCODONE HCl Immed Release 5 MG TABLET PO ×3 (03:16→12:25)
[2024-07-28 03:32] VITALS: BP 105/62; PULSE 101; RESP 20; TEMP 36.5; O2SAT 96
[2024-07-28] MEDS: PHENobarbitaL sodium 130 MG/ML VIAL IM (03:48)
[2024-07-28 06:23] LABS: MANUAL DIFF FLAG NO
[2024-07-28 06:27] LABS: Basophils Percent Auto 0.7 % (0-2); Eosinophils Absolute Auto 0.1 X10*3/uL (0.0-0.4); Eosinophils Percent Auto 2.4 % (0-4); Hematocrit 26.1 % (42.0-52.0); Hemoglobin 8.9 g/dl (14.0-18.0); Imm Gran Abs Auto 0.02 X10*3/uL (0.00-0.03); Imm Gran Pct Auto 0.5 % (0.0-0.4); Lymphocytes Absolute Auto 0.8 X10*3/uL (1.2-4.9); Lymphocytes Percent Auto 18.4 % (20-40); Mean Corpuscular HGB Conc 34.1 g/dl (31.0-36.0); Mean Corpuscular Hemoglobin 33.5 pg (27.0-33.0); Mean Corpuscular Volume 98.1 fL (80.0-98.0); Mean Platelet Volume 10.1 fL (9.4-12.4); Monocytes Absolute Auto 0.5 X10*3/uL (0.1-1.2); Monocytes Percent Auto 12.5 % (2-11); Neutrophils Absolute Auto 2.8 x10*3/uL (2.0-8.3); Neutrophils Percent Auto 65.5 % (45-73); Red Blood Count 2.66 X10*6/uL (4.60-5.80); Red Cell Distribution Width 12.9 % (11.0-16.0); White Blood Count 4.3 X10*3/uL (4.8-10.8)
[2024-07-28 06:31] LABS: Platelet Count 94 X10*3/uL (160-400)
[2024-07-28 06:43] LABS: Anion Gap 9 (12-20); Blood Urea Nitrogen 9 mg/dL (9-16); Calcium 7.7 mg/dL (8.4-10.2); Carbon Dioxide 28 mmol/L (22-29); Chloride 103 mmol/L (96-108); Creatinine Clr Calc Pharmacy 160.1; Estimated Glomerular Filt Rate > 60; Glucose Random 105 mg/dL (60-115); Potassium 3.2 mmol/L (3.3-5.1); Sodium 137 mmol/L (135-145)
[2024-07-28 07:12] VITALS: BP 107/70; PULSE 90; RESP 20; TEMP 37.4; O2SAT 96
[2024-07-28] MEDS: Acetaminophen 325 MG TABLET 975 MG PO (08:08)
[2024-07-28] MEDS: Midodrine HCl 5 MG TABLET PO ×2 (08:08→12:26)
[2024-07-28] MEDS: FLUoxetine HCl 10 MG CAPSULE PO (08:08)
[2024-07-28] MEDS: carvediloL 6.25 MG TABLET PO (08:08)
[2024-07-28] MEDS: 0.9 % Sodium Chloride Flush 3 ML SYRINGE IVFLUSH ×2 (08:09→12:26)
[2024-07-28] MEDS: QUEtiapine Fumarate 25 MG TABLET PO (08:09)
[2024-07-28] MEDS: Thiamine HCL 100 MG TABLET PO (08:09)
[2024-07-28] MEDS: PHENobarbitaL 30 MG TABLET PO (08:09)
--- NOTE | 2024-07-28 10:15 | MHC.CM.PN ---
Per MD, Patient is medically cleared for dc to SNF/STR today. Patient will dc to [facility] today at 2PM, via [facility](Unable to get [facility] transport auth on the weekend). CM addressed IMM with Patient and the original was given to him and a copy has been placed on the chart. CM spoke with Brother/HCP/Tim @ [phone], and informed him of the dc plan.
[2024-07-28] MEDS: Potassium Chloride ER 20 MEQ TAB.ER.PRT 40 MEQ PO (10:21)
[2024-07-28 10:58] VITALS: BP 160/71; PULSE 104; RESP 20; TEMP 37.4; O2SAT 95
[2024-07-28] MEDS: Enoxaparin Sodium 40 MG/0.4 ML SYRINGE SUBCUT (12:25)
[2024-07-28 12:26] VITALS: BP 93/65
--- NOTE | 2024-07-28 14:06 | PM.DS ---
DS: Providers Provider Date of Service: 07/28/24 Date of admission: 07/24/24 12:20 Date of discharge: 07/28/24 Primary care physician: Robert Nelson MD Consults: 07/24/24 12:14 Consult to Orthopedics Routine Consulting Provider: [facility] Reason for consultation: Hip fracture 07/25/24 09:54 Consult to Cardiology Routine Consulting Provider: [facility] Reason for consultation: pre-op eval DS: Diagnosis Discharge Diagnosis (1) Acute hypokalemia: Status: Acute (2) Intertrochanteric fracture of right hip: Status: Acute (3) Atrial fibrillation with RVR: Status: Acute (4) Hypomagnesemia: Status: Acute (5) Closed hip fracture: Status: Acute (6) Atrial fibrillation with rapid ventricular response: Status: Acute (7) Hyponatremia: Status: Acute (8) Acute lactic acidosis: Status: Acute (9) Acute on chronic blood loss anemia: Status: Acute DS: Summary Hospital Course Hospital Course: Admission note HPI A 63 years old male with PMH of alcohol abuse, Afib not on AC, HFrEF, cirrhosis among others who presents to ED after falling home at night and found to have hip fracture The patient reports he tripped and fell at home last night as he was little unsteady after having few beers like he does often. He was on the floor until this morning when his LAW CLERK found home as he could not move or call for help. reports severe pain in right hip with intertrochanteric fracture. In ER found to be in Afib w RvR responded to IV Cardizem. Lactic acid elevated, CK elevated. Has low Mg as well which was corrected. Will be admitted pending surgical intervention and treatment of alcohol withdrawal and control Afib. Hospital course # Right hip fracture 2/2 fall who had right hip IM nail by ORthopedic team on 07/25. Orthopedic followed him and he is supposed to follow as outpatient in 2 weeks. Oxycodone PRN for pain. PT at nursing facility. # AFib w RvR rate better controlled but remains elevated on Carvedilol. Echo ordered as part of [place]-op eval showing EF of 55-60%. Had Cardizem drip breifly then kept on PO Carvedilol 6.25 bid. He is not on blood thinners # acute on chronic anemia. Hb of 9.5 from 13 on admission, dilutional and blood loss in surgery. no need for transfusion. To keep on Iron replacement on discharge. # Acute hyponatremia, resolved. encourage PO intake # Hypotension, post surgical, anesthesia related , blood loss not due sepsis. given IVF and avoid hypotensive agents. Started on Midodrine with good response. # Acute Hypokalemia. replaced and resolved # Acute hypomagnesemia . related to alcohol abuse, improved after replacement # Acute Lactic acidosis . related to alcoholism, rhabdo and dehydration. improved. # Alcohol abuse and withdrawal . CIWA protocol, score of 0. Placed on Phenobarb protocol while inpatient. # Elevated CPK. no evidence of acute kidney injury. improved with fluids. Discharge plan Iron supplement Oxycodone for pain Midodrine to support blood pressure, can be weaned off Physical therapy as tolerated ood pressure, can be weaned off Physical therapy as toelrated The patient will likely need less than 30 days of SNF stay. Time Attestation Discharge Coordination Time (in mins): 42 Quality: Safe Use of Opioids Does Pt have an Active Cancer Diagnosis on the Problem List?: No Quality: Stroke Does the patient have a stroke diagnosis?: No Physical Exam Vital Signs: Vital Signs: Last Vital Signs Temp 99.4 F 07/28/24 10:58 Pulse 104 H 07/28/24 10:58 Resp 20 07/28/24 10:58 BP 93/65 07/28/24 12:26 Pulse Ox 95 07/28/24 10:58 O2 Del Method Room Air 07/28/24 10:58 O2 Flow Rate 3 07/25/24 17:15 BMI result Body Mass Index 29.2 Const: Other: Constitutional : Awake, interactive, anxious about pain Neck : Normal inspection, Supple Cardiovascular : RRR, no JVP, no lower extremity edema Respiratory : good bilateral air entry, no crackles, wheezes or rhonchi Gastrointestinal: soft, lax, Normal bowel sounds, Non tender extremities: RLE surgical wound covered with dressing Skin : Warm, Dry Neurological : Alert & oriented x3, No focal defici, mild tremor DS: Data Data Completed and Pending Completed studies during hospitalization [Text1]: Procedures Detoxification Services for Substance Abuse Treatment (09/01/20) Repair Scalp Skin, External Approach (08/14/20) Labs on day of discharge: Laboratory Results - last 24 hr 07/28/24 06:05 WBC 4.3 L RBC 2.66 L Hgb 8.9 L Hct 26.1 L MCV 98.1 H MCH 33.5 H MCHC 34.1 RDW 12.9 Plt Count 94 L MPV 10.1 Immature Gran % (Auto) 0.5 H Neut % (Auto) 65.5 Lymph % (Auto) 18.4 L [place] % (Auto) 12.5 H Eos % (Auto) 2.4 Baso % (Auto) 0.7 Lymph # (Auto) 0.8 L [place] # (Auto) 0.5 Eos # (Auto) 0.1 Baso # (Auto) 0.0 Abs Immat Gran (auto) 0.02 Absolute Neuts (auto) 2.8 Absolute Nucleated RBC 0.000 Nucleated RBC % (auto) 0.0 Sodium 137 Potassium 3.2 L Chloride 103 Carbon Dioxide 28 Anion Gap 9 L BUN 9 Creatinine 0.52 Estim Creat Clear Calc 160.1 Estimated GFR > 60 Random Glucose 105 Calcium 7.7 L Imaging Chest x-ray: Radiologist's impression: ITS Impressions Hip/Pelvis X-Ray 07/24/24 10:51 IMPRESSION: Displaced and overriding intertrochanteric right hip fracture. Electronically signed by: Arthur Sheikh MD 07/24/2024 11:29 AM EDT RP Chest X-Ray 07/24/24 10:52 IMPRESSION: Hyperaerated lung parenchyma suggestive of COPD. No active superimposed disease. Electronically signed by: Arthur Sheikh MD 07/24/2024 11:26 AM EDT RP Cervical Spine CT 07/24/24 11:19 IMPRESSION: Multilevel cervical spondylosis without acute fracture or trauma-related listhesis. Grade 1 retrolisthesis C4-5 in nature. Fleischner guidelines were followed. Electronically signed by: Clemente Win MD 07/24/2024 12:06 PM EDT RP Head CT 07/24/24 11:19 IMPRESSION: No acute fracture, bony calvarium. No acute intracranial hemorrhage. Old traumatic deformities, nasal bones. Prior vascular insult/infarct left LAW CLERK territory. Global cerebral atrophy. Electronically signed by: Clemente Win MD 07/24/2024 11:58 AM EDT RP Guidance Fluoroscopy 07/25/24 14:18 IMPRESSION: Fluoroscopy during procedure. Please see procedure report for additional information. Electronically signed by: Wei Martinez MD 07/25/2024 05:27 PM EDT RP Discharge Plan Discharge Anticipated Discharge Date/Time: 07/28/24 13:15 Patient Disposition: Xfer SNF Discharge Diagnosis: Hip fracture Alcohol abuse and withdrawal Electrolytes imbalance Referrals: [facility] [Outside] - 1 Week Robert Nelson MD [Primary Care Provider] - 1 Week Gibran Vu PA-C [Physician Access Developer] - 08/08/24 10:00 am (08/08/24 10:00am Gibran Vu.) Discharge Medications: New midodrine 5 mg Tablet 5 mg PO TIDWM Qty: 90 0RF oxycodone 5 mg Tablet 5 mg PO Q4H PRN (Reason: Pain, Moderate(Pain Scale 4-6)) Qty: 20 0RF Rx Instructions: Partial Fill upon patient request. ferrous sulfate 325 mg (65 mg iron) tablet 325 mg PO BID Qty: 60 0RF Continued carvedilol 6.25 mg tablet 6.25 mg PO BID thiamine HCl (vitamin B1) 100 mg tablet 100 mg PO DAILY topiramate 25 mg tablet 25 mg PO DAILY spironolactone 25 mg tablet 25 mg PO DAILY fluoxetine 10 mg capsule 10 mg PO DAILY quetiapine 25 mg tablet 25 mg PO BID Discharge Orders: Discharge Order (Routine); Ordered 07/28/24 Ordered By: Darcy Martin Diet: Advance to usual diet Activity on Discharge: As tolerated Stand Alone Forms: Patient Portal Discharge page Print Language: Congolese Activity Restrictions/Additional Instructions: Gait training, strengthening, ADLs Continue Lovenox for dvt ppx x 6 weeks Keep dressing clean, dry and intact-no showering or tub baths Follow up with Orthopedics in 2 weeks Care Plan Goals: Iron supplement Oxycodone for pain Midodrine to support blood pressure, can be weaned off Physical therapy as tolerated Health Concerns: Hip fracture Plan of Treatment: PHysical therapy Assessment: as above
--- NOTE | 2024-07-28 14:23 | MHC.CM.PN ---
DC summary and script for Oxycodone has been sent to [facility] via [employer] and faxed to [phone].
--- NOTE | 2024-08-01 15:00 | W.PM.OPN ---
Operative Note Operative Note Date of Service: 07/25/24 Narrative: Date of Service: 07/25/24 Pre-op diagnosis: RIght hip IT fracture Procedure: Right hip IMN Implants: Chavo [id number] 125 deg with 105mm hip screw and 50mm distal interlock Surgeon: Wil Metz MD Anesthesia: MAC and spinal Was an Sql Database Administrator used for this Procedure?: Yes Sql Database Administrator: Juliana Zafar Estimated blood loss (mL): 150 IV fluids (mL): 750 Pathology: none sent Condition: stable Disposition: PACU Procedure in detail: Patient was brought to the operating room and prepped and draped in standard sterile fashion. Time-out was called to identify proper site procedure proper surgeon and IV antibiotics per weight were administered. She was positioned on the fracture table and a traction and slight internal rotation were performed and biplanar fluoroscopy confirmed initial fracture reduction. I then made a stab incision proximal to the greater trochanter in using a guidewire made a entry point just lateral to the tip of the greater trochanter and placed a guidewire into the femoral metadiaphysis. I then over-reamed with 15 mm Reamer placed my ball-tip guidewire down distally in the femur and measured my length. I selected a 390 x11 125 deg nail and reamed up to a 13. I then inserted the nail. I then turned my attention to the hip screw where I used a guidewire and a tip apex distance of less than 1.5 measured a 105mm hip screw. I then pre drilled and placed a hip screw using biplanar fluoroscopy. Once I was satisfied with the position of the hip screw I turned my attention to the distal aspect of the nail. Using perfect [place] technique I placed 1 static 50mm distal interlocking screw in standard AO technique. I then removed all I then placed my set screw proximally and removed all extraneous instrumentation. Final biplanar radiographs were taken. I was satisfied with the position of the hardware and the fracture reduction. I think copiously irrigated closed with absorbable sutures holly and injected 30 mL of into the area of the incisions. Traction was let down patient was placed in sterile dressing awakened from anesthesia brought to recovery room stable condition there were no known complications.
== END 2024-07-28 14:17 | disposition skilled nursing facility (03) | DRG 481 ==
LOC: HO.ED 12:18 → HO.EDOVER 12:21 → HO.IMC 07-25 07:02
PROVIDERS: Orthopaedic Surgery; Student in an Organized Health Care Education/Training Program; Admitting Provider Student in an Organized Health Care Education/Training Program; Emergency Provider Emergency Medicine; PCP Internal Medicine; Visit Provider Student in an Organized Health Care Education/Training Program
PROC: 0QS636Z Reposition Right Upper Femur with Intramedullary Internal Fixation Device, Percutaneous Approach (ICD-10-PCS; principal; 2024-07-25 13:50)
DX: S72.141A Displaced intertrochanteric fracture of right femur, initial encounter for closed fracture (principal); D61.818 Other pancytopenia; E87.21 Acute metabolic acidosis; I50.22 Chronic systolic (congestive) heart failure; E87.1 Hypo-osmolality and hyponatremia; F10.239 Alcohol dependence with withdrawal, unspecified; I42.9 Cardiomyopathy, unspecified; D62 Acute posthemorrhagic anemia; E87.6 Hypokalemia; F10.229 Alcohol dependence with intoxication, unspecified; I48.91 Unspecified atrial fibrillation; E83.42 Hypomagnesemia; Y90.5 Blood alcohol level of 100-119 mg/100 ml; W19.XXXA Unspecified fall, initial encounter; Z79.899 Other long term (current) drug therapy
CPT/HCPCS: 36415; 70450; 71045; 72125; 73502; 80048; 80053; 80307; 82550; 83605; 83690; 83735; 84484; 85025; 85027; 85610; 85730; 86850; 86900; 86901; 93005; 93306; 97116; 97162; 97166; 97530; 97535; 99285; C1713; J0131; J0690; J1650; J2003; J2250; J2270; J2405; J2560; J2704; J2795; J3010; J3475; J7120; P9047; Q9957

== ENCOUNTER → 2024-07-24 10:33 | Outpatient (BNV) | payer OTHER, SELFPAY | PROVIDERS: Admitting Provider Student in an Organized Health Care Education/Training Program; Emergency Provider Emergency Medicine; PCP Internal Medicine; Visit Provider Internal Medicine Cardiovascular Disease | DX: I48.91 Unspecified atrial fibrillation (principal) | CPT/HCPCS: 93010 ==

== ENCOUNTER → 2024-07-24 10:51 | Outpatient (BNV) | payer OTHER, SELFPAY | PROVIDERS: Emergency Provider Emergency Medicine; PCP Internal Medicine; Visit Provider Radiology Diagnostic Radiology | DX: M25.551 Pain in right hip (principal); I48.91 Unspecified atrial fibrillation; Z03.89 Encounter for observation for other suspected diseases and conditions ruled out; W19.XXXA Unspecified fall, initial encounter | CPT/HCPCS: 70450; 71045; 72125; 73502 ==

== ENCOUNTER 2024-07-24 12:20 | Outpatient (BNV) | payer OTHER, SELFPAY | END 2024-07-25 12:00 | PROVIDERS: Admitting Provider Student in an Organized Health Care Education/Training Program; Emergency Provider Emergency Medicine; PCP Internal Medicine; Visit Provider Internal Medicine Cardiovascular Disease | DX: I51.7 Cardiomegaly (principal) | CPT/HCPCS: 93308 ==

== ENCOUNTER → 2024-07-24 12:20 | Outpatient (BNV) | payer OTHER, SELFPAY | PROVIDERS: Admitting Provider Student in an Organized Health Care Education/Training Program; Emergency Provider Emergency Medicine; PCP Internal Medicine; Visit Provider Internal Medicine Cardiovascular Disease | DX: I48.91 Unspecified atrial fibrillation (principal); Z01.810 Encounter for preprocedural cardiovascular examination | CPT/HCPCS: 99223 ==

== ENCOUNTER → 2024-07-24 12:20 | Outpatient (BNV) | payer OTHER, SELFPAY | PROVIDERS: Admitting Provider Student in an Organized Health Care Education/Training Program; Emergency Provider Emergency Medicine; PCP Internal Medicine; Visit Provider Student in an Organized Health Care Education/Training Program | DX: S72.141A Displaced intertrochanteric fracture of right femur, initial encounter for closed fracture (principal); I48.91 Unspecified atrial fibrillation; S72.001A Fracture of unspecified part of neck of right femur, initial encounter for closed fracture; I42.9 Cardiomyopathy, unspecified; F10.929 Alcohol use, unspecified with intoxication, unspecified | CPT/HCPCS: 99223 ==

== ENCOUNTER → 2024-07-24 12:20 | Outpatient (BNV) | payer OTHER, SELFPAY | PROVIDERS: Admitting Provider Student in an Organized Health Care Education/Training Program; Emergency Provider Emergency Medicine; PCP Internal Medicine; Visit Provider Physician Assistant | DX: S72.141A Displaced intertrochanteric fracture of right femur, initial encounter for closed fracture (principal) | CPT/HCPCS: 99222 ==

== ENCOUNTER 2024-07-28 18:37 | Inpatient (IN) | payer OTHER, SELFPAY ==
[2024-07-28] VITALS (11 sets, daily range): BP systolic 80–113; BP diastolic 53–80; PULSE 106–125; RESP 14–22; TEMP 36.8–38.4; O2SAT 94–97; BMI 32.1
--- NOTE | ~2024-07-28 | XR_ITS ---
CLINICAL HISTORY: SOB 1 view chest x-ray Comparison: CR/SR - XR CHEST 1V - 07/24/24 11:17 EDT Findings: The lungs are clear. Borderline heart size. No acute fracture. IMPRESSION: 1. No acute findings. This document has been electronically signed by: Thuy Hernandez MD on 07/28/2024 20:18:32
--- NOTE | ~2024-07-28 | CT_ITS ---
CLINICAL HISTORY: S p surgery. fever. PE? Pnuemonia? CT angiography chest with contrast. 3D Postprocessing. Comparison: None Findings: The heart is normal size. RV/LV ratio is normal. The thoracic aorta is normal caliber. No acute pulmonary embolus. The visualized thyroid and mediastinum are unremarkable. There is severe gynecomastia. There are small bilateral pleural effusions. Mild adjacent atelectasis. No consolidative process. Findings at the level of the abdomen are reported separately. Severe compression fracture at T12, likely chronic. Mild compression fracture at L1, likely chronic. No acute fracture. IMPRESSION: 1. No evidence of pulmonary artery embolism. 2. There are small bilateral pleural effusions. This document has been electronically signed by: Thuy Hernandez MD on 07/28/2024 20:59:42
--- NOTE | ~2024-07-28 | US_ITS ---
CLINICAL HISTORY: edema pain post operatively Venous duplex ultrasound bilateral lower extremity Comparison: None Findings: The visualized deep veins are fully compressible with normal Doppler color flow and spectral tracings. Incidental note is made of a 4.9 x 1.6 x 3.4 cm right Auguste's cyst. IMPRESSION: 1. Negative for bilateral lower extremity deep vein thrombosis. 2. Incidental note of a 4.9 cm right Auguste's cyst. This document has been electronically signed by: Joy Young on 07/29/2024 09:25:50
--- NOTE | ~2024-07-28 | CT_ITS ---
CLINICAL HISTORY: hip replacement. Hip pain lower abdominal pain. CT abdomen and pelvis with contrast Comparison: None Findings: Findings at the level of the chest are reported separately. There is irregularity of the liver contour. There is a 4 mm cyst within the left lobe of the liver. There is no suspicious liver mass. The spleen is normal in size. 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 The pancreas and adrenal glands are unremarkable. There is a small left kidney cyst. No calculus or hydronephrosis. There is debris within the gallbladder. The gallbladder is poorly distended. There are no calcified gallstones. Prior ventral hernia repair. Colonic diverticulosis without diverticulitis. No bowel edema or dilatation. There are a couple of bladder wall diverticula. The prostate gland is normal-size. There is a small amount of pelvic free fluid. The appendix is not definitively seen. There are no secondary findings to suggest appendicitis. There is severe edema of the soft tissues. There has been recent open reduction internal fixation of a fracture of the right proximal femur. There is mild residual displacement at the fracture site. There is no evidence of hardware failure. There are multiple pockets of gas within the soft tissues. There is no walled-off fluid collection. There is edema of the visualized scrotum. There are chronic appearing compression fractures at T12 and L1. There is no deep venous thrombosis. IMPRESSION: 1. There are changes of cirrhosis with portal venous hypertension. 2. There is extensive soft tissue edema, most pronounced at the level of the right lower extremity. 3. Status post recent open reduction internal fixation of the right proximal femur. 4. There is a small amount of pelvic free fluid. This document has been electronically signed by: Thuy Hernandez MD on 07/28/2024 21:08:14
[2024-07-28] MEDS: 0.9 % Sodium Chloride 500 ML IV (19:07)
[2024-07-28 19:12] LABS: MANUAL DIFF FLAG NO
--- NOTE | 2024-07-28 19:12 | ED.GENADULT ---
HPI - General Adult General Chief complaint: Fever Stated complaint: fever Time Seen by Provider: 07/28/24 19:02 Source: patient Mode of arrival: ambulatory Limitations: no limitations History of Present Illness ED Provider: Mc Amin HPI narrative: 63 yold male with pmh of CHF, AFib, acute hyperkalemia, hypomagnesemia presents to the ED for fever and right-sided hip pain. Patient is a status right hip placement done in this hospital. Patient was discharged from hospitalist service today at 14:[facility] was brought back to the ED complaining of right hip pain and feeling hot. Patient denies any chest pain, shortness of breath, or coughing. Related Data Home Medications ?Medication ?Instructions ?Recorded ?Confirmed carvedilol 6.25 mg tablet 6.25 mg PO BID 07/24/24 07/29/24 fluoxetine 10 mg capsule 10 mg PO DAILY 07/24/24 07/29/24 quetiapine 25 mg tablet 25 mg PO BID 07/24/24 07/29/24 spironolactone 25 mg tablet 25 mg PO DAILY 07/24/24 07/29/24 thiamine HCl (vitamin B1) 100 mg 100 mg PO DAILY 07/24/24 07/29/24 tablet topiramate 25 mg tablet 25 mg PO DAILY 07/24/24 07/29/24 Previous Rx's ?Medication ?Instructions ?Recorded ferrous sulfate 325 mg (65 mg 325 mg PO BID #60 tabs 07/28/24 iron) tablet midodrine 5 mg tablet 5 mg PO TIDWM #90 tabs 07/28/24 oxycodone 5 mg tablet 5 mg PO Q4H PRN Pain, 07/28/24 Moderate(Pain Scale 4-6) #20 tabs Allergies Allergy/AdvReac Type Severity Reaction Status Date / Time No Known Allergies Allergy Verified 07/28/24 18:56 Review of Systems Review of Systems: Right hip pain fever Yes all other systems are reviewed and are negative [facility] Past Medical History Medical History (Updated 07/29/24 @ 15:27 by Letha Schuster) Right scapula fracture Osteoarthritis Psoriasis Left against medical advice Chronic HFrEF (heart failure with reduced ejection fraction) Cardiomyopathy Alcoholic cirrhosis of liver Alcohol intoxication Atrial fibrillation with rapid ventricular response Psoriasis Afib Surgical History (Reviewed 07/29/24 @ 00:48 by NIKOLAS Hughes H/O right inguinal hernia repair Social History Social History Household Members: None Housing: Assisted Living Facility Housing Other:: Elderly housing complex Do you presently have visiting nurse or other home services: Yes Alcohol intake: current Alcohol intake frequency: 3 or more drinks per day Alcohol type: beer and hard liquor 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 Patient Tobacco Use Status: Never used Tobacco Second Hand Smoke Exposure: No service: No Current occupational status: disabled Physical Exam ED Vital Signs: Vital Signs - 24 hr 07/28/24 19:02 07/28/24 19:03 07/28/24 19:11 Temperature 101.1 F H Pulse Rate 112 H 125 H 107 H Respiratory Rate 22 H Blood Pressure 80/53 L 103/70 95/64 Pulse Oximetry 97 Oxygen Delivery Method Room Air 07/28/24 19:44 07/28/24 20:12 07/28/24 20:14 Temperature Pulse Rate 117 H Respiratory Rate 15 16 16 Blood Pressure 112/70 Pulse Oximetry 96 Oxygen Delivery Method Room Air 07/28/24 21:49 07/28/24 21:59 07/28/24 22:56 Temperature 98.3 F Pulse Rate 107 H 112 H Respiratory Rate 16 20 Blood Pressure 113/80 110/75 Pulse Oximetry 94 96 Oxygen Delivery Method Room Air BMI result Body Mass Index 32.1 Const General: cooperative, healthy appearing, comfortable, no acute distress, well developed, alert, awake and Physically active Orientation/consciousness: patient oriented x3 HENMT Head: Yes normal to inspection, Yes No palpable skull fracture present, Yes normocephalic and Yes atraumatic Eyes General: appearance normal, both eyes and all related structures Neck Neck: Yes normal visual inspection, Yes full ROM, Yes no lymphadenopathy, Yes no meningeal signs, Yes trachea midline, Yes supple, No anterior neck swelling and No tender Chest Chest palpation & inspection: normal inspection of the chest and normal palpation of entire chest wall Resp Effort & Inspection: normal respiratory effort and able to speak in complete sentences Auscultation: clear to auscultation bilaterally Cardio Jugular venous distension: no JVD Heart sounds: S1 normal heart sound present and S2 normal heart sound present GI Inspection: Yes normal to inspection Palpation (GI): Soft to palpation, not firm, nontender, no guarding and not rigid General: Yes no CVA tenderness Back/Spine/Pelvis Back: no CVA tenderness and No back tenderness Skin General skin exam: no rashes or lesions noted, elasticity normal and turgor normal Neuro General: patient oriented x3, gait normal, tone normal, moves all extremities, Normal light touch and pain sensation, no meningeal signs, no focal motor deficits, CN's II-XI intact bilaterally and normal sensation to monofilament Extrem Upper/lower leg/hip images: 1. Positive for tenderness on palpation. Negative for any signs of wound incision infection. Negative for any erythema or pus discharge or foul odor. Negative for warmth to touch. Pedal pulses intact. 2. Positive for ecchymosis that is soft and nontender. Negative for hardening mass to indicate hematoma. Psych Appearance: grossly normal, well kempt and not disheveled Medications Administered Generic Name Dose Route Start Last Admin Trade Name Freq PRN Reason Stop Dose Admin Acetaminophen 650 mg 07/28/24 23:43 07/29/24 08:00 Acetaminophen 325 Mg Tablet PO 650 mg Q6H PRN Administration Pain, Mild 1-3,fever,headache Carvedilol 6.25 mg 07/29/24 09:00 07/29/24 22:14 Carvedilol 6.25 Mg Tablet PO 6.25 mg BID ARMANDO Administration Protocol Ceftriaxone Sodium 1 gm 07/29/24 19:00 07/29/24 17:50 Ceftriaxone Sodium 1 Gm Vial IVPUSH 1 gm Q24H ARMANDO Administration Enoxaparin Sodium 40 mg 07/29/24 11:00 07/29/24 11:01 Enoxaparin Sodium 40 Mg/0.4 Ml Syringe SUBCUT 40 mg Q24H ARMANDO Administration Folic Acid 1 mg 07/29/24 09:00 07/29/24 08:25 Folic Acid 1 Mg Tablet PO 1 mg DAILY ARMANDO Administration Furosemide 40 mg 07/29/24 11:00 07/29/24 10:59 Furosemide 40 Mg/4 Ml Vial IVPUSH 40 mg DAILY ARMANDO Administration Protocol Hydrocortisone 1 appl 07/29/24 09:00 07/29/24 23:38 Hydrocortisone 1 % Cream 28.35 Gm Tube TOPICAL Not Given BID [facility] Protocol Hydromorphone HCl 1 mg 07/29/24 00:29 07/29/24 22:14 Hydromorphone Hcl 1 Mg/Ml Syringe IVPUSH 1 mg Q3H PRN Administration Pain, Severe (Pain Scale 7-10) Protocol Vancomycin HCl 1,000 mg/ 270 mls @ 270 mls/hr 07/29/24 08:00 07/29/24 23:37 Sodium Chloride IV 270 mls/hr Q8H ARMANDO Administration Pantoprazole Sodium 40 mg 07/29/24 06:30 07/29/24 05:43 Pantoprazole Sodium 40 Mg/10 Ml Vial IVPUSH 40 mg DAILY@0630 ARMANDO Administration Polyethylene Glycol 17 gm 07/29/24 09:00 07/29/24 08:25 Polyethylene Glycol 3350 17 Gm Powd.Pack PO 17 gm DAILY ARMANDO Administration Senna 17.2 mg 07/29/24 21:00 07/29/24 22:20 Sennosides 8.6 Mg Tablet PO Not Given BEDTIME ARMANDO Sodium Chloride 3 ml 07/29/24 00:00 07/29/24 23:38 0.9 % Sodium Chloride Flush 3 Ml Syringe IVFLUSH 3 ml QSHIFT ARMANDO Administration Thiamine HCl 100 mg 07/29/24 09:00 07/29/24 08:25 Thiamine Hcl 100 Mg Tablet PO 100 mg DAILY ARMANDO Administration Discontinued Medications Generic Name Dose Route Start Last Admin Trade Name Freq PRN Reason Stop Dose Admin Acetaminophen 650 mg 07/28/24 19:48 07/28/24 20:11 Acetaminophen 325 Mg Tablet PO 07/28/24 19:49 650 mg ONCE ONE Administration Ceftriaxone Sodium 1 gm 07/28/24 19:11 07/28/24 19:34 Ceftriaxone Sodium 1 Gm Vial IVPUSH 07/28/24 19:12 1 gm ONCE ONE Administration Furosemide 40 mg 07/29/24 00:33 07/29/24 02:16 Furosemide 40 Mg/4 Ml Vial IVPUSH 07/29/24 00:34 40 mg ONCE ONE Administration Protocol Sodium Chloride 500 mls @ 500 mls/hr 07/28/24 19:15 07/28/24 20:23 Ns IV 07/28/24 20:14 Infused .Q1H ARMANDO Infusion Vancomycin HCl 2,000 mg in 500 mls @ 250 mls/hr 07/28/24 19:10 07/28/24 21:45 Vancomycin/Ns IV 07/28/24 21:09 Infused ONCE ONE Infusion Sodium Chloride 1,000 mls @ 999 mls/hr 07/28/24 20:10 07/28/24 21:45 Ns IV 07/28/24 21:10 Infused .Q1H1M STA Infusion Sodium Chloride 1,000 mls @ 999 mls/hr 07/28/24 20:11 07/28/24 21:45 Ns IV 07/28/24 21:11 Infused .Q1H1M STA Infusion Albumin Human 100 mls @ 133.333 mls/hr 07/28/24 22:47 07/28/24 23:47 Kedbumin 25 % IV 07/28/24 23:31 Infused Q1H STA Infusion Albumin Human 100 mls @ 133.333 mls/hr 07/29/24 01:45 07/29/24 03:37 Kedbumin 25 % IV 07/29/24 03:29 Not Given Q1H ARMANDO Magnesium Sulfate 2 gm in 50 mls @ 25 mls/hr 07/29/24 03:35 07/29/24 09:08 Magnesium Sulfate/H2o IV 07/29/24 05:34 Infused ONCE ONE Infusion Iohexol 100 ml 07/28/24 20:26 07/28/24 20:26 Iohexol 350 Mg/Ml 100 Ml Infus..Btl IV 07/28/24 20:27 85 ml ONCE ONE Administration Metoprolol Tartrate 25 mg 07/29/24 03:21 07/29/24 03:31 Metoprolol Tartrate 25 Mg Tablet PO 07/29/24 03:22 25 mg ONCE ONE Administration Protocol Morphine Sulfate 4 mg 07/28/24 19:33 07/28/24 19:44 Morphine Sulfate 4 Mg/Ml Cartridge IVPUSH 07/28/24 19:34 4 mg ONCE ONE Administration Protocol Morphine Sulfate 4 mg 07/28/24 22:37 07/28/24 22:56 Morphine Sulfate 4 Mg/Ml Cartridge IVPUSH 07/28/24 22:38 4 mg ONCE ONE Administration Protocol Medical Decision Making Medical Decision Making MDM Narrative: 7:14pm: Patient is a code sepsis due to fever tachycardia and hypotension. Patient is status post history of placement and was discharged today from the floor and on route to [place] patient has had a fever. Patient febrile. Right hip replacement site evaluated negative for any obvious signs of infection but it is very tender. No erythema or pus discharge from wound sites. Patient has slight ecchymosis but no hardening of mass to indicate hematoma. Vancomycin ceftriaxone ordered in case patient has prosthetic sepsis infection. Chest x-ray will be ordered to rule out pneumonia. SARs ordered. Fluids 500 mg ordered due to patient having history of CHF. Reviewed notes of trans echo ultrasound which shows EF of 50-65 but will wait for BNP. 8:18pm: Patient is in AFib RVR. Patient's BNP only 296. Ejection fraction on recent trans echo 50 55%. We will order 2 more L to improve blood pressure so Cardizem can be given if no improvement in heart rate. 11:44pm: CT scan of abdomen and pelvis negative for any signs of any hip abscess or artificial where being displaced. This shows soft tissue edema no abscess. Chest CTA negative for PE or pneumonia. Case was discussed with orthopedic PA surgeon Juliana who states hip CT not show no signs of infection but agree patient's case so she will be discussed with hospitalist. Hospitalist Dr. De La O will admit patient. Patient given albumin due to blood pressure systolic still in the 90s after 2 L of fluid. Patient is mentating well. Differential Diagnosis Differential Diagnoses: The differential diagnosis associated with the presentation includes Lab Data 07/29/24 05:19 07/29/24 05:19 Labs: Lab Results 07/28/24 07/28/24 07/28/24 Range/Units 19:07 19:19 19:30 WBC 5.9 (4.8-10.8) X10*3/uL RBC 2.76 L (4.60-5.80) X10*6/uL Hgb 9.3 L (14.0-18.0) g/dl Hct 26.6 L (42.0-52.0) % MCV 96.4 (80.0-98.0) fL MCH 33.7 H (27.0-33.0) pg MCHC 35.0 (31.0-36.0) g/dl RDW 12.8 (11.0-16.0) % Plt Count 99 L (160-400) X10*3/uL MPV 10.2 (9.4-12.4) fL Immature Gran % (Auto) 0.3 (0.0-0.4) % Neut % (Auto) 83.1 H (45-73) % Lymph % (Auto) 7.7 L (20-40) % Flagler % (Auto) 7.9 (2-11) % Eos % (Auto) 0.5 (0-4) % Baso % (Auto) 0.5 (0-2) % Lymph # (Auto) 0.5 L (1.2-4.9) X10*3/uL Flagler # (Auto) 0.5 (0.1-1.2) X10*3/uL Eos # (Auto) 0.0 (0.0-0.4) X10*3/uL Baso # (Auto) 0.0 (0.0-0.2) X10*3/uL Abs Immat Gran (auto) 0.02 (0.00-0.03) X10*3/uL Absolute Neuts (auto) 4.9 (2.0-8.3) x10*3/uL Absolute Nucleated RBC 0.000 (0.0-0.012) X10*3/uL Nucleated RBC % (auto) 0.0 (0.0-0.2) /100WBC PT 13.8 H (10.9-12.4) SEC INR 1.2 H (0.9-1.1) Sodium 134 L (135-145) mmol/L Potassium 4.2 D (3.3-5.1) mmol/L Chloride 101 (96-108) mmol/L Carbon Dioxide 24 (22-29) mmol/L Anion Gap 13 (12-20) BUN 10 (9-16) mg/dL Creatinine 0.55 (0.5-1.4) mg/dL Estim Creat Clear Calc 158.3 Estimated GFR > 60 Random Glucose 105 (60-115) mg/dL Lactic Acid 1.4 (0.5-2.0) mmol/L Calcium 7.7 L (8.4-10.2) mg/dL Total Bilirubin 1.5 H (0.0-1.0) mg/dL AST 47 H (5-37) U/L ALT 15 (0-40) U/L Alkaline Phosphatase 75 (39-117) U/L Troponin I High Sens 4.8 (<3.5-35.0) ng/L B-Natriuretic Peptide 296 H (<100) pg/mL Total Protein 5.6 L (6.5-8.0) g/dL Albumin 2.7 L (3.5-5.0) g/dL Urine Color Urine Appearance Urine pH (5.0-9.0) Ur Specific Collison (1.005-1.025) Urine Protein (Neg-Trace) mg/dL Urine Glucose (UA) (Negative) mg/dL Urine Ketones (Negative) mg/dL Urine Blood (Negative) Urine Nitrite (Negative) Ur Leukocyte Esterase (Negative) Influenza Type A (PCR) NEGATIVE (Negative) Influenza Type B (PCR) NEGATIVE (Negative) RSV RNA Qual (PCR) NEGATIVE (Negative) SARS-CoV-2 RNA (RT-PCR) NEGATIVE (Negative) 07/28/24 Range/Units 21:23 WBC (4.8-10.8) X10*3/uL RBC (4.60-5.80) X10*6/uL Hgb (14.0-18.0) g/dl Hct (42.0-52.0) % MCV (80.0-98.0) fL MCH (27.0-33.0) pg MCHC (31.0-36.0) g/dl RDW (11.0-16.0) % Plt Count (160-400) X10*3/uL MPV (9.4-12.4) fL Immature Gran % (Auto) (0.0-0.4) % Neut % (Auto) (45-73) % Lymph % (Auto) (20-40) % Flagler % (Auto) (2-11) % Eos % (Auto) (0-4) % Baso % (Auto) (0-2) % Lymph # (Auto) (1.2-4.9) X10*3/uL Flagler # (Auto) (0.1-1.2) X10*3/uL Eos # (Auto) (0.0-0.4) X10*3/uL Baso # (Auto) (0.0-0.2) X10*3/uL Abs Immat Gran (auto) (0.00-0.03) X10*3/uL Absolute Neuts (auto) (2.0-8.3) x10*3/uL Absolute Nucleated RBC (0.0-0.012) X10*3/uL Nucleated RBC % (auto) (0.0-0.2) /100WBC PT (10.9-12.4) SEC INR (0.9-1.1) Sodium (135-145) mmol/L Potassium (3.3-5.1) mmol/L Chloride (96-108) mmol/L Carbon Dioxide (22-29) mmol/L Anion Gap (12-20) BUN (9-16) mg/dL Creatinine (0.5-1.4) mg/dL Estim Creat Clear Calc Estimated GFR Random Glucose (60-115) mg/dL Lactic Acid (0.5-2.0) mmol/L Calcium (8.4-10.2) mg/dL Total Bilirubin (0.0-1.0) mg/dL AST (5-37) U/L ALT (0-40) U/L Alkaline Phosphatase (39-117) U/L Troponin I High Sens (<3.5-35.0) ng/L B-Natriuretic Peptide (<100) pg/mL Total Protein (6.5-8.0) g/dL Albumin (3.5-5.0) g/dL Urine Color Dark Yellow Urine Appearance Clear Urine pH 7.0 (5.0-9.0) Ur Specific Collison >= 1.030 H (1.005-1.025) Urine Protein Trace (Neg-Trace) mg/dL Urine Glucose (UA) Negative (Negative) mg/dL Urine Ketones Negative (Negative) mg/dL Urine Blood Negative (Negative) Urine Nitrite Negative (Negative) Ur Leukocyte Esterase Negative (Negative) Influenza Type A (PCR) (Negative) Influenza Type B (PCR) (Negative) RSV RNA Qual (PCR) (Negative) SARS-CoV-2 RNA (RT-PCR) (Negative) Critical Care Time Critical Care Time Critical Care Time: Yes Total Critical Care Time: 60 Attestation: SIRS. patient febrile tachy, hypotensive, and afib in RVR. antibiotics, fluids, albumin, ortopedic consult, and hospitalist admission done. CT scans ordered. Discharge Plan Discharge Clinical Impression: Right hip pain Patient Disposition: Admitted As Inpatient Interventions: Admission Worksheet (ED) Last Done: 07/29/24 07:41 Discharge Date/Time: 07/29/24 15:27
[2024-07-28 19:14] LABS: Basophils Percent Auto 0.5 % (0-2); Eosinophils Percent Auto 0.5 % (0-4); Hematocrit 26.6 % (42.0-52.0); Hemoglobin 9.3 g/dl (14.0-18.0); Imm Gran Abs Auto 0.02 X10*3/uL (0.00-0.03); Imm Gran Pct Auto 0.3 % (0.0-0.4); Lymphocytes Absolute Auto 0.5 X10*3/uL (1.2-4.9); Lymphocytes Percent Auto 7.7 % (20-40); Mean Corpuscular Hemoglobin 33.7 pg (27.0-33.0); Mean Corpuscular Volume 96.4 fL (80.0-98.0); Mean Platelet Volume 10.2 fL (9.4-12.4); Monocytes Absolute Auto 0.5 X10*3/uL (0.1-1.2); Monocytes Percent Auto 7.9 % (2-11); Neutrophils Absolute Auto 4.9 x10*3/uL (2.0-8.3); Neutrophils Percent Auto 83.1 % (45-73); Platelet Count 99 X10*3/uL (160-400); Red Blood Count 2.76 X10*6/uL (4.60-5.80); Red Cell Distribution Width 12.8 % (11.0-16.0); White Blood Count 5.9 X10*3/uL (4.8-10.8)
--- NOTE | 2024-07-28 19:17 | PC.NURSE ---
pt arrives from [facility], after discharge from [facility] this afternoon S/P hip replacement. Per EMS Pt had fever of 100.2 on arrival to facility, APAP 650mg given by facility. Facility sent patient back to [facility] for eval and tx. On arrival pt is tachycardic at 112bpm, with initial bp 80/53, temp 101.1 rectally. Pt is a&o x4 complains of 10/10 right hip pain. Dressings clean dry an intact. 20G IV access was obtained in r-forearm. RADHA October to bedside. Sepsis alert initiated 1914.
--- OUTSIDE RECORDS SUMMARY | 2024-07-28 19:22 | XMS_ITS | Clinical Summary ---
Author Organization [facility] ity Address [id number] [place] [id number] Care Team Providers Care Astronautical Engineer Name Role Phone Robert Nelson MD Primary [...] age to complete this topic Care Teams Astronautical Engineer Relationship Specialty Start Date End Date Robert Nelson MD [address] [place] [address] PCP - General 06/04/22
[2024-07-28] MEDS: vancomycin/NS 2,000 MG/500 ML PLAST..BAG 250 MG IV (19:28)
[2024-07-28 19:32] LABS: Lactic Acid 1.4 mmol/L (0.5-2.0)
[2024-07-28 19:34] LABS: INTERNATIONAL NORM RATIO 1.2 (0.9-1.1); Prothrombin Time 13.8 SEC (10.9-12.4)
[2024-07-28] MEDS: cefTRIAXone sodium 1 GM VIAL IVPUSH (19:34)
--- NOTE | 2024-07-28 19:35 | ECG_ITS ---
Test Reason : TACHYCARDIA Blood Pressure : */* mmHG Vent. Rate : 128 BPM Atrial Rate : * BPM P-R Int : * ms QRS Dur : 86 ms QT Int : 354 ms P-R-T Axes : * 18 91 degrees QTcB Int : 516 ms Atrial fibrillation with rapid ventricular response Low voltage QRS Nonspecific T wave abnormality Abnormal ECG When compared with ECG of 24-Jul-2024 10:33, No significant changes seen Referred By: Mc Amin Electronically Signed By: INOCENTE MONTERROSO
[2024-07-28] MEDS: Morphine Sulfate 4 MG/ML CARTRIDGE IVPUSH ×2 (19:44→22:56)
[2024-07-28 19:50] LABS: Troponin-I High Sensitivity 4.8 ng/L (<3.5-35.0)
[2024-07-28 19:52] LABS: Alanine Aminotransferase 15 U/L (0-40); Albumin Level 2.7 g/dL (3.5-5.0); Alkaline Phosphatase 75 U/L (39-117); Anion Gap 13 (12-20); Aspartate Amino Transferase 47 U/L (5-37); Bilirubin Total 1.5 mg/dL (0.0-1.0); Blood Urea Nitrogen 10 mg/dL (9-16); Calcium 7.7 mg/dL (8.4-10.2); Carbon Dioxide 24 mmol/L (22-29); Chloride 101 mmol/L (96-108); Creatinine Clr Calc Pharmacy 158.3; Estimated Glomerular Filt Rate > 60; Glucose Random 105 mg/dL (60-115); Potassium 4.2 mmol/L (3.3-5.1); Sodium 134 mmol/L (135-145); Total Protein 5.6 g/dL (6.5-8.0)
[2024-07-28 19:52] LABS: B Type Natriuretic Peptide 296 pg/mL (<100)
[2024-07-28 20:07] LABS: Influenza A PCR NEGATIVE (Negative); Influenza B PCR NEGATIVE (Negative); Resp Syncy Virus RNA Qual PCR NEGATIVE (Negative); SARS COV2 PCR INHOUSE NEGATIVE (Negative)
[2024-07-28] MEDS: Acetaminophen 325 MG TABLET 650 MG PO (20:11)
[2024-07-28] MEDS: 0.9 % Sodium Chloride 1,000 ML 999 ML IV ×2 (20:24)
--- NOTE | 2024-07-28 20:24 | PC.NURSE ---
pt tolerated 500 mL bolus. maintaining normal SpO2. 2L NS ordered and hung at this time
[2024-07-28] MEDS: iohexoL 350 MG/ML 100 ML INFUS..BTL IV (20:26)
[2024-07-28 21:28] LABS: Appearance Urine Clear; Color Urine Dark Yellow; Glucose Urine UA Negative (Negative); Leukocyte Esterase Urine Negative (Negative); Nitrite Urine Negative (Negative); Specific Gravity - Urine >= 1.030 (1.005-1.025); Urine Blood Negative (Negative); Urine Ketones Negative (Negative); Urine Protein Trace mg/dL (Neg-Trace)
[2024-07-28] MEDS: Albumin Human 25 % 100 ML 133.33 ML IV (22:55)
--- NOTE | 2024-07-28 23:49 | P.HPHOSP_ITS ---
History of Present Illness Date of Service: 07/29/24 <[facility] - Last Filed: 07/29/24 01:21> Attending physician on admission: Joseph Dominguez <[facility] - Last Filed: 07/29/24 01:21> Chief Complaint: fever, sent back from Rehab s/p R hip surgery <[facility] - Last Filed: 07/29/24 01:21> Patient is a 63-year-old male with past medical history hypertension,HFrEF, , atrial fibrillation RVR not on anticoagulation as patient never followed with Cardiology as an outpatient, R inguinal hernia repair, JAN, cirrhosis of the liver, psoriasis, osteoarthritis of bilateral knees, Right shoulder chronic pain likely secondary to a scapular fracture that occurred 7 years ago, depression, chronic alcohol abuse (2-3 beers per day), dog bite to left lower leg 2023 return from short-term rehab status post right hip replacement 07/26/2024 with fever of 101.1 from brady rehab. On arrival to the emergency department's patient's blood pressure was 80/53 with some slight bruising around the right hip and affiliated swelling. Patient remained alert and responsive. Patient currently does not have a leukocytosis or bandemia. INR 1.2. Sodium 134, AST 47, troponin 4.8, BNP 296.Blood cultures drawn and patient is started on ceftriaxone and vancomycin in the emergency department. Patient has significant swelling from the right hip down to the right foot with edema in the left leg as well which patient states is chronic. Patient is having pain in the left leg as well. Patient denies any falls since surgery both here and at rehab. Patient states the pain at rest in the right hip is an 8/10 minimally relieved with morphine. Patient is denying any abdominal pain, groin pain, ,chest pain shortness of breath at rest, or difficulty urinating. Patient has extreme difficulty changing position and moving [id number] not only from the pain but the amount of edema that is present currently. CT of the abdomen and pelvis note soft tissue edema extensive at the level of the right lower extremity, with a small amount of pelvic free fluid. In addition there were chronic changes associated with cirrhosis and portal vein hypertension. Orthopedics reviewed CT scan and asked that patient be admitted for antibiotics and patient will be seen in the a.m.. The right hip incision was viewed and appears clean and dry with no obvious purulent drainage. The right hip is warm to the touch and severely edematous. Patient states his last alcoholic drink was 07/25/2024. Patient also states he does not usually go through withdrawal and CIWA score is currently 0. Patient denies any seizures associated with alcohol withdrawal or seizure history. <FRANCISCO J Hughes - Last Filed: 07/29/24 01:21> Review of Systems 2 Review of Systems: Patient reporting 8/10 in the right hip pain minimally relieved with morphine. Patient denies any nausea or vomiting or abdominal pain. Patient currently denies any diarrhea. <FRANCISCO J Hughes - Last Filed: 07/29/24 01:21> Yes all other systems are reviewed and are negative <[place] FRANCISCO J Calabrese - Last Filed: 07/29/24 01:21> [facility] Medical History: Medical History (Updated 07/29/24 @ 00:49 by FRANCISCO J Hughes) Right scapula fracture Osteoarthritis Psoriasis Left against medical advice Chronic HFrEF (heart failure with reduced ejection fraction) Cardiomyopathy Alcoholic cirrhosis of liver Alcohol intoxication Atrial fibrillation with rapid ventricular response Psoriasis Afib <Lindsay FRANCISCO J Calabrese - Last Filed: 07/29/24 01:21> Cognitive capacity: Alert and orientated x3 <Lindsay CHANELLE CalabresePDelores - Last Filed: 07/29/24 01:21> Functional capacity: uses cane/walker <CHANELLE HughesPDelores - Last Filed: 07/29/24 01:21> Pertinent family history: Father age 68 from diabetes Mother age 33 due to a fire <CHANELLE HughesPDelores - Last Filed: 07/29/24 01:21> Surgical History: Surgical History H/O right inguinal hernia repair <FRANCISCO J Hughes - Last Filed: 07/29/24 01:21> Social History: Social History Household Members: None Housing: Apartment Housing Other:: Elderly housing complex Do you presently have visiting nurse or other home services: Yes Alcohol intake: current Alcohol intake frequency: 3 or more drinks per day Alcohol type: beer and hard liquor Comment: 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-jasno Patient Tobacco Use Status: Never used Tobacco Smoked in Last 30 Days: No Second Hand Smoke Exposure: No Use of substances other than those prescribed or required for medical reasons: No Advance Directives: No Advance Directives Information Provided: Yes Do you have a plan to hurt others: No Plan service: No Current occupational status: disabled <[place], [facility] - Last Filed: 07/29/24 01:21> Ebola Risk: Travel/Contact With Anyone From Affected Area/s: No <[facility] - Last Filed: 07/29/24 01:21> Has Patient Experienced Ebola Symptoms: No <[facility] - Last Filed: 07/29/24 01:21> Meds Allergies/Adverse reactions: Allergies Allergy/AdvReac Type Severity Reaction Status Date / Time No Known Allergies Allergy Verified 07/28/24 18:56 <[facility] Last Filed: 07/29/24 01:21> Active Medications: Current Medications Acetaminophen (Acetaminophen 325 Mg Tablet) 650 mg PO Q6H PRN PRN Reason: Pain, Mild 1-3,fever,headache Calcium Carbonate (Calcium Carbonate 750 Mg Tab.Chew) 750 mg PO Q4H PRN PRN Reason: Heartburn Ceftriaxone Sodium (Ceftriaxone Sodium 1 Gm Vial) 1 gm IVPUSH Q24H ARMANDO Magnesium Hydroxide (Milk Of Magnesia 30 Ml Oral.Susp) 30 ml PO DAILY PRN PRN Reason: Constipation Melatonin (Melatonin 3 Mg Tablet) 6 mg PO BEDTIME PRN PRN Reason: Insomnia Ondansetron HCl (Ondansetron Hcl 4 Mg/2 Ml Vial) 4 mg IVPUSH Q8H PRN PRN Reason: Nausea and Vomiting Pharmacy Consult (Consult Rx Vancomycin Dosing) 1 each MISCELLANE DAILY PRN PRN Reason: Consult order Senna (Sennosides 8.6 Mg Tablet) 17.2 mg PO BEDTIME ARMANDO Sodium Chloride (0.9 % Sodium Chloride Flush 3 Ml Syringe) 3 ml IVFLUSH QSHIFT ARMANDO <[facility] - Last Filed: 07/29/24 01:21> Home medications: Home Medications ?Medication ?Instructions ?Recorded ?Confirmed ?Last Taken ?Type carvedilol 6.25 mg tablet 6.25 mg PO BID 07/24/24 07/24/24 Unknown History fluoxetine 10 mg capsule 10 mg PO DAILY 07/24/24 07/24/24 Unknown History quetiapine 25 mg tablet 25 mg PO BID 07/24/24 07/24/24 Unknown History spironolactone 25 mg tablet 25 mg PO DAILY 07/24/24 07/24/24 Unknown History thiamine HCl (vitamin B1) 100 mg 100 mg PO DAILY 07/24/24 07/24/24 Unknown History tablet topiramate 25 mg tablet 25 mg PO DAILY 07/24/24 07/24/24 Unknown History <[facility] - Last Filed: 07/29/24 01:21> Physical Exam 2 Vital Signs and Narrative: Vital Signs: Last Vital Signs Temp 98.3 F 07/28/24 21:49 Pulse 112 H 07/28/24 21:59 Resp 20 07/28/24 22:56 BP 110/75 07/28/24 21:59 Pulse Ox 96 07/28/24 21:59 O2 Del Method Room Air 07/28/24 21:49 BMI result Body Mass Index 32.1 <[facility] - Last Filed: 07/29/24 01:21> Alert and orientated X3, able to give good history. Neuro: CN II-X11 intact, no deficits, visual acuity intact EYES: PERRLA, EOM intact ENT: hearing intact, no issues with swallowing, uvula midline, lips moist, nares patent no epistaxis, dentition in fair repair Cardiac: Irregular R 102, no murmur, no JVD, BLE edema, R>L Pulmonary: lungs diminished to auscultation no adventitious sounds noted Abdominal: BS active in all 4 quadrants, no guarding, tenderness, rebounding, no distention or ascites appreciated MSK: strength 4/5 upper and lower L extremities, limited range of motion in right upper extremity due to chronic shoulder issues, right leg swollen but patient can wiggle his toes : no CVA tenderness no bladder distension Extremities: Bilateral lower extremity edema in lower extremities, PT and DP pulses palpable +2, right-sided edema is +1 pitting, left-sided edema in the lower extremity is moderate Psych: mood stable, judgement and insight good no evidence of alcohol withdrawal Slin: Psoriatic plaques noted on patient's torso and backm right hip incision is currently clean and dry with no purulent drainage, area surrounding the decision is swollen and warm to the touch. No blistering noted on right lower extremity or open wounds other than surgical wound <[facility] - Last Filed: 07/29/24 01:21> Results Labs CBC and Chem 7: 07/28/24 19:07 07/28/24 19:30 <[facility] - Last Filed: 07/29/24 01:21> Labs: Laboratory Results - last 24 hr 07/28/24 07/28/24 07/28/24 19:07 19:19 19:30 MCV 96.4 MCH 33.7 H MCHC 35.0 RDW 12.8 Plt Count 99 L MPV 10.2 Immature Gran % (Auto) 0.3 Neut % (Auto) 83.1 H Lymph % (Auto) 7.7 L [place] % (Auto) 7.9 Eos % (Auto) 0.5 Baso % (Auto) 0.5 Lymph # (Auto) 0.5 L [place] # (Auto) 0.5 Eos # (Auto) 0.0 Baso # (Auto) 0.0 Abs Immat Gran (auto) 0.02 Absolute Neuts (auto) 4.9 Absolute Nucleated RBC 0.000 Nucleated RBC % (auto) 0.0 PT 13.8 H INR 1.2 H Anion Gap 13 Estim Creat Clear Calc 158.3 Estimated GFR > 60 Random Glucose 105 Lactic Acid 1.4 Calcium 7.7 L Total Bilirubin 1.5 H AST 47 H ALT 15 Alkaline Phosphatase 75 B-Natriuretic Peptide 296 H Total Protein 5.6 L Albumin 2.7 L Urine Color Urine Appearance Urine pH Ur Specific [place] Urine Protein Urine Glucose (UA) Urine Ketones Urine Blood Urine Nitrite Ur Leukocyte Esterase Influenza Type A (PCR) NEGATIVE Influenza Type B (PCR) NEGATIVE RSV RNA Qual (PCR) NEGATIVE SARS-CoV-2 RNA (RT-PCR) NEGATIVE 07/28/24 21:23 MCV MCH MCHC RDW Plt Count MPV Immature Gran % (Auto) Neut % (Auto) Lymph % (Auto) [place] % (Auto) Eos % (Auto) Baso % (Auto) Lymph # (Auto) [place] # (Auto) Eos # (Auto) Baso # (Auto) Abs Immat Gran (auto) Absolute Neuts (auto) Absolute Nucleated RBC Nucleated RBC % (auto) PT INR Anion Gap Estim Creat Clear Calc Estimated GFR Random Glucose Lactic Acid Calcium Total Bilirubin AST ALT Alkaline Phosphatase B-Natriuretic Peptide Total Protein Albumin Urine Color Dark Yellow Urine Appearance Clear Urine pH 7.0 Ur Specific [place] >= 1.030 H Urine Protein Trace Urine Glucose (UA) Negative Urine Ketones Negative Urine Blood Negative Urine Nitrite Negative Ur Leukocyte Esterase Negative Influenza Type A (PCR) Influenza Type B (PCR) RSV RNA Qual (PCR) SARS-CoV-2 RNA (RT-PCR) <[facility] - Last Filed: 07/29/24 01:21> ECG Attestation: I personally reviewed and interpreted this ECG as follows: (Atrial fibrillation rate 128, QTC 516 uncorrected no ischemic changes) <[facility] - Last Filed: 07/29/24 01:21> Prior ECG tracings: available for review <[facility] Last Filed: 07/29/24 01:21> Imaging Radiologist's Impressions: CT ABD PELVIS IMPRESSION: 1. There are changes of cirrhosis with portal venous hypertension. 2. There is extensive soft tissue edema, most pronounced at the level of the right lower extremity. 3. Status post recent open reduction internal fixation of the right proximal femur. 4. There is a small amount of pelvic free fluid. CT chest Findings: The heart is normal size. RV/LV ratio is normal. The thoracic aorta is normal caliber. No acute pulmonary embolus. The visualized thyroid and mediastinum are unremarkable. There is severe gynecomastia. There are small bilateral pleural effusions. Mild adjacent atelectasis. No consolidative process. Findings at the level of the abdomen are reported separately. Severe compression fracture at T12, likely chronic. Mild compression fracture at L1, likely chronic. No acute fracture. IMPRESSION: 1. No evidence of pulmonary artery embolism. 2. There are small bilateral pleural effusions. CXR Findings: The lungs are clear. Borderline heart size. No acute fracture. IMPRESSION: 1. No acute findings. <[place] Guanakito [facility] - Last Filed: 07/29/24 01:21> Assessment and Plan (1) Sepsis: Qualifiers: Sepsis acute organ dysfunction status: unspecified Sepsis type: sepsis due to unspecified organism Qualified Code(s): A41.9 - Sepsis, unspecified organism <[facility] - Last Filed: 07/29/24 01:21> Status: Acute <[facility] - Last Filed: 07/29/24 01:21> Patient is a 63-year-old male with past medical history hypertension,HFrEF, , atrial fibrillation RVR not on anticoagulation as patient never followed with Cardiology as an outpatient, R inguinal hernia repair, JAN, cirrhosis of the liver, psoriasis, osteoarthritis of bilateral knees, Right shoulder chronic pain likely secondary to a scapular fracture that occurred 7 years ago, depression, chronic alcohol abuse (2-3 beers per day), dog bite to left lower leg 2023 returned from short-term rehab within 3 hours of arrival for fever. Patient is being admitted after review with Orthopedics for IV antibiotics. Patient will be seen by ortho in the a.m.. Sepsis -Patient does meet the criteria for sepsis for tachycardia and fever. Patient is in atrial fibrillation RVR which is not a new diagnosis. Lactic acid stable. No leukocytosis or bandemia. Blood cultures pending. -Vital signs stable, blood pressure low on arrival and patient did receive the required 30 mL/kilogram per sepsis protocol in the emergency department as well as 2 bags of albumin. Will check AM cortisol. -Patient is started on ceftriaxone and vanco, MRSA screen pending -No evidence of pneumonia on CT scan -UA negative for evidence of UTI -Right hip incision covered with clean dry sterile dressing, noted erythema, warmth surrounding site and extending down into the right lower extremity. ? Septic joint Free pelvic fluid noted on CT scan of the abdomen and pelvis. -ID consult if indicated Status post open reduction internal fixation of the right proximal femur 07/26/24 -Orthopedics consulted and aware of patient's fever and presentation -Holding DVT prophylaxis and anticoagulation for AFib until patient is seen by Orthopedics -Pain management, changed morphine to Dilaudid and added oxycodone for pain, conservative noting blood pressure -NPO at midnight -Venous Dopplers ordered to rule out DVT noting extent of edema, positive Homans and left lower leg pain Atrial fibrillation RVR, this is not a new diagnosis -patient diagnosed over a year prior and patient admits he never saw a internal audit director so there was no discussion regarding anticoagulation. No history of stroke. -patient comes in with AFib RVR rates as high as 130 to 160s, after fluid and reduction in fever, rates are improving -patient normally on Coreg, we will resume this -Cardiology consulted for review of treatment and anticoagulation, patient has no previous stroke history -checking magnesium and TSH -telemetry HFrEF -Last echocardiogram for 07/25/24 noted an EF of 50-55% with mildly decreased right ventricular systolic function and no obvious valvular disorders -patient is receiving Lasix 40 mg IV x1 now due to the amount of swelling in lower extremity. -Coreg continued -BNP elevated 296, troponins negative -Cardiology consulted -daily weights, strict I's and O's -low-salt diet, patient currently NPO in case ortho needs to take patient to the OR Small bilateral pleural effusions -incidental finding -Lasix 40 mgs provided x1 so far IV -oxygen as needed -incentive spirometer Cirrhosis with portal venous hypertension -chronic in nature, patient continues to use alcohol daily -monitor LFTs -patient will need to follow with GI as an outpatient currently patient has not established with a natural developer. -patient denies history of hepatitis-C -continue spironolactone once med rec is completed Psoriasis -chronic in nature for patient, has been using a topical cream but can not recall the name of the lotion and is not listed on his med rec -we will provide hydrocortisone cream 1% Gynecomastia -chronic and noted on CTA of the chest -we will check prolactin level -may be hormonal related and patient will need to see an sorting livestock worker as an outpatient for follow-up Chronic T12 compression fracture with mild fracture at L1, no signs of acute fracture on CTA -pain management Alcohol dependence, PSUD -patient denies any recent illicit substance abuse but does report drinking alcohol daily -thiamine and folic folic acid ordered -CIWA ordered -no indication for phenobarbital, no histories of withdrawal seizure, last drink was over 4 days ago DVT prophylaxis: On hold as patient may need to go to the OR with ortho if indicated PPI prophylaxis: Protonix IV Med rec pending Patient is a full code <Lindsay Calabrese, [employer] - Last Filed: 07/29/24 01:21> Patient is a 63-year-old male with past medical history hypertension,HFrEF, , atrial fibrillation RVR not on anticoagulation as patient never followed with Cardiology as an outpatient, R inguinal hernia repair, JAN, cirrhosis of the liver, psoriasis, osteoarthritis of bilateral knees, Right shoulder chronic pain likely secondary to a scapular fracture that occurred 7 years ago, depression, chronic alcohol abuse (2-3 beers per day), dog bite to left lower leg 2023 returned from short-term rehab within 3 hours of arrival for fever. Patient is being admitted after review with Orthopedics for IV antibiotics. Patient will be seen by ortho in the a.m.. Sepsis -Patient does meet the criteria for sepsis for tachycardia and fever. Patient is in atrial fibrillation RVR which is not a new diagnosis. Lactic acid stable. No leukocytosis or bandemia. Blood cultures pending. -Vital signs stable, blood pressure low on arrival and patient did receive the required 30 mL/kilogram per sepsis protocol in the emergency department as well as 2 bags of albumin. Will check AM cortisol. -Patient is started on ceftriaxone and vanco, MRSA screen pending -No evidence of pneumonia on CT scan -UA negative for evidence of UTI -Right hip incision covered with clean dry sterile dressing, noted erythema, warmth surrounding site and extending down into the right lower extremity. ? Septic joint Free pelvic fluid noted on CT scan of the abdomen and pelvis. -ID consult if indicated Status post open reduction internal fixation of the right proximal femur 07/26/24 -Orthopedics consulted and aware of patient's fever and presentation -Holding DVT prophylaxis and anticoagulation for AFib until patient is seen by Orthopedics -Pain management, changed morphine to Dilaudid and added oxycodone for pain, conservative noting blood pressure -NPO at midnight -Venous Dopplers ordered to rule out DVT noting extent of edema, positive Homans and left lower leg pain Atrial fibrillation RVR, this is not a new diagnosis -patient diagnosed over a year prior and patient admits he never saw a internal audit director so there was no discussion regarding anticoagulation. No history of stroke. -patient comes in with AFib RVR rates as high as 130 to 160s, after fluid and reduction in fever, rates are improving -patient normally on Coreg, we will resume this -Cardiology consulted for review of treatment and anticoagulation, patient has no previous stroke history -checking magnesium and TSH -telemetry HFrEF -Last echocardiogram for 07/25/24 noted an EF of 50-55% with mildly decreased right ventricular systolic function and no obvious valvular disorders -patient is receiving Lasix 40 mg IV x1 now due to the amount of swelling in lower extremity. -Coreg continued -BNP elevated 296, troponins negative -Cardiology consulted -daily weights, strict I's and O's -low-salt diet, patient currently NPO in case ortho needs to take patient to the OR Small bilateral pleural effusions -incidental finding -Lasix 40 mgs provided x1 so far IV -oxygen as needed -incentive spirometer Cirrhosis with portal venous hypertension -chronic in nature, patient continues to use alcohol daily -monitor LFTs -patient will need to follow with GI as an outpatient currently patient has not established with a natural developer. -patient denies history of hepatitis-C -continue spironolactone once med rec is completed Psoriasis -chronic in nature for patient, has been using a topical cream but can not recall the name of the lotion and is not listed on his med rec -we will provide hydrocortisone cream 1% Gynecomastia -chronic and noted on CTA of the chest -we will check prolactin level -may be hormonal related and patient will need to see an sorting livestock worker as an outpatient for follow-up Chronic T12 compression fracture with mild fracture at L1, no signs of acute fracture on CTA -pain management Alcohol dependence, PSUD -patient denies any recent illicit substance abuse but does report drinking alcohol daily -thiamine and folic folic acid ordered -CIWA ordered -no indication for phenobarbital, no histories of withdrawal seizure, last drink was over 4 days ago DVT prophylaxis: On hold as patient may need to go to the OR with ortho if indicated PPI prophylaxis: Protonix IV Med rec pending Patient is a full code Admit as inpatient and will require two night minimum hospital stay for IV antibiotics (as above), which is not possible in a lesser acute setting. Specialist consult pending <Joseph Dominguez MD - Last Filed: 07/29/24 01:37> Quality Stroke Does the patient have a stroke diagnosis?: No <FRANCISCO J Hughes - Last Filed: 07/29/24 01:21> Reason for No Anti-thrombotic by Day Two: Contraindicated <Linsday Calabrese [facility] - Last Filed: 07/29/24 01:21> VTE Prior VTE?: No <Lindsay Calabrese [facility] - Last Filed: 07/29/24 01:21> VTE Risk Level:: Surgical - high <Lindsay Calabrese [facility] - Last Filed: 07/29/24 01:21> VTE Device Contraindication: Procedure Contraindicated <Lindsay Calabrese [facility] - Last Filed: 07/29/24 01:21> VTE Drug Contraindication: Treatment Not Indicated <Lindsay Calabrese [facility] - Last Filed: 07/29/24 01:21>
[2024-07-29] VITALS (12 sets, daily range): BP systolic 93–140; BP diastolic 57–96; PULSE 94–128; RESP 14–18; TEMP 36.9–38.3; O2SAT 93–97
[2024-07-29] MEDS: Furosemide 40 MG/4 ML VIAL IVPUSH ×2 (02:16→10:59)
[2024-07-29] MEDS: Albumin Human 25 % 100 ML 133.33 ML IV (02:16)
[2024-07-29] MEDS: 0.9 % Sodium Chloride Flush 3 ML SYRINGE IVFLUSH ×4 (02:18→23:38)
[2024-07-29] MEDS: HYDROmorphone HCl 1 MG/ML SYRINGE IVPUSH ×5 (02:30→22:14)
[2024-07-29] MEDS: Metoprolol Tartrate 25 MG TABLET PO (03:31)
[2024-07-29 05:31] LABS: MANUAL DIFF FLAG NO
[2024-07-29 05:36] LABS: Basophils Percent Auto 0.7 % (0-2); Eosinophils Percent Auto 0.7 % (0-4); Hematocrit 25.8 % (42.0-52.0); Hemoglobin 8.9 g/dl (14.0-18.0); Imm Gran Abs Auto 0.02 X10*3/uL (0.00-0.03); Imm Gran Pct Auto 0.7 % (0.0-0.4); Lymphocytes Absolute Auto 0.3 X10*3/uL (1.2-4.9); Lymphocytes Percent Auto 10.3 % (20-40); Mean Corpuscular HGB Conc 34.5 g/dl (31.0-36.0); Mean Corpuscular Hemoglobin 33.5 pg (27.0-33.0); Monocytes Absolute Auto 0.3 X10*3/uL (0.1-1.2); Neutrophils Absolute Auto 2.3 x10*3/uL (2.0-8.3); Neutrophils Percent Auto 77.6 % (45-73); Platelet Count 90 X10*3/uL (160-400); Red Blood Count 2.66 X10*6/uL (4.60-5.80); White Blood Count 2.9 X10*3/uL (4.8-10.8)
[2024-07-29] MEDS: Magnesium Sulfate/H2O 2 GM/50 ML PIGGYBACK IV (05:42)
[2024-07-29] MEDS: Pantoprazole Sodium 40 MG/10 ML VIAL IVPUSH (05:43)
[2024-07-29 05:59] LABS: Alanine Aminotransferase 15 U/L (0-40); Albumin Level 3.4 g/dL (3.5-5.0); Alkaline Phosphatase 69 U/L (39-117); Anion Gap 14 (12-20); Aspartate Amino Transferase 41 U/L (5-37); Bilirubin Total 1.7 mg/dL (0.0-1.0); Blood Urea Nitrogen 9 mg/dL (9-16); Carbon Dioxide 25 mmol/L (22-29); Chloride 100 mmol/L (96-108); Creatinine Clr Calc Pharmacy 158.3; Estimated Glomerular Filt Rate > 60; Glucose Random 93 mg/dL (60-115); Magnesium 1.5 mg/dL (1.6-2.6); Potassium 3.4 mmol/L (3.3-5.1); Sodium 136 mmol/L (135-145); Total Protein 6.1 g/dL (6.5-8.0)
[2024-07-29 06:14] LABS: TSH reflex Free T4 4.08 uIU/mL (0.32-4.0)
[2024-07-29 06:17] LABS: Erythrocyte Sedimentation Rate 40 MM/HR (0-15)
[2024-07-29 07:12] LABS: Free T4 (Free Thyroxine) 0.83 ng/dL (0.71-1.85)
--- NOTE | 2024-07-29 07:27 | PHA.PROG ---
Admission Date/Time: July 28, 2024 23:30 Indication: BONE AND JOINT Weight in k.8 kg Adjusted body weight in Kg: [place] body weight in Kg: Obesity Dosing Indication % IBW: Serum Creatinine - Last 168 Hours 07/28/24 07/29/24 19:30 05:19 Creatinine 0.55 0.55 Estimated CrCl and GFR - Last 168 Hours 07/28/24 07/29/24 19:30 05:19 Estim Creat Clear Calc 158.3 158.3 Estimated GFR > 60 > 60 Vancomycin Loading Dose: 2000 MG Current Vancomycin Dosing Regimen: 1000 MG Q8H Vancomycin Monitoring using AUC goal of 400 - 600 range with trough as surrogate marker: HUM=112 TROUGH=18.4 Date and Time for next Vancomycin Level to be drawn: 07/29/24 @2100 Pharmacist Comments on Vancomycin Plan: Vancomycin dosing will take advantage of [employer] as a clinical decision support tool that uses Bayesian modeling to calculate individual patient's pharmacokinetic parameters and forecast the patient's drug concentration time course with the target goal AUC 24 range of 400 - 600 mg/L/hr.
--- NOTE | 2024-07-29 07:59 | PHA.MEDREC ---
Pharmacy Consult ? Medication Reconciliation Pharmacy has completed the medication reconciliation. Pt discharged yesterday 07/28. Utilized discharge packet to confirm meds.
[2024-07-29] MEDS: Acetaminophen 325 MG TABLET 650 MG PO (08:00)
[2024-07-29] MEDS: vancomycin HCL 1,000 MG in 0.9 % Sodium Chloride 250 ML 270 MG IV ×3 (08:25→23:37)
[2024-07-29] MEDS: carvediloL 6.25 MG TABLET PO ×2 (08:25→22:14)
[2024-07-29] MEDS: polyethylene glycoL 3350 17 GM POWD.PACK PO (08:25)
[2024-07-29] MEDS: Folic Acid 1 MG TABLET PO (08:25)
[2024-07-29] MEDS: Hydrocortisone 1 % Cream 28.35 GM TUBE 1 APPL TOPICAL (08:25)
[2024-07-29] MEDS: Thiamine HCL 100 MG TABLET PO (08:25)
--- NOTE | 2024-07-29 08:45 | PM.CNOR ---
History of Present Illness [facility] Consult date: 07/29/24 Chief complaint: Hip Pain Narrative: Mr. Wang is a 63 yo male who was previously admitted to the hospital on 07/24/24 with a right hip intertroch fracture. He underwent a right hip IM Nail on 07/25/24. He has a past medical history significant for hypertension,HFrEF, , atrial fibrillation RVR not on anticoagulation, R inguinal hernia repair, JAN, cirrhosis of the liver, psoriasis, osteoarthritis of bilateral knees, Right shoulder chronic pain likely secondary to a scapular fracture that occurred 7 years ago, depression, chronic alcohol abuse (2-3 beers per day). He was discharged to [facility] yesterday but upon arrival the patient had a fever of 101.1 and was transported back to the emergency department. While in the emergency department the patient demonstrated no signs of surgical site infection based off of physical exam. He continues t have pain as expected in the right hip. The patient was started on ceftriaxone and vancomycin prophylactically. He has bilateral lower extremity edema which patient reports is chronic. Review of Systems Review of Systems: Yes all other systems are reviewed and are negative [facility] Past Medical History Medical History (Updated 07/29/24 @ 00:49 by FRANCISCO J Hughes) Right scapula fracture Osteoarthritis Psoriasis Left against medical advice Chronic HFrEF (heart failure with reduced ejection fraction) Cardiomyopathy Alcoholic cirrhosis of liver Alcohol intoxication Atrial fibrillation with rapid ventricular response Psoriasis Afib Surgical History Surgical History H/O right inguinal hernia repair Social History Social History Household Members: None Housing: Apartment Housing Other:: Elderly housing complex Do you presently have visiting nurse or other home services: Yes Alcohol intake: current Alcohol intake frequency: 3 or more drinks per day Alcohol type: beer and hard liquor 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 Patient Tobacco Use Status: Never used Tobacco Smoked in Last 30 Days: No Second Hand Smoke Exposure: No Use of substances other than those prescribed or required for medical reasons: No Advance Directives: No Advance Directives Information Provided: Yes Do you have a plan to hurt others: No Plan service: No Current occupational status: disabled Travel History Ebola Risk: Travel/Contact With Anyone From Affected Area/s: No Has Patient Experienced Ebola Symptoms: No Meds Allergies Allergy/AdvReac Type Severity Reaction Status Date / Time No Known Allergies Allergy Verified 07/28/24 18:56 Active Medications: Current Medications Acetaminophen (Acetaminophen 325 Mg Tablet) 650 mg PO Q6H PRN PRN Reason: Pain, Mild 1-3,fever,headache Calcium Carbonate (Calcium Carbonate 750 Mg Tab.Chew) 750 mg PO Q4H PRN PRN Reason: Heartburn Carvedilol (Carvedilol 6.25 Mg Tablet) 6.25 mg PO BID [facility]; Protocol Last Admin: 07/29/24 08:25 Dose: 6.25 mg Ceftriaxone Sodium (Ceftriaxone Sodium 1 Gm Vial) 1 gm IVPUSH Q24H [facility] Folic Acid (Folic Acid 1 Mg Tablet) 1 mg PO DAILY [facility] Last Admin: 07/29/24 08:25 Dose: 1 mg Hydrocortisone (Hydrocortisone 1 % Cream 28.35 Gm Tube) 1 appl TOPICAL BID [facility]; Protocol Last Admin: 07/29/24 08:25 Dose: 1 appl Hydromorphone HCl (Hydromorphone Hcl 1 Mg/Ml Syringe) 1 mg IVPUSH Q3H PRN; Protocol PRN Reason: Pain, Severe (Pain Scale 7-10) Vancomycin HCl 1,000 mg/ (Sodium Chloride) 270 mls @ 270 mls/hr IV Q8H [facility] Last Admin: 07/29/24 08:25 Dose: 270 mls/hr Magnesium Hydroxide (Milk Of Magnesia 30 Ml Oral.Susp) 30 ml PO DAILY PRN PRN Reason: Constipation Melatonin (Melatonin 3 Mg Tablet) 6 mg PO BEDTIME PRN PRN Reason: Insomnia Ondansetron HCl (Ondansetron Hcl 4 Mg/2 Ml Vial) 4 mg IVPUSH Q8H PRN PRN Reason: Nausea and Vomiting Oxycodone HCl (Oxycodone Hcl Immed Release 5 Mg Tablet) 5 mg PO Q4H PRN PRN Reason: Pain, Moderate(Pain Scale 4-6) Pantoprazole Sodium (Pantoprazole Sodium 40 Mg/10 Ml Vial) 40 mg IVPUSH DAILY@0630 [facility] Last Admin: 07/29/24 05:43 Dose: 40 mg Pharmacy Consult (Consult Rx Vancomycin Dosing) 1 each MISCELLANE DAILY PRN PRN Reason: Consult order Polyethylene Glycol (Polyethylene Glycol 3350 17 Gm Powd.Pack) 17 gm PO DAILY [facility] Last Admin: 07/29/24 08:25 Dose: 17 gm Senna (Sennosides 8.6 Mg Tablet) 17.2 mg PO BEDTIME [facility] Sodium Chloride (0.9 % Sodium Chloride Flush 3 Ml Syringe) 3 ml IVFLUSH QSHIFT [facility] Last Admin: 07/29/24 08:24 Dose: 3 ml Thiamine HCl (Thiamine Hcl 100 Mg Tablet) 100 mg PO DAILY [facility] Last Admin: 07/29/24 08:25 Dose: 100 mg Home Medications ?Medication ?Instructions ?Recorded ?Confirmed ?Last Taken ?Type carvedilol 6.25 mg tablet 6.25 mg PO BID 07/24/24 07/29/24 Unknown History fluoxetine 10 mg capsule 10 mg PO DAILY 07/24/24 07/29/24 Unknown History quetiapine 25 mg tablet 25 mg PO BID 07/24/24 07/29/24 Unknown History spironolactone 25 mg tablet 25 mg PO DAILY 07/24/24 07/29/24 Unknown History thiamine HCl (vitamin B1) 100 mg 100 mg PO DAILY 07/24/24 07/29/24 Unknown History tablet topiramate 25 mg tablet 25 mg PO DAILY 07/24/24 07/29/24 Unknown History Physical Exam Vital Signs: Vital Signs: Last Vital Signs Temp 98.9 F 07/29/24 06:11 Pulse 111 H 07/29/24 08:25 Resp 14 07/29/24 06:11 BP 119/79 07/29/24 08:25 Pulse Ox 93 07/29/24 06:11 O2 Del Method Room Air 07/29/24 06:11 BMI result Body Mass Index 32.1 Const: General: cooperative, healthy appearing and no acute distress Extrem: Other: RLU: Incision sites are c/d/i. No surrounding erythema or drainage. No signs of infection. Lower extremity edema. Results Labs 07/29/24 05:19 07/29/24 05:19 Labs: Abnormal lab results 07/28/24 07/28/24 07/28/24 Range/Units 19:07 19:19 19:30 WBC (4.8-10.8) X10*3/uL RBC 2.76 L (4.60-5.80) X10*6/uL Hgb 9.3 L (14.0-18.0) g/dl Hct 26.6 L (42.0-52.0) % MCH 33.7 H (27.0-33.0) pg Plt Count 99 L (160-400) X10*3/uL Immature Gran % (Auto) (0.0-0.4) % Neut % (Auto) 83.1 H (45-73) % Lymph % (Auto) 7.7 L (20-40) % Lymph # (Auto) 0.5 L (1.2-4.9) X10*3/uL ESR (0-15) MM/HR PT 13.8 H (10.9-12.4) SEC INR 1.2 H (0.9-1.1) Sodium 134 L (135-145) mmol/L Calcium 7.7 L (8.4-10.2) mg/dL Magnesium (1.6-2.6) mg/dL Total Bilirubin 1.5 H (0.0-1.0) mg/dL AST 47 H (5-37) U/L B-Natriuretic Peptide 296 H (<100) pg/mL Total Protein 5.6 L (6.5-8.0) g/dL Albumin 2.7 L (3.5-5.0) g/dL TSH (0.32-4.0) uIU/mL Ur Specific [place] (1.005-1.025) 07/28/24 07/29/24 Range/Units 21:23 05:19 WBC 2.9 L (4.8-10.8) X10*3/uL RBC 2.66 L (4.60-5.80) X10*6/uL Hgb 8.9 L (14.0-18.0) g/dl Hct 25.8 L (42.0-52.0) % MCH 33.5 H (27.0-33.0) pg Plt Count 90 L (160-400) X10*3/uL Immature Gran % (Auto) 0.7 H (0.0-0.4) % Neut % (Auto) 77.6 H (45-73) % Lymph % (Auto) 10.3 L (20-40) % Lymph # (Auto) 0.3 L (1.2-4.9) X10*3/uL ESR 40 H (0-15) MM/HR PT (10.9-12.4) SEC INR (0.9-1.1) Sodium (135-145) mmol/L Calcium 8.0 L (8.4-10.2) mg/dL Magnesium 1.5 L (1.6-2.6) mg/dL Total Bilirubin 1.7 H (0.0-1.0) mg/dL AST 41 H (5-37) U/L B-Natriuretic Peptide (<100) pg/mL Total Protein 6.1 L (6.5-8.0) g/dL Albumin 3.4 L (3.5-5.0) g/dL TSH 4.08 H (0.32-4.0) uIU/mL Ur Specific [place] >= 1.030 H (1.005-1.025) H & H 07/28/24 07/29/24 Range/Units 19:07 05:19 Hgb 9.3 L 8.9 L (14.0-18.0) g/dl Hct 26.6 L 25.8 L (42.0-52.0) % Coagulation 07/28/24 Range/Units 19:19 INR 1.2 H (0.9-1.1) All other labs normal. Assessment and Plan (1) Intertrochanteric fracture of right hip: Status: Acute (2) Closed hip fracture: Qualifiers: Encounter type: initial encounter Laterality: right Qualified Code(s): S72.001A - Fracture of unspecified part of neck of right femur, initial encounter for closed fracture Status: Acute (3) Fall: Qualifiers: Encounter type: initial encounter Qualified Code(s): W19.XXXA - Unspecified fall, initial encounter Status: Acute Plan No sign of surgical site infection or infected orthopedic hardware Continue pain management P.T./O.T. for right him s/p IM Nail All other recommendations per medicine CT of the pelvis: IMPRESSION: 1. There are changes of cirrhosis with portal venous hypertension. 2. There is extensive soft tissue edema, most pronounced at the level of the right lower extremity. 3. Status post recent open reduction internal fixation of the right proximal femur. 4. There is a small amount of pelvic free fluid. Procedures Date of Service Date of Service: 07/29/24
--- NOTE | 2024-07-29 10:46 | P.CONCA_ITS ---
History of Present Illness History of Present Illness Date of Service: 07/29/24 Requesting physician: Darcy Martin Chief complaint: Hip Pain, Afib Narrative: 63-year-old with background of alcoholism who recently got admitted with fall and hip fracture underwent surgery. He went to rehab facility and had fevers and was transferred back to us. Right thigh swollen and he is complaining of pain. He was noted to have AFib with RVR which was present on admission last time too. Chest x-ray is showing mild effusions. He is denying any shortness of breath. No chest discomfort. He previously had cardiomyopathy with severe LV dysfunction due to alcoholism but more recent echocardiography has shown low normal EF but he did have some RV dysfunction. [facility] Past Medical History Medical History (Updated 07/29/24 @ 12:35 by Hari Candelario MD) Right scapula fracture Osteoarthritis Psoriasis Left against medical advice Chronic HFrEF (heart failure with reduced ejection fraction) Cardiomyopathy Alcoholic cirrhosis of liver Alcohol intoxication Atrial fibrillation with rapid ventricular response Psoriasis Afib Surgical History Surgical History H/O right inguinal hernia repair Social History Social History Household Members: None Housing: Apartment Housing Other:: Elderly housing complex Do you presently have visiting nurse or other home services: Yes Alcohol intake: current Alcohol intake frequency: 3 or more drinks per day Alcohol type: beer and hard liquor 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 Patient Tobacco Use Status: Never used Tobacco Smoked in Last 30 Days: No Second Hand Smoke Exposure: No Use of substances other than those prescribed or required for medical reasons: No Advance Directives: No Advance Directives Information Provided: Yes Do you have a plan to hurt others: No Plan Nutrition Risks: No Nutritional Risk service: No Current occupational status: disabled Travel History Ebola Risk: Travel/Contact With Anyone From Affected Area/s: No Has Patient Experienced Ebola Symptoms: No Meds Allergies Allergy/AdvReac Type Severity Reaction Status Date / Time No Known Allergies Allergy Verified 07/28/24 18:56 Active Medications: Current Medications Acetaminophen (Acetaminophen 325 Mg Tablet) 650 mg PO Q6H PRN PRN Reason: Pain, Mild 1-3,fever,headache Calcium Carbonate (Calcium Carbonate 750 Mg Tab.Chew) 750 mg PO Q4H PRN PRN Reason: Heartburn Carvedilol (Carvedilol 6.25 Mg Tablet) 6.25 mg PO BID [facility]; Protocol Last Admin: 07/29/24 08:25 Dose: 6.25 mg Ceftriaxone Sodium (Ceftriaxone Sodium 1 Gm Vial) 1 gm IVPUSH Q24H [facility] Enoxaparin Sodium (Enoxaparin Sodium 40 Mg/0.4 Ml Syringe) 40 mg SUBCUT Q24H [facility] Folic Acid (Folic Acid 1 Mg Tablet) 1 mg PO DAILY [facility] Last Admin: 07/29/24 08:25 Dose: 1 mg Furosemide (Furosemide 40 Mg/4 Ml Vial) 40 mg IVPUSH DAILY [facility]; Protocol Hydrocortisone (Hydrocortisone 1 % Cream 28.35 Gm Tube) 1 appl TOPICAL BID [facility]; Protocol Last Admin: 07/29/24 08:25 Dose: 1 appl Hydromorphone HCl (Hydromorphone Hcl 1 Mg/Ml Syringe) 1 mg IVPUSH Q3H PRN; Protocol PRN Reason: Pain, Severe (Pain Scale 7-10) Vancomycin HCl 1,000 mg/ (Sodium Chloride) 270 mls @ 270 mls/hr IV Q8H [facility] Last Infusion: 07/29/24 09:41 Dose: Infused Magnesium Hydroxide (Milk Of Magnesia 30 Ml Oral.Susp) 30 ml PO DAILY PRN PRN Reason: Constipation Melatonin (Melatonin 3 Mg Tablet) 6 mg PO BEDTIME PRN PRN Reason: Insomnia Ondansetron HCl (Ondansetron Hcl 4 Mg/2 Ml Vial) 4 mg IVPUSH Q8H PRN PRN Reason: Nausea and Vomiting Oxycodone HCl (Oxycodone Hcl Immed Release 5 Mg Tablet) 5 mg PO Q4H PRN PRN Reason: Pain, Moderate(Pain Scale 4-6) Pantoprazole Sodium (Pantoprazole Sodium 40 Mg/10 Ml Vial) 40 mg IVPUSH DAILY@0630 [facility] Last Admin: 07/29/24 05:43 Dose: 40 mg Pharmacy Consult (Consult Rx Vancomycin Dosing) 1 each MISCELLANE DAILY PRN PRN Reason: Consult order Polyethylene Glycol (Polyethylene Glycol 3350 17 Gm Powd.Pack) 17 gm PO DAILY [facility] Last Admin: 07/29/24 08:25 Dose: 17 gm Senna (Sennosides 8.6 Mg Tablet) 17.2 mg PO BEDTIME [facility] Sodium Chloride (0.9 % Sodium Chloride Flush 3 Ml Syringe) 3 ml IVFLUSH QSHIFT [facility] Last Admin: 07/29/24 08:24 Dose: 3 ml Thiamine HCl (Thiamine Hcl 100 Mg Tablet) 100 mg PO DAILY [facility] Last Admin: 07/29/24 08:25 Dose: 100 mg Home Medications ?Medication ?Instructions ?Recorded ?Confirmed ?Last Taken ?Type carvedilol 6.25 mg tablet 6.25 mg PO BID 07/24/24 07/29/24 Unknown History fluoxetine 10 mg capsule 10 mg PO DAILY 07/24/24 07/29/24 Unknown History quetiapine 25 mg tablet 25 mg PO BID 07/24/24 07/29/24 Unknown History spironolactone 25 mg tablet 25 mg PO DAILY 07/24/24 07/29/24 Unknown History thiamine HCl (vitamin B1) 100 mg 100 mg PO DAILY 07/24/24 07/29/24 Unknown History tablet topiramate 25 mg tablet 25 mg PO DAILY 07/24/24 07/29/24 Unknown History Physical Exam 2 Vital Signs: Vital Signs: Last Vital Signs Temp 100.9 F H 07/29/24 08:00 Pulse 111 H 07/29/24 08:25 Resp 18 07/29/24 08:00 BP 119/79 07/29/24 08:25 Pulse Ox 96 07/29/24 08:00 O2 Del Method Room Air 07/29/24 08:00 BMI result Body Mass Index 32.1 GENERAL APPEARANCE: in no acute distress, pleasant. NECK: no carotid bruit, + jugular venous distention. SKIN: no suspicious lesions, warm and dry. HEART: no murmurs, irregular rate and rhythm. LUNGS: clear to auscultation bilaterally. ABDOMEN: soft, nontender. EXTREMITIES: 1 to 2+ edema. Right thigh swelling, warm to touch. PERIPHERAL PULSES: equal. NEUROLOGIC: No gross deficits, AAO X 3 Objective Labs and Meds 07/29/24 05:19 07/29/24 05:19 Lab results: Laboratory Results - last 24 hr 07/28/24 07/28/24 07/28/24 19:07 19:19 19:30 WBC 5.9 RBC 2.76 L Hgb 9.3 L Hct 26.6 L MCV 96.4 MCH 33.7 H MCHC 35.0 RDW 12.8 Plt Count 99 L MPV 10.2 Immature Gran % (Auto) 0.3 Neut % (Auto) 83.1 H Lymph % (Auto) 7.7 L [place] % (Auto) 7.9 Eos % (Auto) 0.5 Baso % (Auto) 0.5 Lymph # (Auto) 0.5 L [place] # (Auto) 0.5 Eos # (Auto) 0.0 Baso # (Auto) 0.0 Abs Immat Gran (auto) 0.02 Absolute Neuts (auto) 4.9 Absolute Nucleated RBC 0.000 Nucleated RBC % (auto) 0.0 ESR PT 13.8 H INR 1.2 H Sodium 134 L Potassium 4.2 D Chloride 101 Carbon Dioxide 24 Anion Gap 13 BUN 10 Creatinine 0.55 Estim Creat Clear Calc 158.3 Estimated GFR > 60 Random Glucose 105 Lactic Acid 1.4 Calcium 7.7 L Magnesium Total Bilirubin 1.5 H AST 47 H ALT 15 Alkaline Phosphatase 75 Troponin I High Sens 4.8 B-Natriuretic Peptide 296 H Total Protein 5.6 L Albumin 2.7 L TSH Free T4 Urine Color Urine Appearance Urine pH Ur Specific [place] Urine Protein Urine Glucose (UA) Urine Ketones Urine Blood Urine Nitrite Ur Leukocyte Esterase Influenza Type A (PCR) NEGATIVE Influenza Type B (PCR) NEGATIVE RSV RNA Qual (PCR) NEGATIVE SARS-CoV-2 RNA (RT-PCR) NEGATIVE 07/28/24 07/29/24 21:23 05:19 WBC 2.9 L RBC 2.66 L Hgb 8.9 L Hct 25.8 L MCV 97.0 MCH 33.5 H MCHC 34.5 RDW 13.0 Plt Count 90 L MPV 10.0 Immature Gran % (Auto) 0.7 H Neut % (Auto) 77.6 H Lymph % (Auto) 10.3 L [place] % (Auto) 10.0 Eos % (Auto) 0.7 Baso % (Auto) 0.7 Lymph # (Auto) 0.3 L [place] # (Auto) 0.3 Eos # (Auto) 0.0 Baso # (Auto) 0.0 Abs Immat Gran (auto) 0.02 Absolute Neuts (auto) 2.3 Absolute Nucleated RBC 0.000 Nucleated RBC % (auto) 0.0 ESR 40 H PT INR Sodium 136 Potassium 3.4 Chloride 100 Carbon Dioxide 25 Anion Gap 14 BUN 9 Creatinine 0.55 Estim Creat Clear Calc 158.3 Estimated GFR > 60 Random Glucose 93 Lactic Acid Calcium 8.0 L Magnesium 1.5 L Total Bilirubin 1.7 H AST 41 H ALT 15 Alkaline Phosphatase 69 Troponin I High Sens B-Natriuretic Peptide Total Protein 6.1 L Albumin 3.4 L TSH 4.08 H Free T4 0.83 Urine Color Dark Yellow Urine Appearance Clear Urine pH 7.0 Ur Specific [place] >= 1.030 H Urine Protein Trace Urine Glucose (UA) Negative Urine Ketones Negative Urine Blood Negative Urine Nitrite Negative Ur Leukocyte Esterase Negative Influenza Type A (PCR) Influenza Type B (PCR) RSV RNA Qual (PCR) SARS-CoV-2 RNA (RT-PCR) Assessment and Plan (1) Atrial fibrillation with RVR: Status: Acute (2) Diastolic heart failure: Status: Acute Plan 63-year-old gentleman who had right hip surgery after recent fall and intertrochanteric fracture of right hip. He had atrial fibrillation and the low normal ejection fraction by echocardiography. He was rate controlled. He is now presenting with pain and fever. He has been worked up for sepsis. He is in mild congestive heart failure and agree with gentle diuresis. Does not need anticoagulation currently. Also with concern for bleeding in the thigh/hematoma would not give any anticoagulants. Rate control strategy for atrial fibrillation. Thank you for allowing me to participate in the care of your patient. Please feel free to contact me if you have any questions. Procedures Date of Service Date of Service: 07/29/24
[2024-07-29] MEDS: Enoxaparin Sodium 40 MG/0.4 ML SYRINGE SUBCUT (11:01)
--- NOTE | 2024-07-29 11:49 | MHC.CM.PN ---
Patient was dc to [facility] yesterday and returns now to [facility], with fever. IMM addressed verbally. Goal is to return to [facility] @ [facility], once medically cleared for dc; there is a [facility] bed hold. Patient lives alone and was recently approved for 6 [employer] hours/week. BLS transport back to SNF @ dc and HCP is Brother/[place].PCP is Dr. Robert Nelson.
--- NOTE | 2024-07-29 12:09 | PM.EVENT ---
Event Note Date of Service: 07/29/24 Event Note: Patient seen and evaluated Pending cultures Continue IV Vancomycin and Ceftriaxone Carvedilol bid , increase as tolerated for better control BP soft from chronic liver disease ORthopedic following RLE US negative for DVT Start IV Lasix Time Spent With Patient Time: Total time managing care of this patient today ____ minutes.
[2024-07-29] MEDS: cefTRIAXone sodium 1 GM VIAL IVPUSH (17:50)
[2024-07-29 21:31] LABS: Vancomycin Random 14.8 mcg/mL (15-20)
[2024-07-30] VITALS (9 sets, daily range): BP systolic 99–116; BP diastolic 58–71; PULSE 91–127; RESP 17–20; TEMP 36.3–37.3; O2SAT 93–97
[2024-07-30] MEDS: HYDROmorphone HCl 1 MG/ML SYRINGE IVPUSH ×5 (03:36→20:59)
[2024-07-30] MEDS: Pantoprazole Sodium 40 MG/10 ML VIAL IVPUSH (05:49)
[2024-07-30 06:56] LABS: Anion Gap 11 (12-20); Blood Urea Nitrogen 12 mg/dL (9-16); Calcium 7.9 mg/dL (8.4-10.2); Carbon Dioxide 28 mmol/L (22-29); Chloride 97 mmol/L (96-108); Creatinine Clr Calc Pharmacy 147.5; Estimated Glomerular Filt Rate > 60; Glucose Random 108 mg/dL (60-115); Magnesium 1.6 mg/dL (1.6-2.6); Potassium 3.3 mmol/L (3.3-5.1); Sodium 133 mmol/L (135-145)
[2024-07-30 06:59] LABS: Basophils Percent Auto 0.3 % (0-2); Eosinophils Absolute Auto 0.1 X10*3/uL (0.0-0.4); Eosinophils Percent Auto 1.8 % (0-4); Hematocrit 25.8 % (42.0-52.0); Imm Gran Abs Auto 0.01 X10*3/uL (0.00-0.03); Imm Gran Pct Auto 0.3 % (0.0-0.4); Lymphocytes Absolute Auto 0.6 X10*3/uL (1.2-4.9); MANUAL DIFF FLAG SCAN; Mean Corpuscular HGB Conc 34.9 g/dl (31.0-36.0); Mean Corpuscular Hemoglobin 33.2 pg (27.0-33.0); Mean Corpuscular Volume 95.2 fL (80.0-98.0); Monocytes Absolute Auto 0.8 X10*3/uL (0.1-1.2); Monocytes Percent Auto 24.5 % (2-11); Neutrophils Absolute Auto 1.8 x10*3/uL (2.0-8.3); Neutrophils Percent Auto 54.1 % (45-73); Platelet Count 117 X10*3/uL (160-400); Red Blood Count 2.71 X10*6/uL (4.60-5.80); Red Cell Distribution Width 12.6 % (11.0-16.0); SCAN SMEAR FLAG 1; White Blood Count 3.3 X10*3/uL (4.8-10.8)
[2024-07-30 07:27] LABS: SLIDE REVIEW VERIFIED
[2024-07-30] MEDS: Enoxaparin Sodium 40 MG/0.4 ML SYRINGE SUBCUT (09:21)
[2024-07-30] MEDS: carvediloL 6.25 MG TABLET PO ×2 (09:22→20:55)
[2024-07-30] MEDS: Folic Acid 1 MG TABLET PO (09:22)
[2024-07-30] MEDS: oxyCODONE HCl Immed Release 5 MG TABLET PO (09:22)
[2024-07-30] MEDS: Furosemide 40 MG/4 ML VIAL IVPUSH (09:22)
[2024-07-30] MEDS: Thiamine HCL 100 MG TABLET PO (09:22)
[2024-07-30] MEDS: polyethylene glycoL 3350 17 GM POWD.PACK PO (09:22)
[2024-07-30] MEDS: 0.9 % Sodium Chloride Flush 3 ML SYRINGE IVFLUSH ×3 (09:23→20:59)
[2024-07-30] MEDS: vancomycin HCL 1,000 MG in 0.9 % Sodium Chloride 250 ML 270 MG IV ×2 (09:23→17:42)
[2024-07-30 11:22] LABS: MRSA Nasal PCR NEGATIVE (Negative); SA Nasal PCR NEGATIVE (Negative)
[2024-07-30] MEDS: Hydrocortisone 1 % Cream 28.35 GM TUBE 1 APPL TOPICAL ×2 (13:19→20:59)
[2024-07-30] MEDS: Digoxin 0.5 MG/2 ML AMPUL 0.25 MG IVPUSH ×2 (13:19→17:43)
--- NOTE | 2024-07-30 14:23 | MHC.CM.PN ---
EMR reviewed and per MD rounds, pt is not medically cleared for discharge due to management of HR.
--- NOTE | 2024-07-30 14:54 | HE.PHANOTE ---
Vanco dose adjustment Based on scr and trough of 14 dose continued at 1000 q 8. next level 07/31 @ 1400
--- NOTE | 2024-07-30 16:59 | HO.PM.IMPN ---
Subjective Subjective Date of Service: 07/30/24 Interval History: Seen and evaluated this morning feels tired , no energy no fever last 24 hours Afib w RvR no other events Review of Systems Review of Systems: Yes all other systems are reviewed and are negative Physical Exam Vital Signs: Vital Signs: Last Vital Signs Temp 98.0 F 07/30/24 15:32 Pulse 96 07/30/24 15:32 Resp 17 07/30/24 15:32 BP 99/66 07/30/24 15:32 Pulse Ox 96 07/30/24 15:32 O2 Del Method Room Air 07/30/24 15:32 BMI result Body Mass Index 32.1 Const: Other: Constitutional : Awake, interactive, anxious about pain Neck : Normal inspection, Supple Cardiovascular : irregular irregular, elevated JVP, RLE +2 lower extremity edema more than LLE Respiratory : good bilateral air entry, no crackles, wheezes or rhonchi Gastrointestinal: soft, lax, Normal bowel sounds, Non tender extremities: RLE surgical wound covered with dressing Skin : Warm, Dry Neurological : Alert & oriented x3, No focal defici, mild tremor Objective Data Active Medications Acetaminophen (Acetaminophen 325 Mg Tablet) 650 mg PO Q6H PRN PRN Reason: Pain, Mild 1-3,fever,headache Last Admin: 07/29/24 08:00 Dose: 650 mg Documented By: NEGRITO Calcium Carbonate (Calcium Carbonate 750 Mg Tab.Chew) 750 mg PO Q4H PRN PRN Reason: Heartburn Carvedilol (Carvedilol 6.25 Mg Tablet) 6.25 mg PO BID [facility]; Protocol Last Admin: 07/30/24 09:22 Dose: 6.25 mg Documented By: ANITA Ceftriaxone Sodium (Ceftriaxone Sodium 1 Gm Vial) 1 gm IVPUSH Q24H [facility] Last Admin: 07/29/24 17:50 Dose: 1 gm Documented By: REAL Digoxin (Digoxin 0.5 Mg/2 Ml Ampul) 0.25 mg IVPUSH Q6H [facility]; Protocol Stop: 07/30/24 23:16 Last Admin: 07/30/24 13:19 Dose: 0.25 mg Documented By: ANITA Digoxin (Digoxin 0.5 Mg/2 Ml Ampul) 0.125 mg IVPUSH DAILY [facility]; Protocol Enoxaparin Sodium (Enoxaparin Sodium 40 Mg/0.4 Ml Syringe) 40 mg SUBCUT Q24H [facility] Last Admin: 07/30/24 09:21 Dose: 40 mg Documented By: ANITA Folic Acid (Folic Acid 1 Mg Tablet) 1 mg PO DAILY [facility] Last Admin: 07/30/24 09:22 Dose: 1 mg Documented By: ANITA Furosemide (Furosemide 40 Mg/4 Ml Vial) 40 mg IVPUSH DAILY [facility]; Protocol Last Admin: 07/30/24 09:22 Dose: 40 mg Documented By: ANITA Hydrocortisone (Hydrocortisone 1 % Cream 28.35 Gm Tube) 1 appl TOPICAL BID [facility]; Protocol Last Admin: 07/30/24 13:19 Dose: 1 appl Documented By: ANITA Hydromorphone HCl (Hydromorphone Hcl 1 Mg/Ml Syringe) 1 mg IVPUSH Q3H PRN; Protocol PRN Reason: Pain, Severe (Pain Scale 7-10) Last Admin: 07/30/24 13:19 Dose: 1 mg Documented By: ANITA Vancomycin HCl 1,000 mg/ (Sodium Chloride) 270 mls @ 270 mls/hr IV Q8H [facility] Last Infusion: 07/30/24 13:21 Dose: Infused Documented By: ANITA Magnesium Hydroxide (Milk Of Magnesia 30 Ml Oral.Susp) 30 ml PO DAILY PRN PRN Reason: Constipation Melatonin (Melatonin 3 Mg Tablet) 6 mg PO BEDTIME PRN PRN Reason: Insomnia Ondansetron HCl (Ondansetron Hcl 4 Mg/2 Ml Vial) 4 mg IVPUSH Q8H PRN PRN Reason: Nausea and Vomiting Oxycodone HCl (Oxycodone Hcl Immed Release 5 Mg Tablet) 5 mg PO Q4H PRN PRN Reason: Pain, Moderate(Pain Scale 4-6) Last Admin: 07/30/24 09:22 Dose: 5 mg Documented By: ANITA Pantoprazole Sodium (Pantoprazole Sodium 40 Mg/10 Ml Vial) 40 mg IVPUSH DAILY@0630 [facility] Last Admin: 07/30/24 05:49 Dose: 40 mg Documented By: AKUA Pharmacy Consult (Consult Rx Vancomycin Dosing) 1 each MISCELLANE DAILY PRN PRN Reason: Consult order Polyethylene Glycol (Polyethylene Glycol 3350 17 Gm Powd.Pack) 17 gm PO DAILY [facility] Last Admin: 07/30/24 09:22 Dose: 17 gm Documented By: ANITA Senna (Sennosides 8.6 Mg Tablet) 17.2 mg PO BEDTIME [facility] Last Admin: 07/29/24 22:20 Dose: Not Given Documented By: AKUA Non-Admin Reason: Patient Refused Sodium Chloride (0.9 % Sodium Chloride Flush 3 Ml Syringe) 3 ml IVFLUSH QSHIFT [facility] Last Admin: 07/30/24 09:23 Dose: 3 ml Documented By: ANITA Thiamine HCl (Thiamine Hcl 100 Mg Tablet) 100 mg PO DAILY [facility] Last Admin: 07/30/24 09:22 Dose: 100 mg Documented By: ANITA Labs 07/30/24 06:26 07/30/24 06:26 Labs: Laboratory Results - last 24 hr 07/29/24 07/29/24 07/30/24 16:12 20:58 06:26 MCV 95.2 MCH 33.2 H MCHC 34.9 RDW 12.6 Plt Count 117 L D MPV 10.0 Immature Gran % (Auto) 0.3 Neut % (Auto) 54.1 Lymph % (Auto) 19.0 L [place] % (Auto) 24.5 H Eos % (Auto) 1.8 Baso % (Auto) 0.3 Lymph # (Auto) 0.6 L [place] # (Auto) 0.8 Eos # (Auto) 0.1 Baso # (Auto) 0.0 Abs Immat Gran (auto) 0.01 Absolute Neuts (auto) 1.8 L Absolute Nucleated RBC 0.000 Nucleated RBC % (auto) 0.0 Smear Tech's Comments VERIFIED Anion Gap 11 L Estim Creat Clear Calc 147.5 Estimated GFR > 60 Random Glucose 108 Calcium 7.9 L Magnesium 1.6 Nasal Screen MRSA (PCR) NEGATIVE Nasal S. aureus Screen NEGATIVE Nasal MRSA/S.aureus Interp SEE NOTE Random Vancomycin 14.8 L 07/30/24 14:00 MCV MCH MCHC RDW Plt Count MPV Immature Gran % (Auto) Neut % (Auto) Lymph % (Auto) [place] % (Auto) Eos % (Auto) Baso % (Auto) Lymph # (Auto) [place] # (Auto) Eos # (Auto) Baso # (Auto) Abs Immat Gran (auto) Absolute Neuts (auto) Absolute Nucleated RBC Nucleated RBC % (auto) Smear Tech's Comments Anion Gap Estim Creat Clear Calc Estimated GFR Random Glucose Calcium Magnesium Nasal Screen MRSA (PCR) Nasal S. aureus Screen Nasal MRSA/S.aureus Interp Random Vancomycin 14.0 L Microbiology Microbiology Results: Microbiology 07/28/24 19:19 Blood Culture - Preliminary Blood - Venous No growth after 24 hours. 07/28/24 19:07 Blood Culture - Preliminary Blood - Venous No growth after 24 hours. Assessment and Plan (1) Right hip pain: Status: Acute (2) Diastolic heart failure: Status: Acute (3) SIRS (systemic inflammatory response syndrome): Status: Acute (4) Atrial fibrillation with RVR: Status: Acute (5) Intertrochanteric fracture of right hip: Status: Acute Plan Patient is a 63-year-old male with past medical history hypertension,HFrEF, , atrial fibrillation RVR not on anticoagulation as patient never followed with Cardiology as an outpatient, R inguinal hernia repair, JAN, cirrhosis of the liver, psoriasis, osteoarthritis of bilateral knees, Right shoulder chronic pain likely secondary to a scapular fracture that occurred 7 years ago, depression, chronic alcohol abuse (2-3 beers per day), dog bite to left lower leg 2023 returned from short-term rehab within 3 hours of arrival for fever. Patient is being admitted after review with Orthopedics for IV antibiotics. Patient will be seen by ortho in the a.m.. SIRS No clear source of infection could be atelactasis\viral\drug related MRSA screen -ve Follow bloow cultures on ceftriaxone and vanco Status post open reduction internal fixation of the right proximal femur 07/26/24 Orthopedics consulted, no evidence of hardware or wound infection oxycodone for pain Venous Dopplers ruled out DVT Atrial fibrillation RVR, on Coreg, we will resume this Cardiology consulted for review of treatment and anticoagulation Load with Digoxin keep on Tele acute on chronic HFrEF with exacerbation Last echocardiogram for 07/25/24 noted an EF of 50-55% with mildly decreased right ventricular systolic function and no obvious valvular disorders Lasix 40 mg IV daily weights, strict I's and O's low-salt diet Cirrhosis with portal venous hypertension will need to follow with GI as an outpatient currently patient has not established with a cable television program director. continue spironolactone Pancytopenia related to cirrhosis, to monitor Psoriasis chronic in nature for patient, has been using a topical cream but can not recall the name of the lotion and is not listed on his med rec hydrocortisone cream 1% Gynecomastia chronic and noted on CTA of the chest pending prolactin level may be hormonal related and patient will need to see an certified home health aide as an outpatient for follow-up Chronic T12 compression fracture with mild fracture at L1, no signs of acute fracture on CTA pain management Alcohol dependence, PSUD patient denies any recent illicit substance abuse but does report drinking alcohol daily thiamine and folic folic acid ordered CIWA no indication for phenobarbital, no histories of withdrawal seizure, last drink was over 4 days ago DVT prophylaxis: On hold as patient may need to go to the OR with ortho if indicated PPI prophylaxis: Protonix IV Patient is a full code Admit as inpatient and will require overnight minimum hospital stay for IV antibiotics (as above) pending final cultures , which is not possible in a lesser acute setting. Quality Stroke Does the patient have a stroke diagnosis?: No Reason for No Anti-thrombotic by Day Two: Contraindicated VTE Prior VTE?: No VTE Risk Level:: Surgical - high VTE Device Contraindication: Procedure Contraindicated VTE Drug Contraindication: Treatment Not Indicated
[2024-07-30] MEDS: cefTRIAXone sodium 1 GM VIAL IVPUSH (17:41)
[2024-07-30] MEDS: Ferrous Sulfate 324 MG TABLET.DR PO (20:56)
[2024-07-30] MEDS: Sennosides 8.6 MG TABLET 17.2 MG PO (20:56)
[2024-07-30] MEDS: QUEtiapine Fumarate 25 MG TABLET PO (20:56)
[2024-07-31] VITALS (7 sets, daily range): BP systolic 96–116; BP diastolic 58–74; PULSE 69–100; RESP 16–20; TEMP 36.8–37.2; O2SAT 94–99
[2024-07-31] MEDS: vancomycin HCL 1,000 MG in 0.9 % Sodium Chloride 250 ML 270 MG IV ×2 (00:07→07:39)
[2024-07-31] MEDS: Digoxin 0.5 MG/2 ML AMPUL 0.25 MG IVPUSH (00:08)
[2024-07-31 05:23] LABS: Prolactin 7.7 ng/mL (2.0-18.0)
[2024-07-31] MEDS: oxyCODONE HCl Immed Release 5 MG TABLET PO ×3 (06:10→17:40)
[2024-07-31] MEDS: Pantoprazole Sodium 40 MG/10 ML VIAL IVPUSH (06:10)
[2024-07-31 07:24] LABS: MANUAL DIFF FLAG NO
[2024-07-31 07:31] LABS: Basophils Percent Auto 0.6 % (0-2); Eosinophils Absolute Auto 0.1 X10*3/uL (0.0-0.4); Eosinophils Percent Auto 2.7 % (0-4); Hematocrit 28.5 % (42.0-52.0); Hemoglobin 9.8 g/dl (14.0-18.0); Imm Gran Abs Auto 0.02 X10*3/uL (0.00-0.03); Imm Gran Pct Auto 0.6 % (0.0-0.4); Lymphocytes Absolute Auto 0.9 X10*3/uL (1.2-4.9); Lymphocytes Percent Auto 25.8 % (20-40); Mean Corpuscular HGB Conc 34.4 g/dl (31.0-36.0); Mean Corpuscular Hemoglobin 32.7 pg (27.0-33.0); Mean Platelet Volume 10.2 fL (9.4-12.4); Monocytes Absolute Auto 0.6 X10*3/uL (0.1-1.2); Monocytes Percent Auto 18.8 % (2-11); Neutrophils Absolute Auto 1.7 x10*3/uL (2.0-8.3); Neutrophils Percent Auto 51.5 % (45-73); Platelet Count 150 X10*3/uL (160-400); Red Cell Distribution Width 12.6 % (11.0-16.0); White Blood Count 3.3 X10*3/uL (4.8-10.8)
[2024-07-31] MEDS: 0.9 % Sodium Chloride Flush 3 ML SYRINGE IVFLUSH ×3 (07:41→20:15)
[2024-07-31] MEDS: Midodrine HCl 5 MG TABLET PO ×3 (07:42→16:22)
[2024-07-31] MEDS: Topiramate 25 MG TABLET PO (07:42)
[2024-07-31] MEDS: carvediloL 6.25 MG TABLET PO ×2 (07:42→20:13)
[2024-07-31] MEDS: Ferrous Sulfate 324 MG TABLET.DR PO ×2 (07:42→20:14)
[2024-07-31] MEDS: Spironolactone 25 MG TABLET 50 MG PO (07:42)
[2024-07-31] MEDS: Folic Acid 1 MG TABLET PO (07:42)
[2024-07-31] MEDS: QUEtiapine Fumarate 25 MG TABLET PO ×2 (07:42→20:14)
[2024-07-31] MEDS: Thiamine HCL 100 MG TABLET PO (07:42)
[2024-07-31] MEDS: Furosemide 40 MG/4 ML VIAL IVPUSH (07:43)
[2024-07-31] MEDS: polyethylene glycoL 3350 17 GM POWD.PACK PO (07:43)
[2024-07-31] MEDS: HYDROmorphone HCl 1 MG/ML SYRINGE IVPUSH ×3 (07:46→20:14)
[2024-07-31] MEDS: Hydrocortisone 1 % Cream 28.35 GM TUBE 1 APPL TOPICAL ×2 (07:56→20:16)
[2024-07-31 08:04] LABS: Anion Gap 11 (12-20); Blood Urea Nitrogen 12 mg/dL (9-16); Calcium 8.2 mg/dL (8.4-10.2); Carbon Dioxide 31 mmol/L (22-29); Chloride 99 mmol/L (96-108); Creatinine Clr Calc Pharmacy 158.3; Estimated Glomerular Filt Rate > 60; Glucose Random 102 mg/dL (60-115); Magnesium 1.4 mg/dL (1.6-2.6); Potassium 3.6 mmol/L (3.3-5.1); Sodium 137 mmol/L (135-145)
[2024-07-31] MEDS: Doxycycline Monohydrate 100 MG CAPSULE PO ×2 (08:11→20:14)
[2024-07-31] MEDS: Magnesium Sulfate/H2O 2 GM/50 ML PIGGYBACK IV (08:11)
[2024-07-31] MEDS: Amoxicillin/Potassium Clav 875 MG TABLET PO ×2 (08:11→20:14)
[2024-07-31] MEDS: Enoxaparin Sodium 40 MG/0.4 ML SYRINGE SUBCUT (08:14)
[2024-07-31] MEDS: Magnesium Oxide 400 MG TABLET PO ×2 (08:15→16:22)
--- NOTE | 2024-07-31 11:21 | PM.PNORT ---
Subjective Subjective Date of Service: 07/30/24 Interval history: Patient resting comfortably in bed Reports right hip pain and soreness No overnight events No additional complaints Physical Exam Vital Signs: Vital Signs: Last Vital Signs Temp 99.0 F 07/31/24 11:05 Pulse 94 07/31/24 11:05 Resp 18 07/31/24 11:05 BP 97/64 07/31/24 11:05 Pulse Ox 97 07/31/24 11:05 O2 Del Method Room Air 07/31/24 11:05 BMI result Body Mass Index 32.1 Const: General: cooperative, healthy appearing and no acute distress Extrem: Other: RLU: Incision sites are c/d/i. No surrounding erythema or drainage. No signs of infection. Lower extremity edema. Procedures Date of Service Date of Service: 07/31/24 Progress Note: A&P Assessment and plan (1) Intertrochanteric fracture of right hip: Status: Acute Plan No demonstration of surgical site infection Continue Loveox for DVT ppx x 6 weeks WBAT RLE Pain managment D/C to rehab once medically cleared Time Spent With Patient Time: Total time managing care of this patient today ____ minutes. Quality Stroke Does the patient have a stroke diagnosis?: No Reason for No Anti-thrombotic by Day Two: Contraindicated VTE Prior VTE?: No VTE Risk Level:: Surgical - high VTE Device Contraindication: Procedure Contraindicated VTE Drug Contraindication: Treatment Not Indicated
--- NOTE | 2024-07-31 15:39 | HO.PM.IMPN ---
Subjective Subjective Date of Service: 07/31/24 Interval History: Seen and evaluated this morning looks better, overall frail and weak HR better controlled no fever last 48 hours no other events Review of Systems Review of Systems: Yes all other systems are reviewed and are negative Physical Exam Vital Signs: Vital Signs: Last Vital Signs Temp 99.0 F 07/31/24 11:05 Pulse 94 07/31/24 11:05 Resp 18 07/31/24 11:05 BP 97/64 07/31/24 11:05 Pulse Ox 97 07/31/24 11:05 O2 Del Method Room Air 07/31/24 11:05 BMI result Body Mass Index 32.1 Const: Other: Constitutional : Awake, interactive, anxious about pain Neck : Normal inspection, Supple Cardiovascular : irregular irregular, elevated JVP, RLE +1 lower extremity edema more than LLE Respiratory : good bilateral air entry, no crackles, wheezes or rhonchi Gastrointestinal: soft, lax, Normal bowel sounds, Non tender extremities: RLE surgical wound covered with dressing Skin : Warm, Dry Neurological : Alert & oriented x3, No focal defici, mild tremor Objective Data Active Medications Acetaminophen (Acetaminophen 325 Mg Tablet) 650 mg PO Q6H PRN PRN Reason: Pain, Mild 1-3,fever,headache Last Admin: 07/29/24 08:00 Dose: 650 mg Documented By: NEGRITO Amoxicillin/Clavulanate Potassium (Amoxicillin/Potassium Clav 875 Mg Tablet) 875 mg PO Q12H [facility] Last Admin: 07/31/24 08:11 Dose: 875 mg Documented By: ANITA Calcium Carbonate (Calcium Carbonate 750 Mg Tab.Chew) 750 mg PO Q4H PRN PRN Reason: Heartburn Carvedilol (Carvedilol 6.25 Mg Tablet) 6.25 mg PO BID [facility]; Protocol Last Admin: 07/31/24 07:42 Dose: 6.25 mg Documented By: ANITA Digoxin (Digoxin 0.125 Mg Tablet) 0.125 mg PO DAILY [facility]; Protocol Last Admin: 07/31/24 08:02 Dose: Not Given Documented By: ANITA Non-Admin Reason: GIVEN IV PUSH Doxycycline Monohydrate (Doxycycline Monohydrate 100 Mg Capsule) 100 mg PO Q12H [facility] Last Admin: 07/31/24 08:11 Dose: 100 mg Documented By: ANITA Enoxaparin Sodium (Enoxaparin Sodium 40 Mg/0.4 Ml Syringe) 40 mg SUBCUT Q24H [facility] Last Admin: 07/31/24 08:14 Dose: 40 mg Documented By: ANITA Ferrous Sulfate (Ferrous Sulfate 324 Mg Tablet.Dr) 324 mg PO BID [facility] Last Admin: 07/31/24 07:42 Dose: 324 mg Documented By: ANITA Folic Acid (Folic Acid 1 Mg Tablet) 1 mg PO DAILY [facility] Last Admin: 07/31/24 07:42 Dose: 1 mg Documented By: ANITA Furosemide (Furosemide 40 Mg/4 Ml Vial) 40 mg IVPUSH DAILY [facility]; Protocol Last Admin: 07/31/24 07:43 Dose: 40 mg Documented By: ANITA Hydrocortisone (Hydrocortisone 1 % Cream 28.35 Gm Tube) 1 appl TOPICAL BID [facility]; Protocol Last Admin: 07/31/24 07:56 Dose: 1 appl Documented By: ANITA Hydromorphone HCl (Hydromorphone Hcl 1 Mg/Ml Syringe) 1 mg IVPUSH Q3H PRN; Protocol PRN Reason: Pain, Severe (Pain Scale 7-10) Last Admin: 07/31/24 07:46 Dose: 1 mg Documented By: ANITA Magnesium Hydroxide (Milk Of Magnesia 30 Ml Oral.Susp) 30 ml PO DAILY PRN PRN Reason: Constipation Magnesium Oxide (Magnesium Oxide 400 Mg Tablet) 400 mg PO BIDPC [facility] Last Admin: 07/31/24 08:15 Dose: 400 mg Documented By: ANITA Melatonin (Melatonin 3 Mg Tablet) 6 mg PO BEDTIME PRN PRN Reason: Insomnia Midodrine (Midodrine Hcl 5 Mg Tablet) 5 mg PO TIDWM [facility] Last Admin: 07/31/24 12:31 Dose: 5 mg Documented By: ANITA Ondansetron HCl (Ondansetron Hcl 4 Mg/2 Ml Vial) 4 mg IVPUSH Q8H PRN PRN Reason: Nausea and Vomiting Oxycodone HCl (Oxycodone Hcl Immed Release 5 Mg Tablet) 5 mg PO Q4H PRN PRN Reason: Pain, Moderate(Pain Scale 4-6) Last Admin: 07/31/24 12:31 Dose: 5 mg Documented By: ANITA Pantoprazole Sodium (Pantoprazole Sodium 40 Mg/10 Ml Vial) 40 mg IVPUSH DAILY@0630 [facility] Last Admin: 07/31/24 06:10 Dose: 40 mg Documented By: DANIEL Polyethylene Glycol (Polyethylene Glycol 3350 17 Gm Powd.Pack) 17 gm PO DAILY [facility] Last Admin: 07/31/24 07:43 Dose: 17 gm Documented By: ANITA Quetiapine Fumarate (Quetiapine Fumarate 25 Mg Tablet) 25 mg PO BID [facility] Last Admin: 07/31/24 07:42 Dose: 25 mg Documented By: ANITA Senna (Sennosides 8.6 Mg Tablet) 17.2 mg PO BEDTIME [facility] Last Admin: 07/30/24 20:56 Dose: 17.2 mg Documented By: TRARTLuz Sodium Chloride (0.9 % Sodium Chloride Flush 3 Ml Syringe) 3 ml IVFLUSH QSHIFT [facility] Last Admin: 07/31/24 07:41 Dose: 3 ml Documented By: ANITA Spironolactone (Spironolactone 25 Mg Tablet) 50 mg PO DAILY [facility]; Protocol Last Admin: 07/31/24 07:42 Dose: 50 mg Documented By: ANITA Thiamine HCl (Thiamine Hcl 100 Mg Tablet) 100 mg PO DAILY [facility] Last Admin: 07/31/24 07:42 Dose: 100 mg Documented By: ANITA Topiramate (Topiramate 25 Mg Tablet) 25 mg PO DAILY [facility] Last Admin: 07/31/24 07:42 Dose: 25 mg Documented By: ANITA Labs 07/31/24 06:48 07/31/24 06:48 Labs: Laboratory Results - last 24 hr 07/29/24 07/31/24 05:19 06:48 MCV 95.0 MCH 32.7 MCHC 34.4 RDW 12.6 Plt Count 150 L D MPV 10.2 Immature Gran % (Auto) 0.6 H Neut % (Auto) 51.5 Lymph % (Auto) 25.8 [place] % (Auto) 18.8 H Eos % (Auto) 2.7 Baso % (Auto) 0.6 Lymph # (Auto) 0.9 L [place] # (Auto) 0.6 Eos # (Auto) 0.1 Baso # (Auto) 0.0 Abs Immat Gran (auto) 0.02 Absolute Neuts (auto) 1.7 L Absolute Nucleated RBC 0.000 Nucleated RBC % (auto) 0.0 Anion Gap 11 L Estim Creat Clear Calc 158.3 Estimated GFR > 60 Random Glucose 102 Calcium 8.2 L Magnesium 1.4 L* Prolactin 7.7 Microbiology Microbiology Results: Microbiology 07/28/24 19:19 Blood Culture - Preliminary Blood - Venous No growth after 48 hours. 07/28/24 19:07 Blood Culture - Preliminary Blood - Venous No growth after 48 hours. Assessment and Plan (1) SIRS (systemic inflammatory response syndrome): Status: Acute (2) Right hip pain: Status: Acute (3) Diastolic heart failure: Status: Acute (4) Sepsis: Status: Acute (5) Atrial fibrillation with RVR: Status: Acute Plan Patient is a 63-year-old male with past medical history hypertension,HFrEF, , atrial fibrillation RVR not on anticoagulation as patient never followed with Cardiology as an outpatient, R inguinal hernia repair, JAN, cirrhosis of the liver, psoriasis, osteoarthritis of bilateral knees, Right shoulder chronic pain likely secondary to a scapular fracture that occurred 7 years ago, depression, chronic alcohol abuse (2-3 beers per day), dog bite to left lower leg 2023 returned from short-term rehab within 3 hours of arrival for fever. Patient is being admitted after review with Orthopedics for IV antibiotics. Patient will be seen by ortho in the a.m.. SIRS No clear source of infection could be atelactasis\viral\drug related MRSA screen -ve Follow blood cultures DC ceftriaxone and vanco Place on PO Doxycycline and Augmentin and monitor overnight Status post open reduction internal fixation of the right proximal femur 07/26/24 Orthopedics consulted, no evidence of hardware or wound infection oxycodone for pain Venous Dopplers ruled out DVT Atrial fibrillation RVR, on Coreg, we will resume current dose given soft BP Cardiology consulted for review of treatment and anticoagulation Loaded with Digoxin , continue 0.125 daily keep on Tele acute on chronic HFrEF with exacerbation Last echocardiogram for 07/25/24 noted an EF of 50-55% with mildly decreased right ventricular systolic function and no obvious valvular disorders Lasix 40 mg IV daily weights, strict I's and O's low-salt diet Cirrhosis with portal venous hypertension will need to follow with GI as an outpatient currently patient has not established with a cake mixer. continue spironolactone Pancytopenia related to cirrhosis, to monitor Psoriasis chronic in nature for patient, has been using a topical cream but can not recall the name of the lotion and is not listed on his med rec hydrocortisone cream 1% Gynecomastia chronic and noted on CTA of the chest pending prolactin level may be hormonal related and patient will need to see an barrel rifler hook as an outpatient for follow-up Chronic T12 compression fracture with mild fracture at L1, no signs of acute fracture on CTA pain management Alcohol dependence, PSUD patient denies any recent illicit substance abuse but does report drinking alcohol daily thiamine and folic folic acid ordered CIWA no indication for phenobarbital, no histories of withdrawal seizure, last drink was over 4 days ago DVT prophylaxis: On hold as patient may need to go to the OR with ortho if indicated PPI prophylaxis: Protonix IV Patient is a full code Admit as inpatient and will require overnight minimum hospital stay for IV antibiotics (as above) pending final cultures , which is not possible in a lesser acute setting. Quality Stroke Does the patient have a stroke diagnosis?: No Reason for No Anti-thrombotic by Day Two: Contraindicated VTE Prior VTE?: No VTE Risk Level:: Surgical - high VTE Device Contraindication: Procedure Contraindicated VTE Drug Contraindication: Treatment Not Indicated
[2024-07-31 18:23] LABS: CRP High Sensitivity >20.0 mg/L
[2024-08-01 02:58] VITALS: BP 105/66; PULSE 83; RESP 18; TEMP 36.8; O2SAT 96
[2024-08-01] MEDS: oxyCODONE HCl Immed Release 5 MG TABLET PO ×3 (05:19→17:51)
[2024-08-01] MEDS: Pantoprazole Sodium 40 MG/10 ML VIAL IVPUSH (05:25)
[2024-08-01 07:25] VITALS: BP 113/74; PULSE 94; RESP 18; TEMP 36.7; O2SAT 95
[2024-08-01] MEDS: HYDROmorphone HCl 1 MG/ML SYRINGE IVPUSH ×2 (07:30→16:09)
[2024-08-01 07:31] LABS: Creatinine Clr Calc Pharmacy 152.7; Estimated Glomerular Filt Rate > 60; Magnesium 1.6 mg/dL (1.6-2.6)
[2024-08-01] MEDS: 0.9 % Sodium Chloride Flush 3 ML SYRINGE IVFLUSH ×2 (07:31→16:09)
[2024-08-01] MEDS: Furosemide 40 MG/4 ML VIAL IVPUSH (07:32)
[2024-08-01] MEDS: Midodrine HCl 5 MG TABLET PO ×3 (07:33→16:09)
[2024-08-01] MEDS: Spironolactone 25 MG TABLET 50 MG PO (07:33)
[2024-08-01] MEDS: Amoxicillin/Potassium Clav 875 MG TABLET PO (07:33)
[2024-08-01] MEDS: Topiramate 25 MG TABLET PO (07:33)
[2024-08-01] MEDS: Digoxin 0.125 MG TABLET PO (07:33)
[2024-08-01] MEDS: Ferrous Sulfate 324 MG TABLET.DR PO (07:33)
[2024-08-01] MEDS: Doxycycline Monohydrate 100 MG CAPSULE PO (07:33)
[2024-08-01] MEDS: Hydrocortisone 1 % Cream 28.35 GM TUBE 1 APPL TOPICAL (07:34)
[2024-08-01] MEDS: Magnesium Oxide 400 MG TABLET PO ×2 (07:34→16:09)
[2024-08-01] MEDS: Folic Acid 1 MG TABLET PO (07:34)
[2024-08-01] MEDS: QUEtiapine Fumarate 25 MG TABLET PO (07:34)
[2024-08-01] MEDS: carvediloL 6.25 MG TABLET PO (07:34)
[2024-08-01] MEDS: Thiamine HCL 100 MG TABLET PO (07:34)
[2024-08-01 11:21] VITALS: BP 96/68; PULSE 89; RESP 18; TEMP 36.8; O2SAT 96
[2024-08-01] MEDS: predniSONE 20 MG TABLET 40 MG PO (11:24)
[2024-08-01] MEDS: Enoxaparin Sodium 40 MG/0.4 ML SYRINGE SUBCUT (11:24)
--- NOTE | 2024-08-01 15:00 | W.PM.OPN ---
Operative Note Operative Note Date of Service: 07/25/24 Narrative: Date of Service: 07/25/24 Pre-op diagnosis: RIght hip IT fracture Procedure: Right hip IMN Implants: Chavo [id number] 125 deg with 105mm hip screw and 50mm distal interlock Surgeon: Wil Metz MD Anesthesia: MAC and spinal Was an Stringer Up Soldering Machine used for this Procedure?: Yes Stringer Up Soldering Machine: Juliana Zafar Estimated blood loss (mL): 150 IV fluids (mL): 750 Pathology: none sent Condition: stable Disposition: PACU Procedure in detail: Patient was brought to the operating room and prepped and draped in standard sterile fashion. Time-out was called to identify proper site procedure proper surgeon and IV antibiotics per weight were administered. She was positioned on the fracture table and a traction and slight internal rotation were performed and biplanar fluoroscopy confirmed initial fracture reduction. I then made a stab incision proximal to the greater trochanter in using a guidewire made a entry point just lateral to the tip of the greater trochanter and placed a guidewire into the femoral metadiaphysis. I then over-reamed with 15 mm Reamer placed my ball-tip guidewire down distally in the femur and measured my length. I selected a 390 x11 125 deg nail and reamed up to a 13. I then inserted the nail. I then turned my attention to the hip screw where I used a guidewire and a tip apex distance of less than 1.5 measured a 105mm hip screw. I then pre drilled and placed a hip screw using biplanar fluoroscopy. Once I was satisfied with the position of the hip screw I turned my attention to the distal aspect of the nail. Using perfect afognak technique I placed 1 static 50mm distal interlocking screw in standard AO technique. I then removed all I then placed my set screw proximally and removed all extraneous instrumentation. Final biplanar radiographs were taken. I was satisfied with the position of the hardware and the fracture reduction. I think copiously irrigated closed with absorbable sutures holly and injected 30 mL of into the area of the incisions. Traction was let down patient was placed in sterile dressing awakened from anesthesia brought to recovery room stable condition there were no known complications.
--- NOTE | 2024-08-01 15:02 | MHC.CM.PN ---
IMM 08/01/24 Patient is discharged today. He will return to [place] via BLS. 5:30pm cherry picker operator is scheduled.
--- NOTE | 2024-08-01 15:10 | P.PNIM_ITS ---
Subjective Subjective Date of Service: 08/01/24 Interval History: Seen and evaluated this morning looks better, overall frail and weak HR better controlled no fever last 48 hours no other events Review of Systems Review of Systems: Yes all other systems are reviewed and are negative Physical Exam 2 Vital Signs: Vital Signs: Last Vital Signs Temp 98.2 F 08/01/24 11:21 Pulse 89 08/01/24 11:21 Resp 18 08/01/24 11:21 BP 96/68 08/01/24 11:21 Pulse Ox 96 08/01/24 11:21 O2 Del Method Room Air 08/01/24 11:21 BMI result Body Mass Index 32.1 Const: Other: Constitutional : Awake, interactive, anxious about pain Neck : Normal inspection, Supple Cardiovascular : irregular irregular, elevated JVP, RLE +1 lower extremity edema more than LLE Respiratory : good bilateral air entry, no crackles, wheezes or rhonchi Gastrointestinal: soft, lax, Normal bowel sounds, Non tender extremities: RLE surgical wound covered with dressing Skin : Warm, Dry Neurological : Alert & oriented x3, No focal defici, mild tremor Objective Data Active Medications Acetaminophen (Acetaminophen 325 Mg Tablet) 650 mg PO Q6H PRN PRN Reason: Pain, Mild 1-3,fever,headache Last Admin: 07/29/24 08:00 Dose: 650 mg Documented By: NEGRITO Amoxicillin/Clavulanate Potassium (Amoxicillin/Potassium Clav 875 Mg Tablet) 875 mg PO Q12H [facility] Last Admin: 08/01/24 07:33 Dose: 875 mg Documented By: ANITA Calcium Carbonate (Calcium Carbonate 750 Mg Tab.Chew) 750 mg PO Q4H PRN PRN Reason: Heartburn Carvedilol (Carvedilol 6.25 Mg Tablet) 6.25 mg PO BID [facility]; Protocol Last Admin: 08/01/24 07:34 Dose: 6.25 mg Documented By: ANITA Digoxin (Digoxin 0.125 Mg Tablet) 0.125 mg PO DAILY [facility]; Protocol Last Admin: 08/01/24 07:33 Dose: 0.125 mg Documented By: ANITA Doxycycline Monohydrate (Doxycycline Monohydrate 100 Mg Capsule) 100 mg PO Q12H [facility] Last Admin: 08/01/24 07:33 Dose: 100 mg Documented By: ANITA Enoxaparin Sodium (Enoxaparin Sodium 40 Mg/0.4 Ml Syringe) 40 mg SUBCUT Q24H [facility] Last Admin: 08/01/24 11:24 Dose: 40 mg Documented By: ANITA Ferrous Sulfate (Ferrous Sulfate 324 Mg Tablet.) 324 mg PO BID [facility] Last Admin: 08/01/24 07:33 Dose: 324 mg Documented By: ANITA Folic Acid (Folic Acid 1 Mg Tablet) 1 mg PO DAILY [facility] Last Admin: 08/01/24 07:34 Dose: 1 mg Documented By: ANITA Furosemide (Furosemide 40 Mg/4 Ml Vial) 40 mg IVPUSH DAILY [facility]; Protocol Last Admin: 08/01/24 07:32 Dose: 40 mg Documented By: ANITA Hydrocortisone (Hydrocortisone 1 % Cream 28.35 Gm Tube) 1 appl TOPICAL BID [facility]; Protocol Last Admin: 08/01/24 07:34 Dose: 1 appl Documented By: ANITA Hydromorphone HCl (Hydromorphone Hcl 1 Mg/Ml Syringe) 1 mg IVPUSH Q3H PRN; Protocol PRN Reason: Pain, Severe (Pain Scale 7-10) Last Admin: 07/29/24 02:30 Dose: 1 mg Documented By: LAFLAMChristiana Magnesium Hydroxide (Milk Of Magnesia 30 Ml Oral.Susp) 30 ml PO DAILY PRN PRN Reason: Constipation Magnesium Oxide ([facility] 400 Mg Tablet) [facility] Last Admin: 08/01/24 07:34 Dose: 400 mg Documented By: ANITA Melatonin (Melatonin 3 Mg Tablet) 6 mg PO BEDTIME PRN PRN Reason: Insomnia Midodrine (Midodrine Hcl 5 Mg Tablet) 5 mg PO TIDWM [facility] Last Admin: 08/01/24 11:24 Dose: 5 mg Documented By: ANITA Ondansetron HCl (Ondansetron Hcl 4 Mg/2 Ml Vial) 4 mg IVPUSH Q8H PRN PRN Reason: Nausea and Vomiting Oxycodone HCl (Oxycodone Hcl Immed Release 5 Mg Tablet) 5 mg PO Q4H PRN PRN Reason: Pain, Moderate(Pain Scale 4-6) Last Admin: 08/01/24 11:24 Dose: 5 mg Documented By: ANITA Polyethylene Glycol (Polyethylene Glycol 3350 17 Gm Powd.Pack) 17 gm PO DAILY [facility] Last Admin: 08/01/24 07:34 Dose: Not Given Documented By: ANITA Non-Admin Reason: Refused and moving bowels Prednisone (Prednisone 20 Mg Tablet) 40 mg PO DAILY [facility] Stop: 08/06/24 10:44 Last Admin: 08/01/24 11:24 Dose: 40 mg Documented By: ANITA Quetiapine Fumarate (Quetiapine Fumarate 25 Mg Tablet) 25 mg PO BID [facility] Last Admin: 08/01/24 07:34 Dose: 25 mg Documented By: ANITA Senna (Sennosides 8.6 Mg Tablet) 17.2 mg PO BEDTIME [facility] Last Admin: 07/31/24 20:16 Dose: Not Given Documented By: AKUA Non-Admin Reason: Patient Refused Sodium Chloride (0.9 % Sodium Chloride Flush 3 Ml Syringe) 3 ml IVFLUSH QSHIFT [facility] Last Admin: 08/01/24 07:31 Dose: 3 ml Documented By: ANITA Spironolactone (Spironolactone 25 Mg Tablet) 50 mg PO DAILY [facility]; Protocol Last Admin: 08/01/24 07:33 Dose: 50 mg Documented By: ANITA Thiamine HCl (Thiamine Hcl 100 Mg Tablet) 100 mg PO DAILY [facility] Last Admin: 08/01/24 07:34 Dose: 100 mg Documented By: ANITA Topiramate (Topiramate 25 Mg Tablet) 25 mg PO DAILY [facility] Last Admin: 08/01/24 07:33 Dose: 25 mg Documented By: ANITA Labs 07/31/24 06:48 08/01/24 06:10 Labs: Laboratory Results - last 24 hr 07/29/24 08/01/24 05:19 06:10 Hold Purple Top SEE NOTE Estim Creat Clear Calc 152.7 Estimated GFR > 60 Magnesium 1.6 C-React Prot High Sens >20.0 H Assessment and Plan (1) SIRS (systemic inflammatory response syndrome): Status: Acute (2) Right hip pain: Status: Acute (3) Diastolic heart failure: Status: Acute (4) Atrial fibrillation with RVR: Status: Acute Plan Patient is a 63-year-old male with past medical history hypertension,HFrEF, , atrial fibrillation RVR not on anticoagulation as patient never followed with Cardiology as an outpatient, R inguinal hernia repair, JAN, cirrhosis of the liver, psoriasis, osteoarthritis of bilateral knees, Right shoulder chronic pain likely secondary to a scapular fracture that occurred 7 years ago, depression, chronic alcohol abuse (2-3 beers per day), dog bite to left lower leg 2023 returned from short-term rehab within 3 hours of arrival for fever. Patient is being admitted after review with Orthopedics for IV antibiotics. Patient will be seen by ortho in the a.m.. Atrial fibrillation RVR, on Coreg, we will resume current dose given soft BP Cardiology consulted for review of treatment and anticoagulation Loaded with Digoxin , continue 0.125 daily keep on Tele SIRS No clear source of infection could be atelactasis\viral\drug related MRSA screen -ve Follow blood cultures DC ceftriaxone and vanco Place on PO Doxycycline and Augmentin and monitor overnight Status post open reduction internal fixation of the right proximal femur 07/26/24 Orthopedics consulted, no evidence of hardware or wound infection oxycodone for pain Venous Dopplers ruled out DVT acute on chronic HFrEF with exacerbation Last echocardiogram for 07/25/24 noted an EF of 50-55% with mildly decreased right ventricular systolic function and no obvious valvular disorders Lasix 40 mg IV , switch to PO tomorrow daily weights, strict I's and O's low-salt diet Cirrhosis with portal venous hypertension will need to follow with GI as an outpatient currently patient has not established with a health insurance assessor. continue spironolactone Pancytopenia related to cirrhosis, to monitor Psoriasis chronic in nature for patient, has been using a topical cream but can not recall the name of the lotion and is not listed on his med rec hydrocortisone cream 1% Gynecomastia chronic and noted on CTA of the chest pending prolactin level may be hormonal related and patient will need to see an instructional developer as an outpatient for follow-up Chronic T12 compression fracture with mild fracture at L1, no signs of acute fracture on CTA pain management Alcohol dependence, PSUD patient denies any recent illicit substance abuse but does report drinking alcohol daily thiamine and folic folic acid ordered CIWA no indication for phenobarbital, no histories of withdrawal seizure, last drink was over 4 days ago DVT prophylaxis: On hold as patient may need to go to the OR with ortho if indicated PPI prophylaxis: Protonix IV Patient is a full code Admit as inpatient and will require overnight minimum hospital stay for Telemetry monitoring rapid Afib pending SNF placement , which is not possible in a lesser acute setting. Quality Stroke Does the patient have a stroke diagnosis?: No Reason for No Anti-thrombotic by Day Two: Contraindicated VTE Prior VTE?: No VTE Risk Level:: Surgical - high VTE Device Contraindication: Procedure Contraindicated VTE Drug Contraindication: Treatment Not Indicated
[2024-08-01 15:14] VITALS: BP 99/66; PULSE 93; RESP 18; TEMP 36.6; O2SAT 99
--- NOTE | 2024-08-01 15:24 | P.DS_ITS ---
DS: Providers Provider Date of Service: 08/01/24 Date of admission: 07/28/24 23:30 Date of discharge: 08/01/24 Primary care physician: JACINTO WEINER Consults: 07/28/24 23:46 Consult to Orthopedics Routine Consulting Provider: [facility] Reason for consultation: septic joint suspected Has provider been notified: No 07/29/24 00:35 Consult to Cardiology Routine Consulting Provider: [facility] Reason for consultation: afib DS: Diagnosis Discharge Diagnosis (1) SIRS (systemic inflammatory response syndrome): Status: Acute (2) Right hip pain: Status: Acute (3) Diastolic heart failure: Status: Acute (4) Atrial fibrillation with RVR: Status: Acute (5) Hypomagnesemia: Status: Acute DS: Summary Hospital Course Hospital Course: Admission note HPI Patient is a 63-year-old male with past medical history hypertension,HFrEF, , atrial fibrillation RVR not on anticoagulation as patient never followed with Cardiology as an outpatient, R inguinal hernia repair, JAN, cirrhosis of the liver, psoriasis, osteoarthritis of bilateral knees, Right shoulder chronic pain likely secondary to a scapular fracture that occurred 7 years ago, depression, chronic alcohol abuse (2-3 beers per day), dog bite to left lower leg 2023 return from short-term rehab status post right hip replacement 07/26/2024 with fever of 101.1 [address] [facility]. On arrival to the emergency department's patient's blood pressure was 80/53 with some slight bruising around the right hip and affiliated swelling. Patient remained alert and responsive. Patient currently does not have a leukocytosis or bandemia. INR 1.2. Sodium 134, AST 47, troponin 4.8, BNP 296.Blood cultures drawn and patient is started on ceftriaxone and vancomycin in the emergency department. Patient has significant swelling from the right hip down to the right foot with edema in the left leg as well which patient states is chronic. Patient is having pain in the left leg as well. Patient denies any falls since surgery both here and at rehab. Patient states the pain at rest in the right hip is an 8/10 minimally relieved with morphine. Patient is denying any abdominal pain, groin pain, ,chest pain shortness of breath at rest, or difficulty urinating. Patient has extreme difficulty changing position and moving [id number] not only from the pain but the amount of edema that is present currently. CT of the abdomen and pelvis note soft tissue edema extensive at the level of the right lower extremity, with a small amount of pelvic free fluid. In addition there were chronic changes associated with cirrhosis and portal vein hypertension. Orthopedics reviewed CT scan and asked that patient be admitted for antibiotics and patient will be seen in the a.m.. The right hip incision was viewed and appears clean and dry with no obvious purulent drainage. The right hip is warm to the touch and severely edematous. Patient states his last alcoholic drink was 07/25/2024. Patient also states he does not usually go through withdrawal and CIWA score is currently 0. Patient denies any seizures associated with alcohol withdrawal or seizure history. Hospital course # Atrial fibrillation RVR, on Coreg, we will resume current dose given soft BP. Cardiology consulted for review of treatment and anticoagulation and recommended no blood thinners at this point. Loaded with Digoxin with good response. continue 0.125 daily. Follow with cardiology as outpatient. # SIRS, No clear source of infection, could be atelactasis\viral\drug related, MRSA screen -ve, negative blood cultures, covered with empirical ceftriaxone and vancomycin. Placed on PO Doxycycline and Augmentin and monitor overnight with no recurrence of fever. To discharge on both for 5 more days. # Status post open reduction internal fixation of the right proximal femur 07/26/24 Orthopedics consulted, no evidence of hardware or wound infection. oxycodone for pain. Venous Dopplers ruled out DVT # acute on chronic HFrEF with exacerbation Last echocardiogram for 07/25/24 noted an EF of 50-55% with mildly decreased right ventricular systolic function and no obvious valvular disorders Treated with Lasix 40 mg IV , switched to PO and will be discharged on Lasix 20 mg and Spironolactone 25 mg daily. Low sodium diet. # Cirrhosis with portal venous hypertension will need to follow with GI as an outpatient currently patient has not established with a retread mold operator. continue spironolactone # Psoriasis, chronic in nature for patient, hydrocortisone cream 1%. Needs outpatient rheumatology follow up. Discharge plan Take Doxycycline and Augmentin as prescribed Lasix 20 mg daily for fluid overload Supplement of Magnesium and Folic acid Start Digoxin to help with heart rate control Hydrocortisone cream for psoriasis Time Attestation Discharge Coordination Time (in mins): 43 Quality: Safe Use of Opioids Does Pt have an Active Cancer Diagnosis on the Problem List?: No Quality: Stroke Does the patient have a stroke diagnosis?: No Physical Exam Vital Signs: Vital Signs: Last Vital Signs Temp 97.9 F 08/01/24 15:14 Pulse 93 08/01/24 15:14 Resp 18 08/01/24 15:14 BP 99/66 08/01/24 15:14 Pulse Ox 99 08/01/24 15:14 O2 Del Method Room Air 08/01/24 15:14 BMI result Body Mass Index 32.1 Const: Other: Constitutional : Awake, interactive, anxious about pain Neck : Normal inspection, Supple Cardiovascular : irregular irregular, elevated JVP, RLE +1 lower extremity edema more than LLE Respiratory : good bilateral air entry, no crackles, wheezes or rhonchi Gastrointestinal: soft, lax, Normal bowel sounds, Non tender extremities: RLE surgical wound covered with dressing Skin : Warm, Dry Neurological : Alert & oriented x3, No focal defici, mild tremor DS: Data Data Completed and Pending Completed studies during hospitalization [Text1]: Procedures Detoxification Services for Substance Abuse Treatment (09/01/20) Repair Scalp Skin, External Approach (08/14/20) Labs on day of discharge: Laboratory Results - last 24 hr 07/29/24 08/01/24 05:19 06:10 Hold Purple Top SEE NOTE Creatinine 0.57 Estim Creat Clear Calc 152.7 Estimated GFR > 60 Magnesium 1.6 C-React Prot High Sens >20.0 H Preliminary micro results at discharge 07/28/24 19:19 Blood Culture - Preliminary Blood - Venous No growth after 48 hours. 07/28/24 19:07 Blood Culture - Preliminary Blood - Venous No growth after 48 hours. Discharge Plan Discharge Anticipated Discharge Date/Time: 08/01/24 15:18 Patient Disposition: Xfer SNF Discharge Diagnosis: Afib w RvR Fever Referrals: [facility] [Outside] - 1 Week Gibran Vu PA-C [Physician Turret Lathe Tender] - 08/08/24 10:00 am JACINTO WEINER [Primary Care Provider] - 1 Week Discharge Medications: New magnesium oxide 400 mg (241.3 mg magnesium) Tablet 400 mg PO BIDPC Qty: 180 0RF hydrocortisone 1 % Cream 1 appl topical BID Qty: 454 0RF Protocol: Apply to: Apply to: psoriatic plaques on torso and back Rx Instructions: affected areas doxycycline monohydrate 100 mg Capsule 100 mg PO Q12H Qty: 10 0RF folic acid 1 mg Tablet 1 mg PO DAILY Qty: 90 0RF digoxin 125 mcg (0.125 mg) Tablet 0.125 mg PO DAILY Qty: 90 0RF Protocol: Hold for HR <: HOLD for HR < : 60 amoxicillin-pot clavulanate 875-125 mg Tablet 1 tab PO Q12H Qty: 10 0RF furosemide 20 mg tablet 20 mg PO DAILY Qty: 90 0RF Continued carvedilol 6.25 mg tablet 6.25 mg PO BID thiamine HCl (vitamin B1) 100 mg tablet 100 mg PO DAILY topiramate 25 mg tablet 25 mg PO DAILY spironolactone 25 mg tablet 25 mg PO DAILY fluoxetine 10 mg capsule 10 mg PO DAILY quetiapine 25 mg tablet 25 mg PO BID midodrine 5 mg Tablet 5 mg PO TIDWM Qty: 90 0RF ferrous sulfate 325 mg (65 mg iron) tablet 325 mg PO BID Qty: 60 0RF oxycodone 5 mg Tablet 5 mg PO Q4H PRN (Reason: Pain, Moderate(Pain Scale 4-6)) Qty: 20 0RF Rx Instructions: Partial Fill upon patient request. Discharge Orders: Discharge Order (Routine); Ordered 08/01/24 Ordered By: Darcy Martin Diet: Low salt diet Activity on Discharge: As tolerated Stand Alone Forms: Patient Portal Discharge page Print Language: Czech Activity Restrictions/Additional Instructions: Gait training, strengthening, ADLs Continue Lovenox for dvt ppx x6 weeks Keep dressing clean, dry and intact-no showering or tub baths Follow up with Orthopedics on 08/08/24 at 10:00am with Gibran Vu PA-C Care Plan Goals: Take Doxycycline and Augmentin as prescribed Lasix 20 mg daily for fluid overload Supplement of Magnesium and Folic acid Start Digoxin to help with heart rate control Hydrocortisone cream for psoriasis Health Concerns: Fever Atrial fibrillation Plan of Treatment: Digoxin Empirical antibiotics Assessment: as above
== END 2024-08-01 18:04 | disposition skilled nursing facility (03) | DRG 432 ==
LOC: HO.ED 22:58 → HO.EDOVER 23:50 → HO.S3 07-29 08:12 → HO.EDOVER 07-29 09:41 → HO.IMC 07-29 14:42
PROVIDERS: Nurse Practitioner Family; Physician Assistant; Admitting Provider Student in an Organized Health Care Education/Training Program; Emergency Provider Emergency Medicine; PCP Emergency Medicine; Visit Provider Student in an Organized Health Care Education/Training Program
DX: K70.30 Alcoholic cirrhosis of liver without ascites (principal); I50.23 Acute on chronic systolic (congestive) heart failure; K76.6 Portal hypertension; R65.10 Systemic inflammatory response syndrome (SIRS) of non-infectious origin without acute organ dysfunction; D61.818 Other pancytopenia; J98.11 Atelectasis; I48.91 Unspecified atrial fibrillation; F10.20 Alcohol dependence, uncomplicated; G89.18 Other acute postprocedural pain; N62 Hypertrophy of breast; L40.9 Psoriasis, unspecified; I11.0 Hypertensive heart disease with heart failure; Z20.822 Contact with and (suspected) exposure to COVID-19; Z79.899 Other long term (current) drug therapy
CPT/HCPCS: 0241U; 36415; 71045; 71275; 74177; 80048; 80053; 80202; 81003; 82565; 83605; 83735; 83880; 84146; 84439; 84443; 84484; 85025; 85610; 85652; 86141; 87040; 87640; 87641; 93005; 93970; 97162; 99285; J0696; J1160; J1171; J1650; J1938; J2270; J2470; J3370; J3475; P9047; Q9967

== ENCOUNTER → 2024-07-28 19:12 | Outpatient (BNV) | payer OTHER, SELFPAY | PROVIDERS: Emergency Provider Emergency Medicine; PCP Emergency Medicine; Visit Provider Radiology Diagnostic Radiology | DX: K74.60 Unspecified cirrhosis of liver (principal); K76.6 Portal hypertension; J90 Pleural effusion, not elsewhere classified; R06.02 Shortness of breath; R93.5 Abnormal findings on diagnostic imaging of other abdominal regions, including retroperitoneum; Z96.698 Presence of other orthopedic joint implants | CPT/HCPCS: 71045; 71275; 74177 ==

== ENCOUNTER 2024-07-28 23:30 | Outpatient (BNV) | payer OTHER, SELFPAY | END 2024-07-29 07:50 | PROVIDERS: Admitting Provider Student in an Organized Health Care Education/Training Program; Emergency Provider Emergency Medicine; PCP Emergency Medicine; Visit Provider Radiology Vascular & Interventional Radiology | DX: M71.21 Synovial cyst of popliteal space [Baker], right knee (principal) | CPT/HCPCS: 93970 ==

== ENCOUNTER → 2024-07-28 23:30 | Outpatient (BNV) | payer OTHER, SELFPAY | PROVIDERS: Admitting Provider Student in an Organized Health Care Education/Training Program; Emergency Provider Emergency Medicine; PCP Emergency Medicine; Visit Provider Nurse Practitioner Family | DX: I48.91 Unspecified atrial fibrillation (principal); I50.30 Unspecified diastolic (congestive) heart failure; R65.10 Systemic inflammatory response syndrome (SIRS) of non-infectious origin without acute organ dysfunction; M25.551 Pain in right hip; S72.141A Displaced intertrochanteric fracture of right femur, initial encounter for closed fracture | CPT/HCPCS: 99232; 99499 ==

== ENCOUNTER → 2024-07-28 23:30 | Outpatient (BNV) | payer OTHER, SELFPAY | PROVIDERS: Admitting Provider Student in an Organized Health Care Education/Training Program; Emergency Provider Emergency Medicine; PCP Emergency Medicine; Visit Provider Internal Medicine Cardiovascular Disease | DX: I48.91 Unspecified atrial fibrillation (principal); I50.30 Unspecified diastolic (congestive) heart failure | CPT/HCPCS: 99223 ==

== ENCOUNTER → 2024-07-28 23:30 | Outpatient (BNV) | payer OTHER, SELFPAY | PROVIDERS: Admitting Provider Student in an Organized Health Care Education/Training Program; Emergency Provider Emergency Medicine; PCP Emergency Medicine; Visit Provider Physician Assistant | DX: S72.141A Displaced intertrochanteric fracture of right femur, initial encounter for closed fracture (principal) | CPT/HCPCS: 99024; 99222 ==

== ENCOUNTER 2024-08-07 11:21 | Emergency (ER) | payer OTHER, SELFPAY ==
[2024-08-07] VITALS (7 sets, daily range): BP systolic 87–121; BP diastolic 54–65; PULSE 88–104; RESP 18–22; TEMP 36.4–36.8; O2SAT 93–99; BMI 26.8
--- NOTE | ~2024-08-07 | CT_ITS ---
EXAMINATION: CT ANGIOGRAM CHEST CLINICAL INFORMATION: COMPARISON: None available. TECHNIQUE: Multiple axial images were obtained through the chest after the administration of 50 mL of Omnipaque 350 intravenous contrast. Extensive vascular post-processing including two-dimensional and three-dimensional reformatted images were created and reviewed on an independent workstation. This CT examination was performed using dose optimization techniques as appropriate, variously including the following: *Automated exposure control *Adjustment of mA and/or kV according to patient size (this includes techniques or standardized protocols for targeted exams where dose is matched to indication/reason for exam; i.e. extremities or head) *Use of iterative reconstruction technique FINDINGS: VASCULAR: Study is limited by respiratory motion artifact. Bolus timing is adequate. Within the confines of motion, no definite pulmonary embolus is identified. The main pulmonary artery is mildly prominent. There is no right heart strain pattern. There is no reflux of contrast into the IVC. The aorta is normal in caliber and course without evidence of aneurysm or acute aortic syndrome. Moderate cardiomegaly. No pericardial effusion. Great vessels are patent and branch normally. LUNGS: Limited by respiratory motion artifact, particularly in the lower lungs. Lungs appear grossly clear. No consolidations or abnormal opacities. Mild diffuse thickening of the small airways is noted suggesting bronchitis. No pleural effusion or pneumothorax. Evaluation for nodules is limited by motion. MEDIASTINUM: Thyroid is somewhat small but appears normal. No adenopathy or mass in the mediastinum. Esophagus appears mildly patulous. Suspect a small hiatus hernia the GE junction. CHEST WALL: Severe gynecomastia bilaterally. No adenopathy. IMAGED UPPER ABDOMEN: There are 2 coil masses overlying the region of the posterior pancreas. Splenorenal varices. Lobular configuration to the liver suggesting cirrhosis. Esophageal varices. Gastric varices. OSSEOUS STRUCTURES: There are old left-sided rib fractures. There is a T12 compression deformity, chronic. Mild compression of L1, chronic. There are degenerative changes in the shoulder joints right greater than left. No suspicious lytic or blastic bone lesion. CT/CT angio chest PE protocol IMPRESSION: 1. Study limited by respiratory motion artifact. No definite pulmonary emboli within the confines of motion. 2. No evidence of acute aortic syndrome. 3. Moderate cardiomegaly. 4. Within confines of respiratory motion, lungs appear clear. There is diffuse small airway thickening suggesting bronchitis. 5. No effusions. 6. Cirrhosis of the liver, with varices as detailed. 7. Severe wedge compression deformity of T12, chronic. Electronically signed by: Arthur Sheikh MD 08/07/2024 02:13 PM EDT
--- NOTE | 2024-08-07 11:46 | ED.CHESTPAIN ---
HPI - Chest Pain General Chief Complaint: Chest Pain Stated Complaint: CP W/DEEP BREATH X1D FROM SNF PER [facility] Time Seen by Provider: 08/07/24 11:36 Source: patient Mode of arrival: EMS Limitations: no limitations History of Present Illness HPI narrative: this is a 63 years old male from the alf sent here for evaluation of chest pain, he has been having chest pain since yesterday the pain is pleuritic in nature. He has a history of atrial fibrillation not anticoagulated, he has a history of CHF, again the pain started yesterday and pleuritic in nature MD complaint: chest pain Onset (ago): day(s) (1) Timing of current episode: constant Onset: during rest Pain location: left chest Pain radiation: none Severity: moderate Quality: aching Exacerbating factors: inspiration Related Data Home Medications ?Medication ?Instructions ?Recorded ?Confirmed carvedilol 6.25 mg tablet 6.25 mg PO BID 07/24/24 07/29/24 fluoxetine 10 mg capsule 10 mg PO DAILY 07/24/24 07/29/24 quetiapine 25 mg tablet 25 mg PO BID 07/24/24 07/29/24 spironolactone 25 mg tablet 25 mg PO DAILY 07/24/24 07/29/24 thiamine HCl (vitamin B1) 100 mg 100 mg PO DAILY 07/24/24 07/29/24 tablet topiramate 25 mg tablet 25 mg PO DAILY 07/24/24 07/29/24 Previous Rx's ?Medication ?Instructions ?Recorded ferrous sulfate 325 mg (65 mg 325 mg PO BID #60 tabs 07/28/24 iron) tablet midodrine 5 mg tablet 5 mg PO TIDWM #90 tabs 07/28/24 amoxicillin 875 mg-potassium 1 tab PO Q12H #10 tabs 08/01/24 clavulanate 125 mg tablet digoxin 125 mcg (0.125 mg) tablet 0.125 mg PO DAILY #90 tabs 08/01/24 doxycycline monohydrate 100 mg 100 mg PO Q12H #10 caps 08/01/24 capsule folic acid 1 mg tablet 1 mg PO DAILY #90 tabs 08/01/24 furosemide 20 mg tablet 20 mg PO DAILY #90 tabs 08/01/24 hydrocortisone 1 % topical cream 1 appl topical BID #454 grams 08/01/24 magnesium oxide 400 mg (241.3 mg 400 mg PO BIDPC #180 tabs 08/01/24 magnesium) tablet oxycodone 5 mg tablet 5 mg PO Q4H PRN Pain, 08/01/24 Moderate(Pain Scale 4-6) #20 tabs Allergies Allergy/AdvReac Type Severity Reaction Status Date / Time No Known Allergies Allergy Verified 08/07/24 11:37 Review of Systems Constitutional: Constitutional: Reports no additional constitutional complaints Gastrointestinal: Gastrointestinal: Reports no additional gastrointestinal complaints [facility] Past Medical History Attestation statement: The following information was validated with the patient. Medical History Right scapula fracture Osteoarthritis Psoriasis Left against medical advice Chronic HFrEF (heart failure with reduced ejection fraction) Cardiomyopathy Alcoholic cirrhosis of liver Alcohol intoxication Atrial fibrillation with rapid ventricular response Psoriasis Afib Surgical History H/O right inguinal hernia repair Social History 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 Patient Tobacco Use Status: Never used Tobacco Smoked in Last 30 Days: No Second Hand Smoke Exposure: No Use of substances other than those prescribed or required for medical reasons: No Advance Directives: No Advance Directives Information Provided: Yes Do you have a plan to hurt others: No Plan service: No Current occupational status: disabled Physical Exam Vital Signs: Vital Signs: Last Vital Signs Temp 98.2 F 08/07/24 11:32 Pulse 93 08/07/24 14:32 Resp 18 08/07/24 14:32 BP 100/64 08/07/24 14:32 Pulse Ox 97 08/07/24 14:32 O2 Del Method Room Air 08/07/24 14:32 BMI result Body Mass Index 26.8 patient appeared comfortable not acute distress Const: General: cooperative Nutritional Appearance: average body habitus Orientation/consciousness: patient oriented x3 HEENT: Head: Yes normal to inspection General nose exam: Normal external nose present Face and sinus: Yes normal facial exam Mouth: Normal oral and palatal mucosa present Throat: Yes posterior oropharynx normal Neck: Neck: Yes normal visual inspection Chest: Chest palpation & inspection: normal inspection of the chest Resp: Effort & Inspection: normal respiratory effort Auscultation: clear to auscultation bilaterally Cardio: Palpation: normal PMI Rate: regular rate Rhythm: regular rhythm GI: Inspection: Yes normal to inspection Palpation (GI): Soft to palpation, not firm and nontender Auscultation: normal bowel sounds Skin: General skin exam: no rashes or lesions noted and elasticity normal Neuro: General: patient oriented x3 Course Reevaluation(s) Reevaluation #1: I re-examined the patient at this time clinically stable delta trop is flat acute coronary syndrome has been ruled out also CT scan of the chest was negative for PE therefore PE and dissection has been ruled out plan is discharge back to [place] Time: 15:47 Medications Administered Discontinued Medications Generic Name Dose Route Start Last Admin Trade Name Freq PRN Reason Stop Dose Admin Sodium Chloride 1,000 mls @ 999 mls/hr 08/07/24 12:00 08/07/24 14:26 Ns IVCONT 08/07/24 13:00 Infused .Q1H1M ARMANDO Infusion Sodium Chloride 1,000 mls @ 999 mls/hr 08/07/24 14:30 08/07/24 14:49 Ns IVCONT 08/07/24 15:30 999 mls/hr .Q1H1M ARMANDO Administration Iohexol 65 ml 08/07/24 13:35 08/07/24 13:36 Iohexol 350 Mg/Ml 75 Ml Infus..Btl IV 08/07/24 13:36 65 ml ONCE ONE Administration Medical Decision Making Medical Decision Making [facility] Narrative: patient presented complaining of chest pain from the alf we will obtain electrocardiogram high sensitive troponin Differential Diagnosis Differential Diagnoses: The differential diagnosis associated with the presentation includes ACS/pneumothorax/ pericarditis/pulmonary emboli Admission/Observation Consideration of admission/observation: Escalation of care including admission/observation considered Lab Data [facility] Lab Attestation statement: I reviewed the patient's lab results. 08/07/24 11:51 08/07/24 11:51 Labs: Lab Results 08/07/24 08/07/24 Range/Units 11:51 14:33 WBC 9.5 (4.8-10.8) X10*3/uL RBC 3.63 L D (4.60-5.80) X10*6/uL Hgb 11.8 L D (14.0-18.0) g/dl Hct 35.1 L D (42.0-52.0) % MCV 96.7 (80.0-98.0) fL MCH 32.5 (27.0-33.0) pg MCHC 33.6 (31.0-36.0) g/dl RDW 13.4 (11.0-16.0) % Plt Count 326 D (160-400) X10*3/uL MPV 9.6 (9.4-12.4) fL Immature Gran % (Auto) 0.6 H (0.0-0.4) % Neut % (Auto) 75.6 H (45-73) % Lymph % (Auto) 10.4 L (20-40) % Tucker % (Auto) 12.5 H (2-11) % Eos % (Auto) 0.3 (0-4) % Baso % (Auto) 0.6 (0-2) % Lymph # (Auto) 1.0 L (1.2-4.9) X10*3/uL Tucker # (Auto) 1.2 (0.1-1.2) X10*3/uL Eos # (Auto) 0.0 (0.0-0.4) X10*3/uL Baso # (Auto) 0.1 (0.0-0.2) X10*3/uL Abs Immat Gran (auto) 0.06 H (0.00-0.03) X10*3/uL Absolute Neuts (auto) 7.2 (2.0-8.3) x10*3/uL Absolute Nucleated RBC 0.000 (0.0-0.012) X10*3/uL Nucleated RBC % (auto) 0.0 (0.0-0.2) /100WBC D-Dimer High Sensitivty 9610 NG/ML Sodium 132 L (135-145) mmol/L Potassium 4.2 (3.3-5.1) mmol/L Chloride 99 (96-108) mmol/L Carbon Dioxide 25 (22-29) mmol/L Anion Gap 12 (12-20) BUN 16 (9-16) mg/dL Creatinine 0.70 (0.5-1.4) mg/dL Estim Creat Clear Calc 107.2 Estimated GFR > 60 Random Glucose 120 H (60-115) mg/dL Calcium 9.0 D (8.4-10.2) mg/dL Total Bilirubin 1.9 H (0.0-1.0) mg/dL AST 41 H (5-37) U/L ALT 28 (0-40) U/L Alkaline Phosphatase 140 H (39-117) U/L Troponin I High Sens 3.9 < 2.7 (<3.5-35.0) ng/L Total Protein 7.0 (6.5-8.0) g/dL Albumin 3.4 L (3.5-5.0) g/dL Independent Interpretation I performed an independent interpretation of an: EKG ( atrial fibrillation with a controlled rate of 85) and CT Scan Radiology Impression Discussion of test interpretation with radiology: I have reviewed the radiologist's reading. Discharge Plan Discharge Clinical Impression: Chest pain Qualifiers: Chest pain type: unspecified Qualified Code(s): R07.9 - Chest pain, unspecified Patient Disposition: Home, Self-Care Instructions: Chest Pain (ED) Additional Instructions: with did 2 set of cardiac marker (troponin) both negative; also with a CAT scan of the chest no evidence of pulmonary emboli with feel that you are safe to be discharged you could follow-up with your primary care physician Prescriptions: No Action carvedilol 6.25 mg tablet 6.25 mg PO BID thiamine HCl (vitamin B1) 100 mg tablet 100 mg PO DAILY topiramate 25 mg tablet 25 mg PO DAILY spironolactone 25 mg tablet 25 mg PO DAILY fluoxetine 10 mg capsule 10 mg PO DAILY quetiapine 25 mg tablet 25 mg PO BID midodrine 5 mg Tablet 5 mg PO TIDWM Qty: 90 0RF ferrous sulfate 325 mg (65 mg iron) tablet 325 mg PO BID Qty: 60 0RF magnesium oxide 400 mg (241.3 mg magnesium) Tablet 400 mg PO BIDPC Qty: 180 0RF hydrocortisone 1 % Cream 1 appl topical BID Qty: 454 0RF Protocol: Apply to: Apply to: psoriatic plaques on torso and back Rx Instructions: affected areas doxycycline monohydrate 100 mg Capsule 100 mg PO Q12H Qty: 10 0RF folic acid 1 mg Tablet 1 mg PO DAILY Qty: 90 0RF digoxin 125 mcg (0.125 mg) Tablet 0.125 mg PO DAILY Qty: 90 0RF Protocol: Hold for HR <: HOLD for HR < : 60 amoxicillin-pot clavulanate 875-125 mg Tablet 1 tab PO Q12H Qty: 10 0RF furosemide 20 mg tablet 20 mg PO DAILY Qty: 90 0RF oxycodone 5 mg Tablet 5 mg PO Q4H PRN (Reason: Pain, Moderate(Pain Scale 4-6)) Qty: 20 0RF Rx Instructions: Partial Fill upon patient request. Referrals: Robert Nelson MD [Primary Care Provider] - 5 days Print Language: Vietnamese
[2024-08-07 11:56] LABS: MANUAL DIFF FLAG NO
[2024-08-07 11:58] LABS: Basophils Absolute Auto 0.1 X10*3/uL (0.0-0.2); Basophils Percent Auto 0.6 % (0-2); Eosinophils Percent Auto 0.3 % (0-4); Hematocrit 35.1 % (42.0-52.0); Imm Gran Abs Auto 0.06 X10*3/uL (0.00-0.03); Imm Gran Pct Auto 0.6 % (0.0-0.4); Lymphocytes Percent Auto 10.4 % (20-40); Mean Corpuscular HGB Conc 33.6 g/dl (31.0-36.0); Mean Corpuscular Hemoglobin 32.5 pg (27.0-33.0); Mean Corpuscular Volume 96.7 fL (80.0-98.0); Mean Platelet Volume 9.6 fL (9.4-12.4); Monocytes Absolute Auto 1.2 X10*3/uL (0.1-1.2); Monocytes Percent Auto 12.5 % (2-11); Neutrophils Absolute Auto 7.2 x10*3/uL (2.0-8.3); Neutrophils Percent Auto 75.6 % (45-73); Platelet Count 326 X10*3/uL (160-400); Red Blood Count 3.63 X10*6/uL (4.60-5.80); Red Cell Distribution Width 13.4 % (11.0-16.0); White Blood Count 9.5 X10*3/uL (4.8-10.8)
[2024-08-07] MEDS: 0.9 % Sodium Chloride 1,000 ML 999 ML IVCONT ×2 (11:59→14:49)
--- NOTE | 2024-08-07 12:03 | MHC.EDTECH ---
notified of bp dropping to 87/56 right, switch bp cuff to left. same bp went to 97/56 now its 87/56. Md thakkar notified rn lauren made aware of.
[2024-08-07 12:10] LABS: Hemoglobin 11.8 g/dl (14.0-18.0)
[2024-08-07 12:17] LABS: D Dimer High Sensitivity 9610 NG/ML
[2024-08-07 12:23] LABS: Alanine Aminotransferase 28 U/L (0-40); Albumin Level 3.4 g/dL (3.5-5.0); Alkaline Phosphatase 140 U/L (39-117); Anion Gap 12 (12-20); Aspartate Amino Transferase 41 U/L (5-37); Bilirubin Total 1.9 mg/dL (0.0-1.0); Blood Urea Nitrogen 16 mg/dL (9-16); Carbon Dioxide 25 mmol/L (22-29); Chloride 99 mmol/L (96-108); Creatinine Clr Calc Pharmacy 107.2; Estimated Glomerular Filt Rate > 60; Glucose Random 120 mg/dL (60-115); Potassium 4.2 mmol/L (3.3-5.1); Sodium 132 mmol/L (135-145)
[2024-08-07 12:30] LABS: Troponin-I High Sensitivity 3.9 ng/L (<3.5-35.0)
--- OUTSIDE RECORDS SUMMARY | 2024-08-07 13:25 | XMS_ITS | Encounter Summary ---
Author Organization [facility] Address [id number] [place] [id number] Care Team Providers Care Rubber Printing Machine Operator Name Role Phone Robert Nelson MD Primary Care Provider [phone] Encounter Details Date Type Department Care Team (Late st Contact Info) Description 08/03/2024 Lab Requisition [facility] - Main Lab [address] [facility] [place] [address] Nash Ng MD [address] [place] [address] Unspecified atrial fibrillation (CMS/HCC V24, CMS/HCC V28); Hypomagnesemia; Systemic inflammatory response syndrome (sirs) of non-infectious origin without acute organ dysfunction (CMS/HCC V24, CMS/HCC V28) Social History Tobacco Use Types Packs/Day Years Used Date Smoking Tobacco: Never Assessed Sex and Gender Information Value Date Recorded Sex Assigned at Not on file Legal Sex Male 7:56 PM EST Gender Identity Not on file Sexual Orientation Not on file documented as of this encounter Plan of Treatment Not on file documented as of this encounter Procedures Procedure Name Priority Date/Time Associated Diagnosis Comments BASIC METABOLIC PANEL Routine 08/03/2024 6:11 AM EDT Unspecified atrial fibrillation (CMS/HCC V24, CMS/HCC V28) Hypomagnesemia Systemic inflammatory response syndrome (sirs) of non-infectious origin without acute organ dysfunction (CMS/HCC V24, CMS/HCC V28) documented in this encounter Results * (ABNORMAL) Basic metabolic panel (08/03/2024 6:11 AM EDT) Sodium 139 133 - 145 mmol/L LAB CHEMISTRY METHOD 08/03/2024 11:38 AM [facility] Potassium 3.7 3.5 - 5.5 mmol/L LAB CHEMISTRY METHOD 08/03/2024 11:38 AM [facility] Chloride 102 96 - 110 mmol/L LAB CHEMISTRY METHOD 08/03/2024 11:38 AM [facility] CO2 27 21 - 32 mmol/L LAB CHEMISTRY METHOD 08/03/2024 11:38 AM [facility] Anion Gap 10 3 - 11 LAB CHEMISTRY METHOD 08/03/2024 11:38 AM [facility] Glucose 90 70 - 100 mg/dL LAB CHEMISTRY METHOD 08/03/2024 11:38 AM [facility] BUN 13 5 - 25 mg/dL LAB CHEMISTRY METHOD 08/03/2024 11:38 AM [facility] Creatinine 0.49(L) 0.70 - 1.30 mg/dL LAB CHEMISTRY METHOD 08/03/2024 11:38 AM [facility] eGFR 117 >=60 mL/min/1. 73m2 LAB CHEMISTRY METHOD 08/03/2024 11:38 AM [facility] Comment:Calculation based on the Chronic Kidney Disease Epidemiology Collaboration (CKD-EPI) equation refit without adjustment for race. BUN/Creatinine Ratio 26.5 LAB CHEMISTRY METHOD 08/03/2024 11:38 AM [facility] Calcium 8.2(L) 8.5 - 10.5 mg/dL LAB CHEMISTRY METHOD 08/03/2024 11:38 AM [facility] Blood Venous blood specimen / Unknown Venipuncture / Unknown 08/03/2024 6:11 AM EDT 08/03/2024 10:24 AM EDT us Nash Ng MD LAB BLOOD ORDERABLES Final R esult [facility] [address] [place] [address], documented in this encounter Visit Diagnoses Diagnosis Unspecified atrial fibrillation (CMS/HCC V24, CMS/HCC V28) Hypomagnesemia Disorders of magnesium metabolism Systemic inflammatory response syndrome (sirs) of non-infectious origin without acute organ dysfunction (CMS/HCC V24, CMS/HCC V28) documented in this encounter Care Teams Rubber Printing Machine Operator Relationship Specialty Start Date End Date Robert Nelson MD [address] [place] [id number] PCP - General 06/04/22 documented as of this encounter
--- OUTSIDE RECORDS SUMMARY | 2024-08-07 13:25 | XMS_ITS | Clinical Summary ---
Author Organization [address] [facility] Address [address] [place] [address] Phone Care Team Providers Care Functional Director Name Role Phone Robert Nelson MD Primary Care Provider [phone] Encounters Date Type Department Care Team Description 08/03/2024 Lab Requisition [facility] Lab [address] [place] [address] Nash Ng MD Unspecified atrial fibrillation ([facility] V24, [facility] V28); Hypomagnesemia; Systemic inflammatory response syndrome (sirs) of non-infectious origin without acute organ dysfunction ([facility]/HCC V24, CMS/HCC V28) 08/02/2024 Lab Requisition [facility] Lab [address] [place] [address] Nash Ng MD Essential (primary) hypertension; Heart failure, unspecified ([facility] V24, [facility] V28) from Last 3 Months Social History Tobacco Use Types Packs/Day Years Used Date Smoking Tobacco: Never Assessed Sex and Gender Information Value Date Recorded Sex Assigned at Not on file Legal Sex Male 7:56 PM EST Gender Identity Not on file Sexual Orientation Not on file Plan of Treatment Health Maintenance Due Date Last Done Comments Zoster Vaccines (2 of 2) 11/19/2021 09/24/2021 Cholesterol Screening (Lipid Panel) 02/27/2022 Colorectal Cancer Screening: Colonoscopy 02/27/2022 Depression Screening 02/27/2022 HIV Screening 02/27/2022 Hepatitis C Screening 02/27/2022 Medicare Annual Wellness Visit 02/27/2022 Social Influencers of Health Screening 02/27/2022 RSV Immunization Adult Patients (1 - Risk 60-74 years 1-dose series) 2022 COVID-19 Vaccine (4 - season) 2023 06/09/2023, 06/24/2021, 03/01/2021 Influenza Vaccine (Season Ended) 2024 06/09/2023, 03/01/2021, 02/20/2020, Additional history exists Hypertension/CHF/CAD Annual BMP Blood Test 08/03/2025 08/03/2024, 08/02/2024 DTaP,Tdap,and Td Vaccines (4 - Td or Tdap) 09/25/2031 09/24/2021, 05/27/2010, 03/08/2000 Hepatitis A Vaccines Completed 12/16/2009, 03/07/2008, 03/16/2006 Hepatitis B Vaccines Completed 12/16/2009, 03/07/2008, 04/26/2006, Additional history exists Pneumococcal Vaccine: 50+ Years Completed 06/09/2023, 05/14/2014, 03/16/2006 Pneumococcal Vaccine: Pediatrics (0 to 5 Years) and At-Risk Patients (6 to 64 Years) Aged Out 06/09/2023, 05/14/2014, 03/16/2006 No longer eligible based on patient's age to complete this topic HIB Vaccines Aged Out No longer eligi [...] to complete this topic RSV Immunization Patients Under 20 months Aged Out No longer eligible based on patient's age to complete this topic Varicella Vaccines Aged Out No longer eligible based on patient's age to complete this topic Procedures Procedure Name Priority Date/Time Associated Diagnosis Comments BASIC METABOLIC PANEL Routine 08/03/2024 6:11 AM EDT Unspecified atrial fibrillation (CMS/HCC V24, CMS/HCC V28) Hypomagnesemia Systemic inflammatory response syndrome (sirs) of non-infectious origin without acute organ dysfunction (CMS/HCC V24, CMS/HCC V28) CBC WITH AUTO DIFFERENTIAL Routine 08/02/2024 8:00 AM EDT Essential (primary) hypertension Heart failure, unspecified (CMS/HCC V24, CMS/HCC V28) BASIC METABOLIC PANEL Routine 08/02/2024 8:00 AM EDT Essential (primary) hypertension Heart failure, unspecified (CMS/HCC V24, CMS/HCC V28) CBC AND DIFFERENTIAL Routine 08/02/2024 8:00 AM EDT Essential (primary) hypertension Heart failure, unspecified (CMS/HCC V24, CMS/HCC V28) from Last 3 Months Results * (ABNORMAL) Basic metabolic panel (08/03/2024 6:11 AM EDT) Only the most recent of2 resultswithin the time period is included. Sodium 139 133 - 145 mmol/L LAB CHEMISTRY METHOD 08/03/2024 11:[address] [facility] Potassium 3.7 3.5 - 5.5 mmol/L LAB CHEMISTRY METHOD 08/03/2024 11:[address] [facility] Chloride 102 96 - 110 mmol/L LAB CHEMISTRY METHOD 08/03/2024 11:[address] [facility] CO2 27 21 - 32 mmol/L LAB CHEMISTRY METHOD 08/03/2024 11:[address] [facility] Anion Gap 10 3 - 11 LAB CHEMISTRY METHOD 08/03/2024 11:[address] [facility] Glucose 90 70 - 100 mg/dL LAB CHEMISTRY METHOD 08/03/2024 11:[address] [facility] BUN 13 5 - 25 mg/dL LAB CHEMISTRY METHOD 08/03/2024 11:[address] [facility] Creatinine 0.49(L) 0.70 - 1.30 mg/dL LAB CHEMISTRY METHOD 08/03/2024 11:38 AM EDT [facility] eGFR 117 >=60 mL/min/1. 73m2 LAB CHEMISTRY METHOD 08/03/2024 11:38 AM EDT [facility] Comment:Calculation based on the Chronic Kidney Disease Epidemiology Collaboration (CKD-EPI) equation refit without adjustment for race. BUN/Creatinine Ratio 26.5 LAB CHEMISTRY METHOD 08/03/2024 11:38 AM T [facility] Calcium 8.2(L) 8.5 - 10.5 mg/dL LAB CHEMISTRY METHOD 08/03/2024 11:38 AM T [facility] Blood Venous blood specimen / Unknown Venipuncture / Unknown 08/03/2024 6:11 AM EDT 08/03/2024 10:24 AM EDT us Nash Ng MD LAB BLOOD ORDERABLES Final R esult [facility] [address] [place] [address], * (ABNORMAL) CBC auto differential (08/02/2024 8:00 AM EDT) WBC 6.6 4.8 - 10.8 K/mcL LAB HEMETOLOGY METHOD 08/02/2024 9:[address] [facility] RBC 3.30(L) 4.50 - 5.50 M/mcL LAB HEMETOLOGY METHOD 08/02/2024 9:19 AM T [facility] Hemoglobin 10.5(L) 13.5 - 17.5 g/dL LAB HEMETOLOGY METHOD 08/02/2024 9:[address] [facility] Hematocrit 32.2(L) 42.0 - 54.0 % LAB HEMETOLOGY METHOD 08/02/2024 9:[address] [facility] MCV 97.9 79.0 - 98.0 FL LAB HEMETOLOGY METHOD 08/02/2024 9:[address] [facility] MCH 31.9 27.0 - 32.0 pcg LAB HEMETOLOGY METHOD 08/02/2024 9:[address] [facility] MCHC 32.6 32.0 - 37.0 g/dL LAB HEMETOLOGY METHOD 08/02/2024 9:[address] [facility] RDW 13.0 11.0 - 15.0 % LAB HEMETOLOGY METHOD 08/02/2024 9:[address] [facility] Platelets 249 130 - 400 K/mcL LAB HEMETOLOGY METHOD 08/02/2024 9:[address] [facility] MPV 10.6 7.0 - 11.0 FL LAB HEMETOLOGY METHOD 08/02/2024 9:[address] [facility] NRBC 0.0 <1.0 % LAB HEMETOLOGY METHOD 08/02/2024 9:[address] [facility] NRBC Absolute 0.00 <0.10 K/mcL LAB HEMETOLOGY METHOD 08/02/2024 9:[address] [facility] Neutrophils Relative 62.1 % LAB HEMETOLOGY METHOD 08/02/2024 9:[address] [facility] Lymphocytes Relative 23.4 % LAB HEMETOLOGY METHOD 08/02/2024 9:[address] [facility] Monocytes Relative 10.8 % LAB HEMETOLOGY METHOD 08/02/2024 9:[address] [facility] Eosinophils Relative 2.0 % LAB HEMETOLOGY METHOD 08/02/2024 9:[address] [facility] Basophils Relative 0.6 % LAB HEMETOLOGY METHOD 08/02/2024 9:[address] [facility] Immature Granulocytes Relative 1.1 % LAB HEMETOLOGY METHOD 08/02/2024 9:19 AM EDT [facility] Neutrophils Absolute 4.08 1.50 - 7.00 K/mcL LAB HEMETOLOGY METHOD 08/02/2024 9:19 AM EDT [facility] Lymphocytes Absolute 1.54 1.00 - 5.00 K/mcL LAB HEMETOLOGY METHOD 08/02/2024 9:19 AM EDT [facility] Monocytes Absolute 0.71 0.20 - 1.00 K/mcL LAB HEMETOLOGY METHOD 08/02/2024 9:19 AM EDT [facility] Eosinophils Absolute 0.13 0.00 - 0.50 K/mcL LAB HEMETOLOGY METHOD 08/02/2024 9:19 AM EDT [facility] Basophils Absolute 0.04 0.00 - 0.20 K/mcL LAB HEMETOLOGY METHOD 08/02/2024 9:19 AM EDT [facility] Immature Granulocytes Absolute 0.07(H) 0.00 - 0.03 K/[facility] LAB HEMETOLOGY METHOD 08/02/2024 9:19 AM EDT [facility] Blood Venous blood specimen / Unknown Venipuncture / Unknown 08/02/2024 8:00 AM EDT 08/02/2024 8:32 AM EDT Nash Ng MD LAB BLOOD ORDERABLES Final R esult [facility] [address] [place] [address], from Last 3 Months Insurance MEDICA[employer] - [place] [employer] MEDICARE Member Subscriber Plan / Payer (Ef fective 2024-Present) Name:Wei Wang Relation to Subscriber:Self Name:Wei Wang Payer ID:[id number] Group ID:Not on file Type:Not on file Address: [address] [place] [id number] Care Teams Functional Director Relationship Specialty Start Date End Date Robert Nelson MD [address] [place] [id number] PCP - General 06/04/22
[2024-08-07] MEDS: iohexoL 350 MG/ML 75 ML INFUS..BTL 65 ML IV (13:36)
--- NOTE | 2024-08-07 14:39 | ECG_ITS ---
Test Reason : chest pain Blood Pressure : */* mmHG Vent. Rate : 85 BPM Atrial Rate : * BPM P-R Int : * ms QRS Dur : 88 ms QT Int : 360 ms P-R-T Axes : * 17 44 degrees QTcB Int : 428 ms Atrial fibrillation Abnormal ECG When compared with ECG of 28-Jul-2024 19:42, Vent. rate has decreased by 43 bpm Nonspecific T wave abnormality no longer evident in Inferior leads Nonspecific T wave abnormality no longer evident in Lateral leads Referred By: Antonio Escamilla Electronically Signed By: SHREE CARPENTER MD
[2024-08-07 15:36] LABS: Troponin-I High Sensitivity < 2.7 ng/L (<3.5-35.0)
== END 2024-08-07 18:50 | disposition home or self-care (01) ==
PROVIDERS: Emergency Provider Emergency Medicine; PCP Internal Medicine
DX: R07.9 Chest pain, unspecified (principal)
CPT/HCPCS: 36415; 71275; 80053; 84484; 85025; 85379; 93005; 96360; 96361; 99284; 99285; Q9967

== ENCOUNTER → 2024-08-07 11:50 | Outpatient (BNV) | payer OTHER, SELFPAY | PROVIDERS: Emergency Provider Emergency Medicine; PCP Internal Medicine; Visit Provider Radiology Diagnostic Radiology | DX: I51.7 Cardiomegaly (principal); K74.60 Unspecified cirrhosis of liver; M48.54XA Collapsed vertebra, not elsewhere classified, thoracic region, initial encounter for fracture | CPT/HCPCS: 71275 ==

== ENCOUNTER → 2024-08-07 14:39 | Outpatient (BNV) | payer OTHER, SELFPAY | PROVIDERS: Emergency Provider Emergency Medicine; PCP Internal Medicine; Visit Provider Internal Medicine Cardiovascular Disease | DX: I48.91 Unspecified atrial fibrillation (principal) | CPT/HCPCS: 93010 ==

== ENCOUNTER 2024-08-08 09:28 | Outpatient (REF) | payer OTHER, SELFPAY ==
--- NOTE | ~2024-08-08 | XR_ITS ---
CLINICAL HISTORY: S72.90XA - Unspecified fracture of unspecified femur, initial encounter ... 2 view right femur Comparison: None Findings: ORIF of a right intertrochanteric/subtrochanteric fracture has been performed. There is residual moderate displacement of the fracture fragments. No knee effusion. No significant arthritic change. No radiopaque foreign body. IMPRESSION: Right femur ORIF as described above. This document has been electronically signed by: Sherif Landrum MD on 08/08/2024 14:27:00
--- OUTSIDE RECORDS SUMMARY | 2024-08-09 10:12 | XMS_ITS | Encounter Summary ---
Author Organization [facility] Address [address] [place] [phone] Care Team Providers Care Egg Worker Name Role Phone Robert Nelson MD Primary Care Provider [phone]- [phone] Encounter Details Date Type Department Care Team (Late st Contact Info) Description 08/02/2024 Lab Requisition [facility] - Main Lab [address] [facility] [place] [address] Nash Ng MD [address] [place] [address] Essential (primary) hypertension; Heart failure, unspecified (CMS/HCC [...] CBC auto differential (08/02/2024 8:00 AM EDT) [facility] WBC 6.6 4.8 - 10.8 K/mcL LAB HEMETOLOGY METHOD 08/02/2024 9:19 AM [facility] RBC 3.30(L) 4.50 - 5.50 M/mcL LAB HEMETOLOGY METHOD 08/02/2024 9:19 AM [facility] Hemoglobin 10.5(L) 13.5 - 17.5 g/dL LAB HEMETOLOGY METHOD 08/02/2024 9:19 AM [facility] Hematocrit 32.2(L) 42.0 - 54.0 % LAB HEMETOLOGY METHOD 08/02/2024 9:19 AM [facility] MCV 97.9 79.0 - 98.0 FL LAB HEMETOLOGY METHOD 08/02/2024 9:19 AM [facility] MCH 31.9 27.0 - 32.0 pcg LAB HEMETOLOGY METHOD 08/02/2024 9:19 AM [facility] MCHC 32.6 32.0 - 37.0 g/dL LAB HEMETOLOGY METHOD 08/02/2024 9:19 AM [facility] RDW 13.0 11.0 - 15.0 % LAB HEMETOLOGY METHOD 08/02/2024 9:19 AM [facility] Platelets 249 130 - 400 K/mcL LAB HEMETOLOGY METHOD 08/02/2024 9:19 AM [facility] MPV 10.6 7.0 - 11.0 FL LAB HEMETOLOGY METHOD 08/02/2024 9:19 AM [facility] NRBC 0.0 <1.0 % LAB HEMETOLOGY METHOD 08/02/2024 9:19 AM [facility] NRBC Absolute 0.00 <0.10 K/mcL LAB HEMETOLOGY METHOD 08/02/2024 9:19 AM [facility] Neutrophils Relative 62.1 % LAB HEMETOLOGY METHOD 08/02/2024 9:19 AM [facility] Lymphocytes Relative 23.4 % LAB HEMETOLOGY METHOD 08/02/2024 9:19 AM [facility] Monocytes Relative 10.8 % LAB HEMETOLOGY METHOD 08/02/2024 9:19 AM [facility] Eosinophils Relative 2.0 % LAB HEMETOLOGY METHOD 08/02/2024 9:19 AM [facility] Basophils Relative 0.6 % LAB HEMETOLOGY METHOD 08/02/2024 9:19 AM [facility] Immature Granulocytes Relative 1.1 % LAB HEMETOLOGY METHOD 08/02/2024 9:19 AM [facility] Neutrophils Absolute 4.08 1.50 - 7.00 K/mcL LAB HEMETOLOGY METHOD 08/02/2024 9:19 AM [facility] Lymphocytes Absolute 1.54 1.00 - 5.00 K/mcL LAB HEMETOLOGY METHOD 08/02/2024 9:19 AM [facility] Monocytes Absolute 0.71 0.20 - 1.00 K/mcL LAB HEMETOLOGY METHOD 08/02/2024 9:19 AM [facility] Eosinophils Absolute 0.13 0.00 - 0.50 K/mcL LAB HEMETOLOGY METHOD 08/02/2024 9:19 AM [facility] Basophils Absolute 0.04 0.00 - 0.20 K/mcL LAB HEMETOLOGY METHOD 08/02/2024 9:19 AM [facility] Immature Granulocytes Absolute 0.07(H) 0.00 - 0.03 K/mcL LAB HEMETOLOGY METHOD 08/02/2024 9:19 AM [facility] Blood Venous blood specimen / Unknown Venipuncture / Unknown 08/02/2024 8:00 AM EDT 08/02/2024 8:32 AM EDT us Nash Ng MD LAB BLOOD ORDERABLES Final R esult [facility] [address] [place] [address], [place] [phone] * (ABNORMAL) Basic metabolic panel (08/02/2024 8:00 AM EDT) Sodium 138 133 - 145 mmol/L LAB CHEMISTRY METHOD 08/02/2024 10:01 AM [facility] Potassium 3.2(L) 3.5 - 5.5 mmol/L LAB CHEMISTRY METHOD 08/02/2024 10:01 AM [facility] Chloride 99 96 - 110 mmol/L LAB CHEMISTRY METHOD 08/02/2024 10:01 AM [facility] CO2 31 21 - 32 mmol/L LAB CHEMISTRY METHOD 08/02/2024 10:01 AM [facility] Anion Gap 8 3 - 11 LAB CHEMISTRY METHOD 08/02/2024 10:01 AM [facility] Glucose 98 70 - 100 mg/dL LAB CHEMISTRY METHOD 08/02/2024 10:01 AM [facility] BUN 12 5 - 25 mg/dL LAB CHEMISTRY METHOD 08/02/2024 10:01 AM [facility] Creatinine 0.55(L) 0.70 - 1.30 mg/dL LAB CHEMISTRY METHOD 08/02/2024 10:01 AM [facility] eGFR 113 >=60 mL/min/1. 73m2 LAB CHEMISTRY METHOD 08/02/2024 10:01 AM [facility] Comment:Calculation based on the Chronic Kidney Disease Epidemiology Collaboration (CKD-EPI) equation refit without adjustment for race. BUN/Creatinine Ratio 21.8 LAB CHEMISTRY METHOD 08/02/2024 10:[address] [facility] Calcium 8.7 8.5 - 10.5 mg/dL LAB CHEMISTRY METHOD 08/02/2024 10:[address] [facility] Blood Venous blood specimen / Unknown Venipuncture / Unknown 08/02/2024 8:00 AM EDT 08/02/2024 8:32 AM EDT us Nash Ng MD LAB BLOOD ORDERABLES Final R esult [facility] [address] [place] [address], documented in this encounter Visit Diagnoses Diagnosis Essential (primary) hypertension Unspecified essential hypertension Heart failure, unspecified (CMS/HCC V24, CMS/HCC V28) Heart failure, unspecified documented in this encounter Care Teams Egg Worker Relationship Specialty Start Date End Date Robert Nelson MD [address] [place] [id number] PCP - General 06/04/22 documented as of this encounter
--- OUTSIDE RECORDS SUMMARY | 2024-08-09 10:12 | XMS_ITS | Encounter Summary ---
Author Organization [facility] Address [address] [place] [phone] Care Team Providers Care Tripe Cooker Name Role Phone Robert Nelson MD Primary Care Provider Encounter Details Date Type Department Care Team (Late st Contact Info) Description 08/03/2024 Lab Requisition [facility] - Main Lab [address] [facility] [place] [address] Nash Ng MD [address] [place] [address] Unspecified atrial fibrillation (CMS/HCC V24, CMS/HCC V28); [...] mmol/L LAB CHEMISTRY METHOD 08/03/2024 11:38 AM [facility] Potassium 3.7 3.5 - 5.5 mmol/L LAB CHEMISTRY METHOD 08/03/2024 11:38 AM [facility] Chloride 102 96 - 110 mmol/L LAB CHEMISTRY METHOD 08/03/2024 11:38 AM [facility] CO2 27 21 - 32 mmol/L LAB CHEMISTRY METHOD 08/03/2024 11:38 AM [facility] Anion Gap 10 3 - 11 LAB CHEMISTRY METHOD 08/03/2024 11:38 AM [facility] Glucose 90 70 - 100 mg/dL LAB CHEMISTRY METHOD 08/03/2024 11:38 AM [facility] BUN 13 5 - 25 mg/dL LAB CHEMISTRY METHOD 08/03/2024 11:38 AM [facility] Creatinine 0.49(L) 0.70 - 1.30 mg/dL LAB CHEMISTRY METHOD 08/03/2024 11:38 AM [facility] eGFR 117 >=60 mL/min/1. 73m2 LAB CHEMISTRY METHOD 08/03/2024 11:38 AM [facility] Comment:Calculation based on the Chronic Kidney Disease Epidemiology Collaboration (CKD-EPI) equation refit without adjustment for race. BUN/Creatinine Ratio 26.5 LAB CHEMISTRY METHOD 08/03/2024 11:38 AM [facility] Calcium 8.2(L) 8.5 - 10.5 mg/dL LAB CHEMISTRY METHOD 08/03/2024 11:38 AM [facility] Blood Venous blood specimen / Unknown Venipuncture / Unknown 08/03/2024 6:11 AM EDT 08/03/2024 10:24 AM EDT us Nash Ng MD LAB BLOOD ORDERABLES Final R esult [facility] [address] [place] [address], documented in this encounter Visit Diagnoses Diagnosis Unspecified atrial fibrillation (CMS/HCC V24, CMS/HCC V28) Hypomagnesemia Disorders of magnesium metabolism Systemic inflammatory response syndrome (sirs) of non-infectious origin without acute organ dysfunction (CMS/HCC V24, CMS/HCC V28) documented in this encounter Care Teams Tripe Cooker Relationship Specialty Start Date End Date Robert Nelson MD [address] [place] [phone] PCP - General 06/04/22 documented as of this encounter
--- OUTSIDE RECORDS SUMMARY | 2024-08-09 10:12 | XMS_ITS | Clinical Summary ---
Author Organization 299 [facility] Address [address] [place] [address] Phone Care Team Providers Care Rare/Endangered Species Specialist Name Role Phone Robert Nelson MD Primary Care Provider Encounters Date Type Department Care Team Description 08/03/2024 Lab Requisition [facility] Lab [address] [place] [address] Nash Ng MD Unspecified atrial fibrillation ([facility] V24, [facility] V28); Hypomagnesemia; Systemic inflammatory response syndrome (sirs) of non-infectious origin without acute organ dysfunction ([facility]/HCC V24, CMS/HCC V28) 08/02/2024 Lab Requisition [facility] Lab [address] [place] [address] Nash Ng MD Essential (primary) hypertension; Heart failure, unspecified ([facility] V24, [facility] V28) from Last 3 Months Social [...] LAB CHEMISTRY METHOD 08/03/2024 11:38 AM EDT [facility] eGFR 117 >=60 mL/min/1. 73m2 LAB CHEMISTRY METHOD 08/03/2024 11:38 AM EDT [facility] Comment:Calculation based on the Chronic Kidney Disease Epidemiology Collaboration (CKD-EPI) equation refit without adjustment for race. BUN/Creatinine Ratio 26.5 LAB CHEMISTRY METHOD 08/03/2024 11:38 AM T [facility] Calcium 8.2(L) 8.5 - 10.5 mg/dL LAB CHEMISTRY METHOD 08/03/2024 11:38 AM T [facility] Blood Venous blood specimen / Unknown Venipuncture / Unknown 08/03/2024 6:11 AM EDT 08/03/2024 10:24 AM EDT us Nash Ng MD LAB BLOOD ORDERABLES Final R esult [facility] [address] [place] [address], * (ABNORMAL) CBC auto differential (08/02/2024 8:00 AM EDT) WBC 6.6 4.8 - 10.8 K/mcL LAB HEMETOLOGY METHOD 08/02/2024 9:19 AM [facility] RBC 3.30(L) 4.50 - 5.50 M/mcL LAB HEMETOLOGY METHOD 08/02/2024 9:19 AM T [facility] Hemoglobin 10.5(L) 13.5 - 17.5 g/dL LAB HEMETOLOGY METHOD 08/02/2024 9:19 AM [facility] Hematocrit 32.2(L) 42.0 - 54.0 % LAB HEMETOLOGY METHOD 08/02/2024 9:19 AM [facility] MCV 97.9 79.0 - 98.0 FL LAB HEMETOLOGY METHOD 08/02/2024 9:19 AM [facility] MCH 31.9 27.0 - 32.0 pcg LAB HEMETOLOGY METHOD 08/02/2024 9:19 AM [facility] MCHC 32.6 32.0 - 37.0 g/dL LAB HEMETOLOGY METHOD 08/02/2024 9:19 AM [facility] RDW 13.0 11.0 - 15.0 % LAB HEMETOLOGY METHOD 08/02/2024 9:19 AM [facility] Platelets 249 130 - 400 K/mcL LAB HEMETOLOGY METHOD 08/02/2024 9:19 AM [facility] MPV 10.6 7.0 - 11.0 FL LAB HEMETOLOGY METHOD 08/02/2024 9:19 AM [facility] NRBC 0.0 <1.0 % LAB HEMETOLOGY METHOD 08/02/2024 9:19 AM [facility] NRBC Absolute 0.00 <0.10 K/mcL LAB HEMETOLOGY METHOD 08/02/2024 9:19 AM [facility] Neutrophils Relative 62.1 % LAB HEMETOLOGY METHOD 08/02/2024 9:19 AM [facility] Lymphocytes Relative 23.4 % LAB HEMETOLOGY METHOD 08/02/2024 9:19 AM [facility] Monocytes Relative 10.8 % LAB HEMETOLOGY METHOD 08/02/2024 9:19 AM [facility] Eosinophils Relative 2.0 % LAB HEMETOLOGY METHOD 08/02/2024 9:19 AM [facility] Basophils Relative 0.6 % LAB HEMETOLOGY METHOD 08/02/2024 9:19 AM [facility] Immature Granulocytes Relative 1.1 % LAB HEMETOLOGY METHOD 08/02/2024 9:19 AM EDT [facility] Neutrophils Absolute 4.08 1.50 - 7.00 K/mcL LAB HEMETOLOGY METHOD 08/02/2024 9:19 AM EDT [facility] Lymphocytes Absolute 1.54 1.00 - 5.00 K/mcL LAB HEMETOLOGY METHOD 08/02/2024 9:19 AM EDT [facility] Monocytes Absolute 0.71 0.20 - 1.00 K/mcL LAB HEMETOLOGY METHOD 08/02/2024 9:19 AM EDT [facility] Eosinophils Absolute 0.13 0.00 - 0.50 K/mcL LAB HEMETOLOGY METHOD 08/02/2024 9:19 AM EDT [facility] Basophils Absolute 0.04 0.00 - 0.20 K/mcL LAB HEMETOLOGY METHOD 08/02/2024 9:19 AM EDT [facility] Immature Granulocytes Absolute 0.07(H) 0.00 - 0.03 K/[facility] LAB HEMETOLOGY METHOD 08/02/2024 9:19 AM EDT [facility] Blood Venous blood specimen / Unknown Venipuncture / Unknown 08/02/2024 8:00 AM EDT 08/02/2024 8:32 AM EDT Nash Ng MD LAB BLOOD ORDERABLES Final R esult [facility]) [facility] [address] [place] [address], from Last 3 Months Insurance MEDICAID - [place] [employer] MEDICARE Member Subscriber Plan / Payer (Ef fective 2024-Present) Name:Wei Wang Relation to Subscriber:Self Name:Wei Wang Payer ID:[id number] Group ID:Not on file Type:Not on file Address: [address] [place] [address] Care Teams Rare/Endangered Species Specialist Relationship Specialty Start Date End Date Robert Nelson MD [address] [place] [id number] PCP - General 06/04/22
== END 2024-08-08 09:29 | disposition home or self-care (01) ==
LOC: HO.HOSX 09:28
PROVIDERS: Visit Provider Physician Assistant
DX: S72.141A Displaced intertrochanteric fracture of right femur, initial encounter for closed fracture (principal)
CPT/HCPCS: 73552; 99212

== ENCOUNTER 2024-08-08 09:48 | Outpatient (AMB) | payer OTHER, SELFPAY ==
--- NOTE | 2024-08-08 10:06 | A.OFFVIS_ITS ---
Intake Visit Reasons: PO RT hip IM Nail 07/25/24 NE Intake Note: Wei is a 63 year old male who presents today postoperatively after undergoing a right hip IMN on 07/25/[address] Metz. Patient reports having pain in his hip mostly in his groin area. He has no concerns today. Allergies No Known Allergies Allergy (Verified 08/08/24 10:09) HPI HPI PO RT hip IM Nail 07/25/24 NE: Details: 63-year-old gentleman who presents to the office today 2 weeks status post right hip IM nail on 07/25/[address] Metz. The patient is currently in rehab and states that he just started ambulating with a walker with assistance. He does have some discomfort with ambulation and has difficulty with lifting the right leg. [facility] Medical History Right scapula fracture Osteoarthritis Psoriasis Left against medical advice Chronic HFrEF (heart failure with reduced ejection fraction) Cardiomyopathy Alcoholic cirrhosis of liver Alcohol intoxication Atrial fibrillation with rapid ventricular response Psoriasis Afib Surgical History H/O right inguinal hernia repair 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 He has scant ecchymosis surrounding the right hip. No drainage. He is able to activate straight leg raise but has difficulty due to weakness and pain. Pulses are present he is able to dorsi and plantar flex. Results Reviewed Results Reviewed: X-rays of the right hip obtained in the office today and reviewed by me are significant for intact intramedullary nail with stable fracture alignment. Distal locking screw in the AP view of the x-ray appears to have some bending to this. Unsure if this is due to rotation of the femur. Intraop photos do not show bending of the screw. Assessment & Plan Assessment & Plan (1) Intertrochanteric fracture of right hip: Code(s): S72.141A - Displaced intertrochanteric fracture of right femur, initial encounter for closed fracture Category: Medical Plan: Luisito removed today Steri-Strips applied. He will continue to work with physical therapy to improve his strength and gait mechanics. He will continue with DVT prophylaxis for another 4 weeks. I would like to see him back in 4-6 weeks with x-rays, sooner if needed. Orders: Orders XR femur RT 2V Today S72.90XA - Unspecified fracture of unspecified femur, initial encounter for closed fracture Coding Level of Care Code Global (61521) Diagnoses Intertrochanteric fracture of right hip S72.141A
--- OUTSIDE RECORDS SUMMARY | 2024-08-08 10:31 | XMS_ITS | Encounter Summary ---
Author Organization [facility] Address [address] [place] [id number] Care Team Providers Care Ultrasonic Solderer Name Role Phone Robert Nelson MD Primary Care Provider [phone] Encounter Details Date Type Department Care Team (Late st Contact Info) Description 08/03/2024 Lab Requisition [facility] - Main Lab [address] [facility] [place] [address] Nash Ng MD [address] [place] [address] Unspecified atrial fibrillation (CMS/HCC V24, CMS/HCC V28); [...] LAB CHEMISTRY METHOD 08/03/2024 11:38 AM [facility] Potassium 3.7 3.5 - 5.5 mmol/L LAB CHEMISTRY METHOD 08/03/2024 11:38 AM [facility] Chloride 102 96 - 110 mmol/L LAB CHEMISTRY METHOD 08/03/2024 11:38 AM [facility] CO2 27 21 - 32 mmol/L LAB CHEMISTRY METHOD 08/03/2024 11:38 AM [facility] Anion Gap 10 3 - 11 LAB CHEMISTRY METHOD 08/03/2024 11:38 AM [facility] Glucose 90 70 - 100 mg/dL LAB CHEMISTRY METHOD 08/03/2024 11:38 AM [facility] BUN 13 5 - 25 mg/dL LAB CHEMISTRY METHOD 08/03/2024 11:38 AM [facility] Creatinine 0.49(L) 0.70 - 1.30 mg/dL LAB CHEMISTRY METHOD 08/03/2024 11:38 AM [facility] eGFR 117 >=60 mL/min/1. 73m2 LAB CHEMISTRY METHOD 08/03/2024 11:38 AM [facility] Comment:Calculation based on the Chronic Kidney Disease Epidemiology Collaboration (CKD-EPI) equation refit without adjustment for race. BUN/Creatinine Ratio 26.5 LAB CHEMISTRY METHOD 08/03/2024 11:38 AM [facility] Calcium 8.2(L) 8.5 - 10.5 mg/dL LAB CHEMISTRY METHOD 08/03/2024 11:38 AM [facility] Blood Venous blood specimen / Unknown Venipuncture / Unknown 08/03/2024 6:11 AM EDT 08/03/2024 10:24 AM EDT us Nsah Ng MD LAB BLOOD ORDERABLES Final R esult [facility] [address] [place] [address], documented in this encounter Visit Diagnoses Diagnosis Unspecified atrial fibrillation (CMS/HCC V24, CMS/HCC V28) Hypomagnesemia Disorders of magnesium metabolism Systemic inflammatory response syndrome (sirs) of non-infectious origin without acute organ dysfunction (CMS/HCC V24, CMS/HCC V28) documented in this encounter Care Teams Ultrasonic Solderer Relationship Specialty Start Date End Date Robert Nelson MD [address] [place] [id number] PCP - General 06/04/22 documented as of this encounter
--- OUTSIDE RECORDS SUMMARY | 2024-08-08 10:31 | XMS_ITS | Encounter Summary ---
Author Organization [facility] Address [address] [place] [phone] Care Team Providers Care Lead Cytogenetic Technologist Name Role Phone Robert Nelson MD Primary Care Provider [phone] Encounter Details Date Type Department Care Team (Late st Contact Info) Description 08/02/2024 Lab Requisition [facility] - Main Lab [address] [facility] [place] [address] Nash Ng MD [address] [place] [address] Essential (primary) hypertension; Heart failure, unspecified (CMS/HCC V24, CMS/HCC V28) Social History Tobacco [...] Procedure Name Priority Date/Time Associated Diagnosis Comments CBC WITH AUTO DIFFERENTIAL Routine 08/02/2024 8:00 AM EDT Essential (primary) hypertension Heart failure, unspecified (CMS/HCC V24, CMS/HCC V28) CBC AND DIFFERENTIAL Routine 08/02/2024 8:00 AM EDT Essential (primary) hypertension Heart failure, unspecified (CMS/HCC V24, CMS/HCC V28) BASIC METABOLIC PANEL Routine 08/02/2024 8:00 AM EDT Essential (primary) hypertension Heart failure, unspecified (CMS/HCC V24, CMS/HCC V28) documented in this encounter Results * (ABNORMAL) CBC auto differential (08/02/2024 8:00 AM EDT) [facility] WBC 6.6 4.8 - 10.8 K/mcL LAB HEMETOLOGY METHOD 08/02/2024 9:19 AM [facility] RBC 3.30(L) 4.50 - 5.50 M/mcL LAB HEMETOLOGY METHOD 08/02/2024 9:19 AM [facility] Hemoglobin 10.5(L) 13.5 - 17.5 g/dL LAB HEMETOLOGY METHOD 08/02/2024 9:19 AM [facility] Hematocrit 32.2(L) 42.0 - 54.0 % LAB HEMETOLOGY METHOD 08/02/2024 9:19 AM [facility] MCV 97.9 79.0 - 98.0 FL LAB HEMETOLOGY METHOD 08/02/2024 9:19 AM [facility] MCH 31.9 27.0 - 32.0 pcg LAB HEMETOLOGY METHOD 08/02/2024 9:19 AM [facility] MCHC 32.6 32.0 - 37.0 g/dL LAB HEMETOLOGY METHOD 08/02/2024 9:19 AM [facility] RDW 13.0 11.0 - 15.0 % LAB HEMETOLOGY METHOD 08/02/2024 9:19 AM [facility] Platelets 249 130 - 400 K/mcL LAB HEMETOLOGY METHOD 08/02/2024 9:19 AM [facility] MPV 10.6 7.0 - 11.0 FL LAB HEMETOLOGY METHOD 08/02/2024 9:19 AM [facility] NRBC 0.0 <1.0 % LAB HEMETOLOGY METHOD 08/02/2024 9:19 AM [facility] NRBC Absolute 0.00 <0.10 K/mcL LAB HEMETOLOGY METHOD 08/02/2024 9:19 AM [facility] Neutrophils Relative 62.1 % LAB HEMETOLOGY METHOD 08/02/2024 9:19 AM [facility] Lymphocytes Relative 23.4 % LAB HEMETOLOGY METHOD 08/02/2024 9:19 AM [facility] Monocytes Relative 10.8 % LAB HEMETOLOGY METHOD 08/02/2024 9:19 AM [facility] Eosinophils Relative 2.0 % LAB HEMETOLOGY METHOD 08/02/2024 9:19 AM [facility] Basophils Relative 0.6 % LAB HEMETOLOGY METHOD 08/02/2024 9:19 AM [facility] Immature Granulocytes Relative 1.1 % LAB HEMETOLOGY METHOD 08/02/2024 9:19 AM [facility] Neutrophils Absolute 4.08 1.50 - 7.00 K/mcL LAB HEMETOLOGY METHOD 08/02/2024 9:19 AM [facility] Lymphocytes Absolute 1.54 1.00 - 5.00 K/mcL LAB HEMETOLOGY METHOD 08/02/2024 9:19 AM [facility] Monocytes Absolute 0.71 0.20 - 1.00 K/mcL LAB HEMETOLOGY METHOD 08/02/2024 9:19 AM [facility] Eosinophils Absolute 0.13 0.00 - 0.50 K/mcL LAB HEMETOLOGY METHOD 08/02/2024 9:19 AM [facility] Basophils Absolute 0.04 0.00 - 0.20 K/mcL LAB HEMETOLOGY METHOD 08/02/2024 9:19 AM [facility] Immature Granulocytes Absolute 0.07(H) 0.00 - 0.03 K/mcL LAB HEMETOLOGY METHOD 08/02/2024 9:19 AM [facility] Blood Venous blood specimen / Unknown Venipuncture / Unknown 08/02/2024 8:00 AM EDT 08/02/2024 8:32 AM EDT us Nash Ng MD LAB BLOOD ORDERABLES Final R esult [facility] [address] [place] [address], [place] [phone] * (ABNORMAL) Basic metabolic panel (08/02/2024 8:00 AM EDT) Sodium 138 133 - 145 mmol/L LAB CHEMISTRY METHOD 08/02/2024 10:01 AM [facility] Potassium 3.2(L) 3.5 - 5.5 mmol/L LAB CHEMISTRY METHOD 08/02/2024 10:01 AM [facility] Chloride 99 96 - 110 mmol/L LAB CHEMISTRY METHOD 08/02/2024 10:01 AM [facility] CO2 31 21 - 32 mmol/L LAB CHEMISTRY METHOD 08/02/2024 10:01 AM [facility] Anion Gap 8 3 - 11 LAB CHEMISTRY METHOD 08/02/2024 10:01 AM [facility] Glucose 98 70 - 100 mg/dL LAB CHEMISTRY METHOD 08/02/2024 10:01 AM [facility] BUN 12 5 - 25 mg/dL LAB CHEMISTRY METHOD 08/02/2024 10:01 AM [facility] Creatinine 0.55(L) 0.70 - 1.30 mg/dL LAB CHEMISTRY METHOD 08/02/2024 10:01 AM [facility] eGFR 113 >=60 mL/min/1. 73m2 LAB CHEMISTRY METHOD 08/02/2024 10:01 AM [facility] Comment:Calculation based on the Chronic Kidney Disease Epidemiology Collaboration (CKD-EPI) equation refit without adjustment for race. BUN/Creatinine Ratio 21.8 LAB CHEMISTRY METHOD 08/02/2024 10:01 AM EDT [facility] Calcium 8.7 8.5 - 10.5 mg/dL LAB CHEMISTRY METHOD 08/02/2024 10:01 AM EDT [facility] Blood Venous blood specimen / Unknown Venipuncture / Unknown 08/02/2024 8:00 AM EDT 08/02/2024 8:32 AM EDT us Nash Ng MD LAB BLOOD ORDERABLES Final R esult [facility] [address] [place] [address], documented in this encounter Visit Diagnoses Diagnosis Essential (primary) hypertension Unspecified essential hypertension Heart failure, unspecified (CMS/HCC V24, CMS/HCC V28) Heart failure, unspecified documented in this encounter Care Teams Lead Cytogenetic Technologist Relationship Specialty Start Date End Date Robert Nelson MD [address] [place] [id number] PCP - General 06/04/22 documented as of this encounter
== END 2024-08-08 10:52 | disposition home or self-care (01) ==
LOC: HO.HOS 09:49
PROVIDERS: PCP Internal Medicine; Visit Provider Physician Assistant
DX: S72.141A Displaced intertrochanteric fracture of right femur, initial encounter for closed fracture (principal)
CPT/HCPCS: 99024

== ENCOUNTER → 2024-08-08 09:50 | Outpatient (BNV) | payer OTHER, SELFPAY | PROVIDERS: Visit Provider Radiology Diagnostic Radiology | DX: S72.141A Displaced intertrochanteric fracture of right femur, initial encounter for closed fracture (principal) | CPT/HCPCS: 73552 ==

== ENCOUNTER 2024-08-27 09:56 | Outpatient (AMB) | payer OTHER, SELFPAY ==
--- NOTE | 2024-08-27 10:02 | MHC.OFFVIS ---
Vital Signs 08/27/24 10:04 Height 5 ft 8 in BMI Reason not done Patient refused/unable BP 110/60 Blood Pressure Location Lt brachial Position Sitting Pulse 72 Pulse Source Pulse Oximeter Intake Visit Reasons: -XBR-BH-Cuvxgw up-AFib (NS pt) Allergies No Known Allergies Allergy (Verified 08/08/24 10:09) Medication List - Last Reconciled 08/27/24 by SHAUN Bell acetaminophen 650 mg PO Q6H PRN carvedilol 6.25 mg PO BID digoxin 0.125 mg See Protocol PO DAILY doxycycline monohydrate 100 mg PO Q12H ferrous sulfate 325 mg PO BID fluoxetine 10 mg PO DAILY folic acid 1 mg PO DAILY furosemide 20 mg PO DAILY hydrocortisone 1% 1 appl See Protocol topical BID magnesium oxide 400 mg PO BIDPC midodrine 5 mg PO TIDWM oxycodone 5 mg PO Q4H PRN quetiapine 25 mg PO BID spironolactone 25 mg PO DAILY thiamine HCl (vitamin B1) 100 mg PO DAILY topiramate 25 mg PO DAILY HPI HPI -NEM-DK-Qxzeop up-AFib (NS pt): Details: Wei is a 63-year-old male with past medical history of atrial fibrillation, cardiomyopathy, with prior echo 2020 showing EF 20-25% without cardiology follow-up who was recently admitted to [facility] after having a fall and sustaining right hip fracture. While hospitalized he was noted to have atrial fibrillation with RVR that was treated with heart rate control. He was not put on anticoagulation. His echocardiogram showed EF 45-50% with moderate increase in the RV size and mild decrease in RV systolic function. He did undergo ORIF and was sent to rehab. He did have readmission for chest discomfort and ruled out for ACS. His CT scan showed no PE. EKG showed atrial fibrillation. Today he presents in a wheelchair from the rehab facility. He tells me he is now ambulating with a walker. He states prior to his fall he was very physically active and did ride his bike routinely. He has not had any recurrent chest discomfort at rest or during activity. He denies concerning shortness of breath, no PND, orthopnea. He does have some swelling in his right lower extremity. Occasional heart palpitations. No lightheadedness, presyncope, syncope. Taking all meds as directed. He states the doctor in the rehab facility started him on blood thinning shots. He has not had any bleeding issues. [facility] Medical History (Updated 08/27/24 @ 11:00 by SHAUN Bell) Cardiomyopathy Right scapula fracture Osteoarthritis Psoriasis Left against medical advice Chronic HFrEF (heart failure with reduced ejection fraction) Alcoholic cirrhosis of liver Alcohol intoxication Atrial fibrillation with rapid ventricular response Psoriasis Afib Surgical History History of hip surgery H/O right inguinal hernia repair Family History Mother No problems noted. Father No problems noted. 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 Patient Tobacco Use Status: Never used Tobacco Second Hand Smoke Exposure: No service: No Current occupational status: disabled Review of Systems Const All systems reviewed & are unremarkable except as noted in HPI and below Denies weakness ENT Denies dizziness Card Denies chest pain, Denies chest pain with activity, Denies syncope, Denies rapid heart rate, Denies pedal edema, Denies edema, Denies leg edema, Denies lightheadedness, Denies palpitations, Denies dyspnea, Denies dyspnea on exertion and Denies orthopnea Resp Denies cough, Denies dyspnea and Denies dyspnea on exertion GI Denies hematochezia and Denies change in stool character Musc Details: pain right hip and knee, swelling left lower leg. Each lower leg with venous stasis changes. Reports abnormal gait, Denies muscle cramps, Denies muscle weakness, Denies numbness, Denies radiating pain into limb and Denies tingling Neuro Reports abnormal gait, Denies dizziness, Denies syncope, Denies numbness, Denies tingling and Denies weakness Endo Denies palpitations Physical Exam Vital Signs: Last Vital Signs Pulse 72 08/27/24 10:04 BP 110/60 08/27/24 10:04 Const General: cooperative, healthy appearing, comfortable and no acute distress Orientation/consciousness: patient oriented x3 Neck Neck: Yes normal visual inspection Resp Effort & Inspection: normal respiratory effort Auscultation: clear to auscultation bilaterally, no rales, no rhonchi and no wheezes Cardio Rate: regular rate Rhythm: abnormal rhythm Heart sounds: S1 normal heart sound present, S2 normal heart sound present, no gallops, no murmurs and no rubs Neuro General: patient oriented x3 Extrem Other: in wheel chair - brace on right knee Psych Appearance: grossly normal Mental Status: mental status grossly normal Speech and movement: Normal speech and movement present Office Procedures EKG Details: Today, read by me, afib, low voltage QRS, rate 71, Qtc 436ms [id number], Complete Assessment & Plan Assessment & Plan (1) Afib: Code(s): I48.91 - Unspecified atrial fibrillation Category: Medical Plan: History of atrial fibrillation 1st identified in 2020. He did not follow-up in our office and was not seen until recent hospital admission. He is now in atrial fibrillation which seems persistent. EKG today showing atrial fibrillation, rate 71. Chads Vasc score of 1 with Congestive heart failure. He has been getting Lovenox for the last 2 weeks at the rehab. Will start Eliquis 5 mg b.i.d.. Stop Lovenox. Recommended labs at rehab including digoxin level, BMP. Will check Holter monitor. Cardiology follow-up in 1 month. At that time will determine if cardioversion is appropriate. (2) Diastolic heart failure: Code(s): I50.30 - Unspecified diastolic (congestive) heart failure Category: Medical Plan: Evidence of Congestive heart failure on recent admission. His echocardiogram showed EF 50-55%, moderate RV dilation and mild RV dysfunction. He is discharged with Lasix 20 mg daily. On exam today he does not appear fluid overloaded. Continue carvedilol for neurohormonal modulation continue Lasix and Aldactone. Recommend BMP at rehab. Reviewed low-salt diet with him. (3) Cardiomyopathy: Code(s): I42.9 - Cardiomyopathy, unspecified Category: Medical Plan: Recent EF low normal 50-55%. Prior EF known to be 20-25% which could have been heart rate related cardiomyopathy with AFib RVR. Going forward will plan for ischemic eval when he is out of rehab and physically more able. (4) Hospital discharge follow-up: Code(s): Z09 - Encounter for follow-up examination after completed treatment for conditions other than malignant neoplasm Category: Medical Plan: Discharge summary reviewed. Plan I discussed with the patient the management of atrial fibrillation with rate slowing agents and need for anticoagulation for stroke prevention. We reviewed the importance of completing an EKG to assess the current rhythm. I addressed the plan to improve mobility and manage edema through continued rehabilitation. Benefits of therapies, potential side effects, and patient compliance were confirmed. He understands the importance of achieving sufficient ambulatory capacity, particularly stair mobility. Follow-up strategies with cardiology were agreed upon to ensure sustained cardiac rhythm evaluation. Orders: Orders ECG 3 day holter monitor Today I48.91 - Unspecified atrial fibrillation Medications: New apixaban (Eliquis) 5 mg PO BID 60 tabs 5RF Patient Instructions: - Continue anticoagulation as prescribed - changing to Eliquis - Attend all scheduled rehabilitation sessions for mobility improvement - Report any signs of unusual bleeding, significant swelling, or pain - Attend appointment for holter monitor application - Follow up with cardiology to reassess rhythm and determine further plan of care. - Practice safe measures to avoid falls or further injury Patient was informed and verbally consented to the use of an ambient scribe for clinic note documentation during this visit. Visit time spent on chart review, interview, assessment, orders, documentation. Coding Level of Care Code Est Pt Level 4 (18584) Complex EM visit Add On G2211 Diagnoses Afib I48.91 Diastolic heart failure I50.30 Cardiomyopathy I42.9 Hospital discharge follow-up Z09 CPT Codes EKG - CPT: 30446-[id number], Complete ([id number]) Time Spent (min) 32
[2024-08-27 10:04] VITALS: BP 110/60; PULSE 72
--- OUTSIDE RECORDS SUMMARY | 2024-08-27 10:44 | XMS_ITS | Clinical Summary ---
Author Organization 299 [facility] Address [address] [place] [address] Phone Care Team Providers Care Prosthetic Technician Name Role Phone Robert Nelson MD Primary Care Provider Encounters Date Type Department Care Team Description 08/03/2024 Lab Requisition [facility] Lab [address] [place] [address] Nash Ng MD Unspecified atrial fibrillation ([facility] V24, [facility] V28); Hypomagnesemia; Systemic inflammatory response syndrome (sirs) of non-infectious origin without acute organ dysfunction ([facility]/HCC V24, [facility]/HCC V28) 08/02/2024 Lab Requisition [facility] Lab [address] [place] [address] Nash Ng MD Essential (primary) hypertension; Heart failure, unspecified ([facility] V24, [facility] V28) from Last 3 Months Social History [...] mmol/L LAB CHEMISTRY METHOD 08/03/2024 11:38 AM [facility] Potassium 3.7 3.5 - 5.5 mmol/L LAB CHEMISTRY METHOD 08/03/2024 11:38 AM [facility] Chloride 102 96 - 110 mmol/L LAB CHEMISTRY METHOD 08/03/2024 11:38 AM [facility] CO2 27 21 - 32 mmol/L LAB CHEMISTRY METHOD 08/03/2024 11:38 AM [facility] Anion Gap 10 3 - 11 LAB CHEMISTRY METHOD 08/03/2024 11:38 AM [facility] Glucose 90 70 - 100 mg/dL LAB CHEMISTRY METHOD 08/03/2024 11:38 AM [facility] BUN 13 5 - 25 mg/dL LAB CHEMISTRY METHOD 08/03/2024 11:38 AM [facility] Creatinine 0.49(L) 0.70 - 1.30 mg/dL LAB CHEMISTRY METHOD 08/03/2024 11:38 AM EDT [facility] eGFR 117 >=60 mL/min/1. 73m2 LAB CHEMISTRY METHOD 08/03/2024 11:38 AM EDT [facility] Comment:Calculation based on the Chronic Kidney Disease Epidemiology Collaboration (CKD-EPI) equation refit without adjustment for race. BUN/Creatinine Ratio 26.5 LAB CHEMISTRY METHOD 08/03/2024 11:38 AM T [facility] Calcium 8.2(L) 8.5 - 10.5 mg/dL LAB CHEMISTRY METHOD 08/03/2024 11:38 AM T [facility] Blood Venous blood specimen / Unknown Venipuncture / Unknown 08/03/2024 6:11 AM EDT 08/03/2024 10:24 AM EDT us Nash Ng MD LAB BLOOD ORDERABLES Final R esult [facility] [address] [place] [address], * (ABNORMAL) CBC auto differential (08/02/2024 8:00 AM EDT) WBC 6.6 4.8 - 10.8 K/mcL LAB HEMETOLOGY METHOD 08/02/2024 9:19 AM [facility] RBC 3.30(L) 4.50 - 5.50 M/mcL LAB HEMETOLOGY METHOD 08/02/2024 9:19 AM T [facility] Hemoglobin 10.5(L) 13.5 - 17.5 g/dL LAB HEMETOLOGY METHOD 08/02/2024 9:19 AM [facility] Hematocrit 32.2(L) 42.0 - 54.0 % LAB HEMETOLOGY METHOD 08/02/2024 9:19 AM [facility] MCV 97.9 79.0 - 98.0 FL LAB HEMETOLOGY METHOD 08/02/2024 9:19 AM [facility] MCH 31.9 27.0 - 32.0 pcg LAB HEMETOLOGY METHOD 08/02/2024 9:19 AM [facility] MCHC 32.6 32.0 - 37.0 g/dL LAB HEMETOLOGY METHOD 08/02/2024 9:19 AM [facility] RDW 13.0 11.0 - 15.0 % LAB HEMETOLOGY METHOD 08/02/2024 9:19 AM [facility] Platelets 249 130 - 400 K/mcL LAB HEMETOLOGY METHOD 08/02/2024 9:19 AM [facility] MPV 10.6 7.0 - 11.0 FL LAB HEMETOLOGY METHOD 08/02/2024 9:19 AM [facility] NRBC 0.0 <1.0 % LAB HEMETOLOGY METHOD 08/02/2024 9:19 AM [facility] NRBC Absolute 0.00 <0.10 K/mcL LAB HEMETOLOGY METHOD 08/02/2024 9:19 AM [facility] Neutrophils Relative 62.1 % LAB HEMETOLOGY METHOD 08/02/2024 9:19 AM [facility] Lymphocytes Relative 23.4 % LAB HEMETOLOGY METHOD 08/02/2024 9:19 AM [facility] Monocytes Relative 10.8 % LAB HEMETOLOGY METHOD 08/02/2024 9:19 AM [facility] Eosinophils Relative 2.0 % LAB HEMETOLOGY METHOD 08/02/2024 9:19 AM [facility] Basophils Relative 0.6 % LAB HEMETOLOGY METHOD 08/02/2024 9:19 AM [facility] Immature Granulocytes Relative 1.1 % LAB HEMETOLOGY METHOD 08/02/2024 9:19 AM EDT [facility] Neutrophils Absolute 4.08 1.50 - 7.00 K/mcL LAB HEMETOLOGY METHOD 08/02/2024 9:19 AM EDT [facility] Lymphocytes Absolute 1.54 1.00 - 5.00 K/mcL LAB HEMETOLOGY METHOD 08/02/2024 9:19 AM EDT [facility] Monocytes Absolute 0.71 0.20 - 1.00 K/mcL LAB HEMETOLOGY METHOD 08/02/2024 9:19 AM EDT [facility] Eosinophils Absolute 0.13 0.00 - 0.50 K/mcL LAB HEMETOLOGY METHOD 08/02/2024 9:19 AM EDT [facility] Basophils Absolute 0.04 0.00 - 0.20 K/mcL LAB HEMETOLOGY METHOD 08/02/2024 9:19 AM EDT [facility] Immature Granulocytes Absolute 0.07(H) 0.00 - 0.03 K/[facility] LAB HEMETOLOGY METHOD 08/02/2024 9:19 AM EDT [facility] Blood Venous blood specimen / Unknown Venipuncture / Unknown 08/02/2024 8:00 AM EDT 08/02/2024 8:32 AM EDT Nash Ng MD LAB BLOOD ORDERABLES Final R esult [facility]) [facility] [address] [place] [address], from Last 3 Months Insurance MEDICAID - [place] [employer] MEDIC[employer] Member Subscriber Plan / Payer (Ef fective 2024-Present) Name:Wei Wang Relation to Subscriber:Self Name:Wei Wang Payer ID:[id number] Group ID:Not on file Type:Not on file Address: [address] [place] [address] Care Teams Prosthetic Technician Relationship Specialty Start Date End Date Robert Nelson MD [address] [place] [id number] PCP - General 06/04/22
== END 2024-08-27 10:47 | disposition home or self-care (01) ==
PROVIDERS: PCP Internal Medicine; Visit Provider Nurse Practitioner Family
DX: I48.91 Unspecified atrial fibrillation (principal); I50.30 Unspecified diastolic (congestive) heart failure; I42.9 Cardiomyopathy, unspecified; Z09 Encounter for follow-up examination after completed treatment for conditions other than malignant neoplasm
CPT/HCPCS: 93010; 99214; G2211

== ENCOUNTER → 2024-08-27 09:56 | Outpatient (BNVA) | payer OTHER, SELFPAY | PROVIDERS: PCP Internal Medicine; Visit Provider Nurse Practitioner Family | DX: I48.91 Unspecified atrial fibrillation (principal); I42.9 Cardiomyopathy, unspecified; I50.30 Unspecified diastolic (congestive) heart failure; Z09 Encounter for follow-up examination after completed treatment for conditions other than malignant neoplasm; Z91.81 History of falling | CPT/HCPCS: 93005; 99212 ==

== ENCOUNTER → 2024-09-14 13:20 | Outpatient (REF) | payer OTHER, SELFPAY ==
--- NOTE | 2024-09-14 13:22 | HM_ITS ---
Conclusion: 1. Patient was monitored for total period of 2 days and 23 hours 2. Baseline was atrial fibrillation with average heart of 89 beats per minute with adequate rate control 3. No significant pauses noted 4. Occasional PVCs noted 5. No patient reported events MTDD
--- OUTSIDE RECORDS SUMMARY | 2024-09-14 13:23 | XMS_ITS | Clinical Summary ---
Author Organization [address] Address [address] [place] [phone] Phone Care Team Providers Care Wire Machine Cutter Name Role Phone Robert Nelson MD Primary Care Provider [phone] Encounters Date Type Department Care Team Description 09/01/2024 Lab Requisition [facility] [address] [place] [phone] Nash Ng MD Unspecified cirrhosis of liver ([facility] V24, [facility] V28); Iron deficiency anemia, unspecified; Systemic inflammatory response syndrome (sirs) of non-infectious origin without acute organ dysfunction ([facility]/HCC V24, [facility] V28); Alcohol abuse, uncomplicated; Acute on chronic diastolic (congestive) heart failure ([facility] V24, [facility] V28); Pathological fracture, hip, unspecified, subsequent encounter for fracture with routine healing 08/31/2024 Lab Requisition [facility] [address] [place] [phone] Nash Ng MD Unspecified atrial fibrillation ([facility] V24, [facility] V28); Unspecified cirrhosis of liver ([facility] V24, CMS/HCC V28); Iron deficiency anemia, unspecified; Alcohol abuse, uncomplicated 08/03/2024 Lab Requisition [facility] [address] [place] [phone] Nash Ng MD Unspecified atrial fibrillation ([facility] V24, [facility] V28); Hypomagnesemia; Systemic inflammatory response syndrome (sirs) of non-infectious origin without acute organ dysfunction (CMS/HCC V24, CMS/[facility] V28) 08/02/2024 Lab Requisition [facility] [address] [place] [phone] Nash Ng MD Essential (primary) hypertension; Heart failure, unspecified ([facility] V24, [facility] V28) from Last 3 Months [...] 60-74 years 1-dose series) 2022 COVID-19 Vaccine ( - season) 2023 06/09/2023, 06/24/2021, 03/01/2021 Influenza Vaccine (Season Ended) 2024 06/09/2023, 03/01/2021, 02/20/2020, Additional history exists Hypertension/CHF/CAD Annual BMP Blood Test 09/01/2025 09/01/2024, 08/03/2024, 08/02/2024 DTaP,Tdap,and Td Vaccines (4 - Td or Tdap) 09/25/2031 09/24/2021, 05/27/2010, 03/08/2000 Hepatitis A Vaccines Completed 12/16/2009, 03/07/2008, 03/16/2006 Hepatitis B Vaccines Completed 12/16/2009, 03/07/2008, 04/26/2006, Additional history exists Pneumococcal Vaccine: 50+ Years Completed 06/09/2023, 05/14/2014, 03/16/2006 Pneumococcal Vaccine: Pediatrics (0 to 5 Years) and At-Risk Patients (6 to 64 Years) Completed 06/09/2023, 05/14/2014, 03/16/2006 HIB Vaccines Aged Out No longer eligi [...] Procedure Name Priority Date/Time Associated Diagnosis Comments COMPLETE BLOOD COUNT Routine 09/03/2024 8:57 AM EDT Unspecified atrial fibrillation (CMS/HCC V24, CMS/HCC V28) Unspecified cirrhosis of liver (CMS/HCC V24, CMS/HCC V28) Iron deficiency anemia, unspecified Alcohol abuse, uncomplicated DIGOXIN LEVEL Routine 09/03/2024 8:53 AM EDT Unspecified atrial fibrillation (CMS/HCC V24, CMS/HCC V28) Unspecified cirrhosis of liver (CMS/HCC V24, CMS/HCC V28) Iron deficiency anemia, unspecified Alcohol abuse, uncomplicated C-REACTIVE PROTEIN Routine 09/01/2024 11 :48 AM EDT Unspecified cirrhosis of liver (CMS/HCC V24, CMS/HCC V28) Iron deficiency anemia, unspecified Systemic inflammatory response syndrome (sirs) of non-infectious origin without acute organ dysfunction (CMS/HCC V24, CMS/HCC V28) Alcohol abuse, uncomplicated Acute on chronic diastolic (congestive) heart failure (CMS/HCC V24, CMS/HCC V28) Pathological fracture, hip, unspecified, subsequent encounter for fracture with routine healing SEDIMENTATION RATE Routine 09/01/2024 11 :48 AM EDT Unspecified cirrhosis of liver (CMS/HCC V24, CMS/HCC V28) Iron deficiency anemia, unspecified Systemic inflammatory response syndrome (sirs) of non-infectious origin without acute organ dysfunction (CMS/HCC V24, CMS/HCC V28) Alcohol abuse, uncomplicated Acute on chronic diastolic (congestive) heart failure (CMS/HCC V24, CMS/HCC V28) Pathological fracture, hip, unspecified, subsequent encounter for fracture with routine healing URIC ACID Routine 09/01/2024 11:48 AM EDT Unspecified cirrhosis of liver (CMS/HCC V24, CMS/HCC V28) Iron deficiency anemia, unspecified Systemic inflammatory response syndrome (sirs) of non-infectious origin without acute organ dysfunction (CMS/HCC V24, CMS/HCC V28) Alcohol abuse, uncomplicated Acute on chronic diastolic (congestive) heart failure (CMS/HCC V24, CMS/HCC V28) Pathological fracture, hip, unspecified, subsequent encounter for fracture with routine healing BASIC METABOLIC PANEL Routine 09/01/2024 11:48 AM EDT Unspecified cirrhosis of liver (CMS/HCC V24, CMS/HCC V28) Iron deficiency anemia, unspecified Systemic inflammatory response syndrome (sirs) of non-infectious origin without acute organ dysfunction (CMS/HCC V24, CMS/HCC V28) Alcohol abuse, uncomplicated Acute on chronic diastolic (congestive) heart failure (CMS/HCC V24, CMS/HCC V28) Pathological fracture, hip, unspecified, subsequent encounter for fracture with routine healing COMPLETE BLOOD COUNT Routine 09/01/2024 11:48 AM EDT Unspecified cirrhosis of liver (CMS/HCC V24, CMS/HCC V28) Iron deficiency anemia, unspecified Systemic inflammatory response syndrome (sirs) of non-infectious origin without acute organ dysfunction (CMS/HCC V24, CMS/HCC V28) Alcohol abuse, uncomplicated Acute on chronic diastolic (congestive) heart failure (CMS/HCC V24, CMS/HCC V28) Pathological fracture, hip, unspecified, subsequent encounter for fracture with routine healing BASIC METABOLIC PANEL Routine 08/03/2024 6:11 AM [...] V28) from Last 3 Months Results * Complete blood count (09/03/2024 8:57 AM EDT) Only the most recent of2 resultswithin the time period is included. WBC 5.9 4.8 - 10.8 K/mcL LAB HEMETOLOGY METHOD 09/03/2024 1:35 PM EDT [facility] RBC 4.50 4.50 - 5.50 M/mcL LAB [facility] Hemoglobin 14.0 13.5 - 17.5 g/dL LAB HEMETOLOGY METHOD 09/03/2024 1:35 PM [facility] Hematocrit 43.6 42.0 - 54.0 % LAB HEMETOLOGY METHOD 09/03/2024 1:35 PM EDT [facility] MCV 96.0 79.0 - 98.0 FL LAB HEMETOLOGY METHOD 09/03/2024 1:35 PM [facility] MCH 30.8 27.0 - 32.0 pcg LAB HEMETOLOGY METHOD 09/03/2024 1:35 PM [facility] MCHC 32.1 32.0 - 37.0 g/dL LAB HEMETOLOGY METHOD 09/03/2024 1:35 PM EDT [facility] RDW 12.6 11.0 - 15.0 % LAB HEMETOLOGY METHOD 09/03/2024 1:35 PM EDT [facility] Platelets 224 130 - 400 K/mcL LAB HEMETOLOGY METHOD 09/03/2024 1:35 PM EDT [facility] MPV 10.2 7.0 - 11.0 FL LAB HEMETOLOGY METHOD 09/03/2024 1:35 PM EDT [facility] NRBC 0.0 <1.0 % LAB HEMETOLOGY METHOD 09/03/2024 1:35 PM EDT [facility] NRBC Absolute 0.00 <0.10 K/mcL LAB HEMETOLOGY METHOD 09/03/2024 1:35 PM EDT [facility] Blood Venous blood specimen / Unknown Venipuncture / Unknown 09/03/2024 8:57 AM EDT 09/03/2024 11:52 AM EDT Nash Ng MD LAB BLOOD ORDERABLES Final R esult [facility] [address] [place] [address], * (ABNORMAL) Digoxin level (09/03/2024 8:53 AM EDT) Digoxin Lvl 0.4(L) 0.5 - 2.0 ng/mL LAB CHEMISTRY METHOD 09/03/2024 1:00 PM EDT [facility] Blood Venous blood specimen / Unknown Venipuncture / Unknown 09/03/2024 8:53 AM EDT 09/03/2024 1:00 PM EDT Nash Ng MD LAB BLOOD ORDERABLES Final R esult [facility] [address] [place] [address], [place] [phone] * (ABNORMAL) Sedimentation rate (09/01/2024 11:48 AM EDT) [facility] Sed Rate 73(H) 0 - 20 mm/hr LAB HEMETOLOGY METHOD 09/01/2024 4:19 PM EDT [facility] Blood Venous blood specimen / Unknown Venipuncture / Unknown 09/01/2024 11:48 AM EDT 09/01/2024 2:32 PM EDT Nash Ng MD LAB BLOOD ORDERABLES Final R esult Performing Organization Address City/[facility]/ZIP Co de Phone Number [facility] [address] [place] [address], * (ABNORMAL) C-reactive protein (09/01/2024 11:48 AM EDT) [facility] C-Reactive Protein 2.95(H) <=0.50 mg/dL LAB CHEMISTRY METHOD 09/01/2024 3:05 PM EDT [facility] Blood Venous blood specimen / Unknown Venipuncture / Unknown 09/01/2024 11:48 AM EDT 09/01/2024 2:32 PM EDT Nash Ng MD LAB BLOOD ORDERABLES Final R esult [facility] [address] [place] [address], [place] [phone] * Uric acid (09/01/2024 11:48 AM EDT) [facility] Uric Acid 5.9 3.7 - 9.2 mg/dL LAB CHEMISTRY METHOD 09/01/2024 3:05 PM EDT [facility] Blood Venous blood specimen / Unknown Venipuncture / Unknown 09/01/2024 11:48 AM EDT 09/01/2024 2:32 PM EDT us Nash Ng MD LAB BLOOD ORDERABLES Final R esult [facility] [address] [place] [address], [place] [phone] * (ABNORMAL) Basic metabolic panel (09/01/2024 11:48 AM EDT) Only the most recent of3 resultswithin the time period is included. Pathologist [facility] Sodium 141 133 - 145 mmol/L LAB CHEMISTRY METHOD 09/01/2024 3:05 PM [facility] Potassium 3.8 3.5 - 5.5 mmol/L LAB CHEMISTRY METHOD 09/01/2024 3:05 PM [facility] Chloride 108 96 - 110 mmol/L LAB CHEMISTRY METHOD 09/01/2024 3:05 PM [facility] CO2 27 21 - 32 mmol/L LAB CHEMISTRY METHOD 09/01/2024 3:05 PM [facility] Anion Gap 6 3 - 11 LAB CHEMISTRY METHOD 09/01/2024 3:05 PM [facility] Glucose 95 70 - 100 mg/dL LAB CHEMISTRY METHOD 09/01/2024 3:05 PM [facility] BUN 12 5 - 25 mg/dL LAB CHEMISTRY METHOD 09/01/2024 3:05 PM [facility] Creatinine 0.64(L) 0.70 - 1.30 mg/dL LAB CHEMISTRY METHOD 09/01/2024 3:05 PM [facility] eGFR 108 >=60 mL/min/1. 73m2 LAB CHEMISTRY METHOD 09/01/2024 3:05 PM [facility] Comment:Calculation based on the Chronic Kidney Disease Epidemiology Collaboration (CKD-EPI) equation refit without adjustment for race. BUN/Creatinine Ratio 18.8 LAB CHEMISTRY METHOD 09/01/2024 3:05 PM T [facility] Calcium 8.8 8.5 - 10.5 mg/dL LAB CHEMISTRY METHOD 09/01/2024 3:05 PM [facility] Blood Venous blood specimen / Unknown Venipuncture / Unknown 09/01/2024 11:48 AM EDT 09/01/2024 2:32 PM EDT Nash Ng MD LAB BLOOD ORDERABLES Final R esult [facility] [address] [place] [address], * (ABNORMAL) CBC auto differential (08/02/2024 8:00 AM EDT) WBC 6.6 4.8 - 10.8 K/mcL LAB HEMETOLOGY METHOD 08/02/2024 9:19 AM [facility] RBC 3.30(L) 4.50 - 5.50 M/mcL LAB HEMETOLOGY METHOD 08/02/2024 9:19 AM [facility] Hemoglobin 10.5(L) 13.5 - 17.5 g/dL LAB HEMETOLOGY METHOD 08/02/2024 9:19 AM [facility] Hematocrit 32.2(L) 42.0 - 54.0 % LAB HEMETOLOGY METHOD 08/02/2024 9:19 AM [facility] MCV 97.9 79.0 - 98.0 FL LAB HEMETOLOGY METHOD 08/02/2024 9:19 AM [facility] MCH 31.9 27.0 - 32.0 pcg LAB HEMETOLOGY METHOD 08/02/2024 9:19 AM [facility] MCHC 32.6 32.0 - 37.0 g/dL LAB HEMETOLOGY METHOD 08/02/2024 9:19 AM [facility] RDW 13.0 11.0 - 15.0 % LAB HEMETOLOGY METHOD 08/02/2024 9:19 AM [facility] Platelets 249 130 - 400 K/mcL LAB HEMETOLOGY METHOD 08/02/2024 9:19 AM [facility] MPV 10.6 7.0 - 11.0 FL LAB HEMETOLOGY METHOD 08/02/2024 9:19 AM [facility] NRBC 0.0 <1.0 % LAB HEMETOLOGY METHOD 08/02/2024 9:19 AM [facility] NRBC Absolute 0.00 <0.10 K/mcL LAB HEMETOLOGY METHOD 08/02/2024 9:19 AM [facility] Neutrophils Relative 62.1 % LAB HEMETOLOGY METHOD 08/02/2024 9:19 AM [facility] Lymphocytes Relative 23.4 % LAB HEMETOLOGY METHOD 08/02/2024 9:19 AM [facility] Monocytes Relative 10.8 % LAB HEMETOLOGY METHOD 08/02/2024 9:19 AM [facility] Eosinophils Relative 2.0 % LAB HEMETOLOGY METHOD 08/02/2024 9:19 AM [facility] Basophils Relative 0.6 % LAB HEMETOLOGY METHOD 08/02/2024 9:19 AM [facility] Immature Granulocytes Relative 1.1 % LAB HEMETOLOGY METHOD 08/02/2024 9:19 AM [facility] Neutrophils Absolute 4.08 1.50 - 7.00 K/mcL LAB HEMETOLOGY METHOD 08/02/2024 9:19 AM [facility] Lymphocytes Absolute 1.54 1.00 - 5.00 K/mcL LAB HEMETOLOGY METHOD 08/02/2024 9:19 AM EDT [facility] Monocytes Absolute 0.71 0.20 - 1.00 K/[facility] LAB HEMETOLOGY METHOD 08/02/2024 9:19 AM EDT [facility] Eosinophils Absolute 0.13 0.00 - 0.50 K/[facility] LAB HEMETOLOGY METHOD 08/02/2024 9:19 AM EDT [facility] Basophils Absolute 0.04 0.00 - 0.20 K/[facility] LAB HEMETOLOGY METHOD 08/02/2024 9:19 AM EDT [facility] Immature Granulocytes Absolute 0.07(H) 0.00 - 0.03 K/[facility] LAB HEMETOLOGY METHOD 08/02/2024 9:19 AM EDT [facility] Blood Venous blood specimen / Unknown Venipuncture / Unknown 08/02/2024 8:00 AM EDT 08/02/2024 8:32 AM EDT us Nash Ng MD LAB BLOOD ORDERABLES Final R esult [facility] [address] [place] [address], from Last 3 Months Insurance MEDICAID - [place] [facility] MEDICARE Member Subscriber Plan / Payer (Ef fective 2013-Present) Name:OCTAVIO CLEMENT Relation to Subscriber:Self Name:Octavio Clement Payer ID:[id number] Group ID:[id number] Type:Not on file Address: [place] [address] [address] [id number] Care Teams Wire Machine Cutter Relationship Specialty Start Date End Date Robert Nelson MD [address] [place] [id number] PCP - General 06/04/22
== END ==
LOC: HO.CARD 13:20
PROVIDERS: PCP Internal Medicine; Visit Provider Nurse Practitioner Family
DX: I48.91 Unspecified atrial fibrillation (principal)
CPT/HCPCS: 93242

== ENCOUNTER → 2024-09-14 13:22 | Outpatient (BNV) | payer OTHER, SELFPAY | PROVIDERS: PCP Internal Medicine; Visit Provider Internal Medicine Cardiovascular Disease | DX: I48.91 Unspecified atrial fibrillation (principal); I49.3 Ventricular premature depolarization | CPT/HCPCS: 93244 ==

== ENCOUNTER 2024-10-03 13:16 | Outpatient (REF) | payer OTHER, SELFPAY ==
--- NOTE | ~2024-10-03 | XR_ITS ---
EXAMINATION: XR FEMUR, RIGHT CLINICAL INFORMATION: S72.90XA - Unspecified fracture of unspecified femur, initial encounter ... COMPARISON: 08/08/2024. TECHNIQUE: AP and lateral views of the right femur were obtained. FINDINGS: Mild osteopenia. Redemonstration of ORIF of a comminuted right intertrochanteric hip fracture with intramedullary jack and femoral head compression screw. Hardware is intact, well seated, in anatomic alignment. No evidence of loosening or failure. Fracture lines are indistinct, and there is periosteal new bone formation surrounding the fracture margins consistent with interval healing. There is stable alignment of the fracture elements. The femoral head has normal contour and the right hip joint demonstrates mild degenerative changes. Moderate to severe medial greater than lateral osteoarthrosis of the imaged right knee joint. XR/XR femur RT 2V IMPRESSION: 1. ORIF of comminuted right intertrochanteric hip fracture without complication. Stable alignment with interval healing at the fracture site. Electronically signed by: Arthur Sheikh MD 10/03/2024 02:01 PM EDT
--- OUTSIDE RECORDS SUMMARY | 2024-10-03 14:06 | XMS_ITS | Clinical Summary ---
Author Organization [address] Address [address] [place] [phone] Phone Care Team Providers Care Counter Tacker Name Role Phone Robert Nelson MD Primary Care Provider Encounters Date Type Department Care Team Description 09/01/2024 Lab Requisition [facility] Lab [address] [place] [id number] Nash Ng MD Unspecified cirrhosis of liver ([facility] V24, [facility] V28); Iron deficiency anemia, unspecified; Systemic inflammatory response syndrome (sirs) of non-infectious origin without acute organ dysfunction ([facility]/HCC V24, [facility] V28); Alcohol abuse, uncomplicated; Acute on chronic diastolic (congestive) heart failure ([facility] V24, [facility] V28); Pathological fracture, hip, unspecified, subsequent encounter for fracture with routine healing 08/31/2024 Lab Requisition [facility] Lab [address] [place] [phone] Nash Ng MD Unspecified atrial fibrillation ([facility] V24, [facility] V28); Unspecified cirrhosis of liver ([facility] V24, CMS/HCC V28); Iron deficiency anemia, unspecified; Alcohol abuse, uncomplicated 08/03/2024 Lab Requisition [facility] Lab [address] [place] [phone] Nash Ng MD Unspecified atrial fibrillation ([facility] V24, [facility] V28); Hypomagnesemia; Systemic inflammatory response syndrome (sirs) of non-infectious origin without acute organ dysfunction (CMS/HCC V24, CMS/[facility] V28) 08/02/2024 Lab Requisition [facility] Lab [address] [place] [phone] aNsh Ng MD Essential (primary) hypertension; Heart failure, unspecified ([facility] V24, [facility] V28) from Last 3 Months [...] season) 2023 06/09/2023, 06/24/2021, 03/01/2021 Influenza Vaccine (#1) 2024 , 03/01/2021, 02/20/2020, Additional history exists Hypertension/CHF/CAD Annual BMP Blood Test 09/01/2025 09/01/2024, 08/03/2024, 08/02/2024 DTaP,Tdap,and Td Vaccines (4 - Td or Tdap) 09/25/2031 09/24/2021, 05/27/2010, 03/08/2000 Hepatitis A Vaccines Completed 12/16/2009, 03/07/2008, 03/16/2006 Hepatitis B Vaccines Completed 12/16/2009, 03/07/2008, 04/26/2006, Additional history exists Pneumococcal Vaccine: 50+ Years Completed 06/09/2023, 05/14/2014, 03/16/2006 Pneumococcal Vaccine: Pediatrics (0 to 5 Years) and At-Risk Patients (6 to 49 Years) Completed 06/09/2023, 05/14/2014, 03/16/2006 HIB Vaccines [...] LAB HEMETOLOGY METHOD 09/03/2024 1:35 PM EDT [facility] RBC 4.50 4.50 - 5.50 M/mcL LAB HEMETOLOGY METHOD [facility] Hemoglobin 14.0 13.5 - 17.5 g/dL LAB HEMETOLOGY METHOD 09/03/2024 1:35 PM [facility] Hematocrit 43.6 42.0 - 54.0 % LAB HEMETOLOGY METHOD 09/03/2024 1:35 PM EDT [facility] MCV 96.0 79.0 - 98.0 FL LAB HEMETOLOGY METHOD 09/03/2024 1:35 PM [facility] MCH 30.8 27.0 - 32.0 pcg LAB HEMETOLOGY METHOD 09/03/2024 1:35 PM [facility] MCHC 32.1 32.0 - 37.0 g/dL LAB HEMETOLOGY METHOD 09/03/2024 1:35 PM EDT [facility] RDW 12.6 11.0 - 15.0 % LAB HEMETOLOGY METHOD 09/03/2024 1:35 PM EDT [facility] Platelets 224 130 - 400 K/mcL LAB HEMETOLOGY METHOD 09/03/2024 1:35 PM EDT [facility] MPV 10.2 7.0 - 11.0 FL LAB HEMETOLOGY METHOD 09/03/2024 1:35 PM EDT [facility] NRBC 0.0 <1.0 % LAB HEMETOLOGY METHOD 09/03/2024 1:35 PM EDT [facility] NRBC Absolute 0.00 <0.10 K/mcL LAB HEMETOLOGY METHOD 09/03/2024 1:35 PM EDT [facility] Blood Venous blood specimen / Unknown Venipuncture / Unknown 09/03/2024 8:57 AM EDT 09/03/2024 11:52 AM EDT Nash Ng MD LAB BLOOD ORDERABLES Final R esult [facility] [address] [place] [address], * (ABNORMAL) Digoxin level (09/03/2024 8:53 AM EDT) Digoxin Lvl 0.4(L) 0.5 - 2.0 ng/mL LAB CHEMISTRY METHOD 09/03/2024 1:00 PM EDT [facility] Blood Venous blood specimen / Unknown Venipuncture / Unknown 09/03/2024 8:53 AM EDT 09/03/2024 1:00 PM EDT Nash Ng MD LAB BLOOD ORDERABLES Final R esult [facility] [address] [place] [address], [place] [phone] * (ABNORMAL) Sedimentation rate (09/01/2024 11:48 AM EDT) [facility] Sed Rate 73(H) 0 - 20 mm/hr LAB HEMETOLOGY METHOD 09/01/2024 4:19 PM EDT [facility] Blood Venous blood specimen / Unknown Venipuncture / Unknown 09/01/2024 11:48 AM EDT 09/01/2024 2:32 PM EDT Nash Ng MD LAB BLOOD ORDERABLES Final R esult Performing Organization Address City/[facility]/ZIP Co de Phone Number [facility] [address] [place] [address], * (ABNORMAL) C-reactive protein (09/01/2024 11:48 AM EDT) [facility] C-Reactive Protein 2.95(H) <=0.50 mg/dL LAB CHEMISTRY METHOD 09/01/2024 3:05 PM EDT [facility] Blood Venous blood specimen / Unknown Venipuncture / Unknown 09/01/2024 11:48 AM EDT 09/01/2024 2:32 PM EDT Nash Ng MD LAB BLOOD ORDERABLES Final R esult [facility] [address] [place] [address], [place] [phone] * Uric acid (09/01/2024 11:48 AM EDT) [facility] Uric Acid 5.9 3.7 - 9.2 mg/dL LAB CHEMISTRY METHOD 09/01/2024 3:05 PM EDT [facility] Blood Venous blood specimen / Unknown Venipuncture / Unknown 09/01/2024 11:48 AM EDT 09/01/2024 2:32 PM EDT us Nash Ng MD LAB BLOOD ORDERABLES Final R esult [facility] [address] [place] [address], [place] [phone] * (ABNORMAL) Basic metabolic panel (09/01/2024 11:48 AM EDT) Only the most recent of3 resultswithin the time period is included. Pathologist [facility] Sodium 141 133 - 145 mmol/L LAB CHEMISTRY METHOD 09/01/2024 3:05 PM [facility] Potassium 3.8 3.5 - 5.5 mmol/L LAB CHEMISTRY METHOD 09/01/2024 3:05 PM [facility] Chloride 108 96 - 110 mmol/L LAB CHEMISTRY METHOD 09/01/2024 3:05 PM [facility] CO2 27 21 - 32 mmol/L LAB CHEMISTRY METHOD 09/01/2024 3:05 PM [facility] Anion Gap 6 3 - 11 LAB CHEMISTRY METHOD 09/01/2024 3:05 PM [facility] Glucose 95 70 - 100 mg/dL LAB CHEMISTRY METHOD 09/01/2024 3:05 PM [facility] BUN 12 5 - 25 mg/dL LAB CHEMISTRY METHOD 09/01/2024 3:05 PM [facility] Creatinine 0.64(L) 0.70 - 1.30 mg/dL LAB CHEMISTRY METHOD 09/01/2024 3:05 PM [facility] eGFR 108 >=60 mL/min/1. 73m2 LAB CHEMISTRY METHOD 09/01/2024 3:05 PM [facility] Comment:Calculation based on the Chronic Kidney Disease Epidemiology Collaboration (CKD-EPI) equation refit without adjustment for race. BUN/Creatinine Ratio 18.8 LAB CHEMISTRY METHOD 09/01/2024 3:05 PM T [facility] Calcium 8.8 8.5 - 10.5 mg/dL LAB CHEMISTRY METHOD 09/01/2024 3:05 PM [facility] Blood Venous blood specimen / Unknown Venipuncture / Unknown 09/01/2024 11:48 AM EDT 09/01/2024 2:32 PM EDT Nash Ng MD LAB BLOOD ORDERABLES Final R esult [facility] [address] [place] [address], * (ABNORMAL) CBC auto differential (08/02/2024 8:00 AM EDT) WBC 6.6 4.8 - 10.8 K/mcL LAB HEMETOLOGY METHOD 08/02/2024 9:19 AM [facility] RBC 3.30(L) 4.50 - 5.50 M/mcL LAB HEMETOLOGY METHOD 08/02/2024 9:19 AM [facility] Hemoglobin 10.5(L) 13.5 - 17.5 g/dL LAB HEMETOLOGY METHOD 08/02/2024 9:19 AM [facility] Hematocrit 32.2(L) 42.0 - 54.0 % LAB HEMETOLOGY METHOD 08/02/2024 9:19 AM [facility] MCV 97.9 79.0 - 98.0 FL LAB HEMETOLOGY METHOD 08/02/2024 9:19 AM [facility] MCH 31.9 27.0 - 32.0 pcg LAB HEMETOLOGY METHOD 08/02/2024 9:19 AM [facility] MCHC 32.6 32.0 - 37.0 g/dL LAB HEMETOLOGY METHOD 08/02/2024 9:19 AM [facility] RDW 13.0 11.0 - 15.0 % LAB HEMETOLOGY METHOD 08/02/2024 9:19 AM [facility] Platelets 249 130 - 400 K/mcL LAB HEMETOLOGY METHOD 08/02/2024 9:19 AM [facility] MPV 10.6 7.0 - 11.0 FL LAB HEMETOLOGY METHOD 08/02/2024 9:19 AM [facility] NRBC 0.0 <1.0 % LAB HEMETOLOGY METHOD 08/02/2024 9:19 AM [facility] NRBC Absolute 0.00 <0.10 K/mcL LAB HEMETOLOGY METHOD 08/02/2024 9:19 AM [facility] Neutrophils Relative 62.1 % LAB HEMETOLOGY METHOD 08/02/2024 9:19 AM [facility] Lymphocytes Relative 23.4 % LAB HEMETOLOGY METHOD 08/02/2024 9:19 AM [facility] Monocytes Relative 10.8 % LAB HEMETOLOGY METHOD 08/02/2024 9:19 AM [facility] Eosinophils Relative 2.0 % LAB HEMETOLOGY METHOD 08/02/2024 9:19 AM [facility] Basophils Relative 0.6 % LAB HEMETOLOGY METHOD 08/02/2024 9:19 AM [facility] Immature Granulocytes Relative 1.1 % LAB HEMETOLOGY METHOD 08/02/2024 9:19 AM [facility] Neutrophils Absolute 4.08 1.50 - 7.00 K/mcL LAB HEMETOLOGY METHOD 08/02/2024 9:19 AM [facility] Lymphocytes Absolute 1.54 1.00 - 5.00 K/mcL LAB HEMETOLOGY METHOD 08/02/2024 9:19 AM EDT [facility] Monocytes Absolute 0.71 0.20 - 1.00 K/[facility] LAB HEMETOLOGY METHOD 08/02/2024 9:19 AM EDT [facility] Eosinophils Absolute 0.13 0.00 - 0.50 K/[facility] LAB HEMETOLOGY METHOD 08/02/2024 9:19 AM EDT [facility] Basophils Absolute 0.04 0.00 - 0.20 K/[facility] LAB HEMETOLOGY METHOD 08/02/2024 9:19 AM EDT [facility] Immature Granulocytes Absolute 0.07(H) 0.00 - 0.03 K/[facility] LAB HEMETOLOGY METHOD 08/02/2024 9:19 AM EDT [facility] Blood Venous blood specimen / Unknown Venipuncture / Unknown 08/02/2024 8:00 AM EDT 08/02/2024 8:32 AM EDT us Nash Ng MD LAB BLOOD ORDERABLES Final R esult [facility] [address] [place] [address], from Last 3 Months Insurance MEDICAID - [place] [facility] MEDICARE Member Subscriber Plan / Payer (Ef fective 2013-Present) Name:OCTAVIO CLEMENT Relation to Subscriber:Self Name:Octavio Clement Payer ID:[id number] Group ID:[id number] Type:Not on file Address: [place] [address] [address] [phone] Care Teams Counter Tacker Relationship Specialty Start Date End Date Robert Nelson MD [address] [place] [phone] PCP - General 06/04/22
== END 2024-10-03 13:17 | disposition home or self-care (01) ==
LOC: HO.HOSX 13:16
PROVIDERS: Visit Provider Physician Assistant
DX: S72.141D Displaced intertrochanteric fracture of right femur, subsequent encounter for closed fracture with routine healing (principal); M25.561 Pain in right knee
CPT/HCPCS: 73552; 99212

== ENCOUNTER 2024-10-03 13:34 | Outpatient (AMB) | payer OTHER, SELFPAY ==
--- NOTE | 2024-10-03 13:46 | A.OFFVIS_ITS ---
Intake Visit Reasons: PO- right hip IMN on 07/25/24 Intake Note: Wei is a 63 year old male who presents today for a post op right hip IMN on 07/25/24. Patient states that the pain is now in the groin. Patient reports no numbness or tingling but the pain is radiating down to the right knee. Patient reports that his right knee and right ankle are very swollen. He states that he does elevate his leg to help with the pain and swelling. No redness or pain at the incision site. Allergies No Known Allergies Allergy (Verified 10/03/24 13:53) HPI HPI PO- right hip IMN on 07/25/24: Details: 63-year-old gentleman who returns to the office today status post right hip IM nail on 07/25/2024. The patient states his hip is doing well however he complains of severe knee pain. He does have a history of arthritis. He states he has had recurrent flare-ups with swelling and was told he may have gout but states he is unsure if he is have her had a full workup for this. While in rehab he was given allopurinol which was helpful however they do not discharge him with this medication. [facility] Medical History (Updated 10/03/24 @ 14:21 by Gibran Vu PA-C) Cardiomyopathy Right scapula fracture Osteoarthritis Psoriasis Left against medical advice Chronic HFrEF (heart failure with reduced ejection fraction) Alcoholic cirrhosis of liver Alcohol intoxication Atrial fibrillation with rapid ventricular response Psoriasis Afib Surgical History History of hip surgery H/O right inguinal hernia repair Family History Mother No problems noted. Father No problems noted. 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 He is able to activate straight leg raise but has difficulty due to weakness and pain in the knee. Pulses are present he is able to dorsi and plantar flex. Results Reviewed Results Reviewed: X-rays of the right hip obtained in the office today and reviewed by me are significant for intact intramedullary nail with stable fracture alignment. Distal locking screw in the AP view of the x-ray appears to have some bending to this. Which is unchanged from previous imaging Assessment & Plan Assessment & Plan (1) Closed right hip fracture: Code(s): S72.001A - Fracture of unspecified part of neck of right femur, initial encounter for closed fracture Category: Medical Plan: The patient will continue with activities as tolerated for the right hip. I stressed the importance of working with physical therapy or continuing his home exercises to maintain her strength and conditioning. I did offer him a cortisone injection in the right knee which she declined. I encouraged him to discuss with his primary a workup for gout. I am not able to aspirate the knee today as he does not have an effusion. If there is any concerns he will contact our office otherwise he can follow up as needed. Orders: Orders XR femur RT 2V Today S72.90XA - Unspecified fracture of unspecified femur, initial encounter for closed fracture Medications: New celecoxib (Celebrex) 200 mg PO BID 60 caps 3RF 30 days Coding Level of Care Code Global (15619) Diagnoses Closed right hip fracture S72.001A
== END 2024-10-03 14:22 | disposition home or self-care (01) ==
LOC: HO.HOS 13:34
PROVIDERS: PCP Internal Medicine; Visit Provider Physician Assistant
DX: S72.001A Fracture of unspecified part of neck of right femur, initial encounter for closed fracture (principal)
CPT/HCPCS: 99024

== ENCOUNTER → 2024-10-03 13:35 | Outpatient (BNV) | payer OTHER, SELFPAY | PROVIDERS: Visit Provider Radiology Diagnostic Radiology | DX: S72.141D Displaced intertrochanteric fracture of right femur, subsequent encounter for closed fracture with routine healing (principal) | CPT/HCPCS: 73552 ==

== ENCOUNTER 2024-11-08 09:10 | Outpatient (AMB) | payer OTHER, SELFPAY ==
[2024-11-08 09:21] VITALS: BP 80/62; PULSE 68; BMI 28.4
--- NOTE | 2024-11-08 09:21 | A.OFFVIS_ITS ---
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 Allergies No Known Allergies Allergy (Verified 11/08/24 09:26) Medication List - Last Reconciled 11/08/24 by SHAUN Bell acetaminophen 650 mg PO Q6H PRN apixaban (Eliquis) 5 mg PO BID carvedilol 6.25 mg PO BID celecoxib (Celebrex) 200 mg PO BID 30 days digoxin 0.125 mg See Protocol PO DAILY doxycycline monohydrate 100 mg PO Q12H ferrous sulfate 325 mg PO BID fluoxetine 10 mg PO DAILY folic acid 1 mg PO DAILY furosemide 20 mg PO DAILY hydrocortisone 1% 1 appl See Protocol topical BID magnesium oxide 400 mg PO BIDPC midodrine 5 mg PO TIDWM quetiapine 25 mg PO BID spironolactone 25 mg PO DAILY thiamine HCl (vitamin B1) 100 mg PO DAILY topiramate 25 mg PO DAILY HPI HPI fu to discuss CVR/ holter results: Details: Wei is a 64-year-old male with past medical history of atrial fibrillation, cardiomyopathy, with prior echo 2020 showing EF 20-25% without cardiology follow-up who was recently admitted to [facility] after having a fall and sustaining right hip fracture. While hospitalized he was noted to have atrial fibrillation with RVR that was treated with heart rate control. His echocardiogram showed EF 45-50% with moderate increase in the RV size and mild decrease in RV systolic function. He did undergo ORIF and was sent to rehab. He was started on anticoagulation. He did have readmission for chest discomfort and ruled out for ACS. His CT scan showed no PE. EKG showed atrial fibrillation. He underwent holter monitor and now presents for follow up. Today he reports that he has been out of rehab since mid September and is doing generally well. He ambulates short distances with a walker. He has issues with knee and ankle pains as well as his hip discomfort. He is mostly sedentary still. He has not had any recurrent chest discomfort at rest or during activi ty. He denies concerning shortness of breath, no PND, orthopnea or significant edema. No heart palpitations, No lightheadedness, presyncope, syncope. Taking all meds as directed. No bleeding issues reported. [facility], [facility] Medical History Cardiomyopathy Right scapula fracture Osteoarthritis Psoriasis Left against medical advice Chronic HFrEF (heart failure with reduced ejection fraction) Alcoholic cirrhosis of liver Alcohol intoxication Atrial fibrillation with rapid ventricular response Psoriasis Afib Surgical History History of hip surgery H/O right inguinal hernia repair Family History Mother No problems noted. Father No problems noted. 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 Patient Tobacco Use Status: Never used Tobacco Second Hand Smoke Exposure: No service: No Current occupational status: disabled Review of Systems Const All systems reviewed & are unremarkable except as noted in HPI and below ENT Details: lightheaded at times Denies dizziness Card Denies chest pain, Denies chest pain at rest, Denies chest pain with activity, Denies rapid heart rate, Denies pedal edema, Denies edema, Denies leg edema, Denies lightheadedness, Denies palpitations, Denies dyspnea, Denies dyspnea on exertion and Denies orthopnea Resp Denies cough, Denies dyspnea and Denies dyspnea on exertion GI Denies hematochezia and Denies change in stool character Musc Details: bilateral knee pain, ankle and hip discomfort Reports abnormal gait, Reports limited range of motion, Denies muscle cramps, Denies muscle weakness, Denies numbness, Denies radiating pain into limb, Denies stiffness and Denies tingling Neuro Reports abnormal gait, Denies dizziness, Denies numbness and Denies tingling Endo Denies palpitations Physical Exam Vital Signs: Last Vital Signs Pulse 68 11/08/24 09:21 BP 80/62 L 11/08/24 09:21 BMI result Body Mass Index 28.4 Const General: cooperative, healthy appearing, comfortable and no acute distress Orientation/consciousness: patient oriented x3 Neck Neck: Yes normal visual inspection Resp Effort & Inspection: normal respiratory effort Auscultation: clear to auscultation bilaterally, no rales, no rhonchi and no wheezes Cardio Rate: regular rate Rhythm: abnormal rhythm Heart sounds: S1 normal heart sound present, S2 normal heart sound present, no gallops, no murmurs and no rubs Neuro General: patient oriented x3 Extrem Other: ambulates slowly with walker Psych Appearance: grossly normal Mental Status: mental status grossly normal Speech and movement: Normal speech and movement present Office Procedures EKG Details: Today, read by me, atrial fibrillation, with PVC, rate 68, Qtc 427ms [id number], Complete Assessment & Plan Assessment & Plan (1) Afib: Code(s): I48.91 - Unspecified atrial fibrillation Category: Medical Plan: History of atrial fibrillation 1st identified in 2020. He did not follow-up in our office and was not seen until recent hospital admission. Echocardiogram showed EF 50-55%, left atrium severely dilated. He is still in atrial fibrillation which seems persistent. Holter monitor done 09/14/2024 for 3 days shows AFib with average heart rate 89 beats per minute, occasional PVCs. EKG today showing atrial fibrillation, rate 68. He is on carvedilol and digoxin for rate control. Chads Vasc score of 1 with Congestive heart failure. On Eliquis for anticoagulation. AFib is asymptomatic. 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 Cardiology follow-up in 3 month. (2) Diastolic heart failure: Code(s): I50.30 - Unspecified diastolic (congestive) heart failure Category: Medical Plan: Evidence of Congestive heart failure on recent admission. His echocardiogram showed EF 50-55%, moderate RV dilation and mild RV dysfunction. He is discharged with Lasix 20 mg daily. On exam today he does not appear fluid overloaded. Continue carvedilol for neurohormonal modulation continue Lasix and Aldactone. Blood pressure low but he does not want to make any medication changes since he said his PCP just reduced his carvedilol. Will obtain PCPs last note for review. Signs and symptoms of heart failure reviewed with him. Reviewed low-salt diet with him. (3) Cardiomyopathy: Code(s): I42.9 - Cardiomyopathy, unspecified Category: Medical Plan: Recent EF low normal 50-55%. Prior EF known to be 20-25% which could have been heart rate related cardiomyopathy with AFib RVR. Will hold off on ischemic eval at present as he is asymptomatic. (4) Hypotension: Code(s): I95.9 - Hypotension, unspecified Category: Medical Plan: Blood pressure low today, 80/62. He is on midodrine to help with hypotension. His med list also includes carvedilol, Lasix, Aldactone -each of which can lower his blood pressure. I had recommending stopping Aldactone however patient tells me his carvedilol was just reduced from 6.25 mg b.i.d. down to 3.125 mg b.i.d.. He just picked up a pill pack with these doses and has just started them. He wants to hold off on med changes. Will review PCP no as above. Plan I discussed with the patient the need to discontinue Aldactone due to low blood pressure and the potential for lightheadedness and falls - He declines this option. We also talked about the possibility of cardioversion for atrial fibrillation and the importance of reviewing notes from Dr. Nelson, then finalizing the treatment plan. I advised the patient to increase fluid intake and consider adding salt to the diet to help manage blood pressure. Patient Instructions: - Continue current meds until instructed otherwise. - Continue anticoagulation without interruption. - Increase fluid intake and consider adding salt to your diet. - Follow up with Dr. Nelson to discuss medication adjustments. Patient was informed and verbally consented to the use of an ambient scribe for clinic note documentation during this visit. Visit time spent on chart review, interview, assessment, orders, documentation. Coding Level of Care Code Est Pt Level 4 (33817) Complex EM visit Add On G2211 Diagnoses Afib I48.91 Diastolic heart failure I50.30 Cardiomyopathy I42.9 Hypotension I95.9 CPT Codes EKG - CPT: [id number], Complete ([id number]) Time Spent (min) 32
--- OUTSIDE RECORDS SUMMARY | 2024-11-08 09:36 | XMS_ITS | Clinical Summary ---
Author Organization [address] Address [address] [place] [address] Phone Care Team Providers Care Branch Banker Name Role Phone Robert Nelson MD Primary Care Provider Encounters Date Type Department Care Team Description 09/01/[address] [facility] Lab [address] [place] [id number] Nash Ng MD Unspecified cirrhosis of liver ([facility] V24, [facility] V28); Iron deficiency anemia, unspecified; Systemic inflammatory response syndrome (sirs) of non-infectious origin without acute organ dysfunction ([facility]/HCC V24, CMS/HCC V28); Alcohol abuse, uncomplicated; Acute on chronic diastolic (congestive) heart failure (CMS/HCC V24, CMS/HCC V28); Pathological fracture, hip, unspecified, subsequent encounter for fracture with routine healing 08/31/[address] [facility] Lab [address] [place] [address] Nash Ng MD Unspecified atrial fibrillation (CMS/[facility] V24, CMS/HCC V28); Unspecified cirrhosis of liver (CMS/HCC V24, CMS/HCC V28); Iron deficiency anemia, unspecified; Alcohol abuse, uncomplicated from Last 3 Months Social History Tobacco [...] Panel) 02/27/2022 Colorectal Cancer Screening: Colonoscopy 02/27/2022 HIV Screening 02/27/2022 Hepatitis C Screening 02/27/2022 Medicare Annual Wellness Visit 02/27/2022 Social Influencers of Health Screening 02/27/2022 RSV Immunization Adult Patients (1 - Risk 60-74 years 1-dose series) 2022 COVID-19 Vaccine ( season) 2023 06/09/2023, 06/24/2021, 03/01/2021 Depression Screening 03/28/2024 Influenza Vaccine (#1) 2024 , 03/01/2021, 02/20/2020, Additional history exists Hypertension/CHF/CAD Annual BMP Blood Test 09/01/2025 09/01/2024, 08/03/2024, 08/02/2024 DTaP,Tdap,and Td Vaccines (4 - Td or Tdap) 09/25/2031 09/24/2021, 05/27/2010, 03/08/2000 Hepatitis A Vaccines Completed 12/16/2009, 03/07/2008, 03/16/2006 Hepatitis B Vaccines Completed 12/16/2009, 03/07/2008, 04/26/2006, Additional history exists Pneumococcal Vaccine: 50+ Years Completed 06/09/2023, 05/14/2014, 03/16/2006 HIB Vaccines Aged [...] 11:48 AM EDT Unspecified cirrhosis of liver ([facility] V24, [facility] V28) Iron deficiency anemia, unspecified Systemic inflammatory response syndrome (sirs) of non-infectious origin without acute organ dysfunction ([facility] V24, [facility] V28) Alcohol abuse, uncomplicated Acute on chronic diastolic (congestive) heart failure ([facility] V24, [facility] V28) Pathological fracture, hip, unspecified, subsequent encounter for fracture with routine healing COMPLETE BLOOD COUNT Routine 09/01/2024 11:48 AM EDT Unspecified cirrhosis of liver ([facility] V24, [facility] V28) Iron deficiency anemia, unspecified Systemic inflammatory response syndrome (sirs) of non-infectious origin without acute organ dysfunction ([facility] V24, [facility] V28) Alcohol abuse, uncomplicated Acute on chronic diastolic (congestive) heart failure ([facility] V24, [facility] V28) Pathological fracture, hip, unspecified, subsequent encounter for fracture with routine healing from Last 3 Months Results * Complete blood count (09/03/2024 8:57 AM EDT) Only the most recent of2 resultswithin the time period is included. WBC 5.9 4.8 - 10.8 K/mcL LAB [facility] RBC 4.50 4.50 - 5.50 M/mcL LAB HEMETOLOGY METHOD [facility] Hemoglobin 14.0 13.5 - 17.5 g/dL LAB HEMETOLOGY METHOD 09/03/2024 1:35 PM [facility] Hematocrit 43.6 42.0 - 54.0 % LAB HEMETOLOGY METHOD 09/03/2024 1:35 PM [facility] LAB MCV 96.0 79.0 - 98.0 FL LAB HEMETOLOGY METHOD 09/03/2024 1:35 PM [facility] LAB MCH 30.8 27.0 - 32.0 pcg LAB HEMETOLOGY METHOD 09/03/2024 1:35 PM EDT [facility] MCHC 32.1 32.0 - 37.0 g/dL LAB HEMETOLOGY METHOD 09/03/2024 1:35 PM EDT [facility] RDW 12.6 11.0 - 15.0 % LAB HEMETOLOGY METHOD 09/03/2024 1:35 PM EDT [facility] Platelets 224 130 - 400 K/mcL LAB HEMETOLOGY METHOD 09/03/2024 1:35 PM EDT [facility] MPV 10.2 7.0 - 11.0 FL LAB HEMETOLOGY METHOD 09/03/2024 1:35 PM EDT [facility] NRBC 0.0 <1.0 % LAB HEMETOLOGY METHOD 09/03/2024 1:35 PM EDT [facility] NRBC Absolute 0.00 <0.10 K/mcL LAB HEMETOLOGY METHOD 09/03/2024 1:35 PM EDT [facility] Blood Venous blood specimen / Unknown Venipuncture / Unknown 09/03/2024 8:57 AM EDT 09/03/2024 11:52 AM EDT Nash Ng MD LAB BLOOD ORDERABLES Final R esult [facility] [address] [place] [address], * (ABNORMAL) Digoxin level (09/03/2024 8:53 AM EDT) Digoxin Lvl 0.4(L) 0.5 - 2.0 ng/mL LAB CHEMISTRY METHOD 09/03/2024 1:00 PM EDT [facility] Blood Venous blood specimen / Unknown Venipuncture / Unknown 09/03/2024 8:53 AM EDT 09/03/2024 1:00 PM EDT Nash Ng MD LAB BLOOD ORDERABLES Final R esult Performing Organization Address City/[facility]/ZIP Co de Phone Number [facility] [address] [place] [address], [place] [phone] * (ABNORMAL) Sedimentation rate (09/01/2024 11:48 AM EDT) [facility] Sed Rate 73(H) 0 - 20 mm/hr LAB HEMETOLOGY METHOD 09/01/2024 4:19 PM EDT [facility] Blood Venous blood specimen / Unknown Venipuncture / Unknown 09/01/2024 11:48 AM EDT 09/01/2024 2:32 PM EDT Nash Ng MD LAB BLOOD ORDERABLES Final R esult Performing Organization Address [facility] Co de Phone Number [facility] [address] [place] [address], [place] [phone] * (ABNORMAL) C-reactive protein (09/01/2024 11:48 AM EDT) [facility] C-Reactive Protein 2.95(H) <=0.50 mg/dL LAB CHEMISTRY METHOD 09/01/2024 3:05 PM EDT [facility] Blood Venous blood specimen / Unknown Venipuncture / Unknown 09/01/2024 11:48 AM EDT 09/01/2024 2:32 PM EDT us Nash Ng MD LAB BLOOD ORDERABLES Final R esult Performing Organization Address City/[facility]/ZIP Co de Phone Number [facility] [address] [place] [address], [place] [phone] * Uric acid (09/01/2024 11:48 AM EDT) Uric Acid 5.9 3.7 - 9.2 mg/dL LAB CHEMISTRY METHOD 09/01/2024 3:05 PM [facility] Blood Venous blood specimen / Unknown Venipuncture / Unknown 09/01/2024 11:48 AM EDT 09/01/2024 2:32 PM EDT Nash Ng MD LAB BLOOD ORDERABLES Final R esult [facility] [address] [place] [address], [place] [phone] * (ABNORMAL) Basic metabolic panel (09/01/2024 11:48 AM EDT) Pathologist [facility] Sodium 141 133 - 145 mmol/L LAB CHEMISTRY METHOD 09/01/2024 3:05 PM [facility] Potassium 3.8 3.5 - 5.5 mmol/L LAB CHEMISTRY METHOD 09/01/2024 3:05 PM [facility] Chloride 108 96 - 110 mmol/L LAB CHEMISTRY METHOD 09/01/2024 3:05 PM [facility] CO2 27 21 - 32 mmol/L LAB CHEMISTRY METHOD 09/01/2024 3:05 PM [facility] Anion Gap 6 3 - 11 LAB CHEMISTRY METHOD 09/01/2024 3:05 PM [facility] Glucose 95 70 - 100 mg/dL LAB CHEMISTRY METHOD 09/01/2024 3:05 PM [facility] BUN 12 5 - 25 mg/dL LAB CHEMISTRY METHOD 09/01/2024 3:05 PM [facility] Creatinine 0.64(L) 0.70 - 1.30 mg/dL LAB CHEMISTRY METHOD 09/01/2024 3:05 PM [facility] eGFR 108 >=60 mL/min/1. 73m2 LAB CHEMISTRY METHOD 09/01/2024 3:05 PM EDT [facility] Comment:Calculation based on the Chronic Kidney Disease Epidemiology Collaboration (CKD-EPI) equation refit without adjustment for race. BUN/Creatinine Ratio 18.8 LAB CHEMISTRY METHOD 09/01/2024 3:05 PM EDT [facility] Calcium 8.8 8.5 - 10.5 mg/dL LAB CHEMISTRY METHOD 09/01/2024 3:05 PM EDT [facility] Blood Venous blood specimen / Unknown Venipuncture / Unknown 09/01/2024 11:48 AM EDT 09/01/2024 2:32 PM EDT us Nash Ng MD LAB BLOOD ORDERABLES Final R esult [facility] [address] [place] [address], [place] [phone] from Last 3 Months Insurance MEDICAID - [place] [facility] MEDICARE Member Subscriber Plan / Payer (Ef fective 2013-Present) Name:OCTAVIO CLEMENT Relation to Subscriber:Self Name:Octavio Clement Payer ID:[id number] Group ID:[id number] Type:Not on file Address: [address] [place] [id number] Care Teams Branch Banker Relationship Specialty Start Date End Date Robert Nelson MD [address] [place] [id number] PCP - General 06/04/22
== END 2024-11-08 10:25 | disposition home or self-care (01) ==
LOC: HO.HCS 09:12
PROVIDERS: Visit Provider Nurse Practitioner Family
DX: I48.91 Unspecified atrial fibrillation (principal); I50.30 Unspecified diastolic (congestive) heart failure; I42.9 Cardiomyopathy, unspecified; I95.9 Hypotension, unspecified
CPT/HCPCS: 99214; G2211

== ENCOUNTER → 2024-11-08 09:10 | Outpatient (BNVA) | payer OTHER, SELFPAY | PROVIDERS: Visit Provider Nurse Practitioner Family | DX: Z71.2 Person consulting for explanation of examination or test findings (principal); I50.30 Unspecified diastolic (congestive) heart failure; I48.91 Unspecified atrial fibrillation; I42.9 Cardiomyopathy, unspecified; I95.9 Hypotension, unspecified | CPT/HCPCS: 93005; 99212 ==

== ENCOUNTER 2025-01-16 08:08 | Outpatient (REF) | payer OTHER, SELFPAY | END 2025-01-16 08:09 | disposition home or self-care (01) | LOC: HO.HOSX 08:08 | PROVIDERS: Visit Provider Physician Assistant | DX: Z13.89 Encounter for screening for other disorder (principal) ==

== ENCOUNTER 2025-02-13 09:49 | Outpatient (AMB) | payer OTHER, SELFPAY ==
[2025-02-13 09:58] VITALS: BP 100/52; PULSE 62; BMI 29.5
--- NOTE | 2025-02-13 09:58 | A.OFFVIS_ITS ---
Vital Signs 02/13/25 09:58 Height 5 ft 8 in Weight 194 lb 0.108 oz BMI 29.5 BP 100/52 L Blood Pressure Location Lt brachial Position Sitting Pulse 62 Pulse Source Pulse Oximeter Intake Visit Reasons: 3m follow up Intake Note: 3 m Follow up Broker In Charge Required: No Allergies No Known Allergies Allergy (Verified 02/13/25 10:00) Medication List - Last Reconciled 02/13/25 by Jovani Miner MD apixaban (Eliquis) 5 mg PO BID celecoxib (Celebrex) 200 mg PO BID 30 days digoxin 0.125 mg See Protocol PO DAILY doxycycline monohydrate 100 mg PO Q12H ferrous sulfate 325 mg PO BID fluoxetine 10 mg PO DAILY folic acid 1 mg PO DAILY furosemide 20 mg PO DAILY hydrocortisone 1% 1 appl See Protocol topical BID magnesium oxide 400 mg PO BIDPC metoprolol succinate ER 25 mg PO DAILY midodrine 5 mg PO TIDWM quetiapine 25 mg PO BID spironolactone 25 mg PO DAILY thiamine HCl (vitamin B1) 100 mg PO DAILY topiramate 25 mg PO DAILY HPI Comments Details: Wei comes for follow-up. He has gets symptoms of exertional shortness of breath although denies any orthopnea, PND. Says overall he feels well. He recently had hip surgery in his still recuperating from that. Denies any lightheaded episodes. Although very difficult to confirm what medications he is taking as he is not able to reconcile his medications for me. He is not even sure whether he is getting Eliquis. He said visiting nurse comes 3 times a day to check his blood pressure and then accordingly gives him midodrine if need be. Although this is not confirmed. COUNTS INCLUDE 234 BEDS AT THE [facility] Medical History Cardiomyopathy Right scapula fracture Osteoarthritis Psoriasis Left against medical advice Chronic HFrEF (heart failure with reduced ejection fraction) Alcoholic cirrhosis of liver Alcohol intoxication Atrial fibrillation with rapid ventricular response Psoriasis Afib Surgical History History of hip surgery H/O right inguinal hernia repair Family History Mother No problems noted. Father No problems noted. 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 Patient Tobacco Use Status: Never used Tobacco Second Hand Smoke Exposure: No service: No Current occupational status: disabled Review of Systems Const Denies daytime sleepiness, Denies difficulty sleeping, Denies snoring, Denies stops breathing during sleep and Denies weakness Card Denies chest pain, Denies rapid heart rate, Denies irregular heart rhythm, Denies claudication, Denies leg edema, Denies lightheadedness, Denies palpitations, Denies dyspnea, Denies dyspnea on exertion, Denies orthopnea, Denies paroxysmal nocturnal dyspnea and Denies slow heart rate Resp Denies cough, Denies dyspnea, Denies dyspnea on exertion and Denies snoring GI Reports no additional complaints, Denies hematochezia, Denies change in stool character and Denies dyspepsia Musc Denies abnormal gait, Denies muscle weakness and Denies numbness Neuro Denies abnormal gait, Denies numbness and Denies weakness Endo Denies palpitations Physical Exam Vital Signs: Last Vital Signs Pulse 62 02/13/25 09:58 BP 100/52 L 02/13/25 09:58 BMI result Body Mass Index 29.5 Const General: cooperative, healthy appearing, comfortable and no acute distress Orientation/consciousness: patient oriented x3 Neck Neck: Yes normal visual inspection Resp Effort & Inspection: normal respiratory effort Auscultation: clear to auscultation bilaterally, no rales, no rhonchi and no wheezes Cardio Rhythm: abnormal rhythm Heart sounds: S1 normal heart sound present, S2 normal heart sound present, no gallops, no murmurs and no rubs Neuro General: patient oriented x3 Extrem Other: ambulates slowly with walker Psych Appearance: grossly normal Mental Status: mental status grossly normal Speech and movement: Normal speech and movement present Assessment & Plan Assessment & Plan (1) Afib: Code(s): I48.91 - Unspecified atrial fibrillation Category: Medical Plan: Persistent atrial fibrillation, duration unclear although appears like patient is not tolerating atrial fibrillation well although he says he is doing well at this point time. He has limited functionality at this point time due to recent hip surgery. We discussed given his age and cardiovascular morbidity including heart failure syndrome as well as orthostatic hypotension may benefit from rhythm control approach. However given the duration of atrial fibrillation will most likely require antiarrhythmic drug support. However he is not even sure that he is taking his oral anticoagulation therapy. Once we confirm this I have suggested that we would load him with amiodarone 400 mg b.i.d. to for 2 weeks followed by 200 mg daily and then perform synchronized cardioversion. If this is confirmed his digoxin will need to be discontinued. Continue metoprolol. We discussed about need for synchronized cardioversion maintaining rhythm control approach. He has seemed not completely comprehending although understood. We are going to try to reconcile his meds with visiting nurse her pharmacy. Synchronized cardioversion in 3 weeks' time. We discussed risks, benefits, alternatives to the procedure. (2) Congestive heart failure: Code(s): I50.9 - Heart failure, unspecified Category: Medical Plan: Heart failure syndrome with significant LV systolic dysfunction setting of atrial fibrillation rapid ventricular response with LV ejection fraction having improved last checked June with rhythm control approach. Now back in atrial fibrillation. I would strongly recommend to pursue rhythm control approach. Can not tolerate much neurohormonal modulation due to orthostatic hypotension currently on midodrine therapy that as required. Currently on metoprolol and spironolactone therapy and low-dose Lasix. Clinically appears to be euvolemic. Continue the same. I think his heart failure syndrome will improve once he is back in normal sinus rhythm. Will follow with him after cardioversion in 2 months time, sooner PRN. Thank you for allowing me to partake in his care Coding Level of Care Code Est Pt Level 4 (23324) Complex EM visit Add On G2211 Diagnoses Afib I48.91 Congestive heart failure I50.9
--- OUTSIDE RECORDS SUMMARY | 2025-02-13 18:13 | XMS_ITS | Data Portability ---
Author Organization [employer] [facility], [facility] in[facility] [facility] Address [address] [place] [address] Care Team Providers Care V Belt Curer Name Role Phone [facility] Referring Provider Assessment Encounter Date Assessment Date Assessment LastModified by Organization Details LastModified Time 09/30/2022 09/30/2022 Mr. Wei Wang is a 61yoM w/ a PmHx of AUD, psoriasis, HTN, and lymphedema who is seen today for further evaluation of b/l LE edema. Mr. Wang reports that he hasn't taken any of his prescribed medications in several months, but is interested in re-initiating those medications. Johnathan was called today by a caregiver who noted that he has had progressive b/l LE edema. He denies shortness of breath or chest pain and otherwise reports he feels well. VSS. Television Program Director on site reports that he has 3+ b/l pitting edema with clear lung sounds. POC labs with hypokalemia but normal creatinine. He is given 20mg of IV lasix and 40meq PO potassium for diuresis today and is encouraged to f/u with his primary team to refill all of his medications. Primary team, Mr. Wang is interested in restarting his medications and would benefit from a visit for a medication list run-through and refills as appropriate. [email or web address] Not available 09/30/2022 12:57:37 Plan of Treatment Reminders Order Date Submit Date Provider Last Modified By Organization Details Last Modified Time Details Appointments None recorded . Lab None recorded . Referral None recorded . Procedures None recorded . Surgeries None recorded . Imaging None recorded . Medication Orders Lasix 20 mg tablet 023 10/01/19 23 [email or web address] Not available 3 12:57:29 Patient TargetsNo targets recorded. Patient InstructionsNo instructions recorded. Reason for Referral None Reported. Medical Equipment None Reported. Medications Name Sig Start Date Stop Date Status Note LastModified by Organization Details LastModified Time pimecrolimus 1 % topical cream active Not Available Not Availa ble Not Available triamcinolone acetonide 0.1 % topical cream active Not Available Not Availabl e Not Available fluocinonide 0.05 % topical solution active Not Available Not Available Not Available Vitals Date Recorded Oxygen saturation Oxygen saturation in Arterial blood by Pulse oximetry Body weight Heart rate Body temperature Respiratory rate Systolic And Diastolic Provider Name and Address Organization Details Last Updated DateTime 3 99 % 99 % 74883.7 84 g 78 /min 98.4 [degF] 18 /min 166/99 mm[Hg] Not Available [facility] - production 3 12:27:09 Social History None recorded. Functional Status None recorded. Mental Status None recorded. Family History Nothing Reported. Medical History No medical history recorded. Past Encounters Encounter ID Performer Location Encounter Start Date Encounter Closed Date Diagnosis/Indication Diagnosis SNOMED-CT Code Diagnosis ICD10 Code Diagnosis IMO Codes Diagnosis Note [id number] Aarti Fields MD Main - [facility] [address] [place] [phone] 09/30/2022 12:26:51 09/30/2022 23:15:49 Peripheral edema 307003520 R60.9 Health Concerns Section Related Observation LastModified by Organization Detai ls LastModified Time None Recorded Concern Status LastModified by Organization Details LastModified Time None Recorded Advance Directives Directive None Recorded Payers Insurance Date Sequence Insurance Name Policy Number Policy Yu Covered Member ID Yu Member ID Guarantor Name 08/20/2023 1 [facility] - DOS ON OR AFTER 2022 - DUAL ELIGIBLE - CORRECTION OPTIONS AND ONE CARE (MEDICARE REPLACEMENT/ADV ANTAGE - HMO) Wei Wang [id number] Wei Wang Notes Date Note Type Note Provider Name and Address Organization Details Recorded Time 09/30/2022 text/html HPI: Significant edema on both lower extremities>knee down, both feet both very swollen as well, much for than what a usual baseline would be. Symptoms going on more than week>Pt is a historian but [facility] reports its the worst she has ever seen. *FYI, labile, very sweet to very angry....its just his nature, no safety warning.....verbal ly can get tizzy but pt is harmless Behavioral Health Clinician Noreen reports. .................. .................. .................. .................. .................. .................. .................. ............... CRC Nursing Assessment: Comments: Review request no further information needed to process visit .................. .................. .................. .................. .................. .................. .................. ............... Television Program Director Note From Conrad Porter: [facility] call initiated by [employer] who was on scene with pt . HEALTH CARE / [employer] sts call is for increased LLE and pt has unspecified psych hx and has not taken any daily meds for approx 3 months. Of note, pt is prescribed spironolactone, furosemide and propranolol. Pt denies any CP, SOB, FELIZ or f/n/v/d . Pt is alert, no distress. VSS. Afebrile. Neuro exam and gait normal. Lungs CTA. ABD unremarkable . Bilateral +3 pitting LLE. POC BMP performed; K+ 3. 0, BUN 8, Crea 0 . 8 . Pt treated with 20 mg IV furosemide and 40 mEq PO potassium ER. C to put in note for PCP's office to f/u with pt for daily med prescriptions. Pt instructed to seek emergent medical care for new or worsening sx, which are reviewed with him. .................. .................. .................. .................. .................. .................. .................. ............... Disposition: Fulfilled Aarti Fields MD [address] [facility],[address], [place], [address], TINA PELLETIER 09/30/2022 12:57:44
== END 2025-02-13 10:29 | disposition home or self-care (01) ==
PROVIDERS: PCP Internal Medicine; Visit Provider Internal Medicine Cardiovascular Disease
DX: I48.91 Unspecified atrial fibrillation (principal); I50.9 Heart failure, unspecified
CPT/HCPCS: 99214; G2211

== ENCOUNTER → 2025-02-13 09:49 | Outpatient (BNVA) | payer OTHER, SELFPAY | PROVIDERS: Visit Provider Internal Medicine Cardiovascular Disease | DX: I48.91 Unspecified atrial fibrillation (principal); I50.9 Heart failure, unspecified | CPT/HCPCS: 99212 ==

== ENCOUNTER 2025-03-07 08:38 | Day surgery (SDC) | payer OTHER, SELFPAY ==
[2025-03-07 09:09] VITALS: BP 132/93; PULSE 78; RESP 19; TEMP 36.4; O2SAT 95; BMI 28.7
--- NOTE | 2025-03-07 09:19 | PC.NURSE ---
right hip repain few mths ago
--- NOTE | 2025-03-07 10:48 | HO.ANESPROP2 ---
HPI - Anesthesia Eval Consult details Narrative: 64 yo M presenting for cardioversion. [facility] Active Problems Active Problems: All Active Problems (Updated 02/14/25 @ 12:26 by Jovani Miner MD) Congestive heart failure (Acute) Hypotension (Acute) Closed right hip fracture (Acute) Hospital discharge follow-up (Acute) Cardiomyopathy (Acute) Afib (Acute) SIRS (systemic inflammatory response syndrome) (Acute) Right hip pain (Acute) Diastolic heart failure (Acute) Sepsis (Acute) Septic joint (Acute) Acute on chronic blood loss anemia (Acute) Acute lactic acidosis (Acute) Hyponatremia (Acute) Weakness (Acute) Fall (Acute) Acute kidney injury (Acute) Laceration (Acute) Chronic HFrEF (heart failure with reduced ejection fraction) (Acute) Past Medical History Medical History Cardiomyopathy Right scapula fracture Osteoarthritis Psoriasis Left against medical advice Chronic HFrEF (heart failure with reduced ejection fraction) Alcoholic cirrhosis of liver Alcohol intoxication Atrial fibrillation with rapid ventricular response Psoriasis Afib Family History Family History Mother No problems noted. Father No problems noted. Family history of problems with anesthesia: No Surgical History Surgical History History of hip surgery H/O right inguinal hernia repair History of Problems with Anesthesia: No Social History 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 Patient Tobacco Use Status: Never used Tobacco Second Hand Smoke Exposure: No Have you been hit, kicked, punched, or otherwise hurt by someone within the past year? If so, by whom?: No Advance Directives: No Advance Directives Information Provided: Yes service: No Current occupational status: disabled Meds Allergies Allergy/AdvReac Type Severity Reaction Status Date / Time No Known Allergies Allergy Verified 02/13/25 10:00 Home Medications ?Medication ?Instructions ?Recorded ?Confirmed ?Last Taken ?Type fluoxetine 10 mg capsule 10 mg PO DAILY 07/24/24 02/13/25 Unknown History quetiapine 25 mg tablet 25 mg PO BID 07/24/24 02/13/25 Unknown History spironolactone 25 mg tablet 25 mg PO DAILY 07/24/24 02/13/25 Unknown History thiamine HCl (vitamin B1) 100 mg 100 mg PO DAILY 07/24/24 02/13/25 Unknown History tablet topiramate 25 mg tablet 25 mg PO DAILY 07/24/24 02/13/25 Unknown History Exam Exam Date and Time: 03/07/25 1045 Height,Weight and Vital Signs: Height 5 ft 8 in Weight 85.5 kg Last Vital Signs Temp 97.5 F 03/07/25 09:09 Pulse 78 03/07/25 09:09 Resp 19 03/07/25 09:09 BP 132/93 H 03/07/25 09:09 Pulse Ox 95 03/07/25 09:09 O2 Del Method Room Air 03/07/25 09:09 Airway Mallampati Class: II TM Dist: >3cm Neck ROM: Full Loose/Missing/Broken Teeth: No (patient denies any loose or broken teeth) Heart: S1S2 Lungs: CTAB Assessment and Plan Assessment Anesthesia Assessment: Anesthesia Plan Discussed and Chart Reviewed Final Anesthetic Review Family History of Problems with Anesthesia: No History of Problems with Anesthesia: No NPO: Yes ASA Class: III Final Preanesthetic Review: No Changes in Pt Med Stat, Meds/Allgs Chart Reviewed, Consent Obtained/Reviewed and Anes Risks/Benef Reviewed Patient Risk: Intermediate Procedure Risk: Intermediate Anesthetic Plan Anesthetic Plan: MAC: and Agree w/ Assess. and Plan Disposition: Standard PACU
--- NOTE | 2025-03-07 11:02 | MHC.SHP ---
Pre-Procedural Eval Section A - 24 Hr Update-Section A only Date of Service: 03/07/25 The patient is an INPATIENT: No Changes since office visit: Yes Changes in Medication and Yes Patient answered all questions; No Cold of Flu in the past 2 weeks and No New Medical Problems The patient has been examined within 24 hours of the surgical procedure. The History & Physical has been completed within 30 days and I have reviewed it.: Yes Section B - Complete if H&P > 30 days Chief Complaint: Cardiomyopathy, unspecified Allergies: Allergies Allergy/AdvReac Type Severity Reaction Status Date / Time No Known Allergies Allergy Verified 02/13/25 10:00 Plan I have reviewed the history and physical and performed a pertinent physical examination on my patient. No changes have occurred unless specified. Time Spent With Patient Time: Total time managing care of this patient today ____ minutes.
[2025-03-07 11:16] VITALS: BP 116/70; PULSE 66; RESP 16; TEMP 36.6; O2SAT 95
--- NOTE | 2025-03-07 11:20 | ECG_ITS ---
Test Reason : Status post cardioversion Blood Pressure : */* mmHG Vent. Rate : 67 BPM Atrial Rate : 67 BPM P-R Int : 198 ms QRS Dur : 96 ms QT Int : 458 ms P-R-T Axes : 45 0 54 degrees QTcB Int : 483 ms Sinus rhythm with Premature supraventricular complexes Low voltage QRS Prolonged QT Abnormal ECG When compared with ECG of 07-Aug-2024 11:32, Sinus rhythm has replaced Atrial fibrillation ST no longer elevated in Lateral leads QT has lengthened Referred By: Jovani Mnier Electronically Signed By: JOVANI MINER MD
[2025-03-07 11:21] VITALS: BP 122/82; PULSE 66; RESP 19; O2SAT 95
[2025-03-07 11:26] VITALS: BP 109/62; PULSE 66; RESP 13; O2SAT 95
[2025-03-07 11:37] VITALS: BP 110/71; PULSE 69; RESP 13; TEMP 36.6; O2SAT 95
--- NOTE | 2025-03-07 11:42 | HO.CARDIVERS ---
Cardioversion Procedure Note Cardioversion Date of Procedure: 03/07/2025 Ordering Provider: Rl Miner Performing Provider: Rl Miner Indication for Procedure: Persistent atrial fibrillation Pre-Op Diagnosis: Same Post-Op Diagnosis: Sinus rhythm Performed with Transesophageal Echo: No History: See my office note Consent: Verbal and Written consent was obtained from the patient before starting and after giving 1 dose of Eliquis this morning and confirming use of amiodarone. The patient was made aware of the risk of synchronized cardioversion including benefits and alternatives Procedure: After consent obtained, cardioversion pads were attached in anteroposterior configuration and the patient was sedated by the anesthesia team. Once adequate sedation achieved, patient was delivered 200 joules of biphasic synchronized energy in anteroposterior configuration x2 Complications: None Impression: Successful conversion to sinus rhythm Recommendations: 1. 12 lead EKGs 2. Continue amiodarone as well as oral anticoagulation therapy 3. Follow up in the clinic in 4 weeks time
== END 2025-03-07 11:40 | disposition home or self-care (01) ==
PROVIDERS: PCP Internal Medicine; Visit Provider Internal Medicine Cardiovascular Disease
PROC: 5A2204Z Restoration of Cardiac Rhythm, Single (ICD-10-PCS; principal; 2025-03-07 11:00)
DX: I48.19 Other persistent atrial fibrillation (principal); I42.9 Cardiomyopathy, unspecified; I50.22 Chronic systolic (congestive) heart failure; Z79.01 Long term (current) use of anticoagulants; Z79.899 Other long term (current) drug therapy; Z98.890 Other specified postprocedural states
CPT/HCPCS: 92960; 93005; J2704

== ENCOUNTER → 2025-03-07 08:38 | Outpatient (BNV) | payer OTHER, SELFPAY | PROVIDERS: PCP Internal Medicine; Visit Provider Internal Medicine Cardiovascular Disease | DX: I48.19 Other persistent atrial fibrillation (principal); I49.3 Ventricular premature depolarization | CPT/HCPCS: 92960; 93010 ==